=== PATIENT | male | born 1960 | race Caucasian/White ===

== ENCOUNTER 2022-03-15 11:37 | Emergency (ER) | payer MEDICAID, SELFPAY ==
[2022-03-15 11:46] VITALS: BP 156/84; PULSE 97; RESP 18; TEMP 36.2; O2SAT 96; BMI 38.0
--- NOTE | 2022-03-15 11:57 | CRLHL7_ITS ---
For Patients: As a result of the Century Cures Act, medical imaging exams and procedure reports are released immediately into your electronic medical record. You may view this report before your referring provider. If you have questions, please contact your health care provider. CLINICAL HISTORY: Swollen red pain TECHNIQUE: A compression venous ultrasound exam was performed of the right lower extremity using curtis-scale imaging, color Doppler and spectral Doppler analysis. FINDINGS: Sonographic imaging of the right lower extremity demonstrates normal compressibility and color Doppler venous blood flow within the common femoral vein, deep femoral vein, and the proximal greater saphenous vein. Within the thigh, the femoral vein is patent and compressible. At a lower level, the popliteal and posterior tibial veins also show normal compressibility and color Doppler venous blood flow. Limited imaging of the contralateral groin demonstrates a normal spectral waveform and color Doppler venous blood flow within the left common femoral vein. Partial compressibility a superficial vein in the right medial calf. IMPRESSION: No evidence of deep vein thrombosis within the right lower extremity. Thrombus in the right medial calf superficial vein. Dictated by Candi Mcleod MD @ 03/15/2022 1:57:43 PM (Electronically Signed)
--- NOTE | 2022-03-15 11:58 | ED.GENADULT ---
HPI - General Adult General Chief complaint: Extremity Pain/Injury, Lower Stated complaint: Rt leg sore and swollen Time Seen by Provider: 03/15/22 11:54 Source: patient Mode of arrival: ambulatory Limitations: no limitations History of Present Illness HPI narrative: 61-year-old male coming in today complaining of right-sided calf pain. States that the pain started yesterday. Patient denies any shortness of breath, cough, dizziness or lightheadedness. No recent illness. States that he was on an airplane from [place] exactly 2 weeks ago. He denies any recent surgeries. He is not a smoker any has no history of blood clots. Today patient is concerned about a blood clot. Related Data Home Medications Medication Instructions Recorded Confirmed verapamil 180 mg tablet,extended 180 mg PO DAILY 10/03/21 03/14/22 release naproxen 500 mg tablet 500 mg PO QDAY 11/27/21 03/14/22 Previous Rx's Medication Instructions Recorded losartan 100 1 tab PO QDAY Hypertension #90 tabs 12/04/21 mg-hydrochlorothiazide 12.5 mg tablet lorazepam 1 mg tablet 1 mg PO BID PRN anxiety #60 tabs 03/05/22 tramadol 50 mg tablet 50 mg PO Q8H PRN pain #90 tabs 03/05/22 Allergies Allergy/AdvReac Type Severity Reaction Status Date / Time penicillin V Allergy Unknown Verified 03/14/22 09:17 ropinirole AdvReac Intermediate Hot flash, Verified 03/14/22 09:17 dry heaves Review of Systems Status of ROS: Reports: 10 or more systems reviewed and unremarkable except as noted in History and below PFSH PFSH Medical History Anxiety Bilateral hip pain Bilateral knee pain Burn of lower extremity Bursitis History of cluster headache Pain Surgical History History of excision of dermoid cyst (1975) History of skin graft (1964) Family History Father Colon cancer, Onset Age: 57 Lung cancer Social History Narrative: 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 Alert and oriented. Answers questions appropriately. Mood and affect are appropriate. Thoughts are goal oriented and rational. No tangential or magical thinking noted. Patient speaks in full sentences without needing to catch their breath. HEENT: Normocephalic atraumatic. Pupils are equally round reactive to light. Extraocular muscles are intact. Conjunctivae are moist without any icterus noted. Cardiovascular: Regular rate and rhythm. Lungs: Clear to auscultation bilaterally. Extremities: Right lower extremity shows trace to 1+ pitting edema. Patient has skin grafting scars on the posterior calf and thigh from when he was an . He has a small area of the mid medial calf that is more tender than the rest of the calf with some mild erythema present. Negative Homans. Const: Vital Signs, click to edit/add: Vital Signs - 24 hr 03/15/22 11:46 03/15/22 13:48 Temperature 97.2 F L Pulse Rate [Right Pulse Oximeter] 97 71 Respiratory Rate 18 16 Blood Pressure [Ri ght Upper Arm] 156/84 H 145/85 H Pulse Oximetry 96 95 Oxygen Delivery Me thod Room Air Room Air Course Course Hospital Course: Given the patient's recent flight and somewhat dispersed discomfort of the calf area we did go ahead and proceed with a extremity ultrasound. This showed a superficial thrombus, no DVT. Vital Signs Vital signs: Initial Vital Signs Temperature 97.2 F L 03/15/22 11:46 Temperature Source Temporal Artery Scan 03/15/22 11:46 Pulse Rate 97 03/15/22 11:46 Respiratory Rate 18 03/15/22 11:46 Blood Pressure 156/84 H 03/15/22 11:46 Blood Pressure Mean 108 03/15/22 11:46 Blood Pressure Position Sitting 03/15/22 11:46 Pulse Oximetry 96 03/15/22 11:46 Oxygen Delivery Method 03/15/22 11:46 Vital Signs Temperature 97.2 F L 03/15/22 11:46 Pulse Rate 97 03/15/22 11:46 Respiratory Rate 18 03/15/22 11:46 Blood Pressure 156/84 H 03/15/22 11:46 Pulse Oximetry 96 03/15/22 11:46 Oxygen Delivery Method 03/15/22 11:46 Temperature 97.2 F L 03/15/22 11:46 Pulse Rate 71 03/15/22 13:48 Respiratory Rate 16 03/15/22 13:48 Blood Pressure 145/85 H 03/15/22 13:48 Pulse Oximetry 95 03/15/22 13:48 Oxygen Delivery Method 03/15/22 13:48 Medical Decision Making MDM Narrative Medical decision making narrative: 61 year-old male with a superficial lower leg thrombus. Patient is on daily Naprosyn will continue to do that. We discussed warm compresses, compression stockings and physical activity. Patient had no other questions Imaging Data Venous US: Attestation: I have reviewed the pertinent imaging results. Radiologist's impression: TECHNIQUE: A compression venous ultrasound exam was performed of the right lower extremity using curtis-scale imaging, color Doppler and spectral Doppler analysis. FINDINGS: Sonographic imaging of the right lower extremity demonstrates normal compressibility and color Doppler venous blood flow within the common femoral vein, deep femoral vein, and the proximal greater saphenous vein. Within the thigh, the femoral vein is patent and compressible. At a lower level, the popliteal and posterior tibial veins also show normal compressibility and color Doppler venous blood flow. Limited imaging of the contralateral groin demonstrates a normal spectral waveform and color Doppler venous blood flow within the left common femoral vein. Partial compressibility a superficial vein in the right medial calf. IMPRESSION: No evidence of deep vein thrombosis within the right lower extremity. Thrombus in the right medial calf superficial vein. Discharge Plan Discharge Clinical Impression: Acute superficial venous thrombosis of right lower extremity Patient Disposition: Home, Self-Care Condition: Stable Additional Instructions: Continue your regular Naprosyn. Use warm compress to the leg several times per day, do not apply heat directly to skin. Recommend compression stockings when on airplanes. Make sure to increase physical activity as we discussed. Prescriptions: No Action verapamil 180 mg tablet extended release 180 mg PO DAILY naproxen 500 mg tablet 500 mg PO QDAY losartan-hydrochlorothiazide 100-12.5 mg tablet 1 tab PO QDAY Qty: 90 3RF tramadol 50 mg tablet 50 mg PO Q8H PRN (Reason: pain) Qty: 90 2RF lorazepam 1 mg tablet 1 mg PO BID PRN (Reason: anxiety) Qty: 60 0RF Follow Up/Referrals: Spencer Caotes MD [Primary Care Provider] - Stand Alone Forms: [facility] Info Instructions
[2022-03-15 13:48] VITALS: BP 145/85; PULSE 71; RESP 16; O2SAT 95
--- OUTSIDE RECORDS SUMMARY | 2022-03-19 14:37 | XMS_ITS ---
:1960 Author Organization [facility] Care a t [facility] Address [address] [place] [id number]- Encounter 09/01/21 - 09/01/[address] [facility] at [facility] [address] [place] [id number]- [facility] Encounter Diagnosis Elevated blood pressure reading (Discharge Diagnosis) - 09/01/21 COVID (Discharge Diagnosis) - 09/01/21 Attending Physician: JANIE Curry Jessica Admitting Physician: JANIE Curry Jessica Referring Physician: SELF-REFERRED, Problem List Condition Effective Dates Status Health Status Informant Obesity(Confirmed) Active Allergies, Adverse Reactions, Alerts Substance Reaction Severity Status penicillin Active Medications LORazepam 0 Refill(s), Rx or Hx Med Start Date: 09/01/21 Status: Orderedlosartan PO, Daily, 0 Refill(s), Rx or Hx Med Start Date: 09/01/21 Status: Orderedmolnupiravir 200 mg oral capsule 800 mg = 4 cap, Take with or without food for 5 days, PO, q12h, # 40 cap, 0 Refill(s), Indication: COVID-19, Pharmacy: [facility]/pharmacy #[id number], Rx or Hx Med, 175, 09/01/21 18:41:00 EDT, cm, Height/Length Dosing, 111, 09/01/21 18:41:00 EDT, kg, Weight Dosing Start Date: 09/03/21 Stop Date: 09/08/21 Status: Orderednaproxen PO, 0 Refill(s), Rx or Hx Med Start Date: 09/01/21 Status: OrderedtraMADol PO, Daily, 0 Refill(s), Rx or Hx Med Start Date: 09/01/21 Status: Orderedverapamil 0 Refill(s), Rx or Hx Med Start Date: 09/01/21 Status: Ordered Results Laboratory List Name Date Bill For AMB POC COVID Antigen Testing 92500 09/01/21 Most recent to oldest [Reference Range]: 1 POC COVID-19 Positive Comment_BD Normal Range = Negati ve. Positive results do not rule out bacterial infection or co-infection with other viruses. (09/01/21 6:45 PM) POC Rapid COVID-19 BD Veritor Antigen Positive (09/01/21 6:45 PM) Social History Social History Type Response Sex Male Vital Signs Most recent to oldest [Reference Range]: 1 2 Temperature Oral [36-37.8 DegC] 37.2 DegC (09/01/21 6:24 PM) Peripheral Pulse Rate [60-100 bpm] 94 bpm (09/01/21 6:24 PM) Respiratory Rate [12-20 BR/min] 17 BR/min (09/01/21 6:24 PM) Blood Pressure [90-140/60-90 mmHg] 179/79 mmHg 184/8 1 mmHg *HI* *HI* (09/01/21 6:53 PM) (09/01/21 6:24 PM) BP Obtained ? Yes PC Adult Intake (09/01/21 6:24 PM) Height/Length Dosing [129-213 cm] 175 cm (09/01/21 6:24 PM) Body Mass Index Dosing 36.24 kg/m2 (09/01/21 6:24 PM) Weight Dosing 111 kg (09/01/21 6:24 PM) Hospital Discharge Instructions Patient Djeyrcwiv05/05/2022 12:26:27Molnupitavir Fact Sheet_July 2021 Fact Sheet for Patients And Caregivers Emergency Use Authorization (EUA) Of LAGEVRIO??? (molnupiravir) capsules For Coronavirus Disease 2019 (COVID-19) What is the most important information I should know about LAGEVRIO? LAGEVRIO may cause serious sideeffects, including: ??? LAGEVRIO may cause harm to your unborn baby. It is not known if LAGEVRIO will harm your baby if you take LAGEVRIO during . o LAGEVRIO is not recommended for use in . o LAGEVRIO has not been studied in . LAGEVRIO was studied in animals only. When LAGEVRIO was given to animals, LAGEVRIO caused harm to their unborn babies. o You and your healthcare provider may decide that you should take LAGEVRIO during if there are no other COVID-19 treatment options approved or authorized by the FDA that are accessible or clinically appropriate for you. o If you and your healthcare provider decide that you should take LAGEVRIO during , you andyour healthcare provider should discuss the known and potential benefits and the potential risks of taking LAGEVRIO during . For individuals who are able to become : ??? You should use a reliable method of control (contraception) consistently and correctly during treatment with LAGEVRIO and for 4 days after the last dose of LAGEVRIO. Talk to your healthcare provider about reliable control methods. ??? Before starting treatment with LAGEVRIO your healthcare provider may do a test to see if you are before starting treatment with LAGEVRIO. ??? Tell your healthcare provider right away if you become or think you may be during treatment with LAGEVRIO. Surveillance Program: ??? There is a surveillance program for individuals who take LAGEVRIO during . The purpose of this program is to collect information about the health of you and your baby. Talk to your healthcare provider about how to take part in this program. ??? If you take LAGEVRIO during and you agree to participate in the surveillanceprogram and allow your healthcare provider to share your information with [employer], then your healthcare provider will report your use of LAGEVRIO during to [employer]. by calling or pregnancyreporting.[employer]. For individuals who are sexually active with partners who are able to become : ??? It is not known if LAGEVRIO can affect sperm. While the risk is regarded as low, animal studies to fully assess the potential for LAGEVRIO to affect the babies of males treated with LAGEVRIO have not been completed. A reliable method of control (contraception) should be used consistently andcorrectly during treatment with LAGEVRIO and for at least 3 months after the last dose. The risk to sperm beyond 3 months is not known. Studies to understand the risk to sperm beyond 3 months are ongoing. Talk to your healthcare provider about reliable control methods. Talk to your healthcare provider if you have questions or concerns about how LAGEVRIO may affect sperm. You are being given this fact sheet because your healthcare provider believes it is necessary to provide you with LAGEVRIO for the treatment of adults with fvcm-pm-cpwlzmde coronavirus disease 2019 (COVID-19) with positive results of direct SARS-CoV-2 viral testing, and who are at high risk for progression to severe COVID-19 including hospitalization or , and for whom other COVID-19 treatment options approved or authorized by the FDA are not accessible or clinically appropriate. The [place]. Food and Drug Administration (FDA) has issued an Emergency Use Authorization (EUA) to make LAGEVRIO available during the COVID-19 pandemic (for more details about an EUA please see ???What is an Emergency Use Authorization??? at the end of this document). LAGEVRIO is not an FDA-approved medicine in the [place]. Read this Fact Sheet for information about LAGEVRIO. Talk to your healthcare provider about your options if you have any questions. It is your choice to take LAGEVRIO. What is COVID-19? COVID-19 is caused by a virus called a coronavirus. You can get COVID-19 through close contact with another person who has the virus. COVID-19 illnesses have ranged from very kfmf-zi-mbaqtg, including illness resulting in . Whileinformation so far suggests that most COVID-19 illness is mild, serious illness can happen and may cause some of your other medical conditions to become worse. Older people and people of all ages with severe, long lasting (chronic) medical conditions like heart disease, lung disease and diabetes, for example seem to be at higher risk of being hospitalized for COVID-19. What is LAGEVRIO? LAGEVRIO is an investigational medicine used to treat slmo-pv-neiphkaa COVID-19 in adults: ??? with positive results of direct SARS-CoV-2 viral testing, and ??? who are at high risk for progression to severe COVID-19 including hospitalization or , and for whom other COVID-19 treatment options approved or authorized by the FDA are not accessible or clinically appropriate. The FDA has authorized the emergency use of LAGEVRIO for the treatment of mild-to- moderate COVID-19in adults under an EUA. For more information on EUA, see the ???What is an Emergency Use Authorization (EUA)??? section at the end of this Fact Sheet. LAGEVRIO is not authorized: ??? for use in people less than 18 years of age. ??? for prevention of COVID-19. ??? for people needing hospitalization for COVID-19. ??? for use for longer than 5 consecutive days. What should I tell my healthcare provider before I take LAGEVRIO? Tell your healthcare provider if you: ??? Have any allergies ??? Are or plan to breastfeed ??? Have any serious illnesses ??? Are taking any medicines (prescription, pqcg-chx-tlldoxe, vitamins, or herbal products). How do I take LAGEVRIO? Take LAGEVRIO exactly as your healthcare provider tells you to take it. ??? Take 4 capsules of LAGEVRIO every 12 hours (for example, at 8 am and at 8 pm) ??? Take LAGEVRIO for 5 days. It is important that you complete the full 5 days of treatment with LAGEVRIO. Do not stop taking LAGEVRIO before you complete the full 5 days of treatment, even if you feel better. ??? Take LAGEVRIO with or without food. ??? You should stay in isolation for as long as your healthcare provider tells you to. Talk to your healthcare provider if you are not sure about how to properly isolate while you have COVID-19. ??? Swallow LAGEVRIO capsules whole. Do not open, break, or crush the capsules. If you cannot swallow capsules whole, tell your healthcare provider. ??? What to do if you miss a dose: o If it has been less than 10 hours since the missed dose, take it as soon as you remember o If it has been more than 10 hours since the missed dose, skip the missed dose and take your dose at the next scheduled time. ??? Do not double the dose of LAGEVRIO to make up for a missed dose. What are the important possible side effects of LAGEVRIO? See, ???What is the most important information I should know about LAGEVRIO? Allergic Reactions. Allergic reactions can happen in people taking LAGEVRIO, even after only 1 dose. Stop taking LAGEVRIO and call your healthcare provider right away if you get any of the following symptoms of an allergic reaction: o hives o rapid heartbeat o trouble swallowing or breathing o swelling of the mouth, lips, or face o throat tightness o hoarseness o skin rash The most common side effects of LAGEVRIO are: ??? diarrhea ??? nausea ??? dizziness These are not all the possible side effects of LAGEVRIO. Not many people have taken LAGEVRIO. Serious and unexpected side effects may happen. This medicine is still being studied, so it is possible that all of the risks are not known at this time. What other treatment choices are there? Veklury (remdesivir) is FDA-approved as an intravenous (IV) infusion for the treatment of mild- to-moderate COVID-19 in certain adults and children. Talk with your doctor to see if Veklury is appropriate for you. Like LAGEVRIO, FDA may also allow for the emergency use of other medicines to treat people with COVID-19. Go to https://www.fda.gov/saxxmsmnr-ivxgvlaewoal-ece-response/mcm-legal- vqnqimuipu-jsx-dyqjpt-framework/ojsbmkxok-reb-mwbtrlayjxprr for more information. It is your choice to be treated or not to be treated with LAGEVRIO. Should you decide not to take it, it will not change your standard medical care. What if I am ? is not recommended during treatment with LAGEVRIO and for 4 days after the last dose of LAGEVRIO. If you are or plan to breastfeed, talk to your healthcare provider about your options and specific situation before taking LAGEVRIO. How do I report side effects with LAGEVRIO? Contact your healthcare provider if you have any side effects that bother you or do not go away. Report side effects to FDA MedWatch at www.fda.gov/medwatch or call 2-216-OMC-2387 (1- 136.125.4596). How should I store LAGEVRIO? Store LAGEVRIO capsules at room temperature between 68??F to 77??F (20??C to 25??C). ??? Keep LAGEVRIO and all medicines out of the reach of children and pets. How can I learn more about COVID-19? Ask your healthcare provider. ??? Visit www.cdc.gov/COVID19 ??? Contact your local or state public health department. ? ? Call [employer] at (toll free in the [place] ??? Visit www.NetIQ What Is an Emergency Use Authorization (EUA)? The [place] FDA has made LAGEVRIO available under an emergency access mechanism called an Emergency Use Authorization (EUA) The EUA is supported by a [employer] of Health and Human Service ([facility]) declaration that circumstances exist to justify emergency use of drugs and biological products during the COVID-19 pandemic. LAGEVRIO for the treatment of qjbb-ry-admbrnta COVID-19 in adults with positive results of direct SARS-CoV-2 viral testing, who are at high risk for progression to severe COVID-19, including hospitalization or , and for whom alternative COVID-19 treatment options approved or authorized by FDA arenot accessible or clinically appropriate, has not undergone the same type of review as an FDA-approved product. In issuing an EUA under the COVID-19 public health emergency, the FDA has determined, among other things, that based on the total amount of scientific evidence available including data from adequate and well- controlled clinical trials, if available, it is reasonable to believe that the product may be effective for diagnosing, treating, or preventing COVID-19, or a serious or life-threatening disease or condition caused by COVID-19; that the known and potential benefits of the product, when used to diagnose, treat, or prevent such disease or condition, outweigh the known and potential risks of such product; and that there are no adequate, approved, and available alternatives. All of these criteria must be met to allow for the product to be used in the treatment of patients during the COVID-19 pandemic. The EUA for LAGEVRIO is in effect for the duration of the COVID-19 declaration justifying emergency use of LAGEVRIO, unless terminated or revoked (after which LAGEVRIO may no longer be used under the EUA). M[employer]ika. for: [employer] [address] For patent information: www.Evo[employer]/research/patent Copyright ?? 2020-XX [employer] [place], [place], [place] and its affiliates. All rights reserved. [id number] Revised: July 2021 09/01/2021 19:20:[id number] COVID-19, also known as coronavirus disease or novel coronavirus, is caused by a type of virus that causes respiratory illness. This may lead to inflammation and the buildup of mucus and fluids in the airway of the lungs (pneumonia). There are many different coronaviruses. Most of these viruses only affect animals, but sometimes these viruses can change and infect people. What are the causes? This illness is caused by a virus. You may catch the virus by: ??? Breathing in droplets from an infected person's cough or sneeze. ??? Touching something, like a table or a doorknob, that was exposed to the virus (contaminated) andthen touching your mouth, nose, or eyes. ??? Being around animals that carry the virus, or eating uncooked or undercooked meat or animal products that contain the virus. What increases the risk? You are more likely to develop this condition if you: ??? Live in or travel to an area with a COVID-19 outbreak. ??? Come in contact with a sick person who recently traveled to an area with a COVID-19 outbreak. ??? Provide care for or live with a person who is infected with COVID-19. What are the signs or symptoms? COVID-19 causes respiratory illness that can lead to pneumonia. Symptoms of pneumonia may include: ??? A fever. ??? A cough. ??? Difficulty breathing. How is this diagnosed? This condition may be diagnosed based on: ??? Your signs and symptoms, especially if: ??? You live in an area with a COVID-19 outbreak. ??? You recently traveled to or from an area where the virus is common. ??? You provide care for or live with a person who was diagnosed with COVID-19. ??? A physical exam. ??? Lab tests, which may include: ??? A nasal swab to take a sample of fluid from your nose. ??? A throat swab to take a sample of fluid from your throat. ??? A sample of mucus from your lungs (sputum). ??? Blood tests. How is this treated? There is no medicine to treat COVID-19. Your health care provider will talk with you about ways to treat your symptoms. This may include rest, fluids, and guiy-cgc-pdmgnzi medicines. Follow these instructions at home: Lifestyle ??? Use a cool-mist humidifier to add moisture to the air. This can help you breathe more easily. ??? Do not use any products that contain nicotine or tobacco, such as cigarettes, e-cigarettes, and chewing tobacco. If you need help quitting, ask your health care provider. ??? Rest at home as told by your health care provider. ??? Return to your normal activities as told by your health care provider. Ask your health care provider what activities are safe for you. General instructions ??? Take xyow-ecs-ecxeufn and prescription medicines only as told by your health care provider. ??? Drink enough fluid to keep your urine pale yellow. ??? Keep all follow-up visits as told by your health care provider. This is important. How is this prevented? To protect yourself: ??? Do not travel to areas where COVID-19 is a risk. The areas where COVID-19 is reported change often. To identify high-risk areas, check the CDC travel website: wwwnc.cdc.gov/travel/notices ??? If you live in, or must travel to, an area where COVID-19 is a risk, take precautions to avoid infection. ??? Stay away from people who are sick. ??? Stay away from places where there are animals that may carry the virus. This includes places where animals and animal products are sold. Note that both living and animals can carry the virus. ??? Wash your hands often with soap and water. If soap and water are not available, use an alcohol-based hand technical illustrations map inker. ??? Avoid touching your mouth, face, eyes, or nose. To protect others: If you have symptoms, take steps to prevent the virus from spreading to others. ??? If you think you have a COVID-19 infection, contact your health care provider right away. Tell your health care team that you think you may have a COVID-19 infection. ??? Stay home. Leave your house only to seek medical care. ??? Do not travel while you are sick. ??? Wash your hands often with soap and water. If soap and water are not available, use alcohol-based hand technical illustrations map inker. ??? Stay away from other members of your household. If possible, stay in your own room, separate from others. Use a different bathroom. ??? Make sure that all people in your household wash their hands well and often. ??? Cough or sneeze into a tissue or your sleeve or elbow. Do not cough or sneeze into your hand or into the air. ??? Wear a face mask. Where to find more information ??? Centers for Disease Control and Prevention: www.cdc.gov/coronavirus/2019-ncov/index.html ??? World Health Organization: www.who.int/health-topics/coronavirus Contact a health care provider if: ??? You have traveled to an area where COVID-19 is a risk and you have symptoms of the infection. ??? You have contact with someone who has traveled to an area where COVID-19 is a risk and you have symptoms of the infection. Get help right away if: ??? You have trouble breathing. ??? You have chest pain. Summary ??? COVID-19 is caused by a type of virus that causes respiratory illness. This may lead to inflammation and the buildup of mucus and fluids in the airway of the lungs (pneumonia). ??? You are more likely to develop this condition if you live in or travel to an area with a COVID-19 outbreak. ??? There is no medicine to treat COVID-19. Your health care provider will talk with you about ways to treat your symptoms. ??? Take steps to protect yourself and others from infection. Wash your hands often. Stay away from other people who are sick and wear a mask if you are sick. This information is not intended to replace advice given to you by your health care provider. Make sure you discuss any questions you have with your health care provider. Document Released: 03/24/2019 Document Revised: 06/14/2019 Document Reviewed: 03/24/2019 [employer] Patient Education ?? 2020 [employer] 09/01/2021 19:19:32FAQs for COVID-19 Treatments Frequently Asked Questions (FAQs) for COVID-19 Treatments Updated August 07, 2021 Q: What are oral antivirals and how do they work? A: Oral antivirals are medicines taken by mouth that help the body fight off viruses that cause disease. If you are at risk for serious COVID-19 and you have tested positive for COVID-19 within the past 5 days, you may be eligible for the prescription oral antiviral pills. Two treatments are available: ??Paxlovid???([employer]) and??Molnupiravir??([employer]). You may qualify for one of these COVID-19 treatments depending on your age, health history, current medications and how long you have had symptoms. Oral antiviral treatments help your body fight COVID-19 by stopping the SARS-CoV-2 virus (the virus that causes COVID-19) from multiplying in your body, lowering the amount of the virus within your body, or helping your immune system. By getting treatment, you could have less serious symptoms and may lower the chances of your illness getting worse and needing care in the hospital. Q: How to I qualify for Paxlovid or Molnupiravir? A: You may be eligible for oral antiviral treatment if you: ??? Have tested positive for COVID-19 ??? Are at high risk of getting more serious symptoms ??? Are not in the hospital but have mild to moderate symptoms for 5 days or less ??? To be eligible for Molnupiravir, you must be at least 18 years of age. To be eligible for Paxlovid, you must be at least 12 years of age and weigh at least 88 pounds. Q: What if I take other medications or have underlying health conditions, such as kidney or liver problems? A: Before taking any medication, you should discuss your health history with your healthcare professional. This includes telling them about any health conditions you may already have and prescribed medications, inyx-udt-nuczurd medications, vitamins, and supplements you are taking. People with any kidney or liver problems should talk to their healthcare professional about their condition before taking an oral antiviral medication. Your healthcare professional can decide if an oral antiviral treatment is right for you and if your dose is appropriate. Some treatments may not be recommended for people with certain conditions or may require adjustments to doses of medications you are currently taking Q: What if I am , planning to become , my partner is planning to become or are ? A: You should inform your healthcare professional if you are , could become , or arebreastfeeding before taking an oral antiviral. Even men, with partners that are trying to conceive, need to notify your healthcare provider if considering an antiviral medication. Your healthcare professional can decide if an oral antiviral treatment is an option for you. Oral antivirals could affect your control and you may be advised to use other additional birthcontrol methods. control considerations are important for both men and women. Ask your healthcare professional for more information about control before taking oral antivirals. Q: How do I take the oral antivirals and what are the side effects? A: Getting oral antiviral treatment for COVID-19 means that you will be taking pills. You should take the oral antiviral treatment as directed by your healthcare professional. Do not skip doses or takeextra doses if you miss a dose. You should take all of the treatment as directed until you have completed them or until your healthcare professional tells you to stop. Oral antivirals may be taken withor without food and it is recommended that the pills are swallowed whole, without breaking or crushing them. Some of the common side effects include, change in taste, upset stomach or diarrhea. Q: What if I have risk factors for severe COVID 19 but do not qualify for an oral antiviral treatment? Is there another option? A: If your healthcare professional decides that you do not qualify for an oral antiviral treatment, you could be eligible for the intravenous monoclonal antibody treatment. This medication boosts immunity by giving the body antibodies to protect itself. This treatment is in very limited supply. The med ication when available will be given at specific hospital-based locations and only for patients not eligible for the oral treatments. Eligible patients must be 12 years of age or older, have mild to moderative symptoms and be at high risk for progression of COVID-19 disease. Patients given this medication must be monitored for 1 hour following the treatment before being discharged home. Q: Is one of the treatment options better than another? A: The research is changing rapidly. Based on the current studies available on these medications, the availability of the medications and in consultation with our infectious disease specialists: ??? Paxlovid has been shown to prevent hospitalization and in 89% of unvaccinated patients when compared to placebo (no treatment) based on the EPIC- HR trial ??? Molnupirivir has been shown to prevent hospitalization in 30% of unvaccinated patients when compared to placebo (no treatment) based on the MOVE- OUT trial ??? Monoclonal antibody infusion is shown to prevent hospitalization in 34% of unvaccinated patientswhen compared to placebo (no treatment) based on the BLAZE 4 Trial Q: What if I complete the medication and then my symptoms return? A: Between 2 and 8 days after initial recovery, some patients may have COVID-19 symptoms (COVID Rebound) or a new positive viral test after having tested negative. This can be part of the natural history of the virus. Limited information currently available from case reports suggests that persons treated with Paxlovid who experience COVID-19 rebound have had mild illness; there are no reports of severe disease. There is currently no evidence that additional treatment is needed with Paxlovid or othertherapies in cases where COVID-19 rebound is suspected. Q: How do I know when to stop isolating from my family, friends, and co-workers? A: The CDC has a link on their website to advise you on how long to isolate and provide additional guidance: https://www.cdc.gov/coronavirus/2019-ncov/your-health/quarantine-isolation.html
== END 2022-03-15 14:36 | disposition home or self-care (01) ==
PROVIDERS: Emergency Provider Family Medicine; PCP Internal Medicine
DX: I82.811 Embolism and thrombosis of superficial veins of right lower extremity (principal)
CPT/HCPCS: 93971; 99284; 99285

== ENCOUNTER 2022-03-26 14:55 | Observation (INO) | payer MEDICAID, SELFPAY ==
[2022-03-26] VITALS (17 sets, daily range): BP systolic 161–193; BP diastolic 89–111; PULSE 62–83; RESP 16–18; TEMP 36.3–36.4; O2SAT 91–98; BMI 33.2; BMI 37.3
--- NOTE | 2022-03-26 15:17 | CRLHL7_ITS ---
For Patients: As a result of the Century Cures Act, medical imaging exams and procedure reports are released immediately into your electronic medical record. You may view this report before your referring provider. If you have questions, please contact your health care provider. INDICATION: Shortness of breath. TECHNIQUE: CT chest PE was acquired with 95 cc Omnipaque 350 IV contrast. COMPARISON: None. FINDINGS: Heart and vasculature: Contrast opacification of the pulmonary arterial tree is adequate. Acute pulmonary embolism in the distal right main pulmonary artery extending into the right upper/middle/lower segmental/subsegmental pulmonary arteries. Additional acute pulmonary embolism in the left lower lobe segmental/subsegmental pulmonary arteries. Heart size is normal. Mild flattening of the intraventricular septum which could suggest early right heart strain. Thoracic aorta and pulmonary artery are normal in caliber. Coronary artery calcifications. Lungs and pleura: No suspicious nodules or infiltrates. No pleural effusions, pleural thickening, or pneumothorax. Lymph nodes/mediastinum: No mediastinal, hilar, or axillary adenopathy. Chest wall: No masses. Upper abdomen: No acute or significant findings. Bones: Unremarkable for age. IMPRESSION: Acute pulmonary embolism in the distal right main pulmonary artery extending into the right upper/middle/lower segmental/subsegmental pulmonary arteries, as well as additional acute pulmonary embolism in the left lower lobe segmental/subsegmental pulmonary arteries. Mild flattening of the intraventricular septum which could suggest early right heart strain. Case discussed with Dr. Millan are at 5:38 p.m. on 03/26/2022. Please note that all CT scans at this facility use dose modulation, iterative reconstruction, and/or weight-based dosing when appropriate to reduce radiation dose to as low as reasonably achievable. Dictated by David Pham MD @ 03/26/2022 7:32:32 PM (Electronically Signed)
--- NOTE | 2022-03-26 15:19 | ED.GENADULT ---
HPI - General Adult General Time Seen by Provider: 15:19 <David Gonzalez MD - Last Filed: 03/27/22 10:39> Date Seen: 03/26/22 <David Gonzalez MD - Last Filed: 03/27/22 10:39> Chief complaint: Shortness of Breath/Dyspnea <David Gonzalez MD - Last Filed: 03/27/22 10:39> Stated complaint: Blood clot <David Gonzalez MD - Last Filed: 03/27/22 10:39> Time Seen by Provider: 03/26/22 15:14 <David Gonzalez MD - Last Filed: 03/27/22 10:39> Source: patient <David Gonzalez MD - Last Filed: 03/27/22 10:39> Mode of arrival: ambulatory <David Gonzalez MD - Last Filed: 03/27/22 10:39> Limitations: no limitations <David Gonzalez MD - Last Filed: 03/27/22 10:39> History of Present Illness HPI narrative: Francis is a 61 year old male with past medical history includes 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 Since Thursday he has had increasing worsened this exertionally short of breath, patient denies any orthopnea, he has not had any cough, chest pain or fevers, no history of any PEs or DVTs in the past, no history of any CAD. The pain in his right lower calf has improved, swelling is still present. No other concerns at this time. <David Gonzalez MD - Last Filed: 03/27/22 10:39> Related Data Home medications: Home Medications Medication Instructions Recorded Confirmed verapamil 180 mg tablet,extended 180 mg PO DAILY 10/03/21 03/27/22 release naproxen 500 mg tablet 500 mg PO BIDWM 11/27/21 03/27/22 aspirin 325 mg tablet,delayed 325 mg PO DAILY 03/27/22 03/27/22 release (Aspir-Leticia) losartan 100 1 tab PO DAILY Hypertension 03/27/22 03/27/22 mg-hydrochlorothiazide 12.5 mg tablet tramadol 50 mg tablet 25 mg PO Q8H PRN pain 03/27/22 03/27/22 Previous Rx's Medication Instructions Recorded lorazepam 1 mg tablet 1 mg PO BID PRN anxiety #60 tabs 03/05/22 <David Gonzalez MD - Last Filed: 03/27/22 10:39> Allergies/adverse reactions: Allergies Allergy/AdvReac Type Severity Reaction Status Date / Time penicillin V Allergy Unknown Verified 03/26/22 15:02 ropinirole AdvReac Intermediate Hot flash, Verified 03/26/22 15:02 dry heaves <David Gonzalez MD - Last Filed: 03/27/22 10:39> Review of Systems Status of ROS: Reports: 10 or more systems reviewed and unremarkable except as noted in History and below <David Gonzalez MD - Last Filed: 03/27/22 10:39> [facility] Medical History: Medical History Anxiety Bilateral hip pain Bilateral knee pain Burn of lower extremity Bursitis History of cluster headache Pain <David Gonzalez MD - Last Filed: 03/27/22 10:39> Surgical History: Surgical History History of excision of dermoid cyst (1975) History of skin graft (1964) <David Gonzalez MD - Last Filed: 03/27/22 10:39> Family History: Family History Father Colon cancer, Onset Age: 57 Lung cancer <David Gonzalez MD - Last Filed: 03/27/22 10:39> Social History: Social History Narrative: 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 Neck: No JVD, supple Lungs: Clear to auscultation bilaterally Heart Normal sinus rhythm S1-S2 Abdomen: non tender to palpation. Muscle skeletal: Right lower extremity medial aspect chronic scar, minimal tenderness to palpation, no palpable cord, chronic erythema CMS intact. <David Gonzalez MD - Last Filed: 03/27/22 10:39> Const: Vital Signs, click to edit/add: Vital Signs - 24 hr 03/26/22 15:02 03/26/22 15:43 03/26/22 17:30 Temperature 97.4 F L Pulse Rate Pulse Rate [Pulse Oximeter] 82 62 Respiratory Rate 18 16 Blood Pressure Blood Pressure [Ri ght Upper Arm] 193/111 H 161/91 H Pulse Oximetry 93 93 96 Oxygen Delivery Me thod Room Air Room Air 03/26/22 18:00 03/26/22 18:30 03/26/22 20:15 Temperature Pulse Rate Pulse Rate [Pulse Oximeter] 66 64 83 Respiratory Rate 16 16 16 Blood Pressure Blood Pressure [Ri ght Upper Arm] 171/95 H 166/92 H Pulse Oximetry 96 95 94 Oxygen Delivery Me thod Room Air 03/26/22 21:10 03/26/22 21:24 03/26/22 21:30 Temperature Pulse Rate 81 80 Pulse Rate [Pulse Oximeter] 77 Respiratory Rate 16 Blood Pressure Blood Pressure [Ri ght Upper Arm] 173/96 H Pulse Oximetry 94 94 91 Oxygen Delivery Me thod Room Air 03/26/22 21:32 03/26/22 21:45 03/26/22 22:00 Temperature Pulse Rate 77 71 79 Pulse Rate [Pulse Oximeter] Respiratory Rate Blood Pressure 173/97 H Blood Pressure [Ri ght Upper Arm] Pulse Oximetry 92 97 95 Oxygen Delivery Me thod Room Air 03/26/22 22:02 Temperature Pulse Rate 82 Pulse Rate [Pulse Oximeter] Respiratory Rate Blood Pressure 167/96 H Blood Pressure [Ri ght Upper Arm] Pulse Oximetry 98 Oxygen Delivery Me thod <David Gonzalez MD - Last Filed: 03/27/22 10:39> Vital Signs, click to edit/add: Vital Signs - 24 hr 03/26/22 15:02 03/26/22 15:43 03/26/22 17:30 Temperature 97.4 F L Pulse Rate Pulse Rate [Pulse Oximeter] 82 62 Respiratory Rate 18 16 Blood Pressure Blood Pressure [Ri ght Upper Arm] 193/111 H 161/91 H Pulse Oximetry 93 93 96 Oxygen Delivery Me thod Room Air Room Air 03/26/22 18:00 03/26/22 18:30 03/26/22 20:15 Temperature Pulse Rate Pulse Rate [Pulse Oximeter] 66 64 83 Respiratory Rate 16 16 16 Blood Pressure Blood Pressure [Ri ght Upper Arm] 171/95 H 166/92 H Pulse Oximetry 96 95 94 Oxygen Delivery Me thod Room Air 03/26/22 21:10 03/26/22 21:24 03/26/22 21:30 Temperature Pulse Rate 81 80 Pulse Rate [Pulse Oximeter] 77 Respiratory Rate 16 Blood Pressure Blood Pressure [Ri ght Upper Arm] 173/96 H Pulse Oximetry 94 94 91 Oxygen Delivery Me thod Room Air 03/26/22 21:32 03/26/22 21:45 03/26/22 22:00 Temperature Pulse Rate 77 71 79 Pulse Rate [Pulse Oximeter] Respiratory Rate Blood Pressure 173/97 H Blood Pressure [Ri ght Upper Arm] Pulse Oximetry 92 97 95 Oxygen Delivery Me thod Room Air 03/26/22 22:02 Temperature Pulse Rate 82 Pulse Rate [Pulse Oximeter] Respiratory Rate Blood Pressure 167/96 H Blood Pressure [Ri ght Upper Arm] Pulse Oximetry 98 Oxygen Delivery Me thod <Edin Mayo MD - Last Filed: 03/26/22 22:18> Course Course Hospital Course: 3:15 PM: AIDET performed. Less likely pulmonary embolism, will still obtain D-dimer, troponin, EKG, CBC, BMP and NT proBNP, CT chest angiogram PE study, vitals are stable. <David Gonzalez MD - Last Filed: 03/27/22 10:39> Reevaluation(s) Reevaluation #1: Differential diagnosis for shortness of breath include pulmonary embolism, pneumonia, bronchitis, viral etiology, heart failure, CAD/OR, pneumothorax as well as all etiologies. Patient was updated on his EKG results, no acute changes compared to previous, D-dimer was elevated at 2.4, troponin negative, labs are otherwise normal. <David Gonzalez MD - Last Filed: 03/27/22 10:39> Time: 20:16 <David Gonzalez MD - Last Filed: 03/27/22 10:39> Reevaluation #2: CT chest angiogram PE study did show bilateral PEs, worrisome for some early right heart strain. Will plan to call [facility] speak with long wall mining machine tender regarding management. Spoke with Dr. Restrepo long wall mining machine tender. not candidate for thombolytics at this time. Recommended admission for transthoracic echocardiogram, to start patient on heparin over the next 24 hours then transition to oral anticoagulation. Vitals have been stable. <David Gonzalez MD - Last Filed: 03/27/22 10:39> Time: 20:22 <David Gonzalez MD - Last Filed: 03/27/22 10:39> Reevaluation #3: Spoke with Dr. Huang, she accepts care of the patient to a [facility] surgery bed. Patient to be started on heparin, patient was in agreement this plan. <David Gonzalez MD - Last Filed: 03/27/22 10:39> Time: 20:57 <David Gonzalez MD - Last Filed: 03/27/22 10:39> Additional Reevaluation(s): 22:00 patient was signed over to me by pending admission to medical-surgical, with the diagnosis pulmonary emboli, he has a hemodynamically stable, not requiring oxygen at the present time. He has been given heparin by <Edin Mayo MD - Last Filed: 03/26/22 22:18> Vital Signs Vital signs: Initial Vital Signs Temperature 97.4 F L 03/26/22 15:02 Temperature Source Temporal Artery Scan 03/26/22 15:02 Pulse Rate 82 03/26/22 15:02 Respiratory Rate 18 03/26/22 15:02 Blood Pressure 193/111 H 03/26/22 15:02 Blood Pressure Mean 138 03/26/22 15:02 Pulse Oximetry 93 03/26/22 15:02 Oxygen Delivery Method 03/26/22 15:02 Vital Signs Temperature 97.4 F L 03/26/22 15:02 Pulse Rate 82 03/26/22 15:02 Respiratory Rate 18 03/26/22 15:02 Blood Pressure 193/111 H 03/26/22 15:02 Pulse Oximetry 93 03/26/22 15:02 Oxygen Delivery Method 03/26/22 15:02 Temperature 97.8 F 03/27/22 07:00 Pulse Rate 79 03/27/22 07:50 Respiratory Rate 20 03/27/22 07:00 Blood Pressure 156/95 H 03/27/22 07:00 Pulse Oximetry 93 03/27/22 08:00 Oxygen Delivery Method 03/27/22 07:00 <David Gonzalez MD - Last Filed: 03/27/22 10:39> Initial Vital Signs Temperature 97.4 F L 03/26/22 15:02 Temperature Source Temporal Artery Scan 03/26/22 15:02 Pulse Rate 82 03/26/22 15:02 Respiratory Rate 18 03/26/22 15:02 Blood Pressure 193/111 H 03/26/22 15:02 Blood Pressure Mean 138 03/26/22 15:02 Pulse Oximetry 93 03/26/22 15:02 Oxygen Delivery Method 03/26/22 15:02 Vital Signs Temperature 97.4 F L 03/26/22 15:02 Pulse Rate 82 03/26/22 15:02 Respiratory Rate 18 03/26/22 15:02 Blood Pressure 193/111 H 03/26/22 15:02 Pulse Oximetry 93 03/26/22 15:02 Oxygen Delivery Method 03/26/22 15:02 Temperature 97.8 F 03/27/22 07:00 Pulse Rate 79 03/27/22 07:50 Respiratory Rate 20 03/27/22 07:00 Blood Pressure 156/95 H 03/27/22 07:00 Pulse Oximetry 93 03/27/22 08:00 Oxygen Delivery Method 03/27/22 07:00 <Edin Mayo MD - Last Filed: 03/26/22 22:18> Medical Decision Making MDM Narrative Medical decision making narrative: During the evaluation of this patient I considered multiple differential diagnosis is. The life-threatening differential diagnosis include coronary disease/OR, pulmonary embolism, pneumothorax, pneumonia, and aortic dissection. Other differential diagnosis included but were not limited to pericarditis, myocarditis, chest wall pain, GERD, esophageal rupture, rib fracture contusion, pleurisy, as well as other etiologies. <Edin Myao MD - Last Filed: 03/26/22 22:18> Medical Records Medical records reviewed: Yes I reviewed the patient's medical records <Edin Mayo MD - Last Filed: 03/26/22 22:18> Lab Data Lab results reviewed: Yes I reviewed the patient's lab results <Edin Mayo MD - Last Filed: 03/26/22 22:18> Labs: Lab Results 03/26/22 03/26/22 03/26/22 Range/Units 15:20 15:26 15:26 WBC (4.50-11.00) K/uL RBC (4.30-5.90) m/uL Hgb (13.5-17.5) gm/dL Hct (37.0-53.0) % MCV (80-100) fL MCH (26-34) pg MCHC (32-36) gm/dL RDW Coeff of Reza (11.5-15.5) % Plt Count (140-440) K/uL Neut % (Auto) (42.0-72.0) % Lymph % (Auto) (20-44) % [place] % (Auto) (0.0-11.0) % Eos % (Auto) (0.0-7.0) % Baso % (Auto) (0.0-3.0) % Neut # (Auto) (1.7-7.0) K/uL Lymph # (Auto) (0.90-2.90) K/uL [place] # (Auto) (0.00-0.90) K/UL Eos # (Auto) (0.00-0.50) K/uL Baso # (Auto) (0.00-0.30) K/uL INR (0.91-1.10) APTT (23-33) Seconds D-Dimer Quant (PE/DVT) (0.00-0.50) ug/ml Sodium 141 (135-149) mmol/L Potassium 4.3 (3.6-5.1) mmol/L Chloride 108 (96-114) mmol/L Carbon Dioxide 27 (20-32) mmol/L BUN 18 (7-30) mg/dL Creatinine 1.2 (0.5-1.5) mg/dL Estimated Creat Clear 65.46 Estimated GFR 69 ml/min Glucose 105 (60-115) mg/dL Lactate (0.5-1.9) mmol/L Calcium 9.5 (8.4-10.6) mg/dL NT-Pro-B Natriuret Pep 159 Cancelled pg/mL SARS-CoV-2 (PCR) (Negative) Influenza Type A (PCR) (Negative) Influenza Type B (PCR) (Negative) POC Troponin I 0.01 (0.01-0.04) ng/ml 03/26/22 03/26/22 03/26/22 Range/Units 15:26 15:26 20:44 WBC 7.98 (4.50-11.00) K/uL RBC 5.44 (4.30-5.90) m/uL Hgb 16.0 (13.5-17.5) gm/dL Hct 47.3 (37.0-53.0) % MCV 87 (80-100) fL MCH 29 (26-34) pg MCHC 34 (32-36) gm/dL RDW Coeff of Reza 12.1 (11.5-15.5) % Plt Count 238 (140-440) K/uL Neut % (Auto) 46.2 (42.0-72.0) % Lymph % (Auto) 42.2 (20-44) % [place] % (Auto) 8.6 (0.0-11.0) % Eos % (Auto) 2.3 (0.0-7.0) % Baso % (Auto) 0.4 (0.0-3.0) % Neut # (Auto) 3.69 (1.7-7.0) K/uL Lymph # (Auto) 3.37 H (0.90-2.90) K/uL [place] # (Auto) 0.70 (0.00-0.90) K/UL Eos # (Auto) 0.18 (0.00-0.50) K/uL Baso # (Auto) 0.03 (0.00-0.30) K/uL INR 0.96 (0.91-1.10) APTT 29 (23-33) Seconds D-Dimer Quant (PE/DVT) 2.40 H (0.00-0.50) ug/ml Sodium (135-149) mmol/L Potassium (3.6-5.1) mmol/L Chloride (96-114) mmol/L Carbon Dioxide (20-32) mmol/L BUN (7-30) mg/dL Creatinine (0.5-1.5) mg/dL Estimated Creat Clear Estimated GFR ml/min Glucose (60-115) mg/dL Lactate 1.0 (0.5-1.9) mmol/L Calcium (8.4-10.6) mg/dL NT-Pro-B Natriuret Pep pg/mL SARS-CoV-2 (PCR) (Negative) Influenza Type A (PCR) (Negative) Influenza Type B (PCR) (Negative) POC Troponin I (0.01-0.04) ng/ml 03/26/22 Range/Units 21:15 WBC (4.50-11.00) K/uL RBC (4.30-5.90) m/uL Hgb (13.5-17.5) gm/dL Hct (37.0-53.0) % MCV (80-100) fL MCH (26-34) pg MCHC (32-36) gm/dL RDW Coeff of Reza (11.5-15.5) % Plt Count (140-440) K/uL Neut % (Auto) (42.0-72.0) % Lymph % (Auto) (20-44) % [place] % (Auto) (0.0-11.0) % Eos % (Auto) (0.0-7.0) % Baso % (Auto) (0.0-3.0) % Neut # (Auto) (1.7-7.0) K/uL Lymph # (Auto) (0.90-2.90) K/uL [place] # (Auto) (0.00-0.90) K/UL Eos # (Auto) (0.00-0.50) K/uL Baso # (Auto) (0.00-0.30) K/uL INR (0.91-1.10) APTT (23-33) Seconds D-Dimer Quant (PE/DVT) (0.00-0.50) ug/ml Sodium (135-149) mmol/L Potassium (3.6-5.1) mmol/L Chloride (96-114) mmol/L Carbon Dioxide (20-32) mmol/L BUN (7-30) mg/dL Creatinine (0.5-1.5) mg/dL Estimated Creat Clear Estimated GFR ml/min Glucose (60-115) mg/dL Lactate (0.5-1.9) mmol/L Calcium (8.4-10.6) mg/dL NT-Pro-B Natriuret Pep pg/mL SARS-CoV-2 (PCR) Negative SARS-CoV-2 (Negative) Influenza Type A (PCR) Negative PCR FLU A (Negative) Influenza Type B (PCR) Negative PCR FLU B (Negative) POC Troponin I (0.01-0.04) ng/ml <David Gonzalez MD - Last Filed: 03/27/22 10:39> Lab Results 03/26/22 03/26/22 03/26/22 Range/Units 15:20 15:26 15:26 WBC (4.50-11.00) K/uL RBC (4.30-5.90) m/uL Hgb (13.5-17.5) gm/dL Hct (37.0-53.0) % MCV (80-100) fL MCH (26-34) pg MCHC (32-36) gm/dL RDW Coeff of Reza (11.5-15.5) % Plt Count (140-440) K/uL Neut % (Auto) (42.0-72.0) % Lymph % (Auto) (20-44) % [place] % (Auto) (0.0-11.0) % Eos % (Auto) (0.0-7.0) % Baso % (Auto) (0.0-3.0) % Neut # (Auto) (1.7-7.0) K/uL Lymph # (Auto) (0.90-2.90) K/uL [place] # (Auto) (0.00-0.90) K/UL Eos # (Auto) (0.00-0.50) K/uL Baso # (Auto) (0.00-0.30) K/uL INR (0.91-1.10) APTT (23-33) Seconds D-Dimer Quant (PE/DVT) (0.00-0.50) ug/ml Sodium 141 (135-149) mmol/L Potassium 4.3 (3.6-5.1) mmol/L Chloride 108 (96-114) mmol/L Carbon Dioxide 27 (20-32) mmol/L BUN 18 (7-30) mg/dL Creatinine 1.2 (0.5-1.5) mg/dL Estimated Creat Clear 65.46 Estimated GFR 69 ml/min Glucose 105 (60-115) mg/dL Lactate (0.5-1.9) mmol/L Calcium 9.5 (8.4-10.6) mg/dL NT-Pro-B Natriuret Pep 159 Cancelled pg/mL SARS-CoV-2 (PCR) (Negative) Influenza Type A (PCR) (Negative) Influenza Type B (PCR) (Negative) POC Troponin I 0.01 (0.01-0.04) ng/ml 03/26/22 03/26/22 03/26/22 Range/Units 15:26 15:26 20:44 WBC 7.98 (4.50-11.00) K/uL RBC 5.44 (4.30-5.90) m/uL Hgb 16.0 (13.5-17.5) gm/dL Hct 47.3 (37.0-53.0) % MCV 87 (80-100) fL MCH 29 (26-34) pg MCHC 34 (32-36) gm/dL RDW Coeff of Reza 12.1 (11.5-15.5) % Plt Count 238 (140-440) K/uL Neut % (Auto) 46.2 (42.0-72.0) % Lymph % (Auto) 42.2 (20-44) % [place] % (Auto) 8.6 (0.0-11.0) % Eos % (Auto) 2.3 (0.0-7.0) % Baso % (Auto) 0.4 (0.0-3.0) % Neut # (Auto) 3.69 (1.7-7.0) K/uL Lymph # (Auto) 3.37 H (0.90-2.90) K/uL [place] # (Auto) 0.70 (0.00-0.90) K/UL Eos # (Auto) 0.18 (0.00-0.50) K/uL Baso # (Auto) 0.03 (0.00-0.30) K/uL INR 0.96 (0.91-1.10) APTT 29 (23-33) Seconds D-Dimer Quant (PE/DVT) 2.40 H (0.00-0.50) ug/ml Sodium (135-149) mmol/L Potassium (3.6-5.1) mmol/L Chloride (96-114) mmol/L Carbon Dioxide (20-32) mmol/L BUN (7-30) mg/dL Creatinine (0.5-1.5) mg/dL Estimated Creat Clear Estimated GFR ml/min Glucose (60-115) mg/dL Lactate 1.0 (0.5-1.9) mmol/L Calcium (8.4-10.6) mg/dL NT-Pro-B Natriuret Pep pg/mL SARS-CoV-2 (PCR) (Negative) Influenza Type A (PCR) (Negative) Influenza Type B (PCR) (Negative) POC Troponin I (0.01-0.04) ng/ml 03/26/22 Range/Units 21:15 WBC (4.50-11.00) K/uL RBC (4.30-5.90) m/uL Hgb (13.5-17.5) gm/dL Hct (37.0-53.0) % MCV (80-100) fL MCH (26-34) pg MCHC (32-36) gm/dL RDW Coeff of Reza (11.5-15.5) % Plt Count (140-440) K/uL Neut % (Auto) (42.0-72.0) % Lymph % (Auto) (20-44) % [place] % (Auto) (0.0-11.0) % Eos % (Auto) (0.0-7.0) % Baso % (Auto) (0.0-3.0) % Neut # (Auto) (1.7-7.0) K/uL Lymph # (Auto) (0.90-2.90) K/uL [place] # (Auto) (0.00-0.90) K/UL Eos # (Auto) (0.00-0.50) K/uL Baso # (Auto) (0.00-0.30) K/uL INR (0.91-1.10) APTT (23-33) Seconds D-Dimer Quant (PE/DVT) (0.00-0.50) ug/ml Sodium (135-149) mmol/L Potassium (3.6-5.1) mmol/L Chloride (96-114) mmol/L Carbon Dioxide (20-32) mmol/L BUN (7-30) mg/dL Creatinine (0.5-1.5) mg/dL Estimated Creat Clear Estimated GFR ml/min Glucose (60-115) mg/dL Lactate (0.5-1.9) mmol/L Calcium (8.4-10.6) mg/dL NT-Pro-B Natriuret Pep pg/mL SARS-CoV-2 (PCR) Negative SARS-CoV-2 (Negative) Influenza Type A (PCR) Negative PCR FLU A (Negative) Influenza Type B (PCR) Negative PCR FLU B (Negative) POC Troponin I (0.01-0.04) ng/ml <Edin Mayo MD - Last Filed: 03/26/22 22:18> Discharge Plan Discharge Clinical Impression: Bilateral pulmonary embolism <David Gonzalez MD - Last Filed: 03/27/22 10:39> Patient Disposition: Admitted As Inpatient <David Gonzalez MD - Last Filed: 03/27/22 10:39>
[2022-03-26 15:46] LABS: Troponin, Point-of-Care* 0.01 ng/ml (0.01-0.04)
[2022-03-26 15:52] LABS: Chloride* 108 mmol/L (96-114); Sodium* 141 mmol/L (135-149)
[2022-03-26 15:53] LABS: Potassium* 4.3 mmol/L (3.6-5.1)
[2022-03-26 15:55] LABS: Creatinine* 1.2 mg/dL (0.5-1.5); Est. Creatinine Clearance* 65.46; Estimated Glomerular Filt Rate 69 ml/min
[2022-03-26 15:56] LABS: Blood Urea Nitrogen* 18 mg/dL (7-30); Calcium* 9.5 mg/dL (8.4-10.6); Carbon Dioxide* 27 mmol/L (20-32); Glucose* 105 mg/dL (60-115)
[2022-03-26 16:05] LABS: NT Pro B Type NatriureticPept* 159 pg/mL
[2022-03-26 17:39] LABS: Basophils Absolute Auto 0.03 K/uL (0.00-0.30); Basophils Percent Auto 0.4 % (0.0-3.0); Eosinophils Absolute Auto 0.18 K/uL (0.00-0.50); Eosinophils Percent Auto 2.3 % (0.0-7.0); Hematocrit 47.3 % (37.0-53.0); Immature Granulocytes Abs Auto 0.02 K/uL (0.00-0.30); Immature Granulocytes Pct Auto 0.3 %; Lymphocytes Absolute Auto 3.37 K/uL (0.90-2.90); Lymphocytes Percent Auto 42.2 % (20-44); Mean Corpuscular HGB Conc 34 gm/dL (32-36); Mean Corpuscular Hemoglobin 29 pg (26-34); Mean Corpuscular Volume 87 fL (80-100); Monocytes Percent Auto 8.6 % (0.0-11.0); Neutrophils Absolute Auto 3.69 K/uL (1.7-7.0); Neutrophils Percent Auto 46.2 % (42.0-72.0); Platelet Count* 238 K/uL (140-440); RDW Coefficient of Variation % 12.1 % (11.5-15.5); Red Blood Count 5.44 m/uL (4.30-5.90); Slide Review Reflex No; White Blood Count* 7.98 K/uL (4.50-11.00)
[2022-03-26] MEDS: HEPARIN 5,000 UNIT/0.5 ML INJ 8200 UNIT IVP (20:48)
[2022-03-26] MEDS: HEPARIN 25,000 UNIT/500 ML BAG 30 UNIT IV (20:49)
[2022-03-26 20:52] LABS: INR 0.96 (0.91-1.10); Prothrombin Time 13.4 Seconds
[2022-03-26 20:53] LABS: Partial Thromboplastin Time* 29 Seconds (23-33)
[2022-03-26 21:56] LABS: PCR FLU A Negative PCR FLU A (Negative); PCR FLU B Negative PCR FLU B (Negative)
--- NOTE | 2022-03-26 22:13 | ED.NURSE ---
Report to NIKKO Johnson on Med Surg. Patient will be going to room 258 once COVID results back.
[2022-03-26 22:20] LABS: SARS PCR* Negative SARS-CoV-2 (Negative)
[2022-03-27] VITALS (10 sets, daily range): BP systolic 151–177; BP diastolic 85–100; PULSE 67–97; RESP 18–20; TEMP 36.3–37; O2SAT 93–96
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
[2022-03-27 03:05] LABS: INR 1.03 (0.91-1.10); Prothrombin Time 14.2 Seconds
[2022-03-27 03:22] LABS: Partial Thromboplastin Time* 92 Seconds (23-33)
--- NOTE | 2022-03-27 06:05 | PC.NURSE ---
Admission note: Pt arrived at the unit at 2240 accompanied by his partner. A/O, and ambulate with A1 on arrival. Denied any pain. No Sob Noted. Bp has been high tonight but other v/s stable. Heparin drip running per protocol. CPAP set up for night r/t sleep apnea according to pt. Doing very well this morning.
[2022-03-27] MEDS: hydroCHLOROthiazide 12.5 MG CAPSULE PO (10:28)
[2022-03-27] MEDS: LOSARTAN POTASSIUM 50 MG TABLET 100 MG PO (10:28)
[2022-03-27 11:14] LABS: Partial Thromboplastin Time* 67 Seconds (23-33)
--- NOTE | 2022-03-27 14:04 | PC.NURSE ---
Pt continues on heparin gtt at 1300 units per hour (26ml each with 50units/ml). PTT at 1030 am 67, range 55-80 indicates no change in heparin infusion rate. Reviewed protocol with Anisa Borrego RN. Next PTT scheduled for 1630 pm. Pt denies dyspnea or chest discomfort. UAL in room. Continue Heparin gtt until bag is empty or STOP gtt at 9pm per Dr. Chin. START PO eloquis at 9pm. Dr. Chin asked primary RN to cancel PTT scheduled for 1630. Lab notified. Pt's sig other Terry brought in his Verapamil 180 mg ER, labeled by [facility] and placed in pt's warp drawer med room. Added med to pt's belonging list for planned discharge. Awaiting echocardiogram at bedside this afternoon. Report will be given to oncoming shift RN per protocol.
--- NOTE | 2022-03-27 14:18 | PC.NURSE ---
Addendum: Tele indicates NSR.
[2022-03-27] MEDS: APIXABAN 5 MG TABLET 10 MG PO ×2 (15:21→23:59)
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
--- NOTE | 2022-03-27 18:12 | PC.NURSE ---
Shift note: Pt s doing well, had a bath today. Telemetry reading as NSR, systolic BP is around 150. Tolerating regular diet very well. Denied pain, SOB and N/V.
[2022-03-27] MEDS: SODIUM CHLORIDE 0.9 % (FLUSH) 10 ML SYRINGE 5 ML IVF (21:00)
[2022-03-28 03:00] VITALS: BP 166/94; PULSE 77; RESP 18; TEMP 36.6; O2SAT 96
[2022-03-28 04:21] VITALS: BP 137/84; PULSE 72; RESP 16; TEMP 36.4; O2SAT 95
[2022-03-28 07:02] LABS: Hematocrit 48.3 % (37.0-53.0); Hemoglobin* 16.1 gm/dL (13.5-17.5); Mean Corpuscular HGB Conc 33 gm/dL (32-36); Mean Corpuscular Hemoglobin 29 pg (26-34); Mean Corpuscular Volume 88 fL (80-100); Platelet Count* 239 K/uL (140-440); White Blood Count* 10.82 K/uL (4.50-11.00)
[2022-03-28 07:12] LABS: Slide Review Reflex No
[2022-03-28 07:19] VITALS: PULSE 62
--- NOTE | 2022-03-28 07:45 | PC.NURSE ---
Patient is alert and oriented x 3, able to make needs known to staff. Pt denies pain on assessment, VSS on RA. Independent with transfers, continent of bowel and bladder. Pt appears stable, call light with in reach.
[2022-03-28 08:34] VITALS: BP 142/81; PULSE 73; RESP 16; TEMP 36.4; O2SAT 96
[2022-03-28] MEDS: hydroCHLOROthiazide 12.5 MG CAPSULE PO (08:48)
[2022-03-28] MEDS: APIXABAN 5 MG TABLET 10 MG PO (08:48)
[2022-03-28] MEDS: LOSARTAN POTASSIUM 50 MG TABLET 100 MG PO (08:48)
[2022-03-28] MEDS: SODIUM CHLORIDE 0.9 % (FLUSH) 10 ML SYRINGE 5 ML IVF (08:51)
[2022-03-28 11:15] VITALS: BP 167/96; PULSE 62; RESP 16; TEMP 36.4
[2022-03-28 12:16] VITALS: BP 167/96; PULSE 62; RESP 16; TEMP 36.4
--- NOTE | 2022-03-28 12:17 | PC.NURSE ---
Discharge: Patient pleasant and cooperative. Independent, tolerating regular diet well, denies pain or SOB. Tele shows NSR. IV removed with catheter intact. Vitals stable and WNL. Discharge instructions, follow up and medication orders reviewed, questions answered as needed. Patient ambulated out to own car @ 1206, discharged to home.
--- NOTE | 2022-03-28 17:13 | PM.DS1 ---
DS: Providers Provider Date Seen: 03/28/22 Date of admission: 03/26/22 22:31 Primary care physician: Spencer Coates MD Admitting Clinician: Bouchra Huang MD Attending Physician on discharge: Bouchra Huang MD Date of Discharge: 03/28/22 DS: Diagnosis Discharge Diagnosis (1) Bilateral pulmonary embolism: Status: Acute Problem details: Initiated on heparin then switched to apixaban. Tolerating this well. Having dyspnea with exertion but comfortable at rest. Not requiring oxygen. No hypotension. Tentatively I consider this to be an unprovoked pulmonary embolism and would recommend long-term therapy. This can be reviewed as an outpatient. (2) Central sleep apnea: Status: Acute Problem details: On CPAP (3) Acute superficial venous thrombosis of right lower extremity: Status: Acute (4) Bilateral knee pain: Status: Acute Problem details: Avoid NSAIDs while taking apixaban (5) Pulmonary hypertension: Status: Acute Problem details: Preliminary echo suggests severe pulmonary hypertension likely due to thromboembolic disease. Consider outpatient follow-up DS: Summary Hospital Course Hospital Course: Patient admitted to the hospital with recent history of superficial vein thrombosis in his leg with ultrasound showing no DVT about 1 week ago followed by the development of acute dyspnea in the couple days prior to admission. He was found in the emergency department to have bilateral pulmonary emboli. Suggestion of heart strain on the CT scan. Echocardiogram was obtained and showed pulmonary hypertension on preliminary report. Fortunately patient was relatively asymptomatic during his hospital stay. He never required oxygen. He mostly had hypertension during his hospital stay and is normal blood pressure medicines were resumed.. Status at Discharge Cognitive/behavioral status at discharge: At baseline Functional status at discharge: independent ambulation Overall status at discharge: patient is progressing back to baseline Time Spent with Patient Time attestation: Total time spent providing and/or coordinating discharge services: Time spent: Greater than 30 minutes Exam Narrative: Exam Narrative: He is alert and appears in no distress. Breathing is unlabored. Vitals are normal on room air. Const: Vital Signs, click to edit/add: Vital Signs - 24 hr 03/27/22 19:00 03/27/22 23:00 03/27/22 23:00 Temperature 98.6 F 97.9 F Pulse Rate Pulse Rate [Right Pulse Oximeter] 87 87 77 Respiratory Rate 18 18 18 Blood Pressure Blood Pressure [Ri ght Arm] 151/86 H 166/94 H Pulse Oximetry 94 96 Oxygen Delivery Me thod Room Air Room Air 03/28/22 03:00 03/28/22 04:21 03/28/22 07:19 Temperature 97.9 F 97.5 F L Pulse Rate 62 Pulse Rate [Right Pulse Oximeter] 77 72 Respiratory Rate 18 16 Blood Pressure Blood Pressure [Ri ght Arm] 166/94 H 137/84 Pulse Oximetry 96 95 Oxygen Delivery Me thod Room Air Room Air 03/28/22 08:34 03/28/22 08:34 03/28/22 11:15 Temperature 97.5 F L 97.5 F L Pulse Rate 62 Pulse Rate [Right Pulse Oximeter] 73 Respiratory Rate 16 16 Blood Pressure 167/96 H Blood Pressure [Ri ght Arm] 142/81 H Pulse Oximetry 96 96 Oxygen Delivery Me thod Room Air 03/28/22 12:16 Temperature 97.5 F L Pulse Rate 62 Pulse Rate [Right Pulse Oximeter] Respiratory Rate 16 Blood Pressure 167/96 H Blood Pressure [Ri ght Arm] Pulse Oximetry Oxygen Delivery Me thod Documenting provider has reviewed patient's vital signs: yes DS: Data Data Completed and Pending Labs on day of discharge: Labs from last 24 hours 03/28/22 05:58 WBC 10.82 RBC 5.50 Hgb 16.1 Hct 48.3 MCV 88 MCH 29 MCHC 33 Plt Count 239 Discharge Plan Discharge Disposition: Home, Self-Care Date of Admission: 03/26/22 22:31 Attending Provider on Discharge: Vin Chin Primary Care Provider: Spencer Coates Condition: Improved Anticipated Discharge Date/Time: 03/28/22 10:34 Discharge Medications: New apixaban 5 mg (74 tabs) tablets,dose pack See Rx Instructions .ROUTE .COMPLEX Qty: 74 0RF Rx Instructions: orally per package directions Continued verapamil 180 mg tablet extended release 180 mg PO DAILY tramadol 50 mg tablet 25 mg PO Q8H PRN (Reason: pain) losartan-hydrochlorothiazide 100-12.5 mg tablet 1 tab PO DAILY lorazepam 1 mg tablet 1 mg PO BID PRN (Reason: anxiety) Qty: 60 0RF Discontinued naproxen 500 mg tablet 500 mg PO BIDWM aspirin [Aspir-Leticia] 325 mg tablet,delayed release (DR/EC) 325 mg PO DAILY Discharge Orders: Discharge Order (Routine); Ordered 03/28/22 Ordered By: Vin Chin Patient Education: Apixaban (By mouth), Pulmonary Embolism (DC) Additional Instructions: Avoid aspirin an NSAIDs, nonsteroidal anti-inflammatory drugs such as naproxen, as they increase the risk of bleeding while taking apixaban Activity Level: Activity as Tolerated Discharge Diet: Regular Follow Up Appointments: Spencer Coates MD [Primary Care Provider] - 05/06/22 9:15 am (At the [facility]& location Call if you have any questions) Forms: [employer] Info Instructions
== END 2022-03-28 12:06 | disposition home or self-care (01) ==
LOC: ED 22:15 → MEDSURG 22:33
PROVIDERS: Hospitalist; Student in an Organized Health Care Education/Training Program; Admitting Provider Family Medicine; Emergency Provider Family Medicine; PCP Internal Medicine; Visit Provider Family Medicine
DX: I26.99 Other pulmonary embolism without acute cor pulmonale (principal); I27.20 Pulmonary hypertension, unspecified; I82.811 Embolism and thrombosis of superficial veins of right lower extremity; G47.31 Primary central sleep apnea; M25.561 Pain in right knee; M25.562 Pain in left knee; I10 Essential (primary) hypertension; Z86.718 Personal history of other venous thrombosis and embolism; Z98.890 Other specified postprocedural states; Z87.898 Personal history of other specified conditions; R06.00 Dyspnea, unspecified; Z99.89 Dependence on other enabling machines and devices
CPT/HCPCS: 36415; 71260; 80048; 83605; 83880; 84484; 85025; 85027; 85379; 85610; 85730; 87631; 93005; 93306; 94761; 96365; 96366; 96375; 99285; G0378; A9270; J1644; Q9967

== ENCOUNTER 2022-04-02 10:03 | Outpatient (CLI) | payer MEDICAID, SELFPAY ==
--- NOTE | 2022-04-02 10:30 | CRLHL7_ITS ---
For Patients: As a result of the Century Cures Act, medical imaging exams and procedure reports are released immediately into your electronic medical record. You may view this report before your referring provider. If you have questions, please contact your health care provider. INDICATION: +PE, 03/26/22. +for right medial calf superficial thrombophlebitis COMPARISON: 03/15/2022 TECHNIQUE: A compression venous ultrasound exam was performed of both lower extremities using curtis scale imaging, color Doppler and spectral Doppler analysis. FINDINGS: Noncompressible hypoechoic clot is present within the distal right posterior tibial vein. No other DVT bilaterally. Extensive superficial clot within the right calf extending from the proximal calf to the dorsal aspect of the foot. No superficial thrombus left leg. IMPRESSION: Focal DVT distal right posterior tibial vein. Long segment superficial thrombus right calf. No deep venous or superficial clot left leg. Dictated by Kwan Fox MD @ 04/02/2022 11:48:19 AM (Electronically Signed)
== END 2022-04-02 10:04 | disposition home or self-care (01) ==
LOC: US 10:04
PROVIDERS: PCP Internal Medicine; Visit Provider Internal Medicine
DX: I27.20 Pulmonary hypertension, unspecified (principal); I82.4Z1 Acute embolism and thrombosis of unspecified deep veins of right distal lower extremity; I82.461 Acute embolism and thrombosis of right calf muscular vein
CPT/HCPCS: 93970

== ENCOUNTER 2022-04-16 10:45 | Outpatient (CLI) | payer MEDICAID, SELFPAY ==
[2022-04-18 22:56] LABS: Protein C Functional 172 % (83-168); Protein S Functional 127 % (66-143)
[2022-04-21 22:41] LABS: FACV Specimen Whole Blood; Factor V Leiden (F5) Mutation Negative
== END 2022-04-16 10:46 | disposition home or self-care (01) ==
PROVIDERS: PCP Internal Medicine; Visit Provider Internal Medicine
DX: I26.99 Other pulmonary embolism without acute cor pulmonale (principal)
CPT/HCPCS: 81241; 85303; 85306

== ENCOUNTER 2022-12-17 10:05 | Outpatient (CLI) | payer MEDICAID, SELFPAY ==
--- OUTSIDE RECORDS SUMMARY | 2022-12-18 09:39 | XMS_ITS | Continuity of Care Document ---
Author Name Unknown Organization [facility] Address [address] [place] [address] Phone Care Team Providers Care Senior Android Software Engineer Name Role Phone Jason Hutchinson Unavailable Unavailable Allergies, Adverse Reactions, Alerts Substance Reaction Status Criticality PENICILLIN Active No Information Medications Medication Instructions Dosage Effective Dates (start - stop) Status Comments VERAPAMIL ER PM (unknown strength) Not Available - Active LISINOPRIL (unknown strength) Not Available - Active SERTRALINE HCL (unknown strength) Not Available - Active NAPROXEN (unknown strength) Not Available - Active CYCLOBENZAPRINE HCL (unknown strength) Not Available - Active HYDROCODONE -ACETAMINOPHEN (unknown strength) Not Available - Active Procedures Procedure Date Office/Outpatient Visit,[facility] 2016 Advance Directives Directive Yes / No Effective Date File Name No Information Encounters Encounter Description Practice Location Reason(s) For Visit Diagnoses Date Provider Providers Copied on Encounter Office/Outpat ient Visit,New, [facility], [address], [place], [place], [id number], [place] tel:[phone] [facility] Other [facility]ondylosis , lumbar region Seferino Gomez. [facility], [address], [place], [place], [id number], [place]. tel:[phone] Referring Provider: Spencer Coates [facility] [address] [place], [address]. tel:[phone] Family History Family Member Type Diagnosis Age At Onset No Information Payers Payer name Insurance type Covered green party ID Authoriza tion(s) No Information Social History Type Description Quantity Date Captured Comments Alcohol Use Details Unknown Caffeine Use Details Unknown Tobacco Use Status Occasional cigarette smoker Smoking Status Former smoker Smoking Tobacco Use Details Cigarette: No Details Available Cigarette: No Details Available Sex Male Vital Signs Date / Time: Height Weight BMI Pulse Rate Blood Pressure Temperature Respiratory Rate Body Surface Area Head Circumference Head Circ. Percentile Wt./Ruddy. Percentile BMI percentile Pulse Ox Inhaled Ox 12:34 PM 69.00 in 117.934 kg (260.00 lbs) 38.3 9 kg/m eter (2) 82 /min 137/74 mm[Hg] Chief Complaint And Reason For Visit No Information Reason For Referral Reason For Referral No Information History Of Present Illness Encounter Date Complaint History Of Prese nt Illness No Information Functional Status Date Functional Assessmen t No Information Instructions Date Instruction Additional Infor mation No Information Assessments Type Assessment Date assessment Other spondylosis, lumbar region Patient Care Teams Name Effective Dates (start - stop) Status Members No Information
== END 2022-12-17 10:06 | disposition home or self-care (01) ==
LOC: NFLDREF 12-18 09:37
PROVIDERS: PCP Internal Medicine; Referring Provider Internal Medicine; Visit Provider Internal Medicine
DX: I27.20 Pulmonary hypertension, unspecified (principal); I10 Essential (primary) hypertension; I26.99 Other pulmonary embolism without acute cor pulmonale; K21.9 Gastro-esophageal reflux disease without esophagitis; Z12.5 Encounter for screening for malignant neoplasm of prostate
CPT/HCPCS: 80053; 80061; 84153

== ENCOUNTER 2023-02-11 12:46 | Outpatient (CLI) | payer MEDICAID, SELFPAY ==
--- OUTSIDE RECORDS SUMMARY | 2023-02-11 12:48 | XMS_ITS | Continuity of Care Document ---
Author Name Unknown Organization [facility] Address [address] [place] [address] Phone Care Team Providers Care Assembler Camper Name Role Phone Jason Hutchinson Unavailable Unavailable [...] - Active Procedures Procedure Date Office/Outpatient Visit,[facility], [facility] 2016 Advance Directives Directive Yes / No Effective Date File Name No Information Encounters Encounter Description Practice Location Reason(s) For Visit Diagnoses Date Provider Providers Copied on Encounter Office/Outpat ient Visit,New, [facility], [address], [place], [place], [id number], [place] tel:[phone] [facility] Other spondylosis , lumbar region Sefernio Gomez. [facility], [address], [place], [place], [id number], [place]. tel:[phone] Referring Provider: Spencer Coates [facility] [address] [place], [address]. tel:[phone] Family History Family Member Type Diagnosis Age At Onset No Information Payers Payer name Insurance type Covered alliance party ID Authoriza tion(s) No Information Social [...]
--- NOTE | 2023-02-11 13:00 | CRLHL7_ITS ---
For Patients: As a result of the Century Cures Act, medical imaging exams and procedure reports are released immediately into your electronic medical record. You may view this report before your referring provider. If you have questions, please contact your health care provider. INDICATION: Pain in leg, unspecified COMPARISON: 04/02/2022 TECHNIQUE: A compression venous ultrasound exam was performed of both lower extremities using curtis scale imaging, color Doppler and spectral Doppler analysis. FINDINGS: Hypoechoic noncompressible clot is present within the distal right greater saphenous vein in the distal calf. This has improved since the prior examination. Hypoechoic incompletely compressible nonocclusive clot within the left popliteal vein, new from the prior study. The common femoral and superficial veins are normally patent and compressible bilaterally with normal Doppler flow. Normal right popliteal vein. Posterior tibial veins are patent bilaterally. IMPRESSION: Improved appearance of the superficial clot within the right calf GSV. Interval development of nonocclusive DVT within the left popliteal vein. Prelim provided to the ordering provider immediately following the examination. The power generation equipment repairer radiologist attempted to call the ordering provider without success. Dictated by Kwan Fox MD @ 02/12/2023 9:19:17 AM (Electronically Signed)
== END 2023-02-11 12:47 | disposition home or self-care (01) ==
LOC: US 12:46
PROVIDERS: PCP Internal Medicine; Visit Provider Internal Medicine
DX: M79.606 Pain in leg, unspecified (principal); I82.4Z2 Acute embolism and thrombosis of unspecified deep veins of left distal lower extremity; I82.461 Acute embolism and thrombosis of right calf muscular vein
CPT/HCPCS: 93970

== ENCOUNTER 2023-03-25 09:08 | Outpatient (REF) | payer MEDICAID, SELFPAY ==
--- OUTSIDE RECORDS SUMMARY | 2023-03-25 09:32 | XMS_ITS | Encounter Summary ---
Author Name Unknown Organization [facility] Address [address] [place] [id number] Care Team Providers Care Improvement Advisor Name Role Phone Unavailable Primary Care Provider Unavailabl e Encounter Details Date Type Department Care Team (Latest Contact Info) Description 03/23/2023 7:12 AM ACOUSTICAL LOGGING ENGINEER - 03/23/2023 11:59 PM [facility] Hospital Encounter Department of Laboratory Medicine and Pathology, [facility], in [place], [place] [address] [place] [address] Renate Luo M.D. [address] [place] [address] Other Specified Disorders Of Adrenal Gland (HCC) Discharge Disposition: Home or Self Care Social History Tobacco Use Types Packs/Day Years Used Date Smoking Tobacco: Former Cigarettes 2 16 1 - 11/12/1996 Smokeless Tobacco: Never Alcohol Use Standard Drinks/Week Comments Never 0 (1 standard drink = 0.6 oz pur e alcohol) [facility] Utilities Answer Date Recorded In the past 12 months has [employer], gas, oil, or water [employer] threatened to shut off services in your home? No 03/02/2023 Exercise Vital Sign Answer Date Recorde d On average, how many days pe r week do you engage in moderate to strenuous exercise (like a brisk walk)? 1 day 03/02/2023 On average, how many minutes do you engage in exercise at this level? 30 min 03/02/2023 Hunger Vital Sign Answer Date Recorded Within the past 12 months, y ou worried that your food would run out before you got the money to buy more. Never true 03/02/19 24 Within the past 12 months, t he food you bought just didn't last and you didn't have money to get more. Never true 03/02/2023 PRAPARE - Transportation Answer Date Re corded In the past 12 months, has l ack of transportation kept you from medical appointments or from getting medications? No 03/2023 In the past 12 months, has l ack of transportation kept you from meetings, work, or from getting things needed for daily living? No 03/02/2023 Nutrition Answer Date Recorded Nutrition: EVOO Fat Source Unknown 03/02 On average, how many serving s of fruits and vegetables do you eat per day (serving size is equal to 1 cup or approximately the size of a tennis ball)? 0-2 03/02/2023 Dental Answer Date Recorded Dental: Regular Dentist Yes 03/02/19 Employment Answer Date Recorded Employment status Unemployed/not in e paid workforce but seeking employment 03/02/2023 Housing Stability Answer Date Recorded What is your living situation today? I have a [facility] place to live 03/02/2023 Sex and Gender Information Value Date Recorded Sex Assigned at Male 03/02/2023 10:00 AM ACOUSTICAL LOGGING ENGINEER Gender Identity Male 03/02/2023 10:00 AM ACOUSTICAL LOGGING ENGINEER Sexual Orientation Lesbian or Boo 03/02/2023 10 :00 AM ACOUSTICAL LOGGING ENGINEER documented as of this encounter Medications at Time of Discharge Medication Sig Dispensed Refills Start Date End Date enoxaparin (LOVENOX) 120 mg/0.8 mL injection Inject 0.73 mL (110 mg total) under the skin 2 (two) times a day. 48 mL 0 03/11/2023 04/10/2023 LORazepam (ATIVAN) 1 mg tablet Take 1 mg by mouth 2 (two) times a day as needed. for anxiety 0 losartan-hydroCHLOROthia zide (HYZAAR) 100-12.5 mg per tablet Take 1 tablet by mouth daily. 0 traMADoL (ULTRAM) 50 mg tablet Take 50 mg by mouth every 8 (eight) hours as needed for pain. 0 verapamiL (CALAN-SR) 180 mg ER tablet Take 180 mg by mouth daily. 0 documented as of this encounter Plan of Treatment Upcoming Encounters Date Type Department Care Team (Late st Contact Info) Description 06/12/2023 12:30 PM CDT Appointment Department of Laboratory Medicine and Pathology, [facility], in [place], [place] [address] [place] [address] Diana Ramírez D.O. [address] [place] [address] 06/12/2023 2:00 PM CDT Office Visit Department of Vascular Medicine in [place], [place] [address] [place] [address] Diana Ramírez D.O. [address] [place] [address] Scheduled Orders Name Type Priority Associated Diagnoses Orde r Schedule Cortisol, Saliva Lab Routine Other Specified Disorders Of Adrenal Gland (HCC) Once for 1 Occurrences starting 03/23/2023 until 03/23/2023 Cortisol, Saliva Lab Routine Other Specified Disorders Of Adrenal Gland (HCC) Once for 1 Occurrences starting 03/23/2023 until 03/23/2023 Creatinine, 24 hour, Urine Lab Routine Other Specified Disorders Of Adrenal Gland (HCC) Once for 1 Occurrences starting 03/23/2023 until 03/23/2023 Cortisol, Free, 24 hour, Urine Lab Routine Other Specified Disorders Of Adrenal Gland (HCC) Once for 1 Occurrences starting 03/23/2023 until 03/23/2023 documented as of this encounter Visit Diagnoses Diagnosis Other Specified Disorders Of Adrenal Gland (HCC) documented in this encounter
--- OUTSIDE RECORDS SUMMARY | 2023-03-25 09:32 | XMS_ITS | Clinical Summary ---
Author Name Unknown Organization [facility] Address [address] [place] [address] Care Team Providers Care Escrow Officer Name Role Phone Unavailable Primary Care Provider Unavailabl e Source Comments Patient records contain information from all sites at [facility]. For routine questions regarding patient records, call [phone] during business hours, M-F 8:00 AM - 5:00 PM Central Time. Record requests for emergency care only can be directed to [phone] at any time.[facility] Allergies Active Allergy Reactions Criticality Noted Date Comments Penicillin Other (see comments) 03/11/2023 Reaction happened as child Ropinirole GI intolerance High 02/09/2023 Medications Medication Sig Dispensed Refills Start Date End Date Status enoxaparin (LOVENOX) 120 mg/0.8 mL injection Inject 0.73 mL (110 mg total) under the skin 2 (two) times a day. 48 mL 0 03/11/2023 04/10/2023 Active losartan-hydroCHLO ROthiazide (HYZAAR) 100-12.5 mg per tablet Take 1 tablet by mouth daily. 0 Active traMADoL (ULTRAM) 50 mg tablet Take 50 mg by mouth every 8 (eight) hours as needed for pain. 0 Active verapamiL (CALAN-SR) 180 mg ER tablet Take 180 mg by mouth daily. 0 Active LORazepam (ATIVAN) 1 mg tablet Take 1 mg by mouth 2 (two) times a day as needed. for anxiety 0 Active enoxaparin (LOVENOX) 100 mg/mL injection Inject 1.1 mL (110 mg total) under the skin 2 (two) times a day. 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 Other Specified Disorders Of Adrenal Gland (HCC) Discharge Disposition: Home or Self Care 03/20/2023 1:30 PM COMMERCIAL SEWING INSTRUCTOR Comprehensive Visit Division of Endocrinology in [address] [phone] Renate Luo M.D. Hyperglycemia (Primary Dx); Other Specified Disorders Of Adrenal Gland (HCC); Intolerance Heat Initial 03/17/2023 4:00 PM COMMERCIAL SEWING INSTRUCTOR Telemedicine Department of Vascular Medicine in [place], [place] [address] [place] [phone] Diana Ramírez D.O. Acute Embolism And Thrombosis Of Unspecified Deep Veins Of Lower Extremity Bilateral (HCC) (Primary Dx); Other Specified Disorders Of Adrenal Gland (HCC); Dilated Common Bile Duct 03/11/2023 2:52 PM COMMERCIAL SEWING INSTRUCTOR - 03/11/2023 11:59 PM COMMERCIAL SEWING INSTRUCTOR Hospital Encounter Department of Radiology, [place], [place] [address] [place] [address] Diana Ramírez D.O. Acute Embolism And Thrombosis Of Unspecified Deep Veins Of Lower Extremity Bilateral (HCC) Discharge Disposition: Home or Self Care 03/09/2023 1:04 PM COMMERCIAL SEWING INSTRUCTOR - 03/09/2023 11:59 PM COMMERCIAL SEWING INSTRUCTOR Hospital Encounter Department of Radiology, [facility] in [place], [place] [address] [place] [phone] Diana Ramírez D.O. Acute Embolism And Thrombosis Of Unspecified Deep Veins Of Lower Extremity Bilateral (HCC) Discharge Disposition: Home or Self Care 03/09/2023 10:30 AM COMMERCIAL SEWING INSTRUCTOR - 03/09/2023 1:03 PM COMMERCIAL SEWING INSTRUCTOR Hospital Encounter Department of Laboratory Medicine and Pathology, [facility] in [place], [place] [address] [place] [phone] Diana Ramírez D.O. Acute Embolism And Thrombosis Of Unspecified Deep Veins Of Lower Extremity Bilateral (HCC) Discharge Disposition: Home or Self Care 03/09/2023 9:00 AM COMMERCIAL SEWING INSTRUCTOR Comprehensive Visit Department of Vascular Medicine in [address] [phone] Diana Ramírez D.O. Acute Embolism And Thrombosis Of Unspecified Deep Veins Of Lower Extremity Bilateral (HCC) (Primary Dx) 02/25/2023 Clinical Communication Department of Vascular Medicine in [address] [phone] Diana Ramírez D.O. Triage (comments) 02/25/2023 Orders Only Department of Vascular Medicine in [address] [phone] Anel Arreguin P.A.-C. 02/13/2023 1:25 PM COMMERCIAL SEWING INSTRUCTOR Ancillary Procedure Department of Radiology in [address] [phone] Shirlene Restrepo APRN, C.N.P., D.N.P. Personal History Of Other Venous Thrombosis And Embolism 02/13/2023 1:20 PM COMMERCIAL SEWING INSTRUCTOR Ancillary Procedure Department of Radiology in [address] [phone] Shirlene Restrepo APRN, C.N.P., D.N.P. Personal History Of Other Venous Thrombosis And Embolism 02/13/2023 Orders Only Department of Vascular Medicine in [address] [phone] Shirlene Restrepo, WILLIS, C.N.P., D.N.P. Personal History Of Other Venous Thrombosis And Embolism (Primary Dx) 02/12/2023 [facility] [address] [place] [address] Spencer Coates M.D. Acute Embolism And Thrombosis Of Unspecified Deep Veins Of Lower Extremity Bilateral (HCC) (Primary Dx) from Last 3 Months Family History Medical History Relation Name Comments Colon cancer Father Francis Restrepo Sr Part of Col on removed Lung cancer Father Francis Restrepo Sr Coronary artery disease Mother Desiree Restrepo COPD Relation Name Status Comments Father Francis Restrepo Sr Mother Desiree Restrepo Social History Tobacco Use Types Packs/Day Years Used Date Smoking Tobacco: Former Cigarettes 2 16 1 - 11/12/1996 Smokeless Tobacco: Never Tobacco Cessation:Counseling Given: Not Answered Alcohol Use Standard Drinks/Week Comments Never 0 (1 standard drink = 0.6 oz pur e alcohol) [facility] Utilities Answer Date Recorded In the past [address] [employer], gas, oil, or water [employer] threatened to shut off services in your [...] Date Recorded Dental: Regular Dentist Yes 03/02/19 24 Employment Answer Date Recorded Employment status Unemployed/not in [employer] paid workforce but seeking employment 03/02/2023 Housing Stability Answer Date Recorded What is your living situation today? I have a [facility] place to live 03/02/2023 Sex and Gender Information Value Date Recorded Sex Assigned at Male 03/02/2023 10:00 AM COMMERCIAL SEWING INSTRUCTOR Gender Identity Male 03/02/2023 10:00 AM COMMERCIAL SEWING INSTRUCTOR Sexual Orientation Lesbian or Boo 03/02/2023 10 :00 AM COMMERCIAL SEWING INSTRUCTOR Last Filed Vital Signs Vital Sign Reading Time Taken Comments Blood Pressure 136/84 03/09/2023 8:52 AM COMMERCIAL SEWING INSTRUCTOR Pulse 91 03/09/2023 8:52 AM COMMERCIAL SEWING INSTRUCTOR Temperature - - Respiratory Rate - - Oxygen Saturation - - Inhaled Oxygen Concentration - - Weight 110 kg (243 lb 9.7 oz) 03/09/2023 8:50 AM COMMERCIAL SEWING INSTRUCTOR Height 174.4 cm (5' 8.66) 03/09/2023 8:50 AM CS T Body Mass Index 36.33 03/09/2023 8:50 AM COMMERCIAL SEWING INSTRUCTOR Plan of Treatment Upcoming Encounters Date Type Department Care Team (Late st Contact Info) Description 06/12/2023 12:30 PM CDT Appointment Department of Laboratory Medicine and Pathology, [facility] in [place], [place] [address] [place] [address] Diana Ramírez D.OElke [address] [place] [address] 06/12/2023 2:00 PM CDT Office Visit Department of Vascular Medicine in [place], [place] [address] [place] [address] Diana Ramírez D.O. [address] [place] [address] Health Maintenance Due Date Last Done Comments CT Colonography 1961 Cologuard 1961 Colonoscopy 1961 Colorectal Cancer Surveillance 1961 Hepatitis C Screening 1961 Lipid (Cholesterol) Screening 1961 Hepatitis A Vaccines (2 of 3 - Hep A risk 3-dose series) 01/13/2002 12/16/2001, 12/16/2001, 12/16/2001, Additional history exists Zoster Vaccines (2 of 2) 02/11/2023 12/17/2022 Depression Screening (Annual PHQ-2) 03/02/2023 Creatinine Level (Kidney Function Test) 03/09/2024 03/09/2023 Fasting Glucose for Diabetes Screening 03/09/2024 03/09/2023 Office Visit for Blood Pressure Check / Re-check 03/09/2024 03/09/2023 Potassium Level 03/09/2024 03/09/2023 Sodium Level 03/09/2024 03/09/2023 DTaP,Tdap,and Td Vaccines (3 - Td or Tdap) 07/02/2031 07/01/2021, 03/04/2011, 07/10/2006, Additional history exists Hepatitis B Vaccines Completed 12/16/2001, 12/16/2001, 12/16/2001, Additional history exists COVID-19 Vaccine Completed 12/05/2022, 07/2021, 07/23/2021, Additional history exists Influenza Vaccine Completed 12/05/2022, , 01/23/2021, Additional history exists Pneumococcal vaccine (0-64 years) Aged Out No longer eligible based on patient's age to complete this topic Procedures Procedure Name Priority Date/Time Associated Diagnosis Comments CT ABDOMEN PELVIS VENOGRAM WITH IV CONTRAST RAD - Routine (most inpatients and all outpatients) 03/11/2023 4:22 PM COMMERCIAL SEWING INSTRUCTOR Acute Embolism And Thrombosis Of Unspecified Deep Veins Of Lower Extremity Bilateral (HCC) US LOWER EXTREMITY VEINS BILATERAL RAD - Routine (most inpatients and all outpatients) 03/09/2023 2:41 PM COMMERCIAL SEWING INSTRUCTOR Acute Embolism And Thrombosis Of Unspecified Deep Veins Of Lower Extremity Bilateral (HCC) HEPARIN LEVEL ANTI-XA ASSAY, P Routine 03/09/2023 10:59 AM COMMERCIAL SEWING INSTRUCTOR Acute Embolism And Thrombosis Of Unspecified Deep Veins Of Lower Extremity Bilateral (HCC) ACTIVATED PARTIAL THROMBOPLASTIN TIME (APTT), P Routine 03/09/2023 10:59 AM COMMERCIAL SEWING INSTRUCTOR Acute Embolism And Thrombosis Of Unspecified Deep Veins Of Lower Extremity Bilateral (HCC) PROTHROMBIN TIME (PT), P Routine 03/09/2023 10:59 AM COMMERCIAL SEWING INSTRUCTOR Acute Embolism And Thrombosis Of Unspecified Deep Veins Of Lower Extremity Bilateral (HCC) CBC WITH DIFFERENTIAL, B Routine 03/09/2023 10:59 AM COMMERCIAL SEWING INSTRUCTOR Acute Embolism And Thrombosis Of Unspecified Deep Veins Of Lower Extremity Bilateral (HCC) BETA-2 GLYCOPROTEIN 1 ABS, IGG AND IGM, S Routine 03/09/2023 10:59 AM COMMERCIAL SEWING INSTRUCTOR Acute Embolism And Thrombosis Of Unspecified Deep Veins Of Lower Extremity Bilateral (HCC) PHOSPHOLIPID (CARDIOLIPIN) ABS, IGG AND IGM, S Routine 03/09/2023 10:59 AM COMMERCIAL SEWING INSTRUCTOR Acute Embolism And Thrombosis Of Unspecified Deep Veins Of Lower Extremity Bilateral (HCC) PS/PT AB, IGG/IGM, S Routine 03/09/2023 10:59 AM COMMERCIAL SEWING INSTRUCTOR Acute Embolism And Thrombosis Of Unspecified Deep Veins Of Lower Extremity Bilateral (HCC) LUPUS ANTICOAGULANT PROFILE Routine 03/09/2023 10:59 AM COMMERCIAL SEWING INSTRUCTOR Acute Embolism And Thrombosis Of Unspecified Deep Veins Of Lower Extremity Bilateral (HCC) ANTITHROMBIN AG, P Routine 03/09/2023 10:59 AM COMMERCIAL SEWING INSTRUCTOR Acute Embolism And Thrombosis Of Unspecified Deep Veins Of Lower Extremity Bilateral (HCC) ANTITHROMBIN ACTIVITY, P Routine 03/09/2023 10:59 AM COMMERCIAL SEWING INSTRUCTOR Acute Embolism And Thrombosis Of Unspecified Deep Veins Of Lower Extremity Bilateral (HCC) PROTHROMBIN [id number] MUTATION, B Routine 03/09/2023 10:59 AM COMMERCIAL SEWING INSTRUCTOR Acute Embolism And Thrombosis Of Unspecified Deep Veins Of Lower Extremity Bilateral (HCC) COMPREHENSIVE METABOLIC PANEL, S/P Routine 03/09/2023 10:59 AM COMMERCIAL SEWING INSTRUCTOR Acute Embolism And Thrombosis Of Unspecified Deep Veins Of Lower Extremity Bilateral (HCC) INTERPRETATION OF OUTSIDE US VASCULAR RAD - Routine (most inpatients and all outpatients) 02/13/2023 1:29 PM COMMERCIAL SEWING INSTRUCTOR Personal History Of Other Venous Thrombosis And Embolism OUTSIDE US Routine 02/11/2023 1:00 PM COMMERCIAL SEWING INSTRUCTOR from Last 3 Months Results * CT Abdomen Pelvis Venogram with IV Contrast (03/11/2023 4:22 PM COMMERCIAL SEWING INSTRUCTOR) Anatomical Region Laterality Modality Abdomen, Pelvis, Cardiovascu lar RST LOS, Abdominal ARZ LOS, Vascular Interventional FLA LOS, Procedural, Vascular Interventional NWWI LOS N/A Computed Tomography, Computed Tomography 03/11/2023 4:14 PM COMMERCIAL SEWING INSTRUCTOR Impressions 03/11/2023 5:18 PM COMMERCIAL SEWING INSTRUCTOR Patent venous vasculature in the abdomen/pelvis. Narrative 03/11/2023 5:18 PM COMMERCIAL SEWING INSTRUCTOR EXAM: ??CT ABDOMEN PELVIS VENOGRAM WITH IV CONTRAST COMPARISON: ??Ultrasound lower extremity March 09, 2023 FINDINGS: VASCULAR FINDINGS: The superior vena cava, inferior vena cava and bilateral common and external iliac veins are patent with conventional anatomy. The included portions of the femoral veins are patent. The hepatic veins are patent. Portal vein, splenic vein, and superior mesenteric vein are patent. Normal diameter aorta with moderate atherosclerotic plaque. The major aortic branches are opacified with contrast with multifocal calcified plaque, however this study was not optimized for evaluation of arterial stenosis. Mild to moderate atherosclerosis of the iliac arteries. Suspected stenosis at the origin of the internal iliac arteries, incompletely evaluated on this 6. Patent external and internal iliac arteries as well as included femoral artery. Included portion of the chest shows coronary artery calcifications and mild atherosclerotic plaque in the descending thoracic aorta. ADDITIONAL FINDINGS: Normal liver. Gallstones. Mildly dilated common bile duct measuring 8 mm. No intrahepatic biliary dilatation. Normal spleen. Marked thickening of the adrenal glands. Normal pancreas. Tiny renal lesions, likely cysts. Symmetric enhancement of the kidneys. No hydronephrosis. No bowel dilatation. Normal appendix. Enlarged prostate gland. Degenerative hypertrophic changes in the spine. Procedure Note Alvina Rendon M.D. - 03/11/2023 EXAM: CT ABDOMEN PELVIS VENOGRAM WITH IV CONTRAST COMPARISON: Ultrasound lower extremity March 09, 2023 FINDINGS: VASCULAR FINDINGS: The superior vena cava, inferior vena cava and bilateral common andexternal iliac veins are patent with conventional anatomy. The included portions of the femoral veins are patent. The hepatic veinsare patent. Portal vein, splenic vein, and superior mesenteric vein are patent. Normal diameter aorta with moderate atherosclerotic plaque. The major aortic branches are opacified with contrast with multifocalcalcified plaque, however this study was not optimized for evaluation ofarterial stenosis. Mild to moderate atherosclerosis of the iliac arteries. Suspected stenosisat the origin of the internal iliac arteries, incompletely evaluated onthis 6. Patent external and internal iliac arteries as well as includedfemoral artery. Included portion of the chest shows coronary artery calcifications andmild atherosclerotic plaque in the descending thoracic aorta. ADDITIONAL FINDINGS: Normal liver. Gallstones. Mildly dilated common bile duct measuring 8 mm.No intrahepatic biliary dilatation. Normal spleen. Marked thickening ofthe adrenal glands. Normal pancreas. Tiny renal lesions, likely cysts.Symmetric enhancement of the kidneys. No hydronephrosis. No bowel dilatation. Normal appendix. Enlargedprostate gland. Degenerative hypertrophic changes in the spine. IMPRESSION: Patent venous vasculature in the abdomen/pelvis. Diana Ramírez D.O. IMJoby CT PROCEDURES * US Lower Extremity Veins Bilateral (03/09/2023 2:41 PM COMMERCIAL SEWING INSTRUCTOR) Anatomical Region Laterality Modality Lower Extremity, Ultrasound RST LOS, Ultrasound ARZ LOS, Ultrasound FLA LOS Bilateral Ultrasound Impressions 03/09/2023 3:22 PM COMMERCIAL SEWING INSTRUCTOR Negative for acute DVT. Subacute SVT in the right GSV in the calf. Narrative 03/09/2023 3:22 PM COMMERCIAL SEWING INSTRUCTOR EXAM: US LOWER EXTREMITY VEINS BILATERAL Exam performed with color and spectral Doppler analysis. COMPARISON: 02/11/23 outside US FINDINGS: RIGHT: Common Femoral Vein: Negative. Profunda Femoral Vein: Negative. Femoral Vein: Negative. Popliteal Vein: Negative. Gastrocnemius Veins: Negative where seen. Soleal Veins: Negative where seen. Posterior Tibial Veins: Negative where seen. Peroneal Veins: Negative where seen. Great Saphenous Vein: Subacute SVT in the calf. Small Saphenous Vein: Not Evaluated. Popliteal Fossa: Negative. Other: n/a LEFT: Common Femoral Vein: Negative. Profunda Femoral Vein: Negative. Femoral Vein: Negative. Popliteal Vein: Negative. Gastrocnemius Veins: Negative where seen. Soleal Veins: Negative where seen. Posterior Tibial Veins: Negative where seen. Peroneal Veins: Negative where seen. Great Saphenous Vein: Negative where seen. Small Saphenous Vein: Not Evaluated. Popliteal Fossa: Negative. Other: n/a Information on venous thrombosis and management can be found on the [employer] site. Link [email or web address] Procedure Note Slime Anderson M.D. - 03/09/2023 EXAM: US LOWER EXTREMITY VEINS BILATERAL Exam performed with color and spectral Doppler analysis. COMPARISON: 02/11/23 outside US FINDINGS: RIGHT: Common Femoral Vein: Negative. Profunda Femoral Vein: Negative. Femoral Vein: Negative. Popliteal Vein: Negative. Gastrocnemius Veins: Negative where seen. Soleal Veins: Negative where seen. Posterior Tibial Veins: Negative where seen. Peroneal Veins: Negative where seen. Great Saphenous Vein: Subacute SVT in the calf. Small Saphenous Vein: Not Evaluated. Popliteal Fossa: Negative. Other: n/a LEFT: Common Femoral Vein: Negative. Profunda Femoral Vein: Negative. Femoral Vein: Negative. Popliteal Vein: Negative. Gastrocnemius Veins: Negative where seen. Soleal Veins: Negative where seen. Posterior Tibial Veins: Negative where seen. Peroneal Veins: Negative where seen. Great Saphenous Vein: Negative where seen. Small Saphenous Vein: Not Evaluated. Popliteal Fossa: Negative. Other: n/a Information on venous thrombosis and management can be found on the[employer] site. [email or web address] IMPRESSION: Negative for acute DVT. Subacute SVT in the right GSV in the calf. Diana Ramírez D.O. IMG US PROCEDURES * Phosphatidylserine/Prothrombin Antibody, IgG and IgM (03/09/2023 10:59 AM COMMERCIAL SEWING INSTRUCTOR) PS/PT Ab, IgG, S <9.4 <=30.0 (Negative ) U 03/11/2023 8:14 PM COMMERCIAL SEWING INSTRUCTOR SDS Comment: ----ADDITIONAL INFORMATION---- This test has been modified from the textile engraver's instructions. Its performance characteristics were determined by [facility] in a manner consistent with CLIA requirements. This test has not been cleared or approved by the U.S. Food and Drug Administration. PS/PT Ab, IgM, S 13.7 <=30.0 (Negative ) U 03/11/2023 8:14 PM COMMERCIAL SEWING INSTRUCTOR SDS Comment: ----ADDITIONAL INFORMATION---- This test has been modified from the textile engraver's instructions. Its performance characteristics were determined by [facility] in a manner consistent with CLIA requirements. This test has not been cleared or approved by the U.S. Food and Drug Administration. Blood (Blood, Venous) 03/09/2023 10:59 AM COMMERCIAL SEWING INSTRUCTOR 03/09/2023 4:33 PM COMMERCIAL SEWING INSTRUCTOR Diana Ramírez D.O. LAB BLOOD ADD-ON [facility] [address] [place] [address] [facility] [address] [place] [address] * Beta-2 Glycoprotein 1 Antibodies, IgG and IgM (03/09/2023 10:59 AM COMMERCIAL SEWING INSTRUCTOR) Beta 2 GP1 Ab IgG, S <9.4 <15.0 (Negative) SGU 03/10/2023 8:15 PM COMMERCIAL SEWING INSTRUCTOR SDSC Beta 2 GP1 Ab IgM, S <9.4 <15.0 (Negative) U 03/10/2023 8:45 PM COMMERCIAL SEWING INSTRUCTOR SDS Blood (Blood, Venous) 03/09/2023 10:59 AM COMMERCIAL SEWING INSTRUCTOR 03/09/2023 3:50 PM COMMERCIAL SEWING INSTRUCTOR Diana Ramírez D.O. LAB BLOOD ADD-ON [facility] [address] [place] [address] [facility] [address] 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 The Prothrombin (F2 c.*97G>A) variant is a mild risk factor for venous thromboembolism (VTE). This individual may have other genetic and environmental risk factors for VTE. If indicated, consider genetic consultation and counseling for this individual and potentially affected family members regarding laboratory testing. 03/11/2023 7:55 AM COMMERCIAL SEWING INSTRUCTOR DTL Comment: ----ADDITIONAL INFORMATION---- This test uses TaqMan Genotyping chemistry to amplify and detect specific single nucleotide polymorphisms in purified genomic DNA. DISCLAIMER Patients receiving allogenic stem cell transplants prior to having blood drawn for DNA based testing may have false normal or abnormal results depending on the genotype of the stem cell donor. This test was developed and its performance characteristics determined by [facility] in a manner consistent with CLIA requirements. This test has not been cleared or approved by the U.S. Food and Drug Administration. Blood (Blood, Venous) 03/09/2023 10:59 AM COMMERCIAL SEWING INSTRUCTOR 03/09/2023 11:45 AM COMMERCIAL SEWING INSTRUCTOR Diana Ramírez D.O. LAB GENETIC TESTI NG [facility] [address] [place] [address], [place] DTL [address] [place] [address] * Antithrombin Antigen (03/09/2023 10:59 AM COMMERCIAL SEWING INSTRUCTOR) [facility] Antithrombin Antigen, P 90 80 - 120 % 03/09/2023 12:39 PM COMMERCIAL SEWING INSTRUCTOR DTL Comment: ----ADDITIONAL INFORMATION---- This test has been modified from the textile engraver's instructions. Its performance characteristics were determined by [facility] in a manner consistent with CLIA requirements. This test has not been cleared or approved by the U.S. Food and Drug Administration. Blood (Blood, Venous) 03/09/2023 10:59 AM COMMERCIAL SEWING INSTRUCTOR 03/09/2023 11:37 AM COMMERCIAL SEWING INSTRUCTOR Diana Ramírez D.O. LAB BLOOD ADD-ON [facility] [address] [place] [address], [facility] [address] [place] [address] * Lupus Anticoag Prof (03/09/2023 10:59 AM COMMERCIAL SEWING INSTRUCTOR) [facility] Lupus Anticoagulant Tech Interp SEE COMMENT 03/09/2023 1:41 PM COMMERCIAL SEWING INSTRUCTOR DTL Comment: No evidence of a lupus anticoagulant based on results of Prothrombin Time (PT), Activated Partial Thromboplastin Time (APTT), and Dilute Russells Viper Venom Time (DRVVT). NOTE: A shortened DRVVT screen ratio (<0.8) suggests the possible presence of residual ??platelets (>10,000 per microliter) in this plasma specimen. ?? NOTE: Residual platelets in frozen-thawed plasma can decrease sensitivity of lupus anticoagulant testing and may result in false-negative or indeterminate test results. Resubmission of a fresh specimen with careful attention to specimen collection and processing is recommended. Repeat centrifugation is recommended to deplete platelets prior to prompt freezing of plasma aliquots at or below -40 C. Interpretation not reviewed by physician. Prothrombin Time (PT), P 12.1 9.4 - 12.5 sec 03/09/2023 1:41 PM COMMERCIAL SEWING INSTRUCTOR DTL INR 1.1 0.9 - 1.1 03/09/2023 1:41 PM COMMERCIAL SEWING INSTRUCTOR DTL Comment: ----ADDITIONAL INFORMATION---- Standard intensity warfarin therapeutic range: 2.0 to 3.0 High intensity warfarin therapeutic range: 2.5 to 3.5 Activated Partial Thrombopl Time, P 32 25 - 37 sec 03/09/2023 1:41 PM COMMERCIAL SEWING INSTRUCTOR DT DRVVT Screen Ratio 1.19 <1.20 ratio 03/09/2023 1:41 PM COMMERCIAL SEWING INSTRUCTOR DT Blood (Blood, Venous) 03/09/2023 10:59 AM COMMERCIAL SEWING INSTRUCTOR 03/09/2023 11:37 AM COMMERCIAL SEWING INSTRUCTOR Narrative [facility] - 03/09/2023 1:41 PM COMMERCIAL SEWING INSTRUCTOR Specimen Information: Specimen ID: [id number] Specimen Type: Blood Specimen Collection Start Date: 03/09/2023 10:59 AM Specimen Received Date: 03/09/2023 11:37 AM Specimen ID: [id number] Specimen Type: Blood Specimen Collection Start Date: 03/09/2023 10:59 AM Specimen Received Date: 03/09/2023 11:37 AM Specimen ID: [id number] Specimen Type: Blood Specimen Collection Start Date: 03/09/2023 10:59 AM Specimen Received Date: 03/09/2023 11:37 AM Specimen ID: [id number] Specimen Type: Blood Specimen Collection Start Date: 03/09/2023 10:59 AM Specimen Received Date: 03/09/2023 11:37 AM Diana Ramírez D.O. LAB BLOOD NON ADD -ON [facility] [address] [place] [address], [facility] [address] [place] [address] * Phospholipid (Cardiolipin) Antibodies, IgG and IgM (03/09/2023 10:59 AM COMMERCIAL SEWING INSTRUCTOR) Phospholipid Ab IgM, S 9.9 <15.0 (Negative) MPL 03/10/2023 6:20 PM COMMERCIAL SEWING INSTRUCTOR SDSC Phospholipid Ab IgG, S <9.4 <15.0 (Negative) GPL 03/10/2023 6:06 PM COMMERCIAL SEWING INSTRUCTOR [facility] Blood (Blood, Venous) 03/09/2023 10:59 AM COMMERCIAL SEWING INSTRUCTOR 03/09/2023 3:50 PM COMMERCIAL SEWING INSTRUCTOR Diana Ramírez D.O. LAB BLOOD ADD-ON [facility] [address] [place] [address] [facility] [address] [place] [address] * APTT (Activated Partial Thromboplastin Time) (03/09/2023 10:59 AM COMMERCIAL SEWING INSTRUCTOR) Activated Partial Thrombopl Time, P 33 25 - 37 sec 03/09/2023 12:12 PM COMMERCIAL SEWING INSTRUCTOR DTL Blood (Blood, Venous) 03/09/2023 10:59 AM COMMERCIAL SEWING INSTRUCTOR 03/09/2023 11:28 AM COMMERCIAL SEWING INSTRUCTOR Diana Ramírez D.O. LAB BLOOD ADD-ON Performing Organization Address [facility] Co de Phone Number [facility] [address] [facility] [address] [place] [address] * Prothrombin Time (PT) (03/09/2023 10:59 AM COMMERCIAL SEWING INSTRUCTOR) Prothrombin Time, P 11.9 9.4 - 12.5 sec 03/09/2023 12:12 PM COMMERCIAL SEWING INSTRUCTOR DTL INR 1.1 0.9 - 1.1 03/09/2023 12:12 PM COMMERCIAL SEWING INSTRUCTOR DTL Comment: ----ADDITIONAL INFORMATION---- Standard intensity warfarin therapeutic range: 2.0 to 3.0 ?? High intensity warfarin therapeutic range: 2.5 to 3.5 Blood (Blood, Venous) 03/09/2023 10:59 AM COMMERCIAL SEWING INSTRUCTOR 03/09/2023 11:28 AM COMMERCIAL SEWING INSTRUCTOR Diana Ramírez D.O. LAB BLOOD ADD-ON Performing Organization Address City/[facility]/ZIP Co de Phone Number [facility] [address] DTL [facility] [address] * Heparin Anti-Xa Assay (03/09/2023 10:59 AM COMMERCIAL SEWING INSTRUCTOR) Heparin Anti-Xa, P 0.39 IU/mL 2023 12:12 PM COMMERCIAL SEWING INSTRUCTOR DTL Comment: UFH therapeutic range: ?? 0.30-0.70 IU/mL LMWH therapeutic range: 0.50-1.00 IU/mL 0.50-1.00 IU/mL for twice daily dosing ?? 1.00-2.00 IU/mL for once daily dosing (sample obtained 4-6 hours following subcutaneous injection) LMWH prophylactic range:0.10-0.30 IU/mL ----ADDITIONAL INFORMATION---- Heparin Anti-Xa is used to measure heparin concentrations in patients receiving low molecular weight heparin (LMWH) or unfractionated heparin (UFH). Blood (Blood, Venous) 03/09/2023 10:59 AM COMMERCIAL SEWING INSTRUCTOR 03/09/2023 11:28 AM COMMERCIAL SEWING INSTRUCTOR Diana Ramírez D.O. LAB BLOOD NON ADD -ON [facility] - [address] [address], [facility] [address] [address] * Antithrombin Activity (03/09/2023 10:59 AM COMMERCIAL SEWING INSTRUCTOR) Antithrombin Activity, P 86 80 - 130 % 03/09/2023 12:36 PM COMMERCIAL SEWING INSTRUCTOR DTL Comment: Direct factor Xa inhibitor therapy (rivaroxaban (Xarelto), apixaban (Eliquis), edoxaban (Savaysa)) may interfere with the functional Xa based AT assay and cause an overestimation of AT activity thus potentially masking diagnosis of AT deficiency. ??Suggest clinical correlation and consider repeat AT testing remote from direct factor Xa inhibitor therapy, if clinically indicated. ----ADDITIONAL INFORMATION---- This test has been modified from the textile engraver's instructions. Its performance characteristics were determined by [facility] in a manner consistent with CLIA requirements. This test has not been cleared or approved by the U.S. Food and Drug Administration. Blood (Blood, Venous) 03/09/2023 10:59 AM COMMERCIAL SEWING INSTRUCTOR 03/09/2023 11:37 AM COMMERCIAL SEWING INSTRUCTOR Diana Ramírez D.O. LAB BLOOD ADD-ON [facility] [address] [place] [address], [facility] DTL [facility] [address] [place] [address] * (ABNORMAL) CBC with Differential, Blood (03/09/2023 10:59 AM COMMERCIAL SEWING INSTRUCTOR) Hemoglobin 16.0 13.2 - 16.6 g/dL 03/09/2023 11:42 AM COMMERCIAL SEWING INSTRUCTOR DTL Hematocrit 47.4 38.3 - 48.6 % 03/09/2023 11:42 AM COMMERCIAL SEWING INSTRUCTOR DTL Erythrocytes 5.33 4.35 - 5.65 x10(12)/L 03/09/2023 11:42 AM COMMERCIAL SEWING INSTRUCTOR DTL MCV 88.9 78.2 - 97.9 fL 03/09/2023 11:42 AM COMMERCIAL SEWING INSTRUCTOR DTL RBC Distrib Width 12.6 11.8 - 14.5 % 03/09/2023 11:42 AM COMMERCIAL SEWING INSTRUCTOR DTL Platelet Count 302 135 - 317 x10(9)/L 03/09/2023 11:42 AM COMMERCIAL SEWING INSTRUCTOR DTL Leukocytes 8.5 3.4 - 9.6 x10(9)/L 03/09/2023 11:42 AM COMMERCIAL SEWING INSTRUCTOR DTL Neutrophils 3.99 1.56 - 6.45 x10(9)/L 03/09/2023 11:42 AM COMMERCIAL SEWING INSTRUCTOR DHPM Lymphocytes 3.64(H) 0.95 - 3.07 x10(9)/L 03/09/2023 11:42 AM COMMERCIAL SEWING INSTRUCTOR DTL Monocytes 0.75 0.26 - 0.81 x10(9)/L 03/09/2023 11:42 AM COMMERCIAL SEWING INSTRUCTOR DTL Eosinophils 0.06 0.03 - 0.48 x10(9)/L 03/09/2023 11:42 AM COMMERCIAL SEWING INSTRUCTOR DTL Basophils <0.03 0.01 - 0.08 x10(9)/L 03/09/2023 11:42 AM COMMERCIAL SEWING INSTRUCTOR DTL Blood (Blood, Venous) 03/09/2023 10:59 AM COMMERCIAL SEWING INSTRUCTOR 03/09/2023 11:28 AM COMMERCIAL SEWING INSTRUCTOR Diana Ramírez D.O. LAB BLOOD ADD-ON [facility] [address] [place] [address], [facility] DTL [facility] [address] [place] [address] [facility] [address] [place] [address] * (ABNORMAL) Comprehensive Metabolic Panel (03/09/2023 10:59 AM COMMERCIAL SEWING INSTRUCTOR) Potassium, S 4.6 3.6 - 5.2 mmol/L 03/09/2023 12:22 PM COMMERCIAL SEWING INSTRUCTOR DTL Sodium, S 142 135 - 145 mmol/L 03/09/2023 12:22 PM COMMERCIAL SEWING INSTRUCTOR DTL Chloride, S 101 98 - 107 mmol/L 03/09/2023 12:22 PM COMMERCIAL SEWING INSTRUCTOR DTL Bicarbonate, S 29 22 - 29 mmol/L 03/09/2023 12:22 PM COMMERCIAL SEWING INSTRUCTOR DTL Anion Gap 12 7 - 15 03/09/2023 12:22 PM COMMERCIAL SEWING INSTRUCTOR DTL BUN (Blood Urea Nitrogen), S 19 8 - 24 mg/dL 03/09/2023 12:22 PM COMMERCIAL SEWING INSTRUCTOR DTL Creatinine 1.21 0.74 - 1.35 mg/dL 03/09/2023 12:22 PM COMMERCIAL SEWING INSTRUCTOR DTL Estimated GFR (eGFR) 68 >=60 mL/min/BS A 03/09/2023 12:22 PM COMMERCIAL SEWING INSTRUCTOR DTL Comment: Estimated GFR calculated using the 2020 CKD_EPI creatinine equation. Calcium, Total, S 9.5 8.8 - 10.2 mg/dL 03/09/2023 12:22 PM COMMERCIAL SEWING INSTRUCTOR DTL Glucose, S 156(H) 70 - 140 mg/dL 03/09/2023 12:22 PM COMMERCIAL SEWING INSTRUCTOR DTL Protein, Total, S 6.9 6.3 - 7.9 g/dL 03/09/2023 12:22 PM COMMERCIAL SEWING INSTRUCTOR DTL Albumin, S 4.5 3.5 - 5.0 g/dL 03/09/2023 12:22 PM COMMERCIAL SEWING INSTRUCTOR DTL Aspartate Aminotransferase (AST), S 24 8 - 48 U/L 03/09/2023 12:22 PM COMMERCIAL SEWING INSTRUCTOR DTL Alkaline Phosphatase, S 40 40 - 129 U/L 03/09/2023 12:22 PM COMMERCIAL SEWING INSTRUCTOR DTL Alanine Aminotransferase (ALT), S 42 7 - 55 U/L 03/09/2023 12:22 PM COMMERCIAL SEWING INSTRUCTOR DTL Bilirubin, Total, S 0.3 0.0 - 1.2 mg/dL 03/09/2023 12:22 PM COMMERCIAL SEWING INSTRUCTOR DTL Blood (Blood, Venous) 03/09/2023 10:59 AM COMMERCIAL SEWING INSTRUCTOR 03/09/2023 11:41 AM COMMERCIAL SEWING INSTRUCTOR Diana Ramírez D.O. LAB BLOOD ADD-ON [facility] [address] [place] [address], [place] [facility] [address] [place] [address] * Interpretation of Outside US Vascular (02/13/2023 1:29 PM COMMERCIAL SEWING INSTRUCTOR) Anatomical Region Laterality Modality Ultrasound RST LOS, Ultrasou nd ARZ LOS, Ultrasound FLA LOS, Procedural, Other, Vascular N/A Ultrasound 02/13/2023 1:31 PM COMMERCIAL SEWING INSTRUCTOR Impressions 02/13/2023 2:06 PM COMMERCIAL SEWING INSTRUCTOR 1. Positive for interval development of acute/subacute-appearing DVT in the left popliteal vein. 2. 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 Narrative 02/13/2023 2:06 PM COMMERCIAL SEWING INSTRUCTOR EXAM: ??INTERPRETATION OF OUTSIDE US VASCULAR with spectral, Doppler, and compression imaging. COMPARISON: ??Outside ultrasound 04/02/2022. FINDINGS: ?? Right: The common femoral, upper deep femoral, femoral, popliteal, posterior tibial, and peroneal veins are patent with no thrombus. Nonocclusive subacute/chronic-appearing thrombus in the great saphenous vein in the distal calf, which appears slightly improved. Remainder of the great saphenous vein is patent with no thrombus. Left: Interval development of acute/subacute-appearing nonocclusive thrombus in the popliteal vein. The common femoral, upper deep femoral, femoral, posterior tibial, and peroneal veins are patent with no thrombus. The great saphenous vein is patent with no thrombus. Procedure Note Skip Elena M.D. - 02/13/2023 EXAM: INTERPRETATION OF OUTSIDE US VASCULAR with spectral, Doppler, andcompression imaging. COMPARISON: Outside ultrasound 04/02/2022. FINDINGS: Right: The common femoral, upper deep femoral, femoral, popliteal,posterior tibial, and peroneal veins are patent with no thrombus.Nonocclusive subacute/chronic-appearing thrombus in the great saphenousvein in the distal calf, which appears slightly improved. Remainder of the great saphenous vein is patent with nothrombus. Left: Interval development of acute/subacute-appearing nonocclusivethrombus in the popliteal vein. The common femoral, upper deep femoral,femoral, posterior tibial, and peroneal veins are patent with no thrombus.The great saphenous vein is patent with no thrombus. IMPRESSION: 1. Positive for interval development of acute/subacute-appearing DVT inthe left popliteal vein. 2. Positive for subacute/chronic-appearing SVT in the distal right greatsaphenous vein, which has improved slightly since the prior exam. Shirlene Restrepo APRN, C.N.P., D.N.P. IMG US PROCEDURES * US venous LE BI-Outside US (02/11/2023 1:00 PM COMMERCIAL SEWING INSTRUCTOR) Narrative [facility] - 02/12/2023 10:21 AM COMMERCIAL SEWING INSTRUCTOR This order has been created and auto-finalized to support the import of outside images. If available, original interpretation can be found on the Media Tab in Chart Review, in Document Viewer, or as an image in QREADS. If a re-interpretation or overread is required please follow defined workflow. ?? Provider Not In System IMG US PROCEDURES [facility] NA from Last 3 Months
--- OUTSIDE RECORDS SUMMARY | 2023-03-25 09:32 | XMS_ITS ---
Author Name Unknown Organization [facility] Address [address] [place] [address] Care Team Providers Care Gardener Florist Name Role Phone Unavailable Unavailable Unavailable Surgery Details Not on file Complications Check Surgery Details section. Procedure Estimated Blood Loss Check Surgery Details section. Procedure Findings Check Surgery Details section. Procedure Specimens Taken Check Surgery Details section.
--- OUTSIDE RECORDS SUMMARY | 2023-03-25 09:32 | XMS_ITS | Referral Summary ---
Author Name Unknown Organization [facility] Address [address] [place] [address] Care Team Providers Care Market Intelligence Consultant Name Role Phone Unavailable Primary Care Provider Unavailabl e Source Comments Patient records contain information from all sites at [facility]. For routine questions regarding patient records, call [phone] during business hours, M-F 8:00 AM - 5:00 PM Central Time. Record requests for emergency care only can be directed to [phone] at any time.[facility] Encounters Date Type Department Care Team Description 03/23/2023 7:12 AM ENGINE TEST CELL TECHNICIAN - 03/23/2023 11:59 PM ENGINE TEST CELL TECHNICIAN Hospital Encounter Department of Laboratory Medicine and Pathology, [facility], in [place], [place] [address] [place] [phone] Renate Luo M.D. Other Specified Disorders Of Adrenal Gland (HCC) Discharge Disposition: Home or Self Care 03/20/2023 1:30 PM ENGINE TEST CELL TECHNICIAN Comprehensive Visit Division of Endocrinology in [place], [place] [address] [place] [phone] Renate Luo M.D. Hyperglycemia (Primary Dx); Other Specified Disorders Of Adrenal Gland (HCC); Intolerance Heat Initial 03/17/2023 4:00 PM ENGINE TEST CELL TECHNICIAN Telemedicine Department of Vascular Medicine in [place], [place] [address] [place] [phone] Diana Ramírez D.O. Acute Embolism And Thrombosis Of Unspecified Deep Veins Of Lower Extremity Bilateral (HCC) (Primary Dx); Other Specified Disorders Of Adrenal Gland (HCC); Dilated Common Bile Duct 03/11/2023 2:52 PM ENGINE TEST CELL TECHNICIAN - 03/11/2023 11:59 PM ENGINE TEST CELL TECHNICIAN Hospital Encounter Department of Radiology, [facility] in [place], [place] [address] [place] [address] Diana Ramírez D.O. Acute Embolism And Thrombosis Of Unspecified Deep Veins Of Lower Extremity Bilateral (HCC) Discharge Disposition: Home or Self Care 03/09/2023 1:04 PM ENGINE TEST CELL TECHNICIAN - 03/09/2023 11:59 PM ENGINE TEST CELL TECHNICIAN Hospital Encounter Department of Radiology, [facility] in [place], [place] [address] [place] [address] Diana Ramírez D.O. Acute Embolism And Thrombosis Of Unspecified Deep Veins Of Lower Extremity Bilateral (HCC) Discharge Disposition: Home or Self Care 03/09/2023 10:30 AM ENGINE TEST CELL TECHNICIAN - 03/09/2023 1:03 PM ENGINE TEST CELL TECHNICIAN Hospital Encounter Department of Laboratory Medicine and Pathology, [facility] in [place], [place] [address] [place] [phone] Diana Ramírez D.O. Acute Embolism And Thrombosis Of Unspecified Deep Veins Of Lower Extremity Bilateral (HCC) Discharge Disposition: Home or Self Care 03/09/2023 9:00 AM ENGINE TEST CELL TECHNICIAN Comprehensive Visit Department of Vascular Medicine in [address] [phone] Diana Ramírez D.O. Acute Embolism And Thrombosis Of Unspecified Deep Veins Of Lower Extremity Bilateral (HCC) (Primary Dx) 02/25/2023 Clinical Communication Department of Vascular Medicine in [address] [phone] Diana Ramírez D.O. Triage (comments) 02/25/2023 Orders Only Department of Vascular Medicine in [address] [phone] Anel Arreguin P.A.-C. 02/13/2023 1:25 PM ENGINE TEST CELL TECHNICIAN Ancillary Procedure Department of Radiology in [place], [place] [address] [place] [phone] Shirlene Restrepo, CONTROL OFFICER MANAGER, C.N.P., D.N.P. Personal History Of Other Venous Thrombosis And Embolism 02/13/2023 1:20 PM ENGINE TEST CELL TECHNICIAN Ancillary Procedure Department of Radiology in [place], [place] [address] [place] [address] Shirlene Restrepo APRN, C.N.P., D.N.P. Personal History Of Other Venous Thrombosis And Embolism 02/13/2023 Orders Only Department of Vascular Medicine in [place], [place] [address] [place] [address] Shirlene Restrepo APRN, C.N.P., D.N.P. Personal History Of Other Venous Thrombosis And Embolism (Primary Dx) 02/12/2023 Community Orders [facility] [address] [place] [address] Spencer Coates M.D. Acute Embolism And Thrombosis Of Unspecified Deep Veins Of Lower Extremity Bilateral (HCC) (Primary Dx) from Last 3 Months Allergies Active Allergy Reactions Criticality Noted Date [...] Colonoscopy 01/2012 polyp repeat in 5 years Social History Tobacco Use Types Packs/Day Years Used Date Smoking Tobacco: Former Cigarettes 2 16 1 - 11/12/1996 Smokeless Tobacco: Never Tobacco Cessation:Counseling Given: Not Answered Alcohol Use Standard Drinks/Week Comments Never 0 (1 standard drink = 0.6 oz pur e alcohol) [facility] [employer] Answer Date Recorded In the past 12 months has e [employer], gas, oil, or water [employer] threatened to shut off services in your [...] your living situation today? I have a elaina place to live 03/02/2023 Sex and Gender Information Value Date Recorded Sex Assigned at Male 03/02/2023 10:00 AM ENGINE TEST CELL TECHNICIAN Gender Identity Male 03/02/2023 10:00 AM ENGINE TEST CELL TECHNICIAN Sexual Orientation Lesbian or Boo 03/02/2023 10 :00 AM ENGINE TEST CELL TECHNICIAN Last Filed Vital Signs Vital Sign Reading Time Taken Comments Blood Pressure 136/84 03/09/2023 8:52 AM ENGINE TEST CELL TECHNICIAN Pulse 91 03/09/2023 8:52 AM ENGINE TEST CELL TECHNICIAN Temperature - - Respiratory Rate - - Oxygen Saturation - - Inhaled Oxygen Concentration - - Weight 110 kg (243 lb 9.7 oz) 03/09/2023 8:50 AM ENGINE TEST CELL TECHNICIAN Height 174.4 cm (5' 8.66) 03/09/2023 8:50 AM CS T Body Mass Index 36.33 03/09/2023 8:50 AM ENGINE TEST CELL TECHNICIAN Plan of Treatment Upcoming Encounters Date Type Department Care Team (Late st Contact Info) Description 06/12/2023 12:30 PM CDT Appointment Department of Laboratory Medicine and Pathology, [facility] in [place], [place] [address] [place] [phone] Diana Ramírez D.OElke [address] [place] [phone] 06/12/2023 2:00 PM CDT Office Visit Department of Vascular Medicine in [place], [place] [address] [place] [address] Diana Ramírez D.OElke [address] [place] [phone] Procedures Procedure Name Priority Date/Time Associated Diagnosis Comments CT ABDOMEN PELVIS VENOGRAM WITH IV CONTRAST RAD - Routine (most inpatients and all outpatients) 03/11/2023 4:22 PM ENGINE TEST CELL TECHNICIAN Acute Embolism And Thrombosis Of Unspecified Deep Veins Of Lower Extremity Bilateral (HCC) US LOWER EXTREMITY VEINS BILATERAL RAD - Routine (most inpatients and all outpatients) 03/09/2023 2:41 PM ENGINE TEST CELL TECHNICIAN Acute Embolism And Thrombosis Of Unspecified Deep Veins Of Lower Extremity Bilateral (HCC) HEPARIN LEVEL ANTI-XA ASSAY, P Routine 03/09/2023 10:59 AM ENGINE TEST CELL TECHNICIAN Acute Embolism And Thrombosis Of Unspecified Deep Veins Of Lower Extremity Bilateral (HCC) ACTIVATED PARTIAL THROMBOPLASTIN TIME (APTT), P Routine 03/09/2023 10:59 AM ENGINE TEST CELL TECHNICIAN Acute Embolism And Thrombosis Of Unspecified Deep Veins Of Lower Extremity Bilateral (HCC) PROTHROMBIN TIME (PT), P Routine 03/09/2023 10:59 AM ENGINE TEST CELL TECHNICIAN Acute Embolism And Thrombosis Of Unspecified Deep Veins Of Lower Extremity Bilateral (HCC) CBC WITH DIFFERENTIAL, B Routine 03/09/2023 10:59 AM ENGINE TEST CELL TECHNICIAN Acute Embolism And Thrombosis Of Unspecified Deep Veins Of Lower Extremity Bilateral (HCC) BETA-2 GLYCOPROTEIN 1 ABS, IGG AND IGM, S Routine 03/09/2023 10:59 AM ENGINE TEST CELL TECHNICIAN Acute Embolism And Thrombosis Of Unspecified Deep Veins Of Lower Extremity Bilateral (HCC) PHOSPHOLIPID (CARDIOLIPIN) ABS, IGG AND IGM, S Routine 03/09/2023 10:59 AM ENGINE TEST CELL TECHNICIAN Acute Embolism And Thrombosis Of Unspecified Deep Veins Of Lower Extremity Bilateral (HCC) PS/PT AB, IGG/IGM, S Routine 03/09/2023 10:59 AM ENGINE TEST CELL TECHNICIAN Acute Embolism And Thrombosis Of Unspecified Deep Veins Of Lower Extremity Bilateral (HCC) LUPUS ANTICOAGULANT PROFILE Routine 03/09/2023 10:59 AM ENGINE TEST CELL TECHNICIAN Acute Embolism And Thrombosis Of Unspecified Deep Veins Of Lower Extremity Bilateral (HCC) ANTITHROMBIN AG, P Routine 03/09/2023 10:59 AM ENGINE TEST CELL TECHNICIAN Acute Embolism And Thrombosis Of Unspecified Deep Veins Of Lower Extremity Bilateral (HCC) ANTITHROMBIN ACTIVITY, P Routine 03/09/2023 10:59 AM ENGINE TEST CELL TECHNICIAN Acute Embolism And Thrombosis Of Unspecified Deep Veins Of Lower Extremity Bilateral (HCC) PROTHROMBIN [id number] MUTATION, B Routine 03/09/2023 10:59 AM ENGINE TEST CELL TECHNICIAN Acute Embolism And Thrombosis Of Unspecified Deep Veins Of Lower Extremity Bilateral (HCC) COMPREHENSIVE METABOLIC PANEL, S/P Routine 03/09/2023 10:59 AM ENGINE TEST CELL TECHNICIAN Acute Embolism And Thrombosis Of Unspecified Deep Veins Of Lower Extremity Bilateral (HCC) INTERPRETATION OF OUTSIDE US VASCULAR RAD - Routine (most inpatients and all outpatients) 02/13/2023 1:29 PM ENGINE TEST CELL TECHNICIAN Personal History Of Other Venous Thrombosis And Embolism OUTSIDE US Routine 02/11/2023 1:00 PM ENGINE TEST CELL TECHNICIAN from Last 3 Months Results * CT Abdomen Pelvis Venogram with IV Contrast (03/11/2023 4:22 PM ENGINE TEST CELL TECHNICIAN) Anatomical Region Laterality Modality Abdomen, Pelvis, Cardiovascu lar RST LOS, Abdominal ARZ LOS, Vascular Interventional FLA LOS, Procedural, Vascular Interventional NWWI LOS N/A Computed Tomography, Computed Tomography 03/11/2023 4:14 PM ENGINE TEST CELL TECHNICIAN Impressions 03/11/2023 5:18 PM ENGINE TEST CELL TECHNICIAN Patent venous vasculature in the abdomen/pelvis. Narrative 03/11/2023 5:18 PM ENGINE TEST CELL TECHNICIAN EXAM: ??CT ABDOMEN PELVIS VENOGRAM WITH IV [...] Patent venous vasculature in the abdomen/pelvis. Diana BRO CT PROCEDURES * US Lower Extremity Veins Bilateral (03/09/2023 2:41 PM ENGINE TEST CELL TECHNICIAN) Anatomical Region Laterality Modality Lower Extremity, Ultrasound RST LOS, Ultrasound ARZ LOS, Ultrasound FLA LOS Bilateral Ultrasound Impressions 03/09/2023 3:22 PM ENGINE TEST CELL TECHNICIAN Negative for acute DVT. Subacute SVT in the right GSV in the calf. Narrative 03/09/2023 3:22 PM ENGINE TEST CELL TECHNICIAN EXAM: US LOWER EXTREMITY VEINS BILATERAL Exam [...] and management can be found on the [employer] site. Link [email or web address] Procedure Note Slime Anderson M.D. - 03/09/2023 [...] thrombosis and management can be found on theAskIntri-Plex TechnologiesExpert site. [email or web address] IMPRESSION: Negative for acute DVT. Subacute SVT in the right GSV in the calf. Diana Ramírez D.O. IMG US PROCEDURES * Phosphatidylserine/Prothrombin Antibody, IgG and IgM (03/09/2023 10:59 AM ENGINE TEST CELL TECHNICIAN) PS/PT Ab, IgG, S <9.4 <=30.0 (Negative ) U 03/11/2023 8:14 PM ENGINE TEST CELL TECHNICIAN [facility] Comment: ----ADDITIONAL INFORMATION---- This test has been modified from the transportation museum helper's instructions. Its performance characteristics were determined by [facility] in a manner consistent with CLIA requirements. This test has not been cleared or approved by the U.S. Food and Drug Administration. PS/PT Ab, IgM, S 13.7 <=30.0 (Negative ) U 03/11/2023 8:14 PM ENGINE TEST CELL TECHNICIAN [facility] Comment: ----ADDITIONAL INFORMATION---- This test has been modified from the transportation museum helper's instructions. Its performance characteristics were determined by [facility] in a manner consistent with CLIA requirements. This test has not been cleared or approved by the U.S. Food and Drug Administration. Blood (Blood, Venous) 03/09/2023 10:59 AM ENGINE TEST CELL TECHNICIAN 03/09/2023 4:33 PM ENGINE TEST CELL TECHNICIAN Diana Ramírez D.O. LAB BLOOD ADD-ON [facility] [address] [place] [address] [facility] [address] [place] [address] * Beta-2 Glycoprotein 1 Antibodies, IgG and IgM (03/09/2023 10:59 AM ENGINE TEST CELL TECHNICIAN) Beta 2 GP1 Ab IgG, S <9.4 <15.0 (Negative) SGU 03/10/2023 8:15 PM ENGINE TEST CELL TECHNICIAN SDSC Beta 2 GP1 Ab IgM, S <9.4 <15.0 (Negative) SMU 03/10/2023 8:45 PM ENGINE TEST CELL TECHNICIAN [facility] Blood (Blood, Venous) 03/09/2023 10:59 AM ENGINE TEST CELL TECHNICIAN 03/09/2023 3:50 PM ENGINE TEST CELL TECHNICIAN Diana Ramírez D.O. LAB BLOOD ADD-ON [facility] [address] [place] [address] [facility] [address] 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 The Prothrombin (F2 c.*97G>A) variant is a mild risk factor for venous thromboembolism (VTE). This individual may have other genetic and environmental risk factors for VTE. If indicated, consider genetic consultation and counseling for this individual and potentially affected family members regarding laboratory testing. 03/11/2023 7:55 AM ENGINE TEST CELL TECHNICIAN DTL Comment: ----ADDITIONAL INFORMATION---- This test uses [...] developed and its performance characteristics determined by [facility] in a manner consistent with CLIA requirements. This test has not been cleared or approved by the U.S. Food and Drug Administration. Blood (Blood, Venous) 03/09/2023 10:59 AM ENGINE TEST CELL TECHNICIAN 03/09/2023 11:45 AM ENGINE TEST CELL TECHNICIAN Diana Ramírez D.O. LAB GENETIC TESTI NG Performing Organization Address City/[facility]/ZIP Co de Phone Number [facility] [address] [place] [address], [facility] 200 [facility] [address] [place] [address] * Antithrombin Antigen (03/09/2023 10:59 AM ENGINE TEST CELL TECHNICIAN) [facility] Antithrombin Antigen, P 90 80 - 120 % 03/09/2023 12:39 PM ENGINE TEST CELL TECHNICIAN DTL Comment: ----ADDITIONAL INFORMATION---- This test has been modified from the transportation museum helper's instructions. Its performance characteristics were determined by [facility] in a manner consistent with CLIA requirements. This test has not been cleared or approved by the U.S. Food and Drug Administration. Blood (Blood, Venous) 03/09/2023 10:59 AM ENGINE TEST CELL TECHNICIAN 03/09/2023 11:37 AM ENGINE TEST CELL TECHNICIAN Diana Ramírez D.O. LAB BLOOD ADD-ON Performing Organization Address City/[facility] Co de Phone Number [facility] [address] [place] [address], [facility] [address] [place] [address] * Lupus Anticoag Prof (03/09/2023 10:59 AM ENGINE TEST CELL TECHNICIAN) [facility] Lupus Anticoagulant Tech Interp SEE COMMENT 03/09/2023 1:41 PM ENGINE TEST CELL TECHNICIAN DTL Comment: No evidence of a lupus [...] 9.4 - 12.5 sec 03/09/2023 1:41 PM ENGINE TEST CELL TECHNICIAN DTL INR 1.1 0.9 - 1.1 03/09/2023 1:41 PM ENGINE TEST CELL TECHNICIAN DTL Comment: ----ADDITIONAL INFORMATION---- Standard intensity warfarin therapeutic range: 2.0 to 3.0 High intensity warfarin therapeutic range: 2.5 to 3.5 Activated Partial Thrombopl Time, P 32 25 - 37 sec 03/09/2023 1:41 PM ENGINE TEST CELL TECHNICIAN DTL DRVVT Screen Ratio 1.19 <1.20 ratio 03/09/2023 1:41 PM ENGINE TEST CELL TECHNICIAN DTL Blood (Blood, Venous) 03/09/2023 10:59 AM ENGINE TEST CELL TECHNICIAN 03/09/2023 11:37 AM ENGINE TEST CELL TECHNICIAN Narrative [facility] - 03/09/2023 1:41 PM ENGINE TEST CELL TECHNICIAN Specimen Information: Specimen ID: [id number] Specimen Type: Blood Specimen Collection Start Date: 03/09/2023 10:59 AM Specimen Received Date: 03/09/2023 11:37 AM Specimen ID: [id number] Specimen Type: Blood Specimen Collection Start Date: 03/09/2023 10:59 AM Specimen Received Date: 03/09/2023 11:37 AM Specimen ID: [id number] Specimen Type: Blood Specimen Collection Start Date: 03/09/2023 10:59 AM Specimen Received Date: 03/09/2023 11:37 AM Specimen ID: [id number] Specimen Type: Blood Specimen Collection Start Date: 03/09/2023 10:59 AM Specimen Received Date: 03/09/2023 11:37 AM Diana Ramírez D.O. LAB BLOOD NON ADD -ON [facility] [address] [place] [address], [facility] [address] [place] [address] * Phospholipid (Cardiolipin) Antibodies, IgG and IgM (03/09/2023 10:59 AM ENGINE TEST CELL TECHNICIAN) Phospholipid Ab IgM, S 9.9 <15.0 (Negative) MPL 03/10/2023 6:20 PM ENGINE TEST CELL TECHNICIAN SDSC Phospholipid Ab IgG, S <9.4 <15.0 (Negative) GPL 03/10/2023 6:06 PM ENGINE TEST CELL TECHNICIAN [facility] Blood (Blood, Venous) 03/09/2023 10:59 AM ENGINE TEST CELL TECHNICIAN 03/09/2023 3:50 PM ENGINE TEST CELL TECHNICIAN Diana Ramírez D.O. LAB BLOOD ADD-ON [facility] [address] [place] [address] [facility] [address] [place] [address] * APTT (Activated Partial Thromboplastin Time) (03/09/2023 10:59 AM ENGINE TEST CELL TECHNICIAN) Pathologist [facility] Activated Partial Thrombopl Time, P 33 25 - 37 sec 03/09/2023 12:12 PM ENGINE TEST CELL TECHNICIAN DT Blood (Blood, Venous) 03/09/2023 10:59 AM ENGINE TEST CELL TECHNICIAN 03/09/2023 11:28 AM ENGINE TEST CELL TECHNICIAN Diana Ramírez D.O. LAB BLOOD ADD-ON Performing Organization Address City/[facility] Co de Phone Number [facility] [address] [place] [address], [facility] [address] [place] [address] * Prothrombin Time (PT) (03/09/2023 10:59 AM ENGINE TEST CELL TECHNICIAN) Pathologist [facility] Prothrombin Time, P 11.9 9.4 - 12.5 sec 03/09/2023 12:12 PM ENGINE TEST CELL TECHNICIAN DTL INR 1.1 0.9 - 1.1 03/09/2023 12:12 PM ENGINE TEST CELL TECHNICIAN DTL Comment: ----ADDITIONAL INFORMATION---- Standard intensity warfarin therapeutic range: 2.0 to 3.0 ?? High intensity warfarin therapeutic range: 2.5 to 3.5 Blood (Blood, Venous) 03/09/2023 10:59 AM ENGINE TEST CELL TECHNICIAN 03/09/2023 11:28 AM ENGINE TEST CELL TECHNICIAN Diana Ramírez D.O. LAB BLOOD ADD-ON [facility] [address] [place], [place] [id number] [place] [address] 200 [place] [address] * Heparin Anti-Xa Assay (03/09/2023 10:59 AM ENGINE TEST CELL TECHNICIAN) Heparin Anti-Xa, P 0.39 IU/mL 2023 12:12 PM ENGINE TEST CELL TECHNICIAN DTL Comment: UFH therapeutic range: ?? 0.30-0.70 [...] (UFH). Blood (Blood, Venous) 03/09/2023 10:59 AM ENGINE TEST CELL TECHNICIAN 03/09/2023 11:28 AM ENGINE TEST CELL TECHNICIAN Diana Ramírez D.O. LAB BLOOD NON ADD -ON Performing Organization Address City/[facility]/ZIP Co de Phone Number [facility] [address] [place] [address], [facility] [address] [place] [address] * Antithrombin Activity (03/09/2023 10:59 AM ENGINE TEST CELL TECHNICIAN) Antithrombin Activity, P 86 80 - 130 % 03/09/2023 12:36 PM ENGINE TEST CELL TECHNICIAN DTL Comment: Direct factor Xa inhibitor therapy (rivaroxaban (Xarelto), apixaban (Eliquis), edoxaban (Savaysa)) may interfere with the functional Xa based AT assay and cause an overestimation of AT activity thus potentially masking diagnosis of AT deficiency. ??Suggest clinical correlation and consider repeat AT testing remote from direct factor Xa inhibitor therapy, if clinically indicated. ----ADDITIONAL INFORMATION---- This test has been modified from the transportation museum helper's instructions. Its performance characteristics were determined by [facility] in a manner consistent with CLIA requirements. This test has not been cleared or approved by the U.S. Food and Drug Administration. Blood (Blood, Venous) 03/09/2023 10:59 AM ENGINE TEST CELL TECHNICIAN 03/09/2023 11:37 AM ENGINE TEST CELL TECHNICIAN Diana Ramírez D.O. LAB BLOOD ADD-ON [facility] [address] [place] [address], [facility] [address] [place] [address] * (ABNORMAL) CBC with Differential, Blood (03/09/2023 10:59 AM ENGINE TEST CELL TECHNICIAN) Hemoglobin 16.0 13.2 - 16.6 g/dL 03/09/2023 11:42 AM ENGINE TEST CELL TECHNICIAN DTL Hematocrit 47.4 38.3 - 48.6 % 03/09/2023 11:42 AM ENGINE TEST CELL TECHNICIAN DTL Erythrocytes 5.33 4.35 - 5.65 x10(12)/L 03/09/2023 11:42 AM ENGINE TEST CELL TECHNICIAN DTL MCV 88.9 78.2 - 97.9 fL 03/09/2023 11:42 AM ENGINE TEST CELL TECHNICIAN DTL RBC Distrib Width 12.6 11.8 - 14.5 % 03/09/2023 11:42 AM ENGINE TEST CELL TECHNICIAN DTL Platelet Count 302 135 - 317 x10(9)/L 03/09/2023 11:42 AM ENGINE TEST CELL TECHNICIAN DTL Leukocytes 8.5 3.4 - 9.6 x10(9)/L 03/09/2023 11:42 AM ENGINE TEST CELL TECHNICIAN DTL Neutrophils 3.99 1.56 - 6.45 x10(9)/L 03/09/2023 11:42 AM ENGINE TEST CELL TECHNICIAN DHPM Lymphocytes 3.64(H) 0.95 - 3.07 x10(9)/L 03/09/2023 11:42 AM ENGINE TEST CELL TECHNICIAN DTL Monocytes 0.75 0.26 - 0.81 x10(9)/L 03/09/2023 11:42 AM ENGINE TEST CELL TECHNICIAN DTL Eosinophils 0.06 0.03 - 0.48 x10(9)/L 03/09/2023 11:42 AM ENGINE TEST CELL TECHNICIAN DTL Basophils <0.03 0.01 - 0.08 x10(9)/L 03/09/2023 11:42 AM ENGINE TEST CELL TECHNICIAN DTL Blood (Blood, Venous) 03/09/2023 10:59 AM ENGINE TEST CELL TECHNICIAN 03/09/2023 11:28 AM ENGINE TEST CELL TECHNICIAN Diana Ramírez D.O. LAB BLOOD ADD-ON [facility] [address] [place] [address], [facility] DTL [facility] [address] [place] [address] [facility] [address] [place] [address] * (ABNORMAL) Comprehensive Metabolic Panel (03/09/2023 10:59 AM ENGINE TEST CELL TECHNICIAN) [facility] Potassium, S 4.6 3.6 - 5.2 mmol/L 03/09/2023 12:22 PM ENGINE TEST CELL TECHNICIAN DTL Sodium, S 142 135 - 145 mmol/L 03/09/2023 12:22 PM ENGINE TEST CELL TECHNICIAN DTL Chloride, S 101 98 - 107 mmol/L 03/09/2023 12:22 PM ENGINE TEST CELL TECHNICIAN DTL Bicarbonate, S 29 22 - 29 mmol/L 03/09/2023 12:22 PM ENGINE TEST CELL TECHNICIAN DTL Anion Gap 12 7 - 15 03/09/2023 12:22 PM ENGINE TEST CELL TECHNICIAN DTL BUN (Blood Urea Nitrogen), S 19 8 - 24 mg/dL 03/09/2023 12:22 PM ENGINE TEST CELL TECHNICIAN DTL Creatinine 1.21 0.74 - 1.35 mg/dL 03/09/2023 12:22 PM ENGINE TEST CELL TECHNICIAN DTL Estimated GFR (eGFR) 68 >=60 mL/min/BS A 03/09/2023 12:22 PM ENGINE TEST CELL TECHNICIAN DTL Comment: Estimated GFR calculated using the 2020 CKD_EPI creatinine equation. Calcium, Total, S 9.5 8.8 - 10.2 mg/dL 03/09/2023 12:22 PM ENGINE TEST CELL TECHNICIAN DTL Glucose, S 156(H) 70 - 140 mg/dL 03/09/2023 12:22 PM ENGINE TEST CELL TECHNICIAN DTL Protein, Total, S 6.9 6.3 - 7.9 g/dL 03/09/2023 12:22 PM ENGINE TEST CELL TECHNICIAN DTL Albumin, S 4.5 3.5 - 5.0 g/dL 03/09/2023 12:22 PM ENGINE TEST CELL TECHNICIAN DTL Aspartate Aminotransferase (AST), S 24 8 - 48 U/L 03/09/2023 12:22 PM ENGINE TEST CELL TECHNICIAN DTL Alkaline Phosphatase, S 40 40 - 129 U/L 03/09/2023 12:22 PM ENGINE TEST CELL TECHNICIAN DTL Alanine Aminotransferase (ALT), S 42 7 - 55 U/L 03/09/2023 12:22 PM ENGINE TEST CELL TECHNICIAN DTL Bilirubin, Total, S 0.3 0.0 - 1.2 mg/dL 03/09/2023 12:22 PM ENGINE TEST CELL TECHNICIAN DTL Blood (Blood, Venous) 03/09/2023 10:59 AM ENGINE TEST CELL TECHNICIAN 03/09/2023 11:41 AM ENGINE TEST CELL TECHNICIAN Diana Ramírez D.O. [place] [address], [facility] [address] [place] [address] * Interpretation of Outside US Vascular (02/13/2023 1:29 PM ENGINE TEST CELL TECHNICIAN) Anatomical Region Laterality Modality Ultrasound RST LOS, Ultrasou nd ARZ LOS, Ultrasound FLA LOS, Procedural, Other, Vascular N/A Ultrasound 02/13/2023 1:31 PM ENGINE TEST CELL TECHNICIAN Impressions 02/13/2023 2:06 PM ENGINE TEST CELL TECHNICIAN 1. Positive for interval development of acute/subacute-appearing DVT in the left popliteal vein. 2. 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 Narrative 02/13/2023 2:06 PM ENGINE TEST CELL TECHNICIAN EXAM: ??INTERPRETATION OF OUTSIDE US VASCULAR with [...] slightly since the prior exam. Shirlene Restrepo APRN C.N.P., D.N.P. [facility] US PROCEDURES * US venous LE BI-Outside US (02/11/2023 1:00 PM ENGINE TEST CELL TECHNICIAN) Narrative IISC - 02/12/2023 10:21 AM ENGINE TEST CELL TECHNICIAN This order has been created and auto-finalized [...]
--- OUTSIDE RECORDS SUMMARY | 2023-03-25 09:33 | XMS_ITS | Encounter Summary ---
Author Name Unknown Organization [facility] Address [address] [place] [address] Care Team Providers Care Fiberglass Technician Name Role Phone Unavailable Primary Care Provider Unavailabl e Encounter Details Date Type Department Care Team (Latest Contact Info) Description 03/09/2023 10:30 AM GRID MAKER - 03/09/2023 1:03 PM [facility] Hospital Encounter Department of Laboratory Medicine and Pathology, [facility], in [place], [place] [address] [place] [address] Diana Ramírez D.O. [address] [place] [address] Acute Embolism And Thrombosis Of Unspecified Deep Veins Of Lower Extremity Bilateral (HCC) Discharge Disposition: Home or Self Care Social History Tobacco Use Types Packs/Day Years Used Date Smoking Tobacco: Former Cigarettes 2 16 1 - 11/12/1996 Smokeless Tobacco: Never Alcohol Use Standard Drinks/Week Comments Never 0 (1 standard drink = 0.6 oz pur e alcohol) [facility] Utilities Answer Date Recorded In the past 12 months has [employer], gas, oil, or water [employer] threatened to shut off services in your [...] your living situation today? I have a [facility] place to live 03/02/2023 Sex and Gender Information Value Date Recorded Sex Assigned at Male 03/02/2023 10:00 AM GRID MAKER Gender Identity Male 03/02/2023 10:00 AM GRID MAKER Sexual Orientation Lesbian or Boo 03/02/2023 10 :00 AM GRID MAKER documented as of this encounter Medications at Time of Discharge Medication Sig Dispensed Refills Start Date End Date enoxaparin (LOVENOX) 120 mg/0.8 mL injection Inject 0.73 mL (110 mg total) under the skin 2 (two) times a day. 48 mL 0 03/11/2023 04/10/2023 enoxaparin (LOVENOX) 100 mg/mL injection Inject 1.1 mL (110 mg total) under the skin 2 (two) times a day. 120 mL 0 03/09/2023 03/11/2023 documented as of this encounter Plan of Treatment Upcoming Encounters Date Type Department Care Team (Late st Contact Info) Description 06/12/2023 12:30 PM CDT Appointment Department of Laboratory Medicine and Pathology, [facility], in [place], [place] [address] [place] [address] Diana Ramírez D.O. [address] [place] [address] 06/12/2023 2:00 PM CDT Office Visit Department of Vascular Medicine in [place], [place] [address] [place] [address] Diana Ramírez D.O. [address] [place] [phone] documented as of this encounter Procedures Procedure Name Priority Date/Time Associated Diagnosis Comments PS/PT AB, IGG/IGM, S Routine 03/09/2023 10:59 AM GRID MAKER Acute Embolism And Thrombosis Of Unspecified Deep Veins Of Lower Extremity Bilateral (HCC) BETA-2 GLYCOPROTEIN 1 ABS, IGG AND IGM, S Routine 03/09/2023 10:59 AM GRID MAKER Acute Embolism And Thrombosis Of Unspecified Deep Veins Of Lower Extremity Bilateral (HCC) PROTHROMBIN [id number] MUTATION, B Routine 03/09/2023 10:59 AM GRID MAKER Acute Embolism And Thrombosis Of Unspecified Deep Veins Of Lower Extremity Bilateral (HCC) ANTITHROMBIN AG, P Routine 03/09/2023 10 :59 AM GRID MAKER Acute Embolism And Thrombosis Of Unspecified Deep Veins Of Lower Extremity Bilateral (HCC) LUPUS ANTICOAGULANT PROFILE Routine 03/09/2023 10:59 AM GRID MAKER Acute Embolism And Thrombosis Of Unspecified Deep Veins Of Lower Extremity Bilateral (HCC) PHOSPHOLIPID (CARDIOLIPIN) ABS, IGG AND IGM, S Routine 03/09/2023 10:59 AM GRID MAKER Acute Embolism And Thrombosis Of Unspecified Deep Veins Of Lower Extremity Bilateral (HCC) ACTIVATED PARTIAL THROMBOPLASTIN TIME (APTT), P Routine 03/09/2023 10:59 AM GRID MAKER Acute Embolism And Thrombosis Of Unspecified Deep Veins Of Lower Extremity Bilateral (HCC) PROTHROMBIN TIME (PT), P Routine 03/09/2023 10:59 AM GRID MAKER Acute Embolism And Thrombosis Of Unspecified Deep Veins Of Lower Extremity Bilateral (HCC) HEPARIN LEVEL ANTI-XA ASSAY, P Routine 03/09/2023 10:59 AM GRID MAKER Acute Embolism And Thrombosis Of Unspecified Deep Veins Of Lower Extremity Bilateral (HCC) ANTITHROMBIN ACTIVITY, P Routine 03/09/2023 10:59 AM GRID MAKER Acute Embolism And Thrombosis Of Unspecified Deep Veins Of Lower Extremity Bilateral (HCC) CBC WITH DIFFERENTIAL, B Routine 03/09/2023 10:59 AM GRID MAKER Acute Embolism And Thrombosis Of Unspecified Deep Veins Of Lower Extremity Bilateral (HCC) COMPREHENSIVE METABOLIC PANEL, S/P Routine 03/09/2023 10:59 AM GRID MAKER Acute Embolism And Thrombosis Of Unspecified Deep Veins Of Lower Extremity Bilateral (HCC) documented in this encounter Results * Heparin Anti-Xa Assay (03/09/2023 10:59 AM GRID MAKER) [facility] Heparin Anti-Xa, P 0.39 IU/mL 2023 12:12 PM GRID MAKER DTL Comment: UFH therapeutic range: ?? 0.30-0.70 [...] (UFH). Blood (Blood, Venous) 03/09/2023 10:59 AM GRID MAKER 03/09/2023 11:28 AM GRID MAKER Diana Ramírez D.O. LAB BLOOD NON ADD -ON [place] [address] [place], [place] [address] [address] [place] [address] * APTT (Activated Partial Thromboplastin Time) (03/09/2023 10:59 AM GRID MAKER) [facility] Activated Partial Thrombopl Time, P 33 25 - 37 sec 03/09/2023 12:12 PM GRID MAKER DTL Blood (Blood, Venous) 03/09/2023 10:59 AM GRID MAKER 03/09/2023 11:28 AM GRID MAKER Diana Ramírez D.O. LAB BLOOD ADD-ON Performing Organization Address City/[facility]/ZIP Co de Phone Number [facility] [address] [place], [place] [id number] [place] [address] [address] [place] [address] * Prothrombin Time (PT) (03/09/2023 10:59 AM GRID MAKER) [facility] Prothrombin Time, P 11.9 9.4 - 12.5 sec 03/09/2023 12:12 PM GRID MAKER DTL INR 1.1 0.9 - 1.1 03/09/2023 12:12 PM GRID MAKER DTL Comment: ----ADDITIONAL INFORMATION---- Standard intensity warfarin therapeutic range: 2.0 to 3.0 ?? High intensity warfarin therapeutic range: 2.5 to 3.5 Blood (Blood, Venous) 03/09/2023 10:59 AM GRID MAKER 03/09/2023 11:28 AM GRID MAKER Diana Ramírez D.O. LAB BLOOD ADD-ON [facility] [address] [place], [place] [phone] [place] [address] [address] [place] [address] * (ABNORMAL) CBC with Differential, Blood (03/09/2023 10:59 AM GRID MAKER) [facility] Hemoglobin 16.0 13.2 - 16.6 g/dL 03/09/2023 11:42 AM GRID MAKER DTL Hematocrit 47.4 38.3 - 48.6 % 03/09/2023 11:42 AM GRID MAKER DTL Erythrocytes 5.33 4.35 - 5.65 x10(12)/L 03/09/2023 11:42 AM GRID MAKER DTL MCV 88.9 78.2 - 97.9 fL 03/09/2023 11:42 AM GRID MAKER DTL RBC Distrib Width 12.6 11.8 - 14.5 % 03/09/2023 11:42 AM GRID MAKER DTL Platelet Count 302 135 - 317 x10(9)/L 03/09/2023 11:42 AM GRID MAKER DTL Leukocytes 8.5 3.4 - 9.6 x10(9)/L 03/09/2023 11:42 AM GRID MAKER DTL Neutrophils 3.99 1.56 - 6.45 x10(9)/L 03/09/2023 11:42 AM GRID MAKER PM Lymphocytes 3.64(H) 0.95 - 3.07 x10(9)/L 03/09/2023 11:42 AM GRID MAKER DTL Monocytes 0.75 0.26 - 0.81 x10(9)/L 03/09/2023 11:42 AM GRID MAKER DTL Eosinophils 0.06 0.03 - 0.48 x10(9)/L 03/09/2023 11:42 AM GRID MAKER DTL Basophils <0.03 0.01 - 0.08 x10(9)/L 03/09/2023 11:42 AM GRID MAKER DTL Blood (Blood, Venous) 03/09/2023 10:59 AM GRID MAKER 03/09/2023 11:28 AM GRID MAKER Diana Ramírez D.O. LAB BLOOD ADD-ON [facility] [address] [place] [address], [facility] DTL [facility] [address] [place] [address] [facility] [address] [place] [address] * Beta-2 Glycoprotein 1 Antibodies, IgG and IgM (03/09/2023 10:59 AM GRID MAKER) Beta 2 GP1 Ab IgG, S <9.4 <15.0 (Negative) SGU 03/10/2023 8:15 PM GRID MAKER SDS Beta 2 GP1 Ab IgM, S <9.4 <15.0 (Negative) SMU 03/10/2023 8:45 PM GRID MAKER [facility] Blood (Blood, Venous) 03/09/2023 10:59 AM GRID MAKER 03/09/2023 3:50 PM GRID MAKER Diana Ramírez D.O. LAB BLOOD ADD-ON Performing Organization Address [facility] Co de Phone Number [facility] [address] [place] [address] [facility] [address] [place] [address] * Phospholipid (Cardiolipin) Antibodies, IgG and IgM (03/09/2023 10:59 AM GRID MAKER) Phospholipid Ab IgM, S 9.9 <15.0 (Negative) MPL 03/10/2023 6:20 PM GRID MAKER [facility] Phospholipid Ab IgG, S <9.4 <15.0 (Negative) GPL 03/10/2023 6:06 PM GRID MAKER [facility] Blood (Blood, Venous) 03/09/2023 10:59 AM GRID MAKER 03/09/2023 3:50 PM GRID MAKER Diana Ramírez D.O. LAB BLOOD ADD-ON Performing Organization Address [facility] Co de Phone Number [facility] [address] [place] [address] [facility] [address] [place] [address] * Phosphatidylserine/Prothrombin Antibody, IgG and IgM (03/09/2023 10:59 AM GRID MAKER) PS/PT Ab, IgG, S <9.4 <=30.0 (Negative ) U 03/11/2023 8:14 PM GRID MAKER [facility] Comment: ----ADDITIONAL INFORMATION---- This test has been modified from the protection engineer's instructions. Its performance characteristics were determined by [facility] in a manner consistent with CLIA requirements. This test has not been cleared or approved by the U.S. Food and Drug Administration. PS/PT Ab, IgM, S 13.7 <=30.0 (Negative ) U 03/11/2023 8:14 PM GRID MAKER [facility] Comment: ----ADDITIONAL INFORMATION---- This test has been modified from the protection engineer's instructions. Its performance characteristics were determined by [facility] in a manner consistent with CLIA requirements. This test has not been cleared or approved by the U.S. Food and Drug Administration. Blood (Blood, Venous) 03/09/2023 10:59 AM GRID MAKER 03/09/2023 4:33 PM GRID MAKER Diana Ramírez D.O. LAB BLOOD ADD-ON [facility] [address] [place] [address] [facility] [address] [place] [address] * Lupus Anticoag Prof (03/09/2023 10:59 AM GRID MAKER) [facility] Lupus Anticoagulant Tech Interp SEE COMMENT 03/09/2023 1:41 PM GRID MAKER DTL Comment: No evidence of a lupus [...] 9.4 - 12.5 sec 03/09/2023 1:41 PM GRID MAKER DTL INR 1.1 0.9 - 1.1 03/09/2023 1:41 PM GRID MAKER DTL Comment: ----ADDITIONAL INFORMATION---- Standard intensity warfarin therapeutic range: 2.0 to 3.0 High intensity warfarin therapeutic range: 2.5 to 3.5 Activated Partial Thrombopl Time, P 32 25 - 37 sec 03/09/2023 1:41 PM GRID MAKER DTL DRVVT Screen Ratio 1.19 <1.20 ratio 03/09/2023 1:41 PM GRID MAKER DTL Blood (Blood, Venous) 03/09/2023 10:59 AM GRID MAKER 03/09/2023 11:37 AM GRID MAKER Narrative [facility] - 03/09/2023 1:41 PM GRID MAKER Specimen Information: Specimen ID: [id number] Specimen Type: Blood Specimen Collection Start Date: 03/09/2023 10:59 AM Specimen Received Date: 03/09/2023 11:37 AM Specimen ID: [id number] Specimen Type: Blood Specimen Collection Start Date: 03/09/2023 10:59 AM Specimen Received Date: 03/09/2023 11:37 AM Specimen ID: [id number] Specimen Type: Blood Specimen Collection Start Date: 03/09/2023 10:59 AM Specimen Received Date: 03/09/2023 11:37 AM Specimen ID: [id number] Specimen Type: Blood Specimen Collection Start Date: 03/09/2023 10:59 AM Specimen Received Date: 03/09/2023 11:37 AM Diana Ramírez D.O. LAB BLOOD NON ADD -ON [facility] [address] [place] [address], [facility] [address] [place] [address] * Antithrombin Antigen (03/09/2023 10:59 AM GRID MAKER) [facility] Antithrombin Antigen, P 90 80 - 120 % 03/09/2023 12:39 PM GRID MAKER DTL Comment: ----ADDITIONAL INFORMATION---- This test has been modified from the protection engineer's instructions. Its performance characteristics were determined by [facility] in a manner consistent with CLIA requirements. This test has not been cleared or approved by the U.S. Food and Drug Administration. Blood (Blood, Venous) 03/09/2023 10:59 AM GRID MAKER 03/09/2023 11:37 AM GRID MAKER Diana Ramírez D.O. LAB BLOOD ADD-ON [facility] [address] [place] [address], [place] [address] * Antithrombin Activity (03/09/2023 10:59 AM GRID MAKER) Antithrombin Activity, P 86 80 - 130 % 03/09/2023 12:36 PM GRID MAKER DTL Comment: Direct factor Xa inhibitor therapy (rivaroxaban (Xarelto), apixaban (Eliquis), edoxaban (Savaysa)) may interfere with the functional Xa based AT assay and cause an overestimation of AT activity thus potentially masking diagnosis of AT deficiency. ??Suggest clinical correlation and consider repeat AT testing remote from direct factor Xa inhibitor therapy, if clinically indicated. ----ADDITIONAL INFORMATION---- This test has been modified from the protection engineer's instructions. Its performance characteristics were determined by [facility] in a manner consistent with CLIA requirements. This test has not been cleared or approved by the U.S. Food and Drug Administration. Blood (Blood, Venous) 03/09/2023 10:59 AM GRID MAKER 03/09/2023 11:37 AM GRID MAKER Diana Ramírez D.O. 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 The Prothrombin (F2 c.*97G>A) variant is a mild risk factor for venous thromboembolism (VTE). This individual may have other genetic and environmental risk factors for VTE. If indicated, consider genetic consultation and counseling for this individual and potentially affected family members regarding laboratory testing. 03/11/2023 7:55 AM GRID MAKER DTL Comment: ----ADDITIONAL INFORMATION---- This test uses [...] developed and its performance characteristics determined by [facility] in a manner consistent with CLIA requirements. This test has not been cleared or approved by the U.S. Food and Drug Administration. Blood (Blood, Venous) 03/09/2023 10:59 AM GRID MAKER 03/09/2023 11:45 AM GRID MAKER Diana Ramírez D.O. LAB GENETIC TESTI [facility] [address] [place] [address], [facility] DTL [address] [facility] [address] [place] [address] * (ABNORMAL) Comprehensive Metabolic Panel (03/09/2023 10:59 AM GRID MAKER) Pathologist [facility] Potassium, S 4.6 3.6 - 5.2 mmol/L 03/09/2023 12:22 PM GRID MAKER DTL Sodium, S 142 135 - 145 mmol/L 03/09/2023 12:22 PM GRID MAKER DTL Chloride, S 101 98 - 107 mmol/L 03/09/2023 12:22 PM GRID MAKER DTL Bicarbonate, S 29 22 - 29 mmol/L 03/09/2023 12:22 PM GRID MAKER DTL Anion Gap 12 7 - 15 03/09/2023 12:22 PM GRID MAKER DTL BUN (Blood Urea Nitrogen), S 19 8 - 24 mg/dL 03/09/2023 12:22 PM GRID MAKER DTL Creatinine 1.21 0.74 - 1.35 mg/dL 03/09/2023 12:22 PM GRID MAKER DTL Estimated GFR (eGFR) 68 >=60 mL/min/BS A 03/09/2023 12:22 PM GRID MAKER DTL Comment: Estimated GFR calculated using the 2020 CKD_EPI creatinine equation. Calcium, Total, S 9.5 8.8 - 10.2 mg/dL 03/09/2023 12:22 PM GRID MAKER DTL Glucose, S 156(H) 70 - 140 mg/dL 03/09/2023 12:22 PM GRID MAKER DTL Protein, Total, S 6.9 6.3 - 7.9 g/dL 03/09/2023 12:22 PM GRID MAKER DTL Albumin, S 4.5 3.5 - 5.0 g/dL 03/09/2023 12:22 PM GRID MAKER DTL Aspartate Aminotransferase (AST), S 24 8 - 48 U/L 03/09/2023 12:22 PM GRID MAKER DTL Alkaline Phosphatase, S 40 40 - 129 U/L 03/09/2023 12:22 PM GRID MAKER DTL Alanine Aminotransferase (ALT), S 42 7 - 55 U/L 03/09/2023 12:22 PM GRID MAKER DTL Bilirubin, Total, S 0.3 0.0 - 1.2 mg/dL 03/09/2023 12:22 PM GRID MAKER DTL Blood (Blood, Venous) 03/09/2023 10:59 AM GRID MAKER 03/09/2023 11:41 AM GRID MAKER Diana Ramírez D.O. LAB BLOOD ADD-ON [facility] [address] [place] [address], [facility] DTL [facility] [address] [place] [address] documented in this encounter Visit Diagnoses Diagnosis Acute Embolism And Thrombosis Of Unspecified Deep Veins Of Lower Extremity Bilateral (HCC) documented in this encounter
--- OUTSIDE RECORDS SUMMARY | 2023-03-25 09:33 | XMS_ITS | Encounter Summary ---
Author Name Unknown Organization [facility] Address [address] [place] [address] Care Team Providers Care Animal Physiologist Name Role Phone Unavailable Primary Care Provider Unavailabl e Encounter Details Date Type Department Care Team (Late st Contact Info) Description 02/13/2023 Orders Only Department of Vascular Medicine in [place], [place] [address] [place] [phone] Shirlene Restrepo, SEALING AND CANCELING MACHINE OPERATOR, C.N.P., D.N.P. [address] [place] [phone] Personal History Of Other Venous Thrombosis And Embolism (Primary Dx) Social History Tobacco Use Types Packs/Day Years Used Date Smoking Tobacco: Unknown Nutrition Answer Date Recorded Nutrition: EVOO Fat Source Unknown 02/12 Nutrition: Servings of Fruits/Vegetables per Day Not on file 02/12/2023 Dental Answer Date Recorded Dental: Regular Dentist Unknown 02/13/20 Sex and Gender Information Value Date Recorded Sex Assigned at Male 03/02/2023 10:00 AM MACHINE STITCHER Gender Identity Male 03/02/2023 10:00 AM MACHINE STITCHER Sexual Orientation Lesbian or Boo 03/02/2023 10 :00 AM MACHINE STITCHER documented as of this encounter Plan of Treatment Upcoming Encounters Date Type Department Care Team (Late st Contact Info) Description 06/12/2023 12:30 PM CDT Appointment Department of Laboratory Medicine and Pathology, [facility] in [place], [place] [address] [place] [phone] Diana Ramírez D.O. [address] [place] [phone] 06/12/2023 2:00 PM CDT Office Visit Department of Vascular Medicine in [place], [place] [address] [place] [address] Diana Ramírez D.O. [address] [place] [address] documented as of this encounter Results * Interpretation of Outside US Vascular (02/13/2023 1:29 PM MACHINE STITCHER) Anatomical Region Laterality Modality Ultrasound RST LOS, Ultrasou nd ARZ LOS, Ultrasound FLA LOS, Procedural, Other, Vascular N/A Ultrasound 02/13/2023 1:31 PM MACHINE STITCHER Impressions 02/13/2023 2:06 PM MACHINE STITCHER 1. Positive for interval development of acute/subacute-appearing DVT in the left popliteal vein. 2. 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 Narrative 02/13/2023 2:06 PM MACHINE STITCHER EXAM: ??INTERPRETATION OF OUTSIDE US VASCULAR with [...] Restrepo APRN, C.N.P., D.N.P. IMG US PROCEDURES documented in this encounter Visit Diagnoses Diagnosis Personal History Of Other Venous Thrombosis And Embolism- Primary Personal History Of Other Venous Thrombosis And Embolism documented in this encounter
--- OUTSIDE RECORDS SUMMARY | 2023-03-25 09:33 | XMS_ITS | Encounter Summary ---
Author Name Unknown Organization [facility] Address [address] [place] [address] Care Team Providers Care Keeper Helper Name Role Phone Unavailable Primary Care Provider Unavailabl e Reason for Referral * Outpatient (Routine) - Authorized Specialty Diagnoses / Procedures Referred By Contac t Referred To Contact Vascular Medicine Diana Ramírez D.O. [address] [place] [address] [facility] Referral ID Status Reason Start Date Expiration Date V isits Requested Visits Authorized [id number] Authorized 03/17/2023 03/16/2026 1 1 IDE REPAIRER SPECIAL * Outpatient (Routine) - Closed Specialty Diagnoses / Procedures Referred By Contac t Referred To Contact Endocrinology Diagnoses Other Specified Disorders Of Adrenal Gland (HCC) Diana Ramírez D.O. [address] [place] [address] [facility] Referral ID Status Reason Start Date Expiration Date Visits Re quested Visits Authorized [id number] Closed 03/17/2023 03/16/2024 1 1 IDE REPAIRER SPECIAL Reason for Visit * Outpatient (Routine) - Closed Specialty Diagnoses / Procedures Referred By Contac t Referred To Contact Vascular Medicine Diana Ramírez D.O. [address] [place] [address] [facility] Referral ID Status Reason Start Date Expiration Date Visits Re quested Visits Authorized [id number] Closed 03/09/2023 03/08/2026 1 1 Encounter Details Date Type Department Care Team (Late st Contact Info) Description 03/17/2023 4:00 PM OUTSIDE REPAIRER SPECIAL Telemedicine Department of Vascular Medicine in [place], [place] [address] [place] [address] Diana Ramírez D.O. [address] [place] [address] Acute Embolism And Thrombosis Of Unspecified Deep Veins Of Lower Extremity Bilateral (HCC) (Primary Dx); Other Specified Disorders Of Adrenal Gland (HCC); Dilated Common Bile Duct Social History Tobacco Use Types Packs/Day Years Used Date Smoking Tobacco: Former Cigarettes 2 16 1 - 11/12/1996 Smokeless Tobacco: Never Alcohol Use Standard Drinks/Week Comments Never 0 (1 standard drink = 0.6 oz pur e alcohol) [facility] Utilities Answer Date Recorded In the past 12 months has [employer], gas, oil, or water [employer] threatened to shut off services in your [...] Answer Date Recorded Employment status Unemployed/not in th e paid workforce but seeking employment 03/02/2023 Housing Stability Answer Date Recorded What is your living situation today? I have a [facility] place to live 03/02/2023 Sex and Gender Information Value Date Recorded Sex Assigned at Male 03/02/2023 10:00 AM OUTSIDE REPAIRER SPECIAL Gender Identity Male 03/02/2023 10:00 AM OUTSIDE REPAIRER SPECIAL Sexual Orientation Lesbian or Boo 03/02/2023 10 :00 AM OUTSIDE REPAIRER SPECIAL documented as of this encounter Progress Notes * Diana Ramírez D.O. - 03/17/2023 4:00 PM CST VASCULAR MEDICINE PROGRESS NOTE SUBJECTIVE HISTORY OF PRESENT ILLNESS Mr. Restrepo is a 62 y.o. male who presents to Vascular Medicine today for follow up after concern for apixaban failure. In brief, I met Mr. Restrepo on 03/09/23 after an outside diagnosis of a left popliteal vein DVT despite anticoagulation with apixaban. He did have a prolonged flight (9-10 hours) during which time he was sedentary however, he believes he was mostly compliant with apixaban during this time frame. He thinks he may have missed 1-2 doses (maximum) on his initial flight to [place], however nearly 10 days later he developed symptoms after his return flight. Thrombophilia testing was completed which demonstrated heterozygosity for prothrombin gene mutation; evaluation including APS serologies was negative. Additionally, CT abdomen/pelvis was completed to evaluate for proximal obstruction given young age and recurrent thrombotic events. Venous system was patent; no evidence of May Thurner anatomy. Incidental findings included marked adrenal thickening, mildly dilated CBD, tiny renal lesions (likely cysts), and an enlarged prostate. Laboratory evaluation otherwise demonstrated a minimal elevation in lymphocytes; no other concerning abnormalities including renal and hepatic function; recent PSA 0.93. He was transitioned to enoxaparin once daily by an outside provider; we transitioned him to enoxaparin 1 mg/kg BID after our last visit. He has not experienced any bleeding events; reports minor bruising at injection sites but otherwise is well tolerated. No other new systemic symptoms. For complete history details, please see my initial documentation from 03/09/23. REVIEW OF SYSTEMS Pertinent items are noted in HPI; all other review of systems as below or negative. OBJECTIVE There were no vitals taken for this visit. PHYSICAL EXAM Physical examination is limited by nature of virtual consultation. GENERAL: Calm, cooperative, no acute distress HEAD AND NECK: No scleral icterus. LUNGS: No use of accessory muscles. No audible wheezing/ rales or rhonchi. NEURO: Moves all extremities spontaneously and purposefully. PSYCH:Appropriate mood, non-tangential in speech and thought process DIAGNOSTICS I have reviewed pertinent laboratory and imaging studies. Labs and images studies of note include: Complete Blood Count Lab Results Component Value Date WBC 8.5 03/09/2023 RBC 5.33 03/09/2023 HGB 16.0 03/09/2023 HCT 47.4 03/09/2023 MCV 88.9 03/09/2023 PLT 302 03/09/2023 Lab Results Component Value Date/Time NA 142 03/09/2023 10:59 AM CL 101 03/09/2023 10:59 AM BUN 19 03/09/2023 10:59 AM CREATININE 1.21 03/09/2023 10:59 AM CALCIUM 9.5 03/09/2023 10:59 AM ALKPHOS 40 03/09/2023 10:59 AM AST 24 03/09/2023 10:59 AM ALT 42 03/09/2023 10:59 AM BILITOT 0.3 03/09/2023 10:[address] Abdomen Pelvis Venogram with IV Contrast Result Date: 03/11/2023 FINDINGS: VASCULAR FINDINGS: The superior vena cava, [...] the internal iliac arteries, incompletely evaluated on this. Patent external and internal iliac arteries as [...] gland. Degenerative hypertrophic changes in the spine. US Lower Extremity Veins Bilateral Result Date: 03/09/2023 Negative for acute DVT. Subacute SVT in the right GSV in the calf. ASSESSMENT / PLAN Concern for apixaban failure, likely multifactorial Heterozygosity for prothrombin gene mutation Chronic right GSV thrombus Obstructive sleep apnea Obesity, BMI 36 Hypertension Mr. Restrepo is a pleasant 62 y.o. male with HTN, ARI, and obesity (BMI 36) who presents after an unprovoked RLE DVT/PE in March 2022 maintained on apixaban, now presenting for concern for apixaban failure (new popliteal vein thrombus despite apixaban use). We discussed that this was likely a multifactorial mechanism; he did miss 1-2 doses of apixaban approximately 10 days prior to onset of symptoms and took multiple 9-10 hour flights around this time (during which time he was sedentary). This is also in the background of obesity, ARI, and a prothrombin gene mutation. It appears on my review of US that the clot appeared small in size and was non-occlusive; however is certainly present. However, the question of next anticoagulation steps are not perfectly clear. We discussed that we could re-trial DOAC therapy, but that this would carry risk for recurrent failure. He does not have any prior history of bowel resection which would alter absorption; therefore Ican not say if a repeat trial of apixaban with perfect compliance would avoid a recurrent VTE eventor if transition to another DOAC (rivaroxaban or edoxaban) would not pose the same risks. The other alternative would be to transition to warfarin. We discussed that this is often the agentpatients are transitioned to long-term after concern for apixaban failure but does require intermittent monitoring, being connected in with his local coagulation clinic, and dietary compliance. He understands that the levels of warfarin can vary depending on many factors and that he would need to be educated about this process. He would like to pursue warfarin therapy to avoid future VTE events as he believes he was mostly compliant with DOAC therapy (at most 2 missed doses) which is unsettling. I think this is the safest and most reasonable thing to do currently without a clear trigger. We discussed that all patients with concern for DOAC failure should meet with their PCP to ensure they are up to date with age-appropriate cancer screening (updating PSA, colon cancer screening, etc). He does have some incidental findings on CT Venogram including prostate enlargement (recent PSA 0.93), mild CBD dilation, and tiny renal cysts. I assured him that these are likely not correlative tomalignancy but should be monitored. He does have marked bilateral adrenal thickening which is of unclear significance; he does report an episode of 'shakiness' and feeling like his 'blood sugar was very low' which has been new. I thinkit is reasonable to have our Endocrinology team weigh in on the adrenal abnormalities as this is outside my scope of knowledge. We greatly appreciate their input in evaluating him. RECOMMENDATIONS 1. Continue enoxaparin 1 mg/kg BID; he should continue on this until he can enroll in a local anticoagulation clinic with his PCP. His INR goal on warfarin should be 2.0-3.0 for VTE. 2. Follow up with his PCP for incidental findings of CBD dilation (normal ALP, added GGT for further evaluation), prostate enlargement, and renal cysts. 3. Endocrinology evaluation requested for marked thickening of bilateral adrenal glands; greatly appreciate their assistance. 4. Recommend repeat CBC in 1-2 weeks to ensure lymphocyte count has normalized; we discussed that this is unlikely to represent any pathologic process. It was a pleasure to speak with Mr. Restrepo; we will be happy to further assist with his anticoagulation in the future should additional questions arise. IDE REPAIRER SPECIAL documented in this encounter Plan of Treatment Upcoming Encounters Date Type Department Care Team (Late st Contact Info) Description 06/12/2023 12:30 PM CDT Appointment Department of Laboratory Medicine and Pathology, [facility], in [place], [place] [address] [place] [address] Diana Ramírez D.O. [address] [place] [address] 06/12/2023 2:00 PM CDT Office Visit Department of Vascular Medicine in [place], [place] [address] [place] [address] Diana Ramírez D.O. [address] [place] [address] Scheduled Orders Name Type Priority Associated Diagnoses Orde r Schedule Heparin-PF4 IgG Antibody (HIT) Lab Routine Acute Embolism And Thrombosis Of Unspecified Deep Veins Of Lower Extremity Bilateral (HCC) Dilated Common Bile Duct Expected: 03/17/2023 (Approximate), Expires: 03/17/2024 Monoclonal Gammopathy Diagnostic Lab Routine Acute Embolism And Thrombosis Of Unspecified Deep Veins Of Lower Extremity Bilateral (HCC) Dilated Common Bile Duct Expected: 03/17/2023 (Approximate), Expires: 03/17/2024 D-Dimer Lab Routine Acute Embolism And Thrombosis Of Unspecified Deep Veins Of Lower Extremity Bilateral (HCC) Dilated Common Bile Duct Expected: 03/17/2023 (Approximate), Expires: 03/17/2024 GGT (Gamma-Glutamyltransfera se) Lab Routine Acute Embolism And Thrombosis Of Unspecified Deep Veins Of Lower Extremity Bilateral (HCC) Dilated Common Bile Duct Expected: 03/17/2023 (Approximate), Expires: 06/15/2024 Scheduled Referrals Name Type Priority Associated Diagnoses Order Schedule Endocrinology - Pituitary / gonad / adrenal disorders consult (clinic) Outpatient Referral Routine Other Specified Disorders Of Adrenal Gland (HCC) Expected: 03/17/2023 (Approximate), Expires: 06/15/2024 Vascular Medicine office visit (clinic) Thrombophilia Outpatient Referral Routine Expected: 06/16/2023 (Approximate), Expires: 06/15/2024 documented as of this encounter Visit Diagnoses Diagnosis Acute Embolism And Thrombosis Of Unspecified Deep Veins Of Lower Extremity Bilateral (HCC)- Primary Other Specified Disorders Of Adrenal Gland (HCC) Dilated Common Bile Duct documented in this encounter
--- OUTSIDE RECORDS SUMMARY | 2023-03-25 09:33 | XMS_ITS | Encounter Summary ---
Author Name Unknown Organization [facility] Address [address] [place] [address] Care Team Providers Care Dry Cleaner Helper Name Role Phone Unavailable Primary Care Provider Unavailabl e Reason for Visit * Reason Onset Date Comments Triage 02/25/2023 comments Encounter Details Date Type Department Care Team (Latest Contact Info) Description 02/25/2023 Clinical Communication Department of Vascular Medicine in [place], [place] [address] [place] [address] Diana Ramírez D.O. [address] [place] [phone] Triage (comments) Social History Tobacco Use Types Packs/Day Years Used Date Smoking Tobacco: Unknown Nutrition Answer Date Recorded Nutrition: EVOO Fat Source Unknown 02/12 Nutrition: Servings of Fruits/Vegetables per Day Not on file 02/12/2023 Dental Answer Date Recorded Dental: Regular Dentist Unknown 02/13/20 Sex and Gender Information Value Date Recorded Sex Assigned at Male 03/02/2023 10:00 AM [employer] Gender Identity Male 03/02/2023 10:00 AM [employer] Sexual Orientation Lesbian or Boo 03/02/2023 10 :00 AM [employer] documented as of this encounter Plan of Treatment Upcoming Encounters Date Type Department Care Team (Late st Contact Info) Description 06/12/2023 12:30 PM CDT Appointment Department of Laboratory Medicine and Pathology, [facility] in [place], [place] [address] [place] [address] Diana Ramírez D.O. [address] [place] [phone] 06/12/2023 2:00 PM CDT Office Visit Department of Vascular Medicine in [place], [place] [address] [place] [address] Diana Ramírez D.O. [address] [place] [address] documented as of this encounter Visit Diagnoses Not on filedocumented in this encounter
--- OUTSIDE RECORDS SUMMARY | 2023-03-25 09:33 | XMS_ITS | Encounter Summary ---
Author Name Unknown Organization [facility] Address [address] [place] [address] Care Team Providers Care Customs Entry Writer Name Role Phone Unavailable Primary Care Provider Unavailabl e Encounter Details Date Type Department Care Team (Latest Contact Info) Description 02/13/2023 1:20 PM LEAD SPRINKLER Ancillary Procedure Department of Radiology in [place], [place] [address] [place] [phone] Shirlene Restrepo, HORSE BUYER, C.N.P., D.N.P. [address] [place] [phone] Personal History Of Other Venous Thrombosis And Embolism Social History Tobacco Use Types Packs/Day Years Used Date Smoking Tobacco: Unknown Nutrition Answer Date Recorded Nutrition: EVOO Fat Source Unknown 02/12 Nutrition: Servings of Fruits/Vegetables per Day Not on file 02/12/2023 Dental Answer Date Recorded Dental: Regular Dentist Unknown 02/13/20 Sex and Gender Information Value Date Recorded Sex Assigned at Male 03/02/2023 10:00 AM LEAD SPRINKLER Gender Identity Male 03/02/2023 10:00 AM LEAD SPRINKLER Sexual Orientation Lesbian or Boo 03/02/2023 10 :00 AM LEAD SPRINKLER documented as of this encounter Plan of Treatment Upcoming Encounters Date Type Department Care Team (Late st Contact Info) Description 06/12/2023 12:30 PM CDT Appointment Department of Laboratory Medicine and Pathology, [facility] in [place], [place] [address] [place] [phone] Diana Ramírez D.O. [address] [place] [phone] 06/12/2023 2:00 PM CDT Office Visit Department of Vascular Medicine in [place], [place] [address] [place] [address] Diana Ramírez D.O. [address] [place] [address] documented as of this encounter Procedures Procedure Name Priority Date/Time Associated Diagnosis Comments INTERPRETATION OF OUTSIDE US VASCULAR RAD - Routine (most inpatients and all outpatients) 02/13/2023 1:29 PM LEAD SPRINKLER Personal History Of Other Venous Thrombosis And Embolism documented in this encounter Results * Interpretation of Outside US Vascular (02/13/2023 1:29 PM LEAD SPRINKLER) Anatomical Region Laterality Modality Ultrasound RST LOS, Ultrasou nd ARZ LOS, Ultrasound FLA LOS, Procedural, Other, Vascular N/A Ultrasound 02/13/2023 1:31 PM LEAD SPRINKLER Impressions 02/13/2023 2:06 PM LEAD SPRINKLER 1. Positive for interval development of acute/subacute-appearing DVT in the left popliteal vein. 2. 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 Narrative 02/13/2023 2:06 PM LEAD SPRINKLER EXAM: ??INTERPRETATION OF OUTSIDE US VASCULAR with [...]
--- OUTSIDE RECORDS SUMMARY | 2023-03-25 09:33 | XMS_ITS | Encounter Summary ---
Author Name Unknown Organization [facility] Address [address] [place] [address] Care Team Providers Care Fish Filleter Name Role Phone Unavailable Primary Care Provider Unavailabl e Encounter Details Date Type Department Care Team (Latest Contact Info) Description 02/13/2023 1:25 PM CERTIFIED CONTROL SYSTEMS TECHNICIAN Ancillary Procedure Department of Radiology in [place], [place] [address] [place] [phone] Shirlene Restrepo, FURNACE INSTALLER, C.N.P., D.N.P. [address] [place] [phone] Personal History Of Other Venous Thrombosis And Embolism Social History Tobacco Use Types Packs/Day Years Used Date Smoking Tobacco: Unknown Nutrition Answer Date Recorded Nutrition: EVOO Fat Source Unknown 02/12 Nutrition: Servings of Fruits/Vegetables per Day Not on file 02/12/2023 Dental Answer Date Recorded Dental: Regular Dentist Unknown 02/13/20 Sex and Gender Information Value Date Recorded Sex Assigned at Male 03/02/2023 10:00 AM CERTIFIED CONTROL SYSTEMS TECHNICIAN Gender Identity Male 03/02/2023 10:00 AM CERTIFIED CONTROL SYSTEMS TECHNICIAN Sexual Orientation Lesbian or Boo 03/02/2023 10 :00 AM CERTIFIED CONTROL SYSTEMS TECHNICIAN documented as of this encounter Plan of Treatment Upcoming Encounters Date Type Department Care Team (Late st Contact Info) Description 06/12/2023 12:30 PM CDT Appointment Department of Laboratory Medicine and Pathology, [facility] in [place], [place] [address] [place] [phone] Diana Ramírez D.O. [address] [place] [phone] 06/12/2023 2:00 PM CDT Office Visit Department of Vascular Medicine in [place], [place] [address] [place] [address] Diana Ramírez D.O. [address] [place] [address] documented as of this encounter Visit Diagnoses Diagnosis Personal History Of Other Venous Thrombosis And Embolism documented in this encounter
--- OUTSIDE RECORDS SUMMARY | 2023-03-25 09:33 | XMS_ITS | Encounter Summary ---
Author Name Unknown Organization [facility] Address [address] [place] [address] Care Team Providers Care Plating Department Helper Name Role Phone Unavailable Primary Care Provider Unavailabl e Reason for Referral * Outpatient (Routine) - Authorized Specialty Diagnoses / Procedures Referred By Contac t Referred To Contact Endocrinology Diagnoses Other Specified Disorders Of Adrenal Gland (HCC) Renate Luo M.D. [address] [place] [address] [facility] Referral ID Status Reason Start Date Expiration Date V isits Requested Visits Authorized [id number] Authorized 03/20/2023 09/18/2024 1 1 TING COAL MINER * MRI/CAT/PET Scan (Routine) - Pending Review Specialty Diagnoses / Procedures Referred By Contac t Referred To Contact Radiology Diagnoses Other Specified Disorders Of Adrenal Gland (HCC) Procedures CT Abdomen without and with IV Contrast Renate Luo M.D. [address] [place] [address] [facility] Referral ID Status Reason Start Date Expiration Date V isits Requested Visits Authorized [id number] Pending Review 03/20/2023 03/19/2024 1 1 TING COAL MINER Reason for Visit * Outpatient (Routine) - Closed Specialty Diagnoses / Procedures Referred By Contac t Referred To Contact Endocrinology Diagnoses Other Specified Disorders Of Adrenal Gland (HCC) Diana Ramírez D.O. [address] [place] [address] [facility] Referral ID Status Reason Start Date Expiration Date Visits Re quested Visits Authorized [id number] Closed 03/17/2023 03/16/2024 1 1 Encounter Details Date Type Department Care Team (Latest Contact Info) Description 03/20/2023 1:30 PM BLASTING COAL MINER Comprehensive Visit Division of Endocrinology in [place], [place] [address] [place] [phone] Renate Luo M.D. [address] [place] [phone] Hyperglycemia (Primary Dx); Other Specified Disorders Of Adrenal Gland (HCC); Intolerance Heat Initial Social History Tobacco Use Types Packs/Day Years Used Date Smoking Tobacco: Former Cigarettes 2 16 1 - 11/12/1996 Smokeless Tobacco: Never Alcohol Use Standard Drinks/Week Comments Never 0 (1 standard drink = 0.6 oz pur e alcohol) [facility] Utilities Answer Date Recorded In the past 12 months has [employer], gas, oil, or water [employer] threatened to shut off services in your [...] your living situation today? I have a [facility] place to live 03/02/2023 Sex and Gender Information Value Date Recorded Sex Assigned at Male 03/02/2023 10:00 AM BLASTING COAL MINER Gender Identity Male 03/02/2023 10:00 AM BLASTING COAL MINER Sexual Orientation Lesbian or Boo 03/02/2023 10 :00 AM BLASTING COAL MINER documented as of this encounter Consult Notes * Renate Luo M.D. - 03/20/2023 1:30 PM CST SUBJECTIVE CHIEF COMPLAINT / REASON FOR VISIT Francis Restrepo is a 62 y.o. male who presents for evaluation of adrenal thickening he was referred by Diana Ramírez D.O.. 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 Ramírez. Last year he suffered a bilateral pulmonary embolism and was placed on anticoagulation therapy. 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 He is now currently on Lovenox and anticipates moving to Coumadin therapyfor long-term anticoagulation management. As part of his workup here, he had a CT of the abdomen pelvis that demonstrated mild adrenal thickening bilaterally, left more than right. In retrospect the left adrenal thickening was noted on his CT angiogram March of 2022 but perhaps quite mild and not necessarily commented upon. I have reviewed both of those images He has hypertension requiring 3 treatment agents (verapamil, losartan, hydrochlorothiazide). This is generally controlled. However, he runs in the 140/80 range most of the time. He also reports that his glucose was elevated recently after a high glucose load. This was a nonfasting glucose level and he does have some episodes where he feels his blood sugar may drop. He has no unusual headaches, palpitations, tachycardia, chest pains to suggest a pheochromocytoma. However, he does have some heat intolerance and hot flashes at times. He has perhaps had hypokalemia once or so but has never been on potassium replacement therapy. He denies any previous bruising prior to the use of anticoagulation. He denies muscle weakness but does have low stamina. He is on chronic BiPAP therapy. He reports stable weight. He is quite sedentary recently. The functional testing has not yet been done. The following portions of the patient's history were reviewed and updated as appropriate: allergies, current medications, family history, medical history, social history, surgical history, and problem list. REVIEW OF SYSTEMS Constitutional: - Negative for weight gain of more than 10 pounds and weight loss of more than 10 pounds. Skin: - History of hidradenitis suppurativa in youth, phan to his legs in childhood, and several lipomasresected Eyes: - Negative for visual problems. Respiratory: - Negative for shortness of breath. Cardiovascular: Positive for pain in the calf muscles when walking (With his recent DVT). - Negative for chest pain, pressure or tightness and rapid or fluttering heart beat. Gastrointestinal: Positive for constipation. Hematologic: Positive for bruises or bleeds easily (On anticoagulation). Musculoskeletal: Positive for back pain and muscle pain/stiffness. - DJD, DISH Neurological: - Negative for headaches. Psychiatric/Behavioral: - Negative for sleep disturbance (Requires anxiolytic medication to tolerate his BiPAP). OBJECTIVE PHYSICAL EXAM Wt Readings from Last 3 Encounters: 03/09/23 110 kg 10/05/15 116 kg 08/28/15 116 kg Temp Readings from Last 3 Encounters: No data found for Temp BP Readings from Last 3 Encounters: 03/09/23 136/84 08/28/15 (!) 162/83 Pulse Readings from Last 3 Encounters: 03/09/23 91 08/28/15 80 Constitutional General: not in acute distress. Appearance: Normal appearance. HENT Head: Normocephalic and atraumatic. Mouth/Throat: Mouth: Mucous membranes are moist. Pharynx: No oropharyngeal exudate or posterior oropharyngeal erythema. Eyes Extraocular Movements: Extraocular movements intact. No conjunctival injection. Neck Comments: Thyroid is low-lying, slightly enlarged but without palpable nodules Cardiovascular Rate and Rhythm: Normal rate and regular rhythm. Heart sounds: Normal heart sounds. No murmur heard. Pulmonary Effort: Pulmonary effort is normal. Breath sounds: Normal breath sounds. No wheezing or rales. Abdomen: Bowel sound present, soft, obese, nontender. No hyperpigmented striae Musculoskeletal General: No pitting edema Skin General: Skin is warm and dry. Neurological General: No focal deficit present. Mental Status: alert. Psychiatric Mood and Affect: Mood normal. Behavior: Behavior normal. Thought Content: Thought content normal. Judgment: Judgment normal. ASSESSMENT / PLAN #1 Other Specified Disorders Of Adrenal Gland (HCC) He is bilateral adrenal thickening. 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 We discussed the testing for this in the challenge in the diagnosis. We reviewed the bilateral adrenal thickening can result from a pituitary lesion --ACTH producing tumor and the treatment for that is different than the treatment of adrenal Isaiah's. Laboratory studies will be helpful in this regard. We reviewed the adrenal gland anatomy and physiology. We discussed function and dysfunction. We have discussed the diagnosis and management of adrenal tumors. Prevalence of adrenal abnormalities discovered on cross-sectional imaging is around 5-10%. Most of adrenal tumors are benign (92%), but 8% can be cancerous. Adrenal tumors can be non-functioning or secrete adrenal hormones in excess ( up to 50% of adrenal tumors). In any patient with adrenal mass, 2 questions need to be answered: 1) Is the adrenal mass malignantor benign? And 2) Is the adrenal mass hormonally active. As far as the first question, we rely on imaging characteristics, tumor growth, and in certain situations steroid profiling. In this case, imaging phenotype is challenging to assess given that this is thickening rather than true nodule presence. This indicates that follow-up is recommended in 6 months with adrenal protocolCT. Generally surgery is recommended for adrenal nodules greater than 4cm or if hyperfunctioning. As far as the second questions, we perform the following tests: 1)Tests for catecholamine excess (with either plasma metanephrines OR urinary catecholamines and metanephrines) - needed only if adrenal tumors are indeterminate or Hounsfield unit measurement is >10. 2) Tests for aldosterone excess (initial case detection tests with morning aldosterone and renin plasma activity measurement) - needed only if hypertension is present. 3) Tests for cortisol excess (with 1 mg dexamethasone suppression, and baseline ACTH and DHEAS) - needed in any asymptomatic or symptomatic patient. For now he will do early a.m. testing for ACTH, cortisol, DHEA sulfate, renin, aldosterone, plasma metanephrines. He is on lorazepam as well as tramadol which may falsely increase his normetanephrines. We discussed the potential need to discontinue this medications if the labs are abnormal on them.He is hopeful that this will not be necessary. He will also have a hemoglobin A1c drawn for his hyperglycemia recently. For the hot flashes he will have TSH, free T4 drawn. To be thorough we are going to do a 24 hour urine cortisol, 24 urine creatinine, 2 midnight salivary cortisols. Once we have completed these he will then have orders for a 1 mg dexamethasone suppression test. If all of this is normal, I will see him back with CT scanning in 6 months. However, if laboratory testing is abnormal, I will see him back sooner. He is very comfortable with this plan. I would like to thank the referring clinician for this consultation and for introducing me to this kind patient. TING COAL MINER documented in this encounter Miscellaneous Notes * Addendum Note - Cheyanne Dumas - 03/20/2023 1:30 PM CSTAddended by: CHEYANNE DUMAS on: 03/20/2023 02:34 PM Modules accepted: Orders TING COAL MINER documented in this encounter Plan of Treatment Upcoming Encounters Date Type Department Care Team (Late st Contact Info) Description 06/12/2023 12:30 PM CDT Appointment Department of Laboratory Medicine and Pathology, [facility] in [place], [place] [address] [place] [address] Diana Ramírez D.O. [address] [place] [address] 06/12/2023 2:00 PM CDT Office Visit Department of Vascular Medicine in [place], [place] [address] [place] [phone] Diana Ramírez D.O. [address] [place] [phone] Scheduled Orders Name Type Priority Associated Diagnoses Order Schedule Dehydroepiandrosterone Sulfate (DHEA-S) Lab Routine Other Specified Disorders Of Adrenal Gland (HCC) Expected: 03/23/2023 (Approximate), Expires: 03/20/2024 Metanephrines, Fractionated, Free Lab Routine Other Specified Disorders Of Adrenal Gland (HCC) Expected: 03/23/2023 (Approximate), Expires: 06/18/2024 Renin Activity Lab Routine Other Specified Disorders Of Adrenal Gland (HCC) Expected: 03/23/2023 (Approximate), Expires: 03/20/2024 Cortisol Lab Routine Other Specified Disorders Of Adrenal Gland (HCC) Expected: 03/23/2023 (Approximate), Expires: 03/20/2024 ACTH (Adrenocorticotropic Hormone) Lab Routine Other Specified Disorders Of Adrenal Gland (HCC) Expected: 03/23/2023 (Approximate), Expires: 03/20/2024 Aldosterone Lab Routine Other Specified Disorders Of Adrenal Gland (HCC) Expected: 03/23/2023 (Approximate), Expires: 06/18/2024 S-TSH (Thyroid-Stimulating Hormone - Sensitive) Lab Routine Intolerance Heat Initial Expected: 03/23/2023 (Approximate), Expires: 06/18/2024 T4 (Thyroxine), Free Lab Routine Intolerance Heat Initial Expected: 03/23/2023 (Approximate), Expires: 06/18/2024 Hemoglobin A1c Lab Routine Other Specified Disorders Of Adrenal Gland (HCC) Hyperglycemia Expected: 03/23/2023 (Approximate), Expires: 06/18/2024 Cortisol, Saliva Lab Routine Other Specified Disorders Of Adrenal Gland (HCC) Expected: 03/23/2023 (Approximate), Expires: 06/18/2024 Cortisol, Saliva Lab Routine Other Specified Disorders Of Adrenal Gland (HCC) Expected: 03/23/2023 (Approximate), Expires: 06/18/2024 Testosterone, Total and Bioavailable Lab Routine Other Specified Disorders Of Adrenal Gland (HCC) Intolerance Heat Initial Expected: 03/20/2023 (Approximate), Expires: 06/18/2024 CT Abdomen without and with IV Contrast Imaging RAD - Routine (most inpatients and all outpatients) Other Specified Disorders Of Adrenal Gland (HCC) Expected: 09/18/2023 (Approximate), Expires: 06/18/2024 Creatinine, 24 hour, Urine Lab Routine Other Specified Disorders Of Adrenal Gland (HCC) Expected: 03/23/2023 (Approximate), Expires: 03/20/2024 Cortisol, Free, 24 hour, Urine Lab Routine Other Specified Disorders Of Adrenal Gland (HCC) Expected: 03/23/2023 (Approximate), Expires: 03/20/2024 Scheduled Referrals Name Type Priority Associated Diagnoses Order Schedule Endocrinology office visit (clinic) Outpatient Referral Routine Other Specified Disorders Of Adrenal Gland (HCC) Expected: 09/18/2023 (Approximate), Expires: 06/18/2024 documented as of this encounter Visit Diagnoses Diagnosis Hyperglycemia- Primary Other Specified Disorders Of Adrenal Gland (HCC) Intolerance Heat Initial documented in this encounter
--- OUTSIDE RECORDS SUMMARY | 2023-03-25 09:33 | XMS_ITS | Encounter Summary ---
Author Name Unknown Organization [facility] Address [address] [place] [address] Care Team Providers Care Pluck Trimmer Name Role Phone Unavailable Primary Care Provider Unavailabl e Reason for Referral * MRI/CAT/PET Scan (Routine) - Closed Specialty Diagnoses / Procedures Referred By Jun ortiz Referred To Contact Radiology Diagnoses Acute Embolism And Thrombosis Of Unspecified Deep Veins Of Lower Extremity Bilateral (HCC) Procedures CT Abdomen Pelvis Venogram with IV Contrast Diana Ramírez D.O. [address] [place] [address] [facility] Referral ID Status Reason Start Date Expiration Date Visits Re quested Visits Authorized [id number] Closed 03/09/2023 03/08/2024 1 1 ONAL BANKING OFFICER Reason for Visit * MRI/CAT/PET Scan (Routine) - Closed Specialty Diagnoses / Procedures Referred By Jun ortiz Referred To Contact Radiology Diagnoses Acute Embolism And Thrombosis Of Unspecified Deep Veins Of Lower Extremity Bilateral (HCC) Procedures CT Abdomen Pelvis Venogram with IV Contrast Diana Ramírez D.O. [address] [place] [address] [facility] Referral ID Status Reason Start Date Expiration Date Visits Re quested Visits Authorized [id number] Closed 03/09/2023 03/08/2024 1 1 Encounter Details Date Type Department Care Team (Latest Contact Info) Description 03/11/2023 2:52 PM PERSONAL BANKING OFFICER - 03/11/2023 11:59 PM PERSONAL BANKING OFFICER Hospital Encounter Department of Radiology, [place], in [place], [place] [address] [place] [address] Diana Ramírez D.O. [address] [place] [address] Acute Embolism And Thrombosis Of Unspecified Deep Veins Of Lower Extremity Bilateral (HCC) Discharge Disposition: Home or Self Care Social History Tobacco Use Types Packs/Day Years Used Date Smoking Tobacco: Former Cigarettes 2 16 1 - 11/12/1996 Smokeless Tobacco: Never Alcohol Use Standard Drinks/Week Comments Never 0 (1 standard drink = 0.6 oz pur e alcohol) [facility] Utilities Answer Date Recorded In the past 12 months has th e electric, gas, oil, or water company threatened to shut off services in your [...] Sex Assigned at Male 03/02/2023 10:00 AM PERSONAL BANKING OFFICER Gender Identity Male 03/02/2023 10:00 AM PERSONAL BANKING OFFICER Sexual Orientation Lesbian or Boo 03/02/2023 10 :00 AM PERSONAL BANKING OFFICER documented as of this encounter Medications at Time of Discharge Medication Sig Dispensed Refills Start Date End Date enoxaparin (LOVENOX) 120 mg/0.8 mL injection Inject 0.73 mL (110 mg total) under the skin 2 (two) times a day. 48 mL 0 03/11/2023 04/10/2023 documented as of this encounter Plan of Treatment Upcoming Encounters Date Type Department Care Team (Late st Contact Info) Description 06/12/2023 12:30 PM CDT Appointment Department of Laboratory Medicine and Pathology, [facility] in [place], [place] [address] [place] [address] Diana Ramírez, D.O. [address] [place] [phone] 06/12/2023 2:00 PM CDT Office Visit Department of Vascular Medicine in [place], [place] [address] [place] [address] Diana Ramírez, D.O. [address] [place] [phone] documented as of this encounter Procedures Procedure Name Priority Date/Time Associated Diagnosis Comments CT ABDOMEN PELVIS VENOGRAM WITH IV CONTRAST RAD - Routine (most inpatients and all outpatients) 03/11/2023 4:22 PM PERSONAL BANKING OFFICER Acute Embolism And Thrombosis Of Unspecified Deep Veins Of Lower Extremity Bilateral (HCC) documented in this encounter Results * CT Abdomen Pelvis Venogram with IV Contrast (03/11/2023 4:22 PM PERSONAL BANKING OFFICER) Anatomical Region Laterality Modality Abdomen, Pelvis, Cardiovascu lar RST LOS, Abdominal ARZ LOS, Vascular Interventional FLA LOS, Procedural, Vascular Interventional NWWI LOS N/A Computed Tomography, Computed Tomography 03/11/2023 4:14 PM PERSONAL BANKING OFFICER Impressions 03/11/2023 5:18 PM PERSONAL BANKING OFFICER Patent venous vasculature in the abdomen/pelvis. Narrative 03/11/2023 5:18 PM PERSONAL BANKING OFFICER EXAM: ??CT ABDOMEN PELVIS VENOGRAM WITH IV [...] in the abdomen/pelvis. Diana BRO CT PROCEDURES documented in this encounter Visit Diagnoses Diagnosis Acute Embolism And Thrombosis Of Unspecified Deep Veins Of Lower Extremity Bilateral (HCC) documented in this encounter Administered Medications Inactive Administered Medications - up to 3 most recent administrations Medication Order MAR Action Action Date Dose Rate Site iodixanoL 320 mg iodine/mL injection 1-200 mL (VISIPAQUE) 1-200 mL, intravenous, Once in imaging, contrast, Starting on Thu03/11/23 at 1538, For 1 dose, Imaging Protocol Orders, Dose per Radiant Medication Guidelines Given 03/11/2023 4:01 PM PERSONAL BANKING OFFICER 180 mL sodium chloride (PF) 0.9 % injection 1-100 mL 1-100 mL, intravenous, Once, On Thu03/11/23 at 1600, For 1 dose, Imaging Protocol Orders Given 03/11/2023 4:01 PM PERSONAL BANKING OFFICER 30 mL documented in this encounter
--- OUTSIDE RECORDS SUMMARY | 2023-03-25 09:33 | XMS_ITS | Encounter Summary ---
Author Name Unknown Organization [facility] Address [address] [place] [address] Care Team Providers Care Product Design Specialist Name Role Phone Unavailable Primary Care Provider Unavailabl e Encounter Details Date Type Department Care Team (Late st Contact Info) Description 02/25/2023 Orders Only Department of Vascular Medicine in [place], [place] [address] [place] [address] Anel Arreguin P.A.-C. [address] [place] [address] Social History Tobacco Use Types Packs/Day Years Used Date Smoking Tobacco: Unknown [facility] Utilities Answer Date Recorded In the [...] your living situation today? I [facility] a [facility] to live 03/02/2023 Sex and Gender Information Value Date Recorded Sex Assigned at Male 03/02/2023 10:00 AM CLOTH TEARER Gender Identity Male 03/02/2023 10:00 AM CLOTH TEARER Sexual Orientation Lesbian or Boo 03/02/2023 10 :00 AM CLOTH TEARER documented as of this encounter Plan of Treatment Upcoming Encounters Date Type Department Care Team (Late st Contact Info) Description 06/12/2023 12:30 PM CDT Appointment Department of Laboratory Medicine and Pathology, [facility] in [place], [place] [address] [place] [address] Diana Ramírez D.O. [address] [place] [phone] 06/12/2023 2:00 PM CDT Office Visit Department of Vascular Medicine in [place], [place] [address] [place] [address] Diana Ramírez D.O. [address] [place] [phone] documented as of this encounter Visit Diagnoses Not on filedocumented in this encounter
--- OUTSIDE RECORDS SUMMARY | 2023-03-25 09:33 | XMS_ITS | Encounter Summary ---
Author Name Unknown Organization [facility] Address [address] [place] [address] Care Team Providers Care Gem Expert Name Role Phone Unavailable Primary Care Provider Unavailabl e Reason for Referral * Outpatient (Routine) - Closed Specialty Diagnoses / Procedures Referred By Contac t Referred To Contact Vascular Medicine Diagnoses Acute Embolism And Thrombosis Of Unspecified Deep Veins Of Lower Extremity Bilateral (HCC) Spencer Coates M.D. [address] [place] [address] [facility] Referral ID Status Reason Start Date Expiration Date Visits Re quested Visits Authorized [id number] Closed 02/12/2023 02/12/2024 1 1 ER Encounter Details Date Type Department Care Team (Late st Contact Info) Description 02/12/2023 [facility] [address] [place] [address] Spencer Coates M.D. [address] [place] [address] Acute Embolism And Thrombosis Of Unspecified Deep Veins Of Lower Extremity Bilateral (HCC) (Primary Dx) Social History Tobacco Use Types Packs/Day Years Used Date Smoking Tobacco: Unknown Nutrition Answer Date Recorded Nutrition: EVOO Fat Source Unknown 02/12 Nutrition: Servings of Fruits/Vegetables per Day Not on file 02/12/2023 Dental Answer Date Recorded Dental: Regular Dentist Unknown 02/13/20 Sex and Gender Information Value Date Recorded Sex Assigned at Male 03/02/2023 10:00 AM PARKER Gender Identity Male 03/02/2023 10:00 AM PARKER Sexual Orientation Lesbian or Boo 03/02/2023 10 :00 AM PARKER documented as of this encounter Plan of Treatment Upcoming Encounters Date Type Department Care Team (Late st Contact Info) Description 06/12/2023 12:30 PM CDT Appointment Department of Laboratory Medicine and Pathology, [facility] in [place], [place] [address] [place] [address] Diana Ramírez D.O. [address] [place] [address] 06/12/2023 2:00 PM CDT Office Visit Department of Vascular Medicine in [place], [place] [address] [place] [address] Diana Ramírez D.O. [address] [place] [address] Scheduled Referrals Name Type Priority Associated Diagnoses Orde r Schedule Vascular Surgery Referral Outpatient Referral Routine Acute Embolism And Thrombosis Of Unspecified Deep Veins Of Lower Extremity Bilateral (HCC) Expected: 02/12/2023 (Approximate), Expires: 05/13/2024 documented as of this encounter Visit Diagnoses Diagnosis Acute Embolism And Thrombosis Of Unspecified Deep Veins Of Lower Extremity Bilateral (HCC)- Primary documented in this encounter
--- OUTSIDE RECORDS SUMMARY | 2023-03-25 09:33 | XMS_ITS | Encounter Summary ---
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 (VTE). This individual may have other genetic and environmental risk factors for VTE. If indicated, consider genetic consultation and counseling for this individual and potentially affected family members regarding laboratory testing. 03/11/2023 7:55 AM MANAGER BIOSTATISTICS DTL Comment: ----ADDITIONAL INFORMATION---- This test uses [...] developed and its performance characteristics determined by [facility] in a manner consistent with CLIA requirements. This test has not been cleared or approved by the U.S. Food and Drug Administration. Blood (Blood, Venous) 03/09/2023 10:59 AM MANAGER BIOSTATISTICS 03/09/2023 11:45 AM MANAGER BIOSTATISTICS Aleena Ramírez D.O. LAB GENETIC TESTI Performing Organization Address City/State/[facility] Co de Phone Number [facility] [address] [place] [address], [facility] DTL [address] [place] [address] * (ABNORMAL) Comprehensive Metabolic Panel (03/09/2023 10:59 AM MANAGER BIOSTATISTICS) Pathologist [facility] Potassium, S 4.6 3.6 - 5.2 mmol/L 03/09/2023 12:22 PM MANAGER BIOSTATISTICS DTL Sodium, S 142 135 - 145 mmol/L 03/09/2023 12:22 PM MANAGER BIOSTATISTICS DTL Chloride, S 101 98 - 107 mmol/L 03/09/2023 12:22 PM MANAGER BIOSTATISTICS DTL Bicarbonate, S 29 22 - 29 mmol/L 03/09/2023 12:22 PM MANAGER BIOSTATISTICS DTL Anion Gap 12 7 - 15 03/09/2023 12:22 PM MANAGER BIOSTATISTICS DTL BUN (Blood Urea Nitrogen), S 19 8 - 24 mg/dL 03/09/2023 12:22 PM MANAGER BIOSTATISTICS DTL Creatinine 1.21 0.74 - 1.35 mg/dL 03/09/2023 12:22 PM MANAGER BIOSTATISTICS DTL Estimated GFR (eGFR) 68 >=60 mL/min/BS A 03/09/2023 12:22 PM MANAGER BIOSTATISTICS DTL Comment: Estimated GFR calculated using the 2020 CKD_EPI creatinine equation. Calcium, Total, S 9.5 8.8 - 10.2 mg/dL 03/09/2023 12:22 PM MANAGER BIOSTATISTICS DTL Glucose, S 156(H) 70 - 140 mg/dL 03/09/2023 12:22 PM MANAGER BIOSTATISTICS DTL Protein, Total, S 6.9 6.3 - 7.9 g/dL 03/09/2023 12:22 PM MANAGER BIOSTATISTICS DTL Albumin, S 4.5 3.5 - 5.0 g/dL 03/09/2023 12:22 PM MANAGER BIOSTATISTICS DTL Aspartate Aminotransferase (AST), S 24 8 - 48 U/L 03/09/2023 12:22 PM MANAGER BIOSTATISTICS DTL Alkaline Phosphatase, S 40 40 - 129 U/L 03/09/2023 12:22 PM MANAGER BIOSTATISTICS DTL Alanine Aminotransferase (ALT), S 42 7 - 55 U/L 03/09/2023 12:22 PM MANAGER BIOSTATISTICS DTL Bilirubin, Total, S 0.3 0.0 - 1.2 mg/dL 03/09/2023 12:22 PM MANAGER BIOSTATISTICS DTL Blood (Blood, Venous) 03/09/2023 10:59 AM MANAGER BIOSTATISTICS 03/09/2023 11:41 AM MANAGER BIOSTATISTICS Aleena Ramírez D.O. LAB BLOOD ADD-ON [facility] [address] [place] [address], [facility] DTL [facility] [address] [place] [address] documented in this encounter Visit Diagnoses Diagnosis Acute Embolism And Thrombosis Of Unspecified Deep Veins Of Lower Extremity Bilateral (HCC)- Primary Acute Embolism And Thrombosis Of Unspecified Deep Veins Of Lower Extremity Bilateral (HCC) Acute Embolism And Thrombosis Of Unspecified Deep Veins Of Lower Extremity Bilateral (HCC) Acute Embolism And Thrombosis Of Unspecified Deep Veins Of Lower Extremity Bilateral (HCC) documented in this encounter
--- OUTSIDE RECORDS SUMMARY | 2023-03-25 09:33 | XMS_ITS | Encounter Summary ---
Author Name Unknown Organization [facility] Address [address] [place] [address] Care Team Providers Care Legal Billing Coordinator Name Role Phone Unavailable Primary Care Provider Unavailabl e Reason for Referral * Outpatient (Routine) - Closed Specialty Diagnoses / Procedures Referred By Contac t Referred To Contact Diagnoses Acute Embolism And Thrombosis Of Unspecified Deep Veins Of Lower Extremity Bilateral (HCC) Procedures US Lower Extremity Veins Bilateral Diana Ramírez D.O. [address] [place] [address] [facility] Referral ID Status Reason Start Date Expiration Date Visits Re quested Visits Authorized [id number] Closed 03/09/2023 03/08/2024 1 1 TRY PICKER Reason for Visit * Outpatient (Routine) - Closed Specialty Diagnoses / Procedures Referred By Contac t Referred To Contact Diagnoses Acute Embolism And Thrombosis Of Unspecified Deep Veins Of Lower Extremity Bilateral (HCC) Procedures US Lower Extremity Veins Bilateral Diana Ramírez D.O. [address] [place] [address] [facility] Referral ID Status Reason Start Date Expiration Date Visits Re quested Visits Authorized [id number] Closed 03/09/2023 03/08/2024 1 1 Encounter Details Date Type Department Care Team (Latest Contact Info) Description 03/09/2023 1:04 PM POULTRY PICKER - 03/09/2023 11:59 PM POULTRY PICKER Hospital Encounter Department of Radiology, [facility], in [place], [place] [address] [place] [address] Diana Ramírez D.O. [address] [place] [address] Acute Embolism And Thrombosis Of Unspecified Deep Veins Of Lower Extremity Bilateral (HCC) Discharge Disposition: Home or Self Care Social History Tobacco Use Types Packs/Day Years Used Date Smoking Tobacco: Former Cigarettes 2 16 1 - 11/12/1996 Smokeless Tobacco: Never Alcohol Use Standard Drinks/Week Comments Never 0 (1 standard drink = 0.6 oz pur e alcohol) [facility] Utilities Answer Date Recorded In the [...] your living situation today? I have a [facility] place to live 03/02/2023 Sex and Gender Information Value Date Recorded Sex Assigned at Male 03/02/2023 10:00 AM POULTRY PICKER Gender Identity Male 03/02/2023 10:00 AM POULTRY PICKER Sexual Orientation Lesbian or Boo 03/02/2023 10 :00 AM POULTRY PICKER documented as of this encounter Medications at [...] Appointment Department of Laboratory Medicine and Pathology, [facility] in [place], [place] [address] [place] [address] Diana Ramírez D.OElke [address] [place] [phone] 06/12/2023 2:00 PM CDT Office Visit Department of Vascular Medicine in [place], [place] [address] [place] [address] Diana Ramírez DElkeOElke [address] [place] [phone] documented as of this encounter Procedures Procedure Name Priority Date/Time Associated Diagnosis Comments US LOWER EXTREMITY VEINS BILATERAL RAD - Routine (most inpatients and all outpatients) 03/09/2023 2:41 PM POULTRY PICKER Acute Embolism And Thrombosis Of Unspecified Deep Veins Of Lower Extremity Bilateral (HCC) documented in this encounter Results * US Lower Extremity Veins Bilateral (03/09/2023 2:41 PM POULTRY PICKER) Anatomical Region Laterality Modality Lower Extremity, Ultrasound RST LOS, Ultrasound ARZ LOS, Ultrasound FLA LOS Bilateral Ultrasound Impressions 03/09/2023 3:22 PM POULTRY PICKER Negative for acute DVT. Subacute SVT in the right GSV in the calf. Narrative 03/09/2023 3:22 PM POULTRY PICKER EXAM: US LOWER EXTREMITY VEINS BILATERAL Exam [...] and management can be found on the [employer] site. Link [email or web address] Procedure Note Slime Anderson M.D. - 03/09/2023 [...] thrombosis and management can be found on the[employer] site. [email or web address] IMPRESSION: Negative for acute DVT. Subacute SVT in the right GSV in the calf. Diana BRO US PROCEDURES documented in this encounter Visit Diagnoses Diagnosis Acute Embolism And Thrombosis Of Unspecified Deep Veins Of Lower Extremity Bilateral (HCC) documented in this encounter
--- OUTSIDE RECORDS SUMMARY | 2023-03-25 09:33 | XMS_ITS | Continuity of Care Document ---
Author Name Unknown Organization [facility] Address [address] [place] [address] Phone Care Team Providers Care Career Guidance Counselor Name Role Phone Jason Hutchinson Unavailable Unavailable [...] Available - Active Procedures Procedure Date Office/Outpatient Visit,[facility] 2016 Advance Directives Directive Yes / No Effective Date File Name No Information Encounters Encounter Description Practice Location Reason(s) For Visit Diagnoses Date Provider Providers Copied on Encounter Office/Outpat ient Visit,New, [facility], [address], [place], [place], [id number], [place] tel:[phone] [facility] Other spondylosis , lumbar region Seferino Gomez. [facility], [address], [place], [place], [id number], [place]. tel:[phone] Referring Provider: Spencer Coates [facility] [address] [place], [address]. tel:[phone] Family History Family Member Type Diagnosis Age At Onset No Information Payers Payer name Insurance type Covered republican ID Authoriza tion(s) No Information Social History [...]
--- OUTSIDE RECORDS SUMMARY | 2023-03-25 09:34 | XMS_ITS | Clinical Summary ---
Author Name Unknown Organization [facility] Address [place], [place] [address] Care Team Providers Care Inspector General Name Role Phone Spencer Coates MD Primary Care Provider [phone] Allergies Active Allergy Reactions Criticality Noted Date Comments Penicillins *Unknown - Childhood Rxn 05/25/2006 Medications Medication Sig Dispensed Refills Start Date End Date Status lisinopril (PRINIVIL; ZESTRIL) 5 mg tabletIndications:HT N (hypertension) TAKE 1 TABLET BY MOUTH EVERY DAY 90 tablet 0 05/28/2016 Active LORazepam (ATIVAN) 0.5 mg tabIndications:Socia l phobia TAKE 1 TABLET BY MOUTH EVERY DAY NEEDED 15 tablet 0 09/08/2016 Active sertraline (ZOLOFT) 100 mg tabletIndications:So cial phobia TAKE 1/2 TABLET BY MOUTH DAILY 15 tablet 0 11/28/2016 Active verapamil (VERELAN) 180 mg Controlled-Release capsuleIndications:H TN (hypertension) TAKE 1 CAPSULE BY MOUTH EVERY MORNING 30 capsule 0 05/04/2017 Active traMADoL (ULTRAM) 50 mg tablet tramadol 50 mg tablet 0 Active BiPapIndications:CSA (central sleep apnea) BIPAP ASV machine for home use at pressure: EPAP 5-18, PS0-20, MaxP25, auto rate , full face mask x1/3month with a full face cushion x1/mo 1 Each 11 03/12/2022 Active Active Problems Problem Noted Date Diagnosed Date CSA (central sleep apnea) 10/12/2019 Last Assessment & Plan: ASV EPAP5-18, PS0-20, MaxP 25, Auto rate Right-sided low back pain without sciatica 04/02 DDD (degenerative disc disease), lumbar 04/02/19 16 DISH (diffuse idiopathic skeletal hyperostosis) 04/02/2015 Adenomatous colon polyp 01/14/2012 Overview: Colonoscopy 01/2012 polyp repeat in 5 years Other isolated or specific phobias 03/11/2011 Overview: Flying Encounter for long-term (current) use of other m edications 03/11/2011 Overview: Benzodiazepine. No contract. No misuse. OK to fill monthly unless this changes. Cluster headache 10/14/2010 HTN (hypertension) 06/24/2010 Social phobia 11/17/2006 Esophageal reflux 05/25/2006 Resolved Problems Problem Noted Date Diagnosed Date Resolved Date Other isolated or specific phobias 11/17/2006 03/11/2011 Anxiety state, unspecified 05/25/2006 0 03/11/2011 Immunizations Name Administration Dates Next Due HepA-HepB (Twinrix) 12/16/2001,06/14/2001,2001 Inactivated Polio Vaccine 03/06/2004 Influenza, IIV3 (Age >=3 years) 01/22/20 13,11/12/2011,11/15/2010,12/03/2009, 11/19/2007,02/15/2007,03/06/2004,01/18/2001, 01/09/2000 Influenza, IIV4 11/20/2015,11/22/2014,12/28/2013 MMR 03/02/1997 Td (Age >=7 Years) 07/10/2006,03/02/1997 Tdap 03/04/2011 Typhoid (oral) 03/06/2004 Yellow Fever 11/19/2007 Family History Medical History Relation Name Comments Cancer-colon Father Other Mother pulmonary hyper tension Relation Name Status Comments Father Mother Alive Social History Tobacco Use Types Packs/Day Years Used Date Smoking Tobacco: Former Cigarettes Smokeless Tobacco: Never Tobacco Cessation:Counseling Given: Not Answered Comments:quit in 1996 Alcohol Use Standard Drinks/Week Comments No 0 (1 standard drink = 0.6 oz pur e alcohol) Social Connections Answer Date Recorded Frequency of Communication with Friends and Fami ly Not on file 03/02/2021 Financial Resource Strain Answer Date R ecorded Difficulty of Paying Living Expenses Not on file 03/02/2021 Difficulty of Paying Living Expenses Not on file 03/02/2021 Sex and Gender Information Value Date Recorded Sex Assigned at Not on file Gender Identity Not on file Sexual Orientation Not on file Obstetrics History Last Filed Vital Signs Vital Sign Reading Time Taken Comments Blood Pressure 136/82 02/01/2020 1:28 PM CALL CENTER DISPATCHER Pulse 85 02/01/2020 1:28 PM CALL CENTER DISPATCHER Temperature 36.4 ??C (97.5 ??F) 05/26/2016 1:40 PM CD T Respiratory Rate 16 02/01/2020 1:28 PM CALL CENTER DISPATCHER Oxygen Saturation 95% 05/26/2016 1:40 PM CDT Inhaled Oxygen Concentration - - Weight 115.7 kg (255 lb) 10/12/2019 12:19 PM CDT Height 172.7 cm (5' 8) 10/12/2019 12:19 PM CDT Body Mass Index 38.77 10/12/2019 12:19 PM CDT Plan of Treatment Health Maintenance Due Date Last Done Comments HIV for age 15-65 1976 Hepatitis C screening for age 18-79 10/17/1979 Zoster (shingles) series for age 50+ (1 of 2) 10/17/2011 Colonoscopy through age 75 01/12/2017 01/13/2012 Depression screening for age 12+ 03/28/2017 03/28/2016, 04/10/2015 Lipids for age 45-75 05/10/2020 05/11/2015, 01/21/2013, 09/19/2011 BMI (ht and wt on same day) for age 18+ 10/11/2020 10/12/2019, 05/26/2016, 04/24/2016, Additional history exists Tetanus booster 03/04/2021 03/04/2011, 06/30, 03/02/1997 COVID-19 vaccine series (2022- season) 2022 12/05/2021, 07/23/2021, 01/23/2021, Additional history exists Influenza for age 50-64 10/31/2022 11/20/19 16, 11/22/2014, 12/28/2013, Additional history exists Tdap Completed 03/04/2011 Pneumococcal series for age 6-64 Aged Out No longer eligible based on patient's age to complete this topic Care Teams Inspector General Relationship Specialty Start Date End Date Spencer Coates MD [address] [place] [address] PCP - General Internal Medicine 10/03/19
[2023-03-25 10:22] LABS: Free T4 Free Thyroxine* 1.14 ng/dL (0.70-1.85)
[2023-03-25 10:35] LABS: Hemoglobin A1C* 5.7 % (0-5.6)
[2023-03-26 22:11] LABS: Cortisol, Serum 18.6 ug/dL; Sex Hormone Binding Globulin 46 nmol/L (19-76); Testosterone, Adult Male 379 ng/dL (300-720); Testosterone, Bioavailable 154 ng/dL (131-682); Testosterone, Free Calculation 59 pg/mL (47-244); Testosterone, Percentage Free 1.6 % (1.6-2.9)
[2023-03-27 07:32] LABS: Adrenocorticotropic Hormone 43.1 pg/mL (7.2-63.3)
[2023-03-28 07:59] LABS: Renin Activity 8.3 ng/mL/hr
== END 2023-03-25 09:09 | disposition home or self-care (01) ==
LOC: NPINS 09:08
PROVIDERS: PCP Internal Medicine
DX: E27.8 Other specified disorders of adrenal gland (principal); T67.8XXA Other effects of heat and light, initial encounter
CPT/HCPCS: 82024; 82088; 82533; 83036; 83835; 84244; 84270; 84402; 84403; 84439; 84443

== ENCOUNTER 2023-03-30 11:53 | Outpatient (CLI) | payer MEDICAID, SELFPAY ==
--- OUTSIDE RECORDS SUMMARY | 2023-03-30 12:00 | XMS_ITS | Encounter Summary ---
Author Name Unknown Organization [facility] Address [address] [place] [address] Care Team Providers Care Institute Scientist Name Role Phone Unavailable Primary Care Provider Unavailabl e Reason for Referral * Outpatient (Routine) - Authorized Specialty Diagnoses / Procedures Referred By Contac t Referred To Contact Vascular Medicine Diana Ramírez D.O. [address] [place] [address] [facility] Referral ID Status Reason Start Date Expiration Date V isits Requested Visits Authorized [id number] Authorized 03/17/2023 03/16/2026 1 1 E TIER * Outpatient (Routine) - Closed Specialty Diagnoses / Procedures Referred By Contac t Referred To Contact Endocrinology Diagnoses Other Specified Disorders Of Adrenal Gland (HCC) Diana Ramírez D.O. [address] [place] [address] [facility] Referral ID Status Reason Start Date Expiration Date Visits Re quested Visits Authorized [id number] Closed 03/17/2023 03/16/2024 1 1 E TIER Reason for Visit * Outpatient (Routine) - Closed Specialty Diagnoses / Procedures Referred By Contac t Referred To Contact Vascular Medicine Diana Ramírez D.O. [address] [place] [address] [facility] Referral ID Status Reason Start Date Expiration Date Visits Re quested Visits Authorized [id number] Closed 03/09/2023 03/08/2026 1 1 Encounter Details Date Type Department Care Team (Late st Contact Info) Description 03/17/2023 4:00 PM CRATE TIER Telemedicine Department of Vascular Medicine in [place], [place] [address] [place] [address] Diana Ramírez D.O. [address] [place] [address] Acute Embolism And Thrombosis Of Unspecified Deep Veins Of Lower Extremity Bilateral (HCC) (Primary Dx); Other Specified Disorders Of Adrenal Gland (HCC); Dilated Common Bile Duct Social History Tobacco Use Types Packs/Day Years Used Date Smoking Tobacco: Former Cigarettes 2 16 1 - 11/12/1996 Smokeless Tobacco: Never Alcohol Use Standard Drinks/Week Comments Never 0 (1 standard drink = 0.6 oz pur e alcohol) [facility] Utilities Answer Date Recorded In the past 12 months has [employer], gas, oil, or water avocarrot threatened to shut off services in your [...] Sex Assigned at Male 03/02/2023 10:00 AM CRATE TIER Gender Identity Male 03/02/2023 10:00 AM CRATE TIER Sexual Orientation Lesbian or Boo 03/02/2023 10 :00 AM CRATE TIER documented as of this encounter Progress Notes [...] in the future should additional questions arise. E TIER documented in this encounter Plan of Treatment Upcoming Encounters Date Type Department Care Team (Late st Contact Info) Description 06/12/2023 12:30 PM CDT Appointment Department of Laboratory Medicine and Pathology, [facility], in [place], [place] [address] [place] [address] Diana Ramírez D.O. [address] [place] [address] 06/12/2023 2:00 PM CDT Office Visit Department of Vascular Medicine in [place], [place] [address] [place] [address] Diana Ramírez D.O. [address] [place] [address] Scheduled Orders Name Type Priority Associated Diagnoses [...]
--- OUTSIDE RECORDS SUMMARY | 2023-03-30 12:00 | XMS_ITS | Referral Summary ---
Author Name Unknown Organization [facility] Address [address] [place] [address] Care Team Providers Care Sales Representative [employer] Name Role Phone Unavailable Primary Care Provider Unavailabl e Source Comments Patient records contain information from all sites at [facility]. For routine questions regarding patient records, call [phone] during business hours, M-F 8:00 AM - 5:00 PM Central Time. Record requests for emergency care only can be directed to [phone] at any time.[facility] Encounters Date Type Department Care Team Description 03/23/2023 7:12 AM ANIMAL SCIENTIST - 03/23/2023 11:59 PM ANIMAL SCIENTIST Hospital Encounter Department of Laboratory Medicine and Pathology, [facility], in [place], [place] [address] [place] [phone] Renate Luo M.D. Other Specified Disorders Of Adrenal Gland (HCC) Discharge Disposition: Home or Self Care 03/20/2023 1:30 PM ANIMAL SCIENTIST Comprehensive Visit Division of Endocrinology in [place], [place] [address] [place] [phone] Renate Luo M.D. Hyperglycemia (Primary Dx); Other Specified Disorders Of Adrenal Gland (HCC); Intolerance Heat Initial 03/17/2023 4:00 PM ANIMAL SCIENTIST Telemedicine Department of Vascular Medicine in [place], [place] [address] [place] [phone] Diana Ramírez D.O. Acute Embolism And Thrombosis Of Unspecified Deep Veins Of Lower Extremity Bilateral (HCC) (Primary Dx); Other Specified Disorders Of Adrenal Gland (HCC); Dilated Common Bile Duct 03/11/2023 2:52 PM ANIMAL SCIENTIST - 03/11/2023 11:59 PM ANIMAL SCIENTIST Hospital Encounter Department of Radiology, [facility] in [place], [place] [address] [place] [address] Diana Ramírez D.O. Acute Embolism And Thrombosis Of Unspecified Deep Veins Of Lower Extremity Bilateral (HCC) Discharge Disposition: Home or Self Care 03/09/2023 1:04 PM ANIMAL SCIENTIST - 03/09/2023 11:59 PM ANIMAL SCIENTIST Hospital Encounter Department of Radiology, [facility] in [place], [place] [address] [place] [address] Diana Ramírez D.O. Acute Embolism And Thrombosis Of Unspecified Deep Veins Of Lower Extremity Bilateral (HCC) Discharge Disposition: Home or Self Care 03/09/2023 10:30 AM ANIMAL SCIENTIST - 03/09/2023 1:03 PM ANIMAL SCIENTIST Hospital Encounter Department of Laboratory Medicine and Pathology, [facility] in [place], [place] [address] [place] [phone] Diana Ramírez D.O. Acute Embolism And Thrombosis Of Unspecified Deep Veins Of Lower Extremity Bilateral (HCC) Discharge Disposition: Home or Self Care 03/09/2023 9:00 AM ANIMAL SCIENTIST Comprehensive Visit Department of Vascular Medicine in [address] [phone] Diana Ramírez D.O. Acute Embolism And Thrombosis Of Unspecified Deep Veins Of Lower Extremity Bilateral (HCC) (Primary Dx) 02/25/2023 Clinical Communication Department of Vascular Medicine in [address] [phone] Diana Ramírez D.O. Triage (comments) 02/25/2023 Orders Only Department of Vascular Medicine in [address] [phone] Anel Arreguin P.A.-C. 02/13/2023 1:25 PM ANIMAL SCIENTIST Ancillary Procedure Department of Radiology in [place], [place] [address] [place] [phone] Shirlene Restrepo, DIFFERENTIAL REPAIRER, C.N.P., D.N.P. Personal History Of Other Venous Thrombosis And Embolism 02/13/2023 1:20 PM ANIMAL SCIENTIST Ancillary Procedure Department of Radiology in [place], [place] [address] [place] [address] Shirlene Restrepo APRN, C.N.P., D.N.P. Personal History Of Other Venous Thrombosis And Embolism 02/13/2023 Orders Only Department of Vascular Medicine in [place], [place] [address] [place] [address] Shirlene Restrepo APRN, C.N.P., D.N.P. Personal History Of Other Venous Thrombosis And Embolism (Primary Dx) 02/12/2023 Community Orders [facility] [address] [place] [address] Spencer Coates M.D. Acute Embolism [...] drink = 0.6 oz pur e alcohol) [facility] Disceraities Answer Date Recorded In the past 12 months has e [employer], gas, oil, or water [employer] threatened to shut off services in your [...] Sex Assigned at Male 03/02/2023 10:00 AM ANIMAL SCIENTIST Gender Identity Male 03/02/2023 10:00 AM ANIMAL SCIENTIST Sexual Orientation Lesbian or Boo 03/02/2023 10 :00 AM ANIMAL SCIENTIST Last Filed Vital Signs Vital Sign Reading Time Taken Comments Blood Pressure 136/84 03/09/2023 8:52 AM ANIMAL SCIENTIST Pulse 91 03/09/2023 8:52 AM ANIMAL SCIENTIST Temperature - - Respiratory Rate - - Oxygen Saturation - - Inhaled Oxygen Concentration - - Weight 110 kg (243 lb 9.7 oz) 03/09/2023 8:50 AM ANIMAL SCIENTIST Height 174.4 cm (5' 8.66) 03/09/2023 8:50 AM CS T Body Mass Index 36.33 03/09/2023 8:50 AM ANIMAL SCIENTIST Plan of Treatment Upcoming Encounters Date Type Department Care Team (Late st Contact Info) Description 06/12/2023 12:30 PM CDT Appointment Department of Laboratory Medicine and Pathology, [facility] in [place], [place] [address] [place] [phone] Diana Ramírez D.OElke [address] [place] [phone] 06/12/2023 2:00 PM CDT Office Visit Department of Vascular Medicine in [place], [place] [address] [place] [address] Diana Ramírez D.OElke [address] [place] [phone] Procedures Procedure Name Priority Date/Time Associated Diagnosis Comments CREATININE, U Routine 03/26/2023 7:00 AM ANIMAL SCIENTIST Other Specified Disorders Of Adrenal Gland (HCC) CT ABDOMEN PELVIS VENOGRAM WITH IV CONTRAST RAD - Routine (most inpatients and all outpatients) 03/11/2023 4:22 PM ANIMAL SCIENTIST Acute Embolism And Thrombosis Of Unspecified Deep Veins Of Lower Extremity Bilateral (HCC) US LOWER EXTREMITY VEINS BILATERAL RAD - Routine (most inpatients and all outpatients) 03/09/2023 2:41 PM ANIMAL SCIENTIST Acute Embolism And Thrombosis Of Unspecified Deep Veins Of Lower Extremity Bilateral (HCC) HEPARIN LEVEL ANTI-XA ASSAY, P Routine 03/09/2023 10:59 AM ANIMAL SCIENTIST Acute Embolism And Thrombosis Of Unspecified Deep Veins Of Lower Extremity Bilateral (HCC) ACTIVATED PARTIAL THROMBOPLASTIN TIME (APTT), P Routine 03/09/2023 10:59 AM ANIMAL SCIENTIST Acute Embolism And Thrombosis Of Unspecified Deep Veins Of Lower Extremity Bilateral (HCC) PROTHROMBIN TIME (PT), P Routine 03/09/2023 10:59 AM ANIMAL SCIENTIST Acute Embolism And Thrombosis Of Unspecified Deep Veins Of Lower Extremity Bilateral (HCC) CBC WITH DIFFERENTIAL, B Routine 03/09/2023 10:59 AM ANIMAL SCIENTIST Acute Embolism And Thrombosis Of Unspecified Deep Veins Of Lower Extremity Bilateral (HCC) BETA-2 GLYCOPROTEIN 1 ABS, IGG AND IGM, S Routine 03/09/2023 10:59 AM ANIMAL SCIENTIST Acute Embolism And Thrombosis Of Unspecified Deep Veins Of Lower Extremity Bilateral (HCC) PHOSPHOLIPID (CARDIOLIPIN) ABS, IGG AND IGM, S Routine 03/09/2023 10:59 AM ANIMAL SCIENTIST Acute Embolism And Thrombosis Of Unspecified Deep Veins Of Lower Extremity Bilateral (HCC) PS/PT AB, IGG/IGM, S Routine 03/09/2023 10:59 AM ANIMAL SCIENTIST Acute Embolism And Thrombosis Of Unspecified Deep Veins Of Lower Extremity Bilateral (HCC) LUPUS ANTICOAGULANT PROFILE Routine 03/09/2023 10:59 AM ANIMAL SCIENTIST Acute Embolism And Thrombosis Of Unspecified Deep Veins Of Lower Extremity Bilateral (HCC) ANTITHROMBIN AG, P Routine 03/09/2023 10:59 AM ANIMAL SCIENTIST Acute Embolism And Thrombosis Of Unspecified Deep Veins Of Lower Extremity Bilateral (HCC) ANTITHROMBIN ACTIVITY, P Routine 03/09/2023 10:59 AM ANIMAL SCIENTIST Acute Embolism And Thrombosis Of Unspecified Deep Veins Of Lower Extremity Bilateral (HCC) PROTHROMBIN [id number] MUTATION, B Routine 03/09/2023 10:59 AM ANIMAL SCIENTIST Acute Embolism And Thrombosis Of Unspecified Deep Veins Of Lower Extremity Bilateral (HCC) COMPREHENSIVE METABOLIC PANEL, S/P Routine 03/09/2023 10:59 AM ANIMAL SCIENTIST Acute Embolism And Thrombosis Of Unspecified Deep Veins Of Lower Extremity Bilateral (HCC) INTERPRETATION OF OUTSIDE US VASCULAR RAD - Routine (most inpatients and all outpatients) 02/13/2023 1:29 PM ANIMAL SCIENTIST Personal History Of Other Venous Thrombosis And Embolism OUTSIDE US Routine 02/11/2023 1:00 PM ANIMAL SCIENTIST from Last 3 Months Results * Creatinine, 24 hour, Urine (03/26/2023 7:00 AM ANIMAL SCIENTIST) Creatinine, 24 HR, U 1548 930 - 2955 mg/24 h 03/29/2023 12:09 PM ANIMAL SCIENTIST DTL Collection Duration 24 h 03/29/2023 10:14 AM ANIMAL SCIENTIST DTL Urine Volume 1800 mL 03/29/2023 10:14 AM ANIMAL SCIENTIST DTL Creatinine Conc 86 mg/dL 12:09 PM ANIMAL SCIENTIST DTL Urine (Urine, 24 Hours) 03/26/2023 7:00 AM ANIMAL SCIENTIST 03/29/2023 10:14 AM ANIMAL SCIENTIST Renate Johnson M.D. LAB URINE ORDERABLES [facility] [place] [address] [place] [address], [facility] DTL [facility] [address] [place] [address] * CT Abdomen Pelvis Venogram with IV Contrast (03/11/2023 4:22 PM ANIMAL SCIENTIST) Anatomical Region Laterality Modality Abdomen, Pelvis, Cardiovascu lar RST LOS, Abdominal ARZ LOS, Vascular Interventional FLA LOS, Procedural, Vascular Interventional NWWI LOS N/A Computed Tomography, Computed Tomography 03/11/2023 4:14 PM ANIMAL SCIENTIST Impressions 03/11/2023 5:18 PM ANIMAL SCIENTIST Patent venous vasculature in the abdomen/pelvis. Narrative 03/11/2023 5:18 PM ANIMAL SCIENTIST EXAM: ??CT ABDOMEN PELVIS VENOGRAM WITH IV [...] Lower Extremity Veins Bilateral (03/09/2023 2:41 PM ANIMAL SCIENTIST) Anatomical Region Laterality Modality Lower Extremity, Ultrasound RST LOS, Ultrasound ARZ LOS, Ultrasound FLA LOS Bilateral Ultrasound Impressions 03/09/2023 3:22 PM ANIMAL SCIENTIST Negative for acute DVT. Subacute SVT in the right GSV in the calf. Narrative 03/09/2023 3:22 PM ANIMAL SCIENTIST EXAM: US LOWER EXTREMITY VEINS BILATERAL Exam [...] and management can be found on the [employer] site. Link https://[employer].[facility] babiesNovoPedicsorg/topic/clinical-answers/cnt-66854011/cpm-204 31576 Procedure Note Slime Anderson M.D. - 03/09/2023 [...] thrombosis and management can be found on the[employer]k site. Linkhttps://[employer].championActivityHerotracy medical centerCyPhy Works/topic/clinical-answers/cnt-15020477/cpm -2049 1725 IMPRESSION: Negative for acute DVT. Subacute SVT in the right GSV in the calf. Diana Ramírez D.O. Joby US PROCEDURES * Phosphatidylserine/Prothrombin Antibody, IgG and IgM (03/09/2023 10:59 AM ANIMAL SCIENTIST) [facility] PS/PT Ab, IgG, S <9.4 <=30.0 (Negative ) U 03/11/2023 8:14 PM ANIMAL SCIENTIST [facility] Comment: ----ADDITIONAL INFORMATION---- This test has been modified from the insole taper's instructions. Its performance characteristics were determined by [facility] in a manner consistent with CLIA requirements. This test has not been cleared or approved by the U.S. Food and Drug Administration. PS/PT Ab, IgM, S 13.7 <=30.0 (Negative ) U 03/11/2023 8:14 PM ANIMAL SCIENTIST [facility] Comment: ----ADDITIONAL INFORMATION---- This test has been modified from the insole taper's instructions. Its performance characteristics were determined by [facility] in a manner consistent with CLIA requirements. This test has not been cleared or approved by the U.S. Food and Drug Administration. Blood (Blood, Venous) 03/09/2023 10:59 AM ANIMAL SCIENTIST 03/09/2023 4:33 PM ANIMAL SCIENTIST Diana Ramírez D.O. LAB BLOOD ADD-ON Performing Organization Address City/[facility] Co de Phone Number [facility] [address] [place] [address] [facility] [address] [place] [address] * Beta-2 Glycoprotein 1 Antibodies, IgG and IgM (03/09/2023 10:59 AM ANIMAL SCIENTIST) Beta 2 GP1 Ab IgG, S <9.4 <15.0 (Negative) U 03/10/2023 8:15 PM ANIMAL SCIENTIST [facility] Beta 2 GP1 Ab IgM, S <9.4 <15.0 (Negative) [facility] 03/10/2023 8:45 PM ANIMAL SCIENTIST [facility] Blood (Blood, Venous) 03/09/2023 10:59 AM ANIMAL SCIENTIST 03/09/2023 3:50 PM ANIMAL SCIENTIST Diana Ramírez D.O. LAB BLOOD ADD-ON Performing Organization Address City/[facility]/ZIP Co de Phone Number [facility] [address] [place] [phone] [facility] [address] 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 The Prothrombin (F2 c.*97G>A) variant is a mild risk factor for venous thromboembolism (VTE). This individual may have other genetic and environmental risk factors for VTE. If indicated, consider genetic consultation and counseling for this individual and potentially affected family members regarding laboratory testing. 03/11/2023 7:55 AM ANIMAL SCIENTIST DTL Comment: ----ADDITIONAL INFORMATION---- This test uses [...] developed and its performance characteristics determined by [facility] in a manner consistent with CLIA requirements. This test has not been cleared or approved by the U.S. Food and Drug Administration. Blood (Blood, Venous) 03/09/2023 10:59 AM ANIMAL SCIENTIST 03/09/2023 11:45 AM ANIMAL SCIENTIST Diana CADENA GENETIC TESTI [facility] [address] [place] [address], [facility] DT [address] [facility] [address] [place] [address] * Antithrombin Antigen (03/09/2023 10:59 AM ANIMAL SCIENTIST) Antithrombin Antigen, P 90 80 - 120 % 03/09/2023 12:39 PM ANIMAL SCIENTIST DTL Comment: ----ADDITIONAL INFORMATION---- This test has been modified from the insole taper's instructions. Its performance characteristics were determined by [facility] in a manner consistent with CLIA requirements. This test has not been cleared or approved by the U.S. Food and Drug Administration. Blood (Blood, Venous) 03/09/2023 10:59 AM ANIMAL SCIENTIST 03/09/2023 11:37 AM ANIMAL SCIENTIST Diana Ramírez D.O. LAB BLOOD ADD-ON [facility] [place] [address] [place] [address], [facility] [address] [place] [address] * Lupus Anticoag Prof (03/09/2023 10:59 AM ANIMAL SCIENTIST) [facility] Lupus Anticoagulant [facility] SEE COMMENT 03/09/2023 1:41 PM ANIMAL SCIENTIST DTL Comment: No evidence of a lupus [...] 9.4 - 12.5 sec 03/09/2023 1:41 PM ANIMAL SCIENTIST DTL INR 1.1 0.9 - 1.1 03/09/2023 1:41 PM ANIMAL SCIENTIST DTL Comment: ----ADDITIONAL INFORMATION---- Standard intensity warfarin therapeutic range: 2.0 to 3.0 High intensity warfarin therapeutic range: 2.5 to 3.5 Activated Partial Thrombopl Time, P 32 25 - 37 sec 03/09/2023 1:41 PM ANIMAL SCIENTIST DTL DRVVT Screen Ratio 1.19 <1.20 ratio 03/09/2023 1:41 PM ANIMAL SCIENTIST DTL Blood (Blood, Venous) 03/09/2023 10:59 AM ANIMAL SCIENTIST 03/09/2023 11:37 AM ANIMAL SCIENTIST Narrative [facility] [place] - 03/09/2023 1:41 PM ANIMAL SCIENTIST Specimen Information: Specimen ID: [id number] Specimen Type: Blood Specimen Collection Start Date: 03/09/2023 10:59 AM Specimen Received Date: 03/09/2023 11:37 AM Specimen ID: [id number] Specimen Type: Blood Specimen Collection Start Date: 03/09/2023 10:59 AM Specimen Received Date: 03/09/2023 11:37 AM Specimen ID: [id number] Specimen Type: Blood Specimen Collection Start Date: 03/09/2023 10:59 AM Specimen Received Date: 03/09/2023 11:37 AM Specimen ID: [id number] Specimen Type: Blood Specimen Collection Start Date: 03/09/2023 10:59 AM Specimen Received Date: 03/09/2023 11:37 AM Diana Ramírez D.O. LAB BLOOD NON ADD -ON [facility] [place] [address] [place] [address], [facility] [address] [place] [address] * Phospholipid (Cardiolipin) Antibodies, IgG and IgM (03/09/2023 10:59 AM ANIMAL SCIENTIST) Pathologist [facility] Phospholipid Ab IgM, S 9.9 <15.0 (Negative) MPL 03/10/2023 6:20 PM ANIMAL SCIENTIST [facility] Phospholipid Ab IgG, S <9.4 <15.0 (Negative) GPL 03/10/2023 6:06 PM ANIMAL SCIENTIST [facility] Blood (Blood, Venous) 03/09/2023 10:59 AM ANIMAL SCIENTIST 03/09/2023 3:50 PM ANIMAL SCIENTIST Diana Ramírez D.O. LAB BLOOD ADD-ON [facility] [address] [place] [address] [facility] [address] [place] [address] * APTT (Activated Partial Thromboplastin Time) (03/09/2023 10:59 AM ANIMAL SCIENTIST) Pathologist [facility] Activated Partial Thrombopl Time, P 33 25 - 37 sec 03/09/2023 12:12 PM ANIMAL SCIENTIST DTL Blood (Blood, Venous) 03/09/2023 10:59 AM ANIMAL SCIENTIST 03/09/2023 11:28 AM ANIMAL SCIENTIST Diana Ramírez D.O. LAB BLOOD ADD-ON [facility] [place] [address] [place] [address], [facility] [address] [place] [address] * Prothrombin Time (PT) (03/09/2023 10:59 AM ANIMAL SCIENTIST) Prothrombin Time, P 11.9 9.4 - 12.5 sec 03/09/2023 12:12 PM ANIMAL SCIENTIST DT INR 1.1 0.9 - 1.1 03/09/2023 12:12 PM ANIMAL SCIENTIST DT Comment: ----ADDITIONAL INFORMATION---- Standard intensity warfarin therapeutic range: 2.0 to 3.0 ?? High intensity warfarin therapeutic range: 2.5 to 3.5 Blood (Blood, Venous) 03/09/2023 10:59 AM ANIMAL SCIENTIST 03/09/2023 11:28 AM ANIMAL SCIENTIST Diana Ramírez D.O. LAB BLOOD ADD-ON [facility] [place] [address] [place] [address], [facility] [address] [place] [address] * Heparin Anti-Xa Assay (03/09/2023 10:59 AM ANIMAL SCIENTIST) Heparin Anti-Xa, P 0.39 IU/mL 2023 12:12 PM ANIMAL SCIENTIST DTL Comment: UFH therapeutic range: ?? 0.30-0.70 [...] (UFH). Blood (Blood, Venous) 03/09/2023 10:59 AM ANIMAL SCIENTIST 03/09/2023 11:28 AM ANIMAL SCIENTIST Diana Ramírez D.O. LAB BLOOD NON ADD -ON Performing Organization Address City/[facility]/ZIP Co de Phone Number [facility] [place] [address] [place], [place] [phone] [place] [address] * Antithrombin Activity (03/09/2023 10:59 AM ANIMAL SCIENTIST) Pathologist [facility] Antithrombin Activity, P 86 80 - 130 % 03/09/2023 12:36 PM ANIMAL SCIENTIST DTL Comment: Direct factor Xa inhibitor therapy (rivaroxaban (Xarelto), apixaban (Eliquis), edoxaban (Savaysa)) may interfere with the functional Xa based AT assay and cause an overestimation of AT activity thus potentially masking diagnosis of AT deficiency. ??Suggest clinical correlation and consider repeat AT testing remote from direct factor Xa inhibitor therapy, if clinically indicated. ----ADDITIONAL INFORMATION---- This test has been modified from the insole taper's instructions. Its performance characteristics were determined by [facility] in a manner consistent with CLIA requirements. This test has not been cleared or approved by the U.S. Food and Drug Administration. Blood (Blood, Venous) 03/09/2023 10:59 AM ANIMAL SCIENTIST 03/09/2023 11:37 AM ANIMAL SCIENTIST Diana Ramírez D.O. LAB BLOOD ADD-ON Performing Organization Address City/[facility]/ZIP Co de Phone Number [facility] [place] [address] [place], [place] [phone] [place] [address] [facility] [address] [place] [address] * (ABNORMAL) CBC with Differential, Blood (03/09/2023 10:59 AM ANIMAL SCIENTIST) Hemoglobin 16.0 13.2 - 16.6 g/dL 03/09/2023 11:42 AM ANIMAL SCIENTIST DTL Hematocrit 47.4 38.3 - 48.6 % 03/09/2023 11:42 AM ANIMAL SCIENTIST DTL Erythrocytes 5.33 4.35 - 5.65 x10(12)/L 03/09/2023 11:42 AM ANIMAL SCIENTIST DTL MCV 88.9 78.2 - 97.9 fL 03/09/2023 11:42 AM ANIMAL SCIENTIST DTL RBC Distrib Width 12.6 11.8 - 14.5 % 03/09/2023 11:42 AM ANIMAL SCIENTIST DTL Platelet Count 302 135 - 317 x10(9)/L 03/09/2023 11:42 AM ANIMAL SCIENTIST DTL Leukocytes 8.5 3.4 - 9.6 x10(9)/L 03/09/2023 11:42 AM ANIMAL SCIENTIST DTL Neutrophils 3.99 1.56 - 6.45 x10(9)/L 03/09/2023 11:42 AM ANIMAL SCIENTIST PM Lymphocytes 3.64(H) 0.95 - 3.07 x10(9)/L 03/09/2023 11:42 AM ANIMAL SCIENTIST DTL Monocytes 0.75 0.26 - 0.81 x10(9)/L 03/09/2023 11:42 AM ANIMAL SCIENTIST DTL Eosinophils 0.06 0.03 - 0.48 x10(9)/L 03/09/2023 11:42 AM ANIMAL SCIENTIST DTL Basophils <0.03 0.01 - 0.08 x10(9)/L 03/09/2023 11:42 AM ANIMAL SCIENTIST DTL Blood (Blood, Venous) 03/09/2023 10:59 AM ANIMAL SCIENTIST 03/09/2023 11:28 AM ANIMAL SCIENTIST Diana Ramírez D.O. LAB BLOOD ADD-ON [facility] [place] [address] [place] [address], [facility] DTL [facility] [address] [place] [address] DHPM [facility] [address] [place] [address] * (ABNORMAL) Comprehensive Metabolic Panel (03/09/2023 10:59 AM ANIMAL SCIENTIST) Pathologist [facility] Potassium, S 4.6 3.6 - 5.2 mmol/L 03/09/2023 12:22 PM ANIMAL SCIENTIST DTL Sodium, S 142 135 - 145 mmol/L 03/09/2023 12:22 PM ANIMAL SCIENTIST DTL Chloride, S 101 98 - 107 mmol/L 03/09/2023 12:22 PM ANIMAL SCIENTIST DTL Bicarbonate, S 29 22 - 29 mmol/L 03/09/2023 12:22 PM ANIMAL SCIENTIST DTL Anion Gap 12 7 - 15 03/09/2023 12:22 PM ANIMAL SCIENTIST DTL BUN (Blood Urea Nitrogen), S 19 8 - 24 mg/dL 03/09/2023 12:22 PM ANIMAL SCIENTIST DTL Creatinine 1.21 0.74 - 1.35 mg/dL 03/09/2023 12:22 PM ANIMAL SCIENTIST DTL Estimated GFR (eGFR) 68 >=60 mL/min/BS A 03/09/2023 12:22 PM ANIMAL SCIENTIST DTL Comment: Estimated GFR calculated using the 2020 CKD_EPI creatinine equation. Calcium, Total, S 9.5 8.8 - 10.2 mg/dL 03/09/2023 12:22 PM ANIMAL SCIENTIST DTL Glucose, S 156(H) 70 - 140 mg/dL 03/09/2023 12:22 PM ANIMAL SCIENTIST DTL Protein, Total, S 6.9 6.3 - 7.9 g/dL 03/09/2023 12:22 PM ANIMAL SCIENTIST DTL Albumin, S 4.5 3.5 - 5.0 g/dL 03/09/2023 12:22 PM ANIMAL SCIENTIST DTL Aspartate Aminotransferase (AST), S 24 8 - 48 U/L 03/09/2023 12:22 PM ANIMAL SCIENTIST DTL Alkaline Phosphatase, S 40 40 - 129 U/L 03/09/2023 12:22 PM ANIMAL SCIENTIST DTL Alanine Aminotransferase (ALT), S 42 7 - 55 U/L 03/09/2023 12:22 PM ANIMAL SCIENTIST DTL Bilirubin, Total, S 0.3 0.0 - 1.2 mg/dL 03/09/2023 12:22 PM ANIMAL SCIENTIST DTL Blood (Blood, Venous) 03/09/2023 10:59 AM ANIMAL SCIENTIST 03/09/2023 11:41 AM ANIMAL SCIENTIST Diana Ramírez D.O. LAB BLOOD ADD-ON [facility] [address] [place] [address], [place] [facility]3] [address] [place] [address] * Interpretation of Outside US Vascular (02/13/2023 1:29 PM ANIMAL SCIENTIST) Anatomical Region Laterality Modality Ultrasound RST LOS, Ultrasou nd ARZ LOS, Ultrasound FLA LOS, Procedural, Other, Vascular N/A Ultrasound 02/13/2023 1:31 PM ANIMAL SCIENTIST Impressions 02/13/2023 2:06 PM ANIMAL SCIENTIST 1. Positive for interval development of acute/subacute-appearing DVT in the left popliteal vein. 2. 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 Narrative 02/13/2023 2:06 PM ANIMAL SCIENTIST EXAM: ??INTERPRETATION OF OUTSIDE US VASCULAR with [...] venous LE BI-Outside US (02/11/2023 1:00 PM ANIMAL SCIENTIST) Narrative [facility]IMS - 02/12/2023 10:21 AM ANIMAL SCIENTIST This order has been created and auto-finalized [...]
--- OUTSIDE RECORDS SUMMARY | 2023-03-30 12:00 | XMS_ITS | Encounter Summary ---
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 [address] [place] [address] [facility] Referral ID Status Reason Start Date Expiration Date V isits Requested Visits Authorized [id number] Authorized 03/20/2023 09/18/2024 1 1 ICIAN VICE PRESIDENT * MRI/CAT/PET Scan (Routine) - Pending Review Specialty Diagnoses / Procedures Referred By Contac t Referred To Contact Radiology Diagnoses Other Specified Disorders Of Adrenal Gland (HCC) Procedures CT Abdomen without and with IV Contrast Renate Luo M.D. [address] [place] [address] [facility] Referral ID Status Reason Start Date Expiration Date V isits Requested Visits Authorized [id number] Pending Review 03/20/2023 03/19/2024 1 1 ICIAN VICE PRESIDENT Reason for Visit * Outpatient (Routine) - Closed Specialty Diagnoses / Procedures Referred By Contac t Referred To Contact Endocrinology Diagnoses Other Specified Disorders Of Adrenal Gland (HCC) Diana Ramírez D.O. [address] [place] [address] [facility] Referral ID Status Reason Start Date Expiration Date Visits Re quested Visits Authorized [id number] Closed 03/17/2023 03/16/2024 1 1 Encounter Details Date Type Department Care Team (Latest Contact Info) Description 03/20/2023 1:30 PM PHYSICIAN VICE PRESIDENT Comprehensive Visit Division of Endocrinology in [place], [place] [address] [place] [phone] Renate Luo M.D. [address] [place] [phone] Hyperglycemia (Primary Dx); Other Specified Disorders Of Adrenal Gland (HCC); Intolerance Heat Initial Social History Tobacco Use Types Packs/Day Years Used Date Smoking Tobacco: Former Cigarettes 2 16 1 - 11/12/1996 Smokeless Tobacco: Never Alcohol Use Standard Drinks/Week Comments Never 0 (1 standard drink = 0.6 oz pur e alcohol) [facility] Utilities Answer Date Recorded In the past 12 months has [place], gas, oil, or water [employer] threatened to shut off services in your [...] your living situation today? I have a [facility] place to live 03/02/2023 Sex and Gender Information Value Date Recorded Sex Assigned at Male 03/02/2023 10:00 AM PHYSICIAN VICE PRESIDENT Gender Identity Male 03/02/2023 10:00 AM PHYSICIAN VICE PRESIDENT Sexual Orientation Lesbian or Boo 03/02/2023 10 :00 AM PHYSICIAN VICE PRESIDENT documented as of this encounter Consult Notes * Renate Luo M.D. - 03/20/2023 1:30 PM CST SUBJECTIVE CHIEF COMPLAINT / REASON FOR VISIT Francis Restrepo is a 62 y.o. male who presents for evaluation of adrenal thickening he was referred by Diana Ramírez D.O.. 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 ICIAN VICE PRESIDENT documented in this encounter Miscellaneous Notes * Addendum Note - Cheyanne Dumas - 03/20/2023 1:30 PM CSTAddended by: CHEYANNE DUMAS on: 03/20/2023 02:34 PM Modules accepted: Orders ICIAN VICE PRESIDENT documented in this encounter Plan of Treatment Upcoming Encounters Date Type Department Care Team (Late st Contact Info) Description 06/12/2023 12:30 PM CDT Appointment Department of Laboratory Medicine and Pathology, [facility] in [place], [place] [address] [place] [address] Diana Ramírez D.O. [address] [place] [address] 06/12/2023 2:00 PM CDT Office Visit Department of Vascular Medicine in [place], [place] [address] [place] [phone] Diana Ramírez D.O. [address] [place] [phone] Pending Results Name Type Priority Associated Diagnoses Date /Time Cortisol, Saliva Lab Routine Other Specified Disorders Of Adrenal Gland (HCC) 03/24/2023 11:00 PM PHYSICIAN VICE PRESIDENT Cortisol, Free, 24 hour, Urine Lab Routine Other Specified Disorders Of Adrenal Gland (HCC) 03/26/2023 7:00 AM PHYSICIAN VICE PRESIDENT Scheduled Orders Name Type Priority Associated Diagnoses [...] Gland (HCC) Expected: 09/18/2023 (Approximate), Expires: 06/18/2024 Cortisol, Free, 24 hour, Urine Lab Routine Other Specified Disorders Of Adrenal Gland (HCC) Expected: 03/23/2023 (Approximate), Expires: 03/20/2024 Scheduled Referrals Name Type Priority Associated Diagnoses Order Schedule Endocrinology office visit (clinic) Outpatient Referral Routine Other Specified Disorders Of Adrenal Gland (HCC) Expected: 09/18/2023 (Approximate), Expires: 06/18/2024 documented as of this encounter Results * Creatinine, 24 hour, Urine (03/26/2023 7:00 AM PHYSICIAN VICE PRESIDENT) Creatinine, 24 HR, U 1548 930 - 2955 mg/24 h 03/29/2023 12:09 PM PHYSICIAN VICE PRESIDENT DTL Collection Duration 24 h 03/29/2023 10:14 AM PHYSICIAN VICE PRESIDENT DTL Urine Volume 1800 mL 03/29/2023 10:14 AM PHYSICIAN VICE PRESIDENT DTL Creatinine Conc 86 mg/dL 12:09 PM PHYSICIAN VICE PRESIDENT DTL Urine (Urine, 24 Hours) 03/26/2023 7:00 AM PHYSICIAN VICE PRESIDENT 03/29/2023 10:14 AM PHYSICIAN VICE PRESIDENT Renate Johnson M.D. LAB URINE ORDERABLES [facility] [address] [place] [address], [facility] DTL [facility] [address] [place] [address] documented in this encounter Visit Diagnoses Diagnosis Hyperglycemia- Primary Other Specified Disorders Of Adrenal Gland (HCC) Intolerance Heat Initial documented in this encounter
--- OUTSIDE RECORDS SUMMARY | 2023-03-30 12:00 | XMS_ITS | Encounter Summary ---
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 [address] [place] [address] Other Specified Disorders Of Adrenal Gland (HCC) Discharge Disposition: Home or Self Care Social History Tobacco Use Types Packs/Day Years Used Date Smoking Tobacco: Former Cigarettes 2 16 1 - 11/12/1996 Smokeless Tobacco: Never Alcohol Use Standard Drinks/Week Comments Never 0 (1 standard drink = 0.6 oz pur e alcohol) [facility] Utilities Answer Date Recorded In the past 12 months has [employer], gas, oil, or water [employer] threatened to shut off services in your [...] your living situation today? I have a [facility] place to live 03/02/2023 Sex and Gender Information Value Date Recorded Sex Assigned at Male 03/02/2023 10:00 AM DIRECTOR WHOLESALE Gender Identity Male 03/02/2023 10:00 AM DIRECTOR WHOLESALE Sexual Orientation Lesbian or Boo 03/02/2023 10 :00 AM DIRECTOR WHOLESALE documented as of this encounter Medications at [...] Appointment Department of Laboratory Medicine and Pathology, [facility], in [place], [place] [address] [place] [address] Diana Ramírez D.O. [address] [place] [address] 06/12/2023 2:00 PM CDT Office Visit Department of Vascular Medicine in [place], [place] [address] [place] [address] Diana Ramírez D.O. [address] [place] [address] Pending Results Name Type Priority Associated Diagnoses Date /Time Cortisol, Saliva Lab Routine Other Specified Disorders Of Adrenal Gland (HCC) 03/24/2023 11:00 PM DIRECTOR WHOLESALE Cortisol, Free, 24 hour, Urine Lab Routine Other Specified Disorders Of Adrenal Gland (HCC) 03/26/2023 7:00 AM DIRECTOR WHOLESALE Scheduled Orders Name Type Priority Associated Diagnoses [...] until 03/23/2023 documented as of this encounter Procedures Procedure Name Priority Date/Time Associated Diagnosis Comments CREATININE, U Routine 03/26/2023 7:00 AM DIRECTOR WHOLESALE Other Specified Disorders Of Adrenal Gland (HCC) documented in this encounter Results * Creatinine, 24 hour, Urine (03/26/2023 7:00 AM DIRECTOR WHOLESALE) Creatinine, 24 HR, U 1548 930 - 2955 mg/24 h 03/29/2023 12:09 PM DIRECTOR WHOLESALE DTL Collection Duration 24 h 03/29/2023 10:14 AM DIRECTOR WHOLESALE DTL Urine Volume 1800 mL 03/29/2023 10:14 AM DIRECTOR WHOLESALE DTL Creatinine Conc 86 mg/dL 12:09 PM DIRECTOR WHOLESALE DTL Urine (Urine, 24 Hours) 03/26/2023 7:00 AM DIRECTOR WHOLESALE 03/29/2023 10:14 AM DIRECTOR WHOLESALE Renate Johnson M.D. LAB URINE ORDERABLES [address] [address], [facility] [address] [address] documented in this encounter Visit Diagnoses Diagnosis Other Specified Disorders Of Adrenal Gland (HCC) documented in this encounter
--- OUTSIDE RECORDS SUMMARY | 2023-03-30 12:00 | XMS_ITS | Clinical Summary ---
Author Name Unknown Organization [facility] Address [address] [place] [address] Care Team Providers Care Vascular Technician Name Role Phone Unavailable Primary Care Provider Unavailabl e Source Comments Patient records contain information from all sites at [facility]. For routine questions regarding patient records, call [phone] during business hours, M-F 8:00 AM - 5:00 PM Central Time. Record requests for emergency care only can be directed to [phone] at any time.[facility] Allergies Active Allergy Reactions Criticality Noted Date [...] Department Care Team Description 03/23/2023 7:12 AM LABORER TANBARK - 03/23/2023 11:59 PM LABORER TANBARK Hospital Encounter Department of Laboratory Medicine and Pathology, [facility] in [place], [place] [address] [place] [phone] Renate Luo M.D. Other Specified Disorders Of Adrenal Gland (HCC) Discharge Disposition: Home or Self Care 03/20/2023 1:30 PM LABORER TANBARK Comprehensive Visit Division of Endocrinology in [address] [phone] Renate Luo M.D. Hyperglycemia (Primary Dx); Other Specified Disorders Of Adrenal Gland (HCC); Intolerance Heat Initial 03/17/2023 4:00 PM LABORER TANBARK Telemedicine Department of Vascular Medicine in [place], [place] [address] [place] [phone] Diana Ramírez D.O. Acute Embolism And Thrombosis Of Unspecified Deep Veins Of Lower Extremity Bilateral (HCC) (Primary Dx); Other Specified Disorders Of Adrenal Gland (HCC); Dilated Common Bile Duct 03/11/2023 2:52 PM LABORER TANBARK - 03/11/2023 11:59 PM LABORER TANBARK Hospital Encounter Department of Radiology, [place], [place] [address] [place] [address] Diana Ramírez D.O. Acute Embolism And Thrombosis Of Unspecified Deep Veins Of Lower Extremity Bilateral (HCC) Discharge Disposition: Home or Self Care 03/09/2023 1:04 PM LABORER TANBARK - 03/09/2023 11:59 PM LABORER TANBARK Hospital Encounter Department of Radiology, [facility] in [place], [place] [address] [place] [phone] Diana Ramírez D.O. Acute Embolism And Thrombosis Of Unspecified Deep Veins Of Lower Extremity Bilateral (HCC) Discharge Disposition: Home or Self Care 03/09/2023 10:30 AM LABORER TANBARK - 03/09/2023 1:03 PM LABORER TANBARK Hospital Encounter Department of Laboratory Medicine and Pathology, [facility] in [place], [place] [address] [place] [phone] Diana Ramírez D.O. Acute Embolism And Thrombosis Of Unspecified Deep Veins Of Lower Extremity Bilateral (HCC) Discharge Disposition: Home or Self Care 03/09/2023 9:00 AM LABORER TANBARK Comprehensive Visit Department of Vascular Medicine in [address] [phone] Diana Ramírez D.O. Acute Embolism And Thrombosis Of Unspecified Deep Veins Of Lower Extremity Bilateral (HCC) (Primary Dx) 02/25/2023 Clinical Communication Department of Vascular Medicine in [address] [address] Diana Ramírez D.O. Triage (comments) 02/25/2023 Orders Only Department of Vascular Medicine in [address] [phone] Anel Arreguin P.A.-C. 02/13/2023 1:25 PM LABORER TANBARK Ancillary Procedure Department of Radiology in [address] [phone] Shirlene Restrepo APRN, C.N.P., D.N.P. Personal History Of Other Venous Thrombosis And Embolism 02/13/2023 1:20 PM LABORER TANBARK Ancillary Procedure Department of Radiology in [address] [phone] Shirlene Restrepo APRN, C.N.P., D.N.P. Personal History Of Other Venous Thrombosis And Embolism 02/13/2023 Orders Only Department of Vascular Medicine in [address] [phone] Shirlene Restrepo, WILLIS, C.N.P., D.N.P. Personal History Of Other Venous Thrombosis And Embolism (Primary Dx) 02/12/2023 [facility] [address] [place] [address] Spencer Coates M.D. Acute Embolism And Thrombosis [...] drink = 0.6 oz pur e alcohol) [facility] Utilities Answer Date Recorded In the past 12 months has [employer], gas, oil, or water [employer] threatened to shut off services in your [...] Answer Date Recorded Employment status Unemployed/not in [employer] paid workforce but seeking employment 03/02/2023 Housing Stability Answer Date Recorded What is your living situation today? I have a [facility] place to live 03/02/2023 Sex and Gender Information Value Date Recorded Sex Assigned at Male 03/02/2023 10:00 AM LABORER TANBARK Gender Identity Male 03/02/2023 10:00 AM LABORER TANBARK Sexual Orientation Lesbian or Boo 03/02/2023 10 :00 AM LABORER TANBARK Last Filed Vital Signs Vital Sign Reading Time Taken Comments Blood Pressure 136/84 03/09/2023 8:52 AM LABORER TANBARK Pulse 91 03/09/2023 8:52 AM LABORER TANBARK Temperature - - Respiratory Rate - - Oxygen Saturation - - Inhaled Oxygen Concentration - - Weight 110 kg (243 lb 9.7 oz) 03/09/2023 8:50 AM LABORER TANBARK Height 174.4 cm (5' 8.66) 03/09/2023 8:50 AM CS T Body Mass Index 36.33 03/09/2023 8:50 AM LABORER TANBARK Plan of Treatment Upcoming Encounters Date Type Department Care Team (Late st Contact Info) Description 06/12/2023 12:30 PM CDT Appointment Department of Laboratory Medicine and Pathology, [facility] in [place], [place] [address] [place] [address] Diana Ramírez D.OElke [address] [place] [address] 06/12/2023 2:00 PM CDT Office Visit Department of Vascular Medicine in [place], [place] [address] [place] [address] Diana Ramírez D.O. [address] [place] [address] Health Maintenance Due Date Last Done Comments [...] Comments CREATININE, U Routine 03/26/2023 7:00 AM LABORER TANBARK Other Specified Disorders Of Adrenal Gland (HCC) CT ABDOMEN PELVIS VENOGRAM WITH IV CONTRAST RAD - Routine (most inpatients and all outpatients) 03/11/2023 4:22 PM LABORER TANBARK Acute Embolism And Thrombosis Of Unspecified Deep Veins Of Lower Extremity Bilateral (HCC) US LOWER EXTREMITY VEINS BILATERAL RAD - Routine (most inpatients and all outpatients) 03/09/2023 2:41 PM LABORER TANBARK Acute Embolism And Thrombosis Of Unspecified Deep Veins Of Lower Extremity Bilateral (HCC) HEPARIN LEVEL ANTI-XA ASSAY, P Routine 03/09/2023 10:59 AM LABORER TANBARK Acute Embolism And Thrombosis Of Unspecified Deep Veins Of Lower Extremity Bilateral (HCC) ACTIVATED PARTIAL THROMBOPLASTIN TIME (APTT), P Routine 03/09/2023 10:59 AM LABORER TANBARK Acute Embolism And Thrombosis Of Unspecified Deep Veins Of Lower Extremity Bilateral (HCC) PROTHROMBIN TIME (PT), P Routine 03/09/2023 10:59 AM LABORER TANBARK Acute Embolism And Thrombosis Of Unspecified Deep Veins Of Lower Extremity Bilateral (HCC) CBC WITH DIFFERENTIAL, B Routine 03/09/2023 10:59 AM LABORER TANBARK Acute Embolism And Thrombosis Of Unspecified Deep Veins Of Lower Extremity Bilateral (HCC) BETA-2 GLYCOPROTEIN 1 ABS, IGG AND IGM, S Routine 03/09/2023 10:59 AM LABORER TANBARK Acute Embolism And Thrombosis Of Unspecified Deep Veins Of Lower Extremity Bilateral (HCC) PHOSPHOLIPID (CARDIOLIPIN) ABS, IGG AND IGM, S Routine 03/09/2023 10:59 AM LABORER TANBARK Acute Embolism And Thrombosis Of Unspecified Deep Veins Of Lower Extremity Bilateral (HCC) PS/PT AB, IGG/IGM, S Routine 03/09/2023 10:59 AM LABORER TANBARK Acute Embolism And Thrombosis Of Unspecified Deep Veins Of Lower Extremity Bilateral (HCC) LUPUS ANTICOAGULANT PROFILE Routine 03/09/2023 10:59 AM LABORER TANBARK Acute Embolism And Thrombosis Of Unspecified Deep Veins Of Lower Extremity Bilateral (HCC) ANTITHROMBIN AG, P Routine 03/09/2023 10:59 AM LABORER TANBARK Acute Embolism And Thrombosis Of Unspecified Deep Veins Of Lower Extremity Bilateral (HCC) ANTITHROMBIN ACTIVITY, P Routine 03/09/2023 10:59 AM LABORER TANBARK Acute Embolism And Thrombosis Of Unspecified Deep Veins Of Lower Extremity Bilateral (HCC) PROTHROMBIN [id number] MUTATION, B Routine 03/09/2023 10:59 AM LABORER TANBARK Acute Embolism And Thrombosis Of Unspecified Deep Veins Of Lower Extremity Bilateral (HCC) COMPREHENSIVE METABOLIC PANEL, S/P Routine 03/09/2023 10:59 AM LABORER TANBARK Acute Embolism And Thrombosis Of Unspecified Deep Veins Of Lower Extremity Bilateral (HCC) INTERPRETATION OF OUTSIDE US VASCULAR RAD - Routine (most inpatients and all outpatients) 02/13/2023 1:29 PM LABORER TANBARK Personal History Of Other Venous Thrombosis And Embolism OUTSIDE US Routine 02/11/2023 1:00 PM LABORER TANBARK from Last 3 Months Results * Creatinine, 24 hour, Urine (03/26/2023 7:00 AM LABORER TANBARK) Creatinine, 24 HR, U 1548 930 - 2955 mg/24 h 03/29/2023 12:09 PM LABORER TANBARK DTL Collection Duration 24 h 03/29/2023 10:14 AM LABORER TANBARK DTL Urine Volume 1800 mL 03/29/2023 10:14 AM LABORER TANBARK DTL Creatinine Conc 86 mg/dL 12:09 PM LABORER TANBARK DTL Urine (Urine, 24 Hours) 03/26/2023 7:00 AM LABORER TANBARK 03/29/2023 10:14 AM LABORER TANBARK Renate Johnson M.D. LAB URINE ORDERABLES [facility] [address] [place] [address], [facility] Laboratories[facility] [address] [place] [address] * CT Abdomen Pelvis Venogram with IV Contrast (03/11/2023 4:22 PM LABORER TANBARK) Anatomical Region Laterality Modality Abdomen, Pelvis, Cardiovascu lar RST LOS, Abdominal ARZ LOS, Vascular Interventional FLA LOS, Procedural, Vascular Interventional NWWI LOS N/A Computed Tomography, Computed Tomography 03/11/2023 4:14 PM LABORER TANBARK Impressions 03/11/2023 5:18 PM LABORER TANBARK Patent venous vasculature in the abdomen/pelvis. Narrative 03/11/2023 5:18 PM LABORER TANBARK EXAM: ??CT ABDOMEN PELVIS VENOGRAM WITH IV [...] Lower Extremity Veins Bilateral (03/09/2023 2:41 PM LABORER TANBARK) Anatomical Region Laterality Modality Lower Extremity, Ultrasound RST LOS, Ultrasound ARZ LOS, Ultrasound FLA LOS Bilateral Ultrasound Impressions 03/09/2023 3:22 PM LABORER TANBARK Negative for acute DVT. Subacute SVT in the right GSV in the calf. Narrative 03/09/2023 3:22 PM LABORER TANBARK EXAM: US LOWER EXTREMITY VEINS BILATERAL Exam [...] and management can be found on the [place] site. Link [email or web address]/topic/clinical-answers/[email or web address]/[email or web address] Procedure Note Slime Anderson M.D. - 03/09/2023 [...] thrombosis and management can be found on the[employer]act [employer] site. [email or web address] [email or web address]/topic/clinical-answers/cnt-68334861/[facility] -2049 1725 IMPRESSION: Negative for acute DVT. Subacute SVT in the right GSV in the calf. Diana BRO US PROCEDURES * Phosphatidylserine/Prothrombin Antibody, IgG and IgM (03/09/2023 10:59 AM LABORER TANBARK) PS/PT Ab, IgG, S <9.4 <=30.0 (Negative ) U 03/11/2023 8:14 PM LABORER TANBARK [facility] Comment: ----ADDITIONAL INFORMATION---- This test has been modified from the sales administration manager's instructions. Its performance characteristics were determined by [facility] in a manner consistent with CLIA requirements. This test has not been cleared or approved by the U.S. Food and Drug Administration. PS/PT Ab, IgM, S 13.7 <=30.0 (Negative ) U 03/11/2023 8:14 PM LABORER TANBARK [facility] Comment: ----ADDITIONAL INFORMATION---- This test has been modified from the sales administration manager's instructions. Its performance characteristics were determined by [facility] in a manner consistent with CLIA requirements. This test has not been cleared or approved by the U.S. Food and Drug Administration. Blood (Blood, Venous) 03/09/2023 10:59 AM LABORER TANBARK 03/09/2023 4:33 PM LABORER TANBARK Diana Ramírez D.O. LAB BLOOD ADD-ON Performing Organization Address [facility] Co de Phone Number [facility] [address] [place] [address] [place] [address] [place] [address] * Beta-2 Glycoprotein 1 Antibodies, IgG and IgM (03/09/2023 10:59 AM LABORER TANBARK) Beta 2 GP1 Ab IgG, S <9.4 <15.0 (Negative) [facility] 03/10/2023 8:15 PM LABORER TANBARK [facility] Beta 2 GP1 Ab IgM, S <9.4 <15.0 (Negative) [facility] 03/10/2023 8:45 PM LABORER TANBARK [facility] Blood (Blood, Venous) 03/09/2023 10:59 AM LABORER TANBARK 03/09/2023 3:50 PM LABORER TANBARK Diana Ramírez D.O. LAB BLOOD ADD-ON Performing Organization Address [facility] Co de Phone Number [facility] [address] [place] [address] [facility] [address] 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 The Prothrombin (F2 c.*97G>A) variant is a mild risk factor for venous thromboembolism (VTE). This individual may have other genetic and environmental risk factors for VTE. If indicated, consider genetic consultation and counseling for this individual and potentially affected family members regarding laboratory testing. 03/11/2023 7:55 AM LABORER TANBARK DTL Comment: ----ADDITIONAL INFORMATION---- This test uses [...] developed and its performance characteristics determined by [facility] in a manner consistent with CLIA requirements. This test has not been cleared or approved by the U.S. Food and Drug Administration. Blood (Blood, Venous) 03/09/2023 10:59 AM LABORER TANBARK 03/09/2023 11:45 AM LABORER TANBARK Diana Ramírez D.O. LAB GENETIC TESTI NG Performing Organization Address City/[facility]/ZIP Co de Phone Number [place] [address] [place] [address] * Antithrombin Antigen (03/09/2023 10:59 AM LABORER TANBARK) [facility] Antithrombin Antigen, P 90 80 - 120 % 03/09/2023 12:39 PM LABORER TANBARK DTL Comment: ----ADDITIONAL INFORMATION---- This test has been modified from the sales administration manager's instructions. Its performance characteristics were determined by [facility] in a manner consistent with CLIA requirements. This test has not been cleared or approved by the U.S. Food and Drug Administration. Blood (Blood, Venous) 03/09/2023 10:59 AM LABORER TANBARK 03/09/2023 11:37 AM LABORER TANBARK Diana Ramírez D.O. LAB BLOOD ADD-ON [facility] [address] [place] [address], [facility] [address] [address] * Lupus Anticoag Prof (03/09/2023 10:59 AM LABORER TANBARK) [facility] Lupus Anticoagulant [facility] SEE COMMENT 03/09/2023 1:41 PM LABORER TANBARK DTL Comment: No evidence of a lupus [...] 9.4 - 12.5 sec 03/09/2023 1:41 PM LABORER TANBARK DTL INR 1.1 0.9 - 1.1 03/09/2023 1:41 PM LABORER TANBARK DTL Comment: ----ADDITIONAL INFORMATION---- Standard intensity warfarin therapeutic range: 2.0 to 3.0 High intensity warfarin therapeutic range: 2.5 to 3.5 Activated Partial Thrombopl Time, P 32 25 - 37 sec 03/09/2023 1:41 PM LABORER TANBARK DTL DRVVT Screen Ratio 1.19 <1.20 ratio 03/09/2023 1:41 PM LABORER TANBARK DTL Blood (Blood, Venous) 03/09/2023 10:59 AM LABORER TANBARK 03/09/2023 11:37 AM LABORER TANBARK Narrative [facility] - 03/09/2023 1:41 PM LABORER TANBARK Specimen Information: Specimen ID: [id number] Specimen Type: Blood Specimen Collection Start Date: 03/09/2023 10:59 AM Specimen Received Date: 03/09/2023 11:37 AM Specimen ID: [id number] Specimen Type: Blood Specimen Collection Start Date: 03/09/2023 10:59 AM Specimen Received Date: 03/09/2023 11:37 AM Specimen ID: [id number] Specimen Type: Blood Specimen Collection Start Date: 03/09/2023 10:59 AM Specimen Received Date: 03/09/2023 11:37 AM Specimen ID: [id number] Specimen Type: Blood Specimen Collection Start Date: 03/09/2023 10:59 AM Specimen Received Date: 03/09/2023 11:37 AM Diana Ramírez D.O. LAB BLOOD NON ADD -ON [facility] [address] [place] [address], [facility]TA[facility] [address] [place] [address] * Phospholipid (Cardiolipin) Antibodies, IgG and IgM (03/09/2023 10:59 AM LABORER TANBARK) Pathologist [facility] Phospholipid Ab IgM, S 9.9 <15.0 (Negative) MPL 03/10/2023 6:20 PM LABORER TANBARK [facility] Phospholipid Ab IgG, S <9.4 <15.0 (Negative) GPL 03/10/2023 6:06 PM LABORER TANBARK [facility] Blood (Blood, Venous) 03/09/2023 10:59 AM LABORER TANBARK 03/09/2023 3:50 PM LABORER TANBARK Diana Ramírez D.O. LAB BLOOD ADD-ON Performing Organization Address City/[facility] Co de Phone Number [facility] [address] [place] [address] [facility] [address] [place] [address] * APTT (Activated Partial Thromboplastin Time) (03/09/2023 10:59 AM LABORER TANBARK) Pathologist [facility] Activated Partial Thrombopl Time, P 33 25 - 37 sec 03/09/2023 12:12 PM LABORER TANBARK [facility] Blood (Blood, Venous) 03/09/2023 10:59 AM LABORER TANBARK 03/09/2023 11:28 AM LABORER TANBARK Diana Ramírez D.O. LAB BLOOD ADD-ON [facility] [address] [place], [place] [address] [address] [place] [address] * Prothrombin Time (PT) (03/09/2023 10:59 AM LABORER TANBARK) Prothrombin Time, P 11.9 9.4 - 12.5 sec 03/09/2023 12:12 PM LABORER TANBARK DT INR 1.1 0.9 - 1.1 03/09/2023 12:12 PM LABORER TANBARK DTL Comment: ----ADDITIONAL INFORMATION---- Standard intensity warfarin therapeutic range: 2.0 to 3.0 ?? High intensity warfarin therapeutic range: 2.5 to 3.5 Blood (Blood, Venous) 03/09/2023 10:59 AM LABORER TANBARK 03/09/2023 11:28 AM LABORER TANBARK Diana Ramírez D.O. LAB BLOOD ADD-ON [facility] [address] [place] [address], [facility] [address] [place] [address] * Heparin Anti-Xa Assay (03/09/2023 10:59 AM LABORER TANBARK) Heparin Anti-Xa, P 0.39 IU/mL 2023 12:12 PM LABORER TANBARK DTL Comment: UFH therapeutic range: ?? 0.30-0.70 [...] (UFH). Blood (Blood, Venous) 03/09/2023 10:59 AM LABORER TANBARK 03/09/2023 11:28 AM LABORER TANBARK Diana Ramírez D.O. LAB BLOOD NON ADD -ON [facility] [address] [place] [address], [facility] [address] [place] [address] * Antithrombin Activity (03/09/2023 10:59 AM LABORER TANBARK) Antithrombin Activity, P 86 80 - 130 % 03/09/2023 12:36 PM LABORER TANBARK DTL Comment: Direct factor Xa inhibitor therapy (rivaroxaban (Xarelto), apixaban (Eliquis), edoxaban (Savaysa)) may interfere with the functional Xa based AT assay and cause an overestimation of AT activity thus potentially masking diagnosis of AT deficiency. ??Suggest clinical correlation and consider repeat AT testing remote from direct factor Xa inhibitor therapy, if clinically indicated. ----ADDITIONAL INFORMATION---- This test has been modified from the sales administration manager's instructions. Its performance characteristics were determined by [facility] in a manner consistent with CLIA requirements. This test has not been cleared or approved by the U.S. Food and Drug Administration. Blood (Blood, Venous) 03/09/2023 10:59 AM LABORER TANBARK 03/09/2023 11:37 AM LABORER TANBARK Diana Ramírez D.O. LAB BLOOD ADD-ON [facility] [address] [place] [address], [facility] [address] [place] [address] * (ABNORMAL) CBC with Differential, Blood (03/09/2023 10:59 AM LABORER TANBARK) Hemoglobin 16.0 13.2 - 16.6 g/dL 03/09/2023 11:42 AM LABORER TANBARK DTL Hematocrit 47.4 38.3 - 48.6 % 03/09/2023 11:42 AM LABORER TANBARK DTL Erythrocytes 5.33 4.35 - 5.65 x10(12)/L 03/09/2023 11:42 AM LABORER TANBARK DTL MCV 88.9 78.2 - 97.9 fL 03/09/2023 11:42 AM LABORER TANBARK DTL RBC Distrib Width 12.6 11.8 - 14.5 % 03/09/2023 11:42 AM LABORER TANBARK DTL Platelet Count 302 135 - 317 x10(9)/L 03/09/2023 11:42 AM LABORER TANBARK DTL Leukocytes 8.5 3.4 - 9.6 x10(9)/L 03/09/2023 11:42 AM LABORER TANBARK DTL Neutrophils 3.99 1.56 - 6.45 x10(9)/L 03/09/2023 11:42 AM LABORER TANBARK DHPM Lymphocytes 3.64(H) 0.95 - 3.07 x10(9)/L 03/09/2023 11:42 AM LABORER TANBARK DTL Monocytes 0.75 0.26 - 0.81 x10(9)/L 03/09/2023 11:42 AM LABORER TANBARK DTL Eosinophils 0.06 0.03 - 0.48 x10(9)/L 03/09/2023 11:42 AM LABORER TANBARK DTL Basophils <0.03 0.01 - 0.08 x10(9)/L 03/09/2023 11:42 AM LABORER TANBARK DTL Blood (Blood, Venous) 03/09/2023 10:59 AM LABORER TANBARK 03/09/2023 11:28 AM LABORER TANBARK Diana Ramírez D.O. LAB BLOOD ADD-ON [facility] [address] [place] [address], [facility] DTL [facility] [address] [place] [address] [facility] [address] [place] [address] * (ABNORMAL) Comprehensive Metabolic Panel (03/09/2023 10:59 AM LABORER TANBARK) Potassium, S 4.6 3.6 - 5.2 mmol/L 03/09/2023 12:22 PM LABORER TANBARK DTL Sodium, S 142 135 - 145 mmol/L 03/09/2023 12:22 PM LABORER TANBARK DTL Chloride, S 101 98 - 107 mmol/L 03/09/2023 12:22 PM LABORER TANBARK DTL Bicarbonate, S 29 22 - 29 mmol/L 03/09/2023 12:22 PM LABORER TANBARK DTL Anion Gap 12 7 - 15 03/09/2023 12:22 PM LABORER TANBARK DTL BUN (Blood Urea Nitrogen), S 19 8 - 24 mg/dL 03/09/2023 12:22 PM LABORER TANBARK DTL Creatinine 1.21 0.74 - 1.35 mg/dL 03/09/2023 12:22 PM LABORER TANBARK DTL Estimated GFR (eGFR) 68 >=60 mL/min/BS A 03/09/2023 12:22 PM LABORER TANBARK DTL Comment: Estimated GFR calculated using the 2020 CKD_EPI creatinine equation. Calcium, Total, S 9.5 8.8 - 10.2 mg/dL 03/09/2023 12:22 PM LABORER TANBARK DTL Glucose, S 156(H) 70 - 140 mg/dL 03/09/2023 12:22 PM LABORER TANBARK DTL Protein, Total, S 6.9 6.3 - 7.9 g/dL 03/09/2023 12:22 PM LABORER TANBARK DTL Albumin, S 4.5 3.5 - 5.0 g/dL 03/09/2023 12:22 PM LABORER TANBARK DTL Aspartate Aminotransferase (AST), S 24 8 - 48 U/L 03/09/2023 12:22 PM LABORER TANBARK DTL Alkaline Phosphatase, S 40 40 - 129 U/L 03/09/2023 12:22 PM LABORER TANBARK DTL Alanine Aminotransferase (ALT), S 42 7 - 55 U/L 03/09/2023 12:22 PM LABORER TANBARK DTL Bilirubin, Total, S 0.3 0.0 - 1.2 mg/dL 03/09/2023 12:22 PM LABORER TANBARK DTL Blood (Blood, Venous) 03/09/2023 10:59 AM LABORER TANBARK 03/09/2023 11:41 AM LABORER TANBARK Diana Ramírez D.O. LAB BLOOD ADD-ON [facility] [address] [place] [address], [facility] DTL [facility] [address] [place] [address] * Interpretation of Outside US Vascular (02/13/2023 1:29 PM LABORER TANBARK) Anatomical Region Laterality Modality Ultrasound RST LOS, Ultrasou nd ARZ LOS, Ultrasound FLA LOS, Procedural, Other, Vascular N/A Ultrasound 02/13/2023 1:31 PM LABORER TANBARK Impressions 02/13/2023 2:06 PM LABORER TANBARK 1. Positive for interval development of acute/subacute-appearing DVT in the left popliteal vein. 2. 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 Narrative 02/13/2023 2:06 PM LABORER TANBARK EXAM: ??INTERPRETATION OF OUTSIDE US VASCULAR with [...] the prior exam. Shirlene Restrepo APRN, C.N.P., [place]. IMG US PROCEDURES * US venous LE BI-Outside US (02/11/2023 1:00 PM LABORER TANBARK) Narrative [facility] - 02/12/2023 10:21 AM LABORER TANBARK This order has been created and auto-finalized [...]
--- OUTSIDE RECORDS SUMMARY | 2023-03-30 12:00 | XMS_ITS ---
Author Name Unknown Organization [facility] Address [address] [place] [address] Care Team Providers Care Rail Loader Name Role Phone Unavailable Unavailable Unavailable Surgery Details Not on file Complications Check Surgery Details section. Procedure Estimated Blood Loss Check Surgery Details section. Procedure Findings Check Surgery Details section. Procedure Specimens Taken Check Surgery Details section.
--- OUTSIDE RECORDS SUMMARY | 2023-03-30 12:00 | XMS_ITS | Data Portability ---
Author Name Unknown Address [address] [place] [address] Phone [phone] Organization [facility], Main Office Address [address] [place] [address] Assessment Encounter Date Assessment Date Assessment LastModified by Organization Details LastModified Time 07/30/2019 07/30/2019 1. 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 Discussed the response. The milia are almost pathognomonic one on the hands for porphyria cutanea tarda. Discussed time for improvement of the skin's fragility. He will take months. 2. Sebaceous hyperplasia right cheek forehead discussed etiology discussed cosmetic nature anesthetized 1% lidocaine with epinephrine lightly hyfrecated wound care instructions given. 3. Milia on the cheek and related to the porphyria cutanea tarda. Mayuri on the right hand was expressed. Follow-up as needed. Total visit exceeded 35 minutes over 80% [id number] counseling [id number] Not available 07/30/2019 14:23:53 Plan of Treatment Reminders Order Date Submit Date Provider Last Modified By Organization Details Last Modified Time Details Appointments None record ed. Lab None record ed. Referral None record ed. Procedures None record ed. Surgeries None record ed. Imaging None record ed. Medication Orders None record ed. Patient TargetsNo targets recorded. Patient InstructionsNo instructions recorded. Reason for Referral None Reported. Medical Equipment None Reported. Medications Name Sig Start Date Stop Date Status Note LastModified by Organization Details LastModified Time losartan 50 mg tablet active Not Available Not Available Not Available cyclobenzaprine 10 mg tablet active Not Available Not Available No t Available verapamil ER (SR) 180 mg tablet,extended release active Not Available Not Available Not Available sulfamethoxazole 800 mg-trimethoprim 160 mg tablet active Not Available Not Availabl e Not Available tramadol 50 mg tablet active Not Available Not Available Not Available triamcinolone acetonide 0.1 % topical cream active Not Available Not Availabl e Not Available lisinopril 5 mg tablet active Not Available Not Available Not Available lorazepam 1 mg tablet active Not Available Not Available Not Available albuterol sulfate HFA 90 mcg/actuation aerosol inhaler active Not Available Not Availa ble Not Available sertraline 50 mg tablet active Not Available Not Available Not Available naproxen 500 mg tablet active Not Available Not Available Not Available Vitals None Recorded Social History None recorded. Functional Status None recorded. Mental Status None recorded. Family History Nothing Reported. Medical History No medical history recorded. Past Encounters Encounter ID Performer Location Encounter Start Date Encounter Closed Date Diagnosis/Indication [id number] Peri Diaz MD Main Office [address] [place] [address] 07/30/2019 11:46:54 07/30/2019 14:36:45 Milia Sebaceous hyperplasia Porphyria cutanea tarda Health Concerns Section Related Observation LastModified by Organization Detai ls LastModified Time None Recorded Concern Status LastModified by Organization Details LastModified Time None Recorded Advance Directives Directive None Recorded Payers Encounter Date Sequence Insurance Name Policy Number Policy Bruce Covered Member ID Bruce Member ID Guarantor Name 07/30/2019 1 [employer] (EPO) [id number] Francis Restrepo [id number] Francis Restrepo Notes Date Note Type Note Provider Name and Address Organization Details Recorded Time 07/30/2019 text/html HPI Notes: 58-year-old male seen by me in [place] for porphyria cutanea tarda drug-induced from Naprosyn. He is here for follow-up of that. He also has a few other lesions he would like looked at. His past medical history family history and social history reviewed from [place]'s website electronic healthcare record. Unchanged. Except for the following. He tried to discontinue Naprosyn but the pain arthritis was too severe. He tried ibuprofen up to 2400 mg a day with mild improvement. He then saw his primary physician who put him on tramadol which is markedly reduced the pain. He does use it with ibuprofen. Is very happy with his results. He notes since discontinuing this the fragility his hands has not improved but no new lesions have developed. Peri Diaz MD Formerly named [facility] [place], [address], [facility] 07/30/2019 14:36:06
--- OUTSIDE RECORDS SUMMARY | 2023-03-30 12:00 | XMS_ITS | Encounter Summary ---
Author Name Unknown Organization [facility] Address [address] [place] [address] Care Team Providers Care Rn Invasive Name Role Phone Unavailable Primary Care Provider Unavailabl e Reason for Referral * MRI/CAT/PET Scan (Routine) - Closed Specialty Diagnoses / Procedures Referred By Jun ortiz Referred To Contact Radiology Diagnoses Acute Embolism And Thrombosis Of Unspecified Deep Veins Of Lower Extremity Bilateral (HCC) Procedures CT Abdomen Pelvis Venogram with IV Contrast Diana Ramírez D.O. [address] [place] [address] [facility] Referral ID Status Reason Start Date Expiration Date Visits Re quested Visits Authorized [id number] Closed 03/09/2023 03/08/2024 1 1 Y WORKER Reason for Visit * MRI/CAT/PET Scan (Routine) - Closed Specialty Diagnoses / Procedures Referred By Jun ortiz Referred To Contact Radiology Diagnoses Acute Embolism And Thrombosis Of Unspecified Deep Veins Of Lower Extremity Bilateral (HCC) Procedures CT Abdomen Pelvis Venogram with IV Contrast Diana Ramírez D.O. [address] [place] [address] [facility] Referral ID Status Reason Start Date Expiration Date Visits Re quested Visits Authorized [id number] Closed 03/09/2023 03/08/2024 1 1 Encounter Details Date Type Department Care Team (Latest Contact Info) Description 03/11/2023 2:52 PM SPRAY WORKER - 03/11/2023 11:59 PM SPRAY WORKER Hospital Encounter Department of Radiology, [place], in [place], [place] [address] [place] [address] Diana Ramírez D.O. [address] [place] [address] Acute Embolism And Thrombosis Of Unspecified Deep Veins Of Lower Extremity Bilateral (HCC) Discharge Disposition: Home or Self Care Social History Tobacco Use Types Packs/Day Years Used Date Smoking Tobacco: Former Cigarettes 2 16 1 - 11/12/1996 Smokeless Tobacco: Never Alcohol Use Standard Drinks/Week Comments Never 0 (1 standard drink = 0.6 oz pur e alcohol) [facility] Utilities Answer Date Recorded In the [...] Sex Assigned at Male 03/02/2023 10:00 AM SPRAY WORKER Gender Identity Male 03/02/2023 10:00 AM SPRAY WORKER Sexual Orientation Lesbian or Boo 03/02/2023 10 :00 AM SPRAY WORKER documented as of this encounter Medications at [...] Department of Laboratory Medicine and Pathology, [facility] in [place], [place] [address] [place] [address] Diana Ramírez, D.O. [address] [place] [phone] 06/12/2023 2:00 PM CDT Office Visit Department of Vascular Medicine in [place], [place] [address] [place] [address] Diana Ramírez, D.O. [address] [place] [phone] documented as of this encounter Procedures Procedure Name Priority Date/Time Associated Diagnosis Comments CT ABDOMEN PELVIS VENOGRAM WITH IV CONTRAST RAD - Routine (most inpatients and all outpatients) 03/11/2023 4:22 PM SPRAY WORKER Acute Embolism And Thrombosis Of Unspecified Deep Veins Of Lower Extremity Bilateral (HCC) documented in this encounter Results * CT Abdomen Pelvis Venogram with IV Contrast (03/11/2023 4:22 PM SPRAY WORKER) Anatomical Region Laterality Modality Abdomen, Pelvis, Cardiovascu lar RST LOS, Abdominal ARZ LOS, Vascular Interventional FLA LOS, Procedural, Vascular Interventional NWWI LOS N/A Computed Tomography, Computed Tomography 03/11/2023 4:14 PM SPRAY WORKER Impressions 03/11/2023 5:18 PM SPRAY WORKER Patent venous vasculature in the abdomen/pelvis. Narrative 03/11/2023 5:18 PM SPRAY WORKER EXAM: ??CT ABDOMEN PELVIS VENOGRAM WITH IV [...] Radiant Medication Guidelines Given 03/11/2023 4:01 PM SPRAY WORKER 180 mL sodium chloride (PF) 0.9 % injection 1-100 mL 1-100 mL, intravenous, Once, On Thu03/11/23 at 1600, For 1 dose, Imaging Protocol Orders Given 03/11/2023 4:01 PM SPRAY WORKER 30 mL documented in this encounter
--- OUTSIDE RECORDS SUMMARY | 2023-03-30 12:00 | XMS_ITS | Encounter Summary ---
Author Name Unknown Organization [facility] Address [address] [place] [address] Care Team Providers Care Litigation Docket Manager Name Role Phone Unavailable Primary Care Provider Unavailabl e Reason for Referral * Outpatient (Routine) - Closed Specialty Diagnoses / Procedures Referred By Contac t Referred To Contact Diagnoses Acute Embolism And Thrombosis Of Unspecified Deep Veins Of Lower Extremity Bilateral (HCC) Procedures US Lower Extremity Veins Bilateral Diana Ramírez D.O. [address] [place] [address] [facility] Referral ID Status Reason Start Date Expiration Date Visits Re quested Visits Authorized [id number] Closed 03/09/2023 03/08/2024 1 1 EE FARMER Reason for Visit * Outpatient (Routine) - Closed Specialty Diagnoses / Procedures Referred By Contac t Referred To Contact Diagnoses Acute Embolism And Thrombosis Of Unspecified Deep Veins Of Lower Extremity Bilateral (HCC) Procedures US Lower Extremity Veins Bilateral Diana Ramírez D.O. [address] [place] [address] [facility] Referral ID Status Reason Start Date Expiration Date Visits Re quested Visits Authorized [id number] Closed 03/09/2023 03/08/2024 1 1 Encounter Details Date Type Department Care Team (Latest Contact Info) Description 03/09/2023 1:04 PM COFFEE FARMER - 03/09/2023 11:59 PM COFFEE FARMER Hospital Encounter Department of Radiology, [facility], in [place], [place] [address] [place] [address] Diana Ramírez D.O. [address] [place] [address] Acute Embolism And Thrombosis Of Unspecified Deep Veins Of Lower Extremity Bilateral (HCC) Discharge Disposition: Home or Self Care Social History Tobacco Use Types Packs/Day Years Used Date Smoking Tobacco: Former Cigarettes 2 16 1 - 11/12/1996 Smokeless Tobacco: Never Alcohol Use Standard Drinks/Week Comments Never 0 (1 standard drink = 0.6 oz pur e alcohol) [facility] Utilities Answer Date Recorded In the past [...] Sex Assigned at Male 03/02/2023 10:00 AM COFFEE FARMER Gender Identity Male 03/02/2023 10:00 AM COFFEE FARMER Sexual Orientation Lesbian or Boo 03/02/2023 10 :00 AM COFFEE FARMER documented as of this encounter Medications at [...] Appointment Department of Laboratory Medicine and Pathology, [facility] in [place], [place] [address] [place] [address] Diana Ramírez D.OElke [address] [place] [phone] 06/12/2023 2:00 PM CDT Office Visit Department of Vascular Medicine in [place], [place] [address] [place] [address] Diana Ramírez DElkeOElke [address] [place] [phone] documented as of this encounter Procedures Procedure Name Priority Date/Time Associated Diagnosis Comments US LOWER EXTREMITY VEINS BILATERAL RAD - Routine (most inpatients and all outpatients) 03/09/2023 2:41 PM COFFEE FARMER Acute Embolism And Thrombosis Of Unspecified Deep Veins Of Lower Extremity Bilateral (HCC) documented in this encounter Results * US Lower Extremity Veins Bilateral (03/09/2023 2:41 PM COFFEE FARMER) Anatomical Region Laterality Modality Lower Extremity, Ultrasound RST LOS, Ultrasound ARZ LOS, Ultrasound FLA LOS Bilateral Ultrasound Impressions 03/09/2023 3:22 PM COFFEE FARMER Negative for acute DVT. Subacute SVT in the right GSV in the calf. Narrative 03/09/2023 3:22 PM COFFEE FARMER EXAM: US LOWER EXTREMITY VEINS BILATERAL Exam [...] and management can be found on the [employer] site. Link [email or web address] Procedure Note Slime Anderson M.D. - 03/09/2023 [...] management can be found on the[employer] site. [email or web address] IMPRESSION: Negative for acute DVT. Subacute SVT in the right GSV in the calf. Diana BRO US PROCEDURES documented in this encounter Visit Diagnoses Diagnosis Acute Embolism And Thrombosis Of Unspecified Deep Veins Of Lower Extremity Bilateral (HCC) documented in this encounter
--- OUTSIDE RECORDS SUMMARY | 2023-03-30 12:01 | XMS_ITS | Encounter Summary ---
Author Name Unknown Organization [facility] Address [address] [place] [address] Care Team Providers Care Residential Green Building Designer Name Role Phone Unavailable Primary Care Provider Unavailabl e Encounter Details Date Type Department Care Team (Late st Contact Info) Description 02/25/2023 Orders Only Department of Vascular Medicine in [place], [place] [address] [place] [address] Anel Arreguin P.A.-C. [address] [place] [address] Social History Tobacco Use Types Packs/Day Years Used Date Smoking Tobacco: Unknown [facility] Utilities Answer Date Recorded In the [...] your living situation today? I have a [facility] place to live 03/02/2023 Sex and Gender Information Value Date Recorded Sex Assigned at Male 03/02/2023 10:00 AM ENVIRONMENTAL PROTECTION SPECIALIST Gender Identity Male 03/02/2023 10:00 AM ENVIRONMENTAL PROTECTION SPECIALIST Sexual Orientation Lesbian or Boo 03/02/2023 10 :00 AM ENVIRONMENTAL PROTECTION SPECIALIST documented as of this encounter Plan of Treatment Upcoming Encounters Date Type Department Care Team (Late st Contact Info) Description 06/12/2023 12:30 PM CDT Appointment Department of Laboratory Medicine and Pathology, [facility] in [place], [place] [address] [place] [address] Diana Ramírez D.O. [address] [place] [phone] 06/12/2023 2:00 PM CDT Office Visit Department of Vascular Medicine in [place], [place] [address] [place] [address] Diana Ramírez D.O. [address] [place] [phone] documented as of this encounter Visit Diagnoses Not on filedocumented in this encounter
--- OUTSIDE RECORDS SUMMARY | 2023-03-30 12:01 | XMS_ITS | Continuity of Care Document ---
Author Name Unknown Organization [facility] Address [address] [place] [address] Phone Care Team Providers Care Informatics Coordinator Name Role Phone Jason Hutchinson Unavailable Unavailable [...] Available - Active Procedures Procedure Date Office/Outpatient Visit,[facility] 2016 Advance Directives Directive Yes / No Effective Date File Name No Information Encounters Encounter Description Practice Location Reason(s) For Visit Diagnoses Date Provider Providers Copied on Encounter Office/Outpat ient Visit,[place], [facility], [address], [place], [place], [id number], [place] tel:[phone] [facility] Other spondylosis , lumbar region Seferino Gomez. [facility], [address], [place], [place], [id number], [place]. tel:[phone] Referring Provider: Spencer Coates [facility] [address] [place], [address]. tel:[phone] Family History Family Member Type Diagnosis Age [...]
--- OUTSIDE RECORDS SUMMARY | 2023-03-30 12:01 | XMS_ITS | Clinical Summary ---
Author Name Unknown Organization [facility] Address [place], [place] [address] Care Team Providers Care Home Theatre Technician Name Role Phone Spencer Coates MD Primary Care Provider [phone] Allergies Active Allergy Reactions Criticality Noted Date [...] Comments Blood Pressure 136/82 02/01/2020 1:28 PM PEDIATRIC DENTIST Pulse 85 02/01/2020 1:28 PM PEDIATRIC DENTIST Temperature 36.4 ??C (97.5 ??F) 05/26/2016 1:40 PM CD T Respiratory Rate 16 02/01/2020 1:28 PM PEDIATRIC DENTIST Oxygen Saturation 95% 05/26/2016 1:40 PM CDT [...] age to complete this topic Care Teams Home Theatre Technician Relationship Specialty Start Date End Date Spencer Coates MD [address] [place] [address] PCP - General Internal Medicine 10/03/19
--- OUTSIDE RECORDS SUMMARY | 2023-03-30 12:01 | XMS_ITS | Encounter Summary ---
Author Name Unknown Organization [facility] Address [address] [place] [address] Care Team Providers Care Cable Repairer Name Role Phone Unavailable Primary Care Provider Unavailabl e Encounter Details Date Type Department Care Team (Latest Contact Info) Description 02/13/2023 1:25 PM CARDIOPULMONARY TECHNOLOGIST Ancillary Procedure Department of Radiology in [place], [place] [address] [place] [phone] Shirlene Restrepo, VEGETABLE CUTTER, C.N.P., D.N.P. [address] [place] [phone] Personal History Of Other Venous Thrombosis And Embolism Social History Tobacco Use Types Packs/Day Years Used Date Smoking Tobacco: Unknown Nutrition Answer Date Recorded Nutrition: EVOO Fat Source Unknown 02/12 Nutrition: Servings of Fruits/Vegetables per Day Not on file 02/12/2023 Dental Answer Date Recorded Dental: Regular Dentist Unknown 02/13/20 Sex and Gender Information Value Date Recorded Sex Assigned at Male 03/02/2023 10:00 AM CARDIOPULMONARY TECHNOLOGIST Gender Identity Male 03/02/2023 10:00 AM CARDIOPULMONARY TECHNOLOGIST Sexual Orientation Lesbian or Boo 03/02/2023 10 :00 AM CARDIOPULMONARY TECHNOLOGIST documented as of this encounter Plan of Treatment Upcoming Encounters Date Type Department Care Team (Late st Contact Info) Description 06/12/2023 12:30 PM CDT Appointment Department of Laboratory Medicine and Pathology, [facility] in [place], [place] [address] [place] [phone] Diana Ramírez D.O. [address] [place] [phone] 06/12/2023 2:00 PM CDT Office Visit Department of Vascular Medicine in [place], [place] [address] [place] [address] Diana Ramírez D.O. [address] [place] [address] documented as of this encounter Visit Diagnoses Diagnosis Personal History Of Other Venous Thrombosis And Embolism documented in this encounter
--- OUTSIDE RECORDS SUMMARY | 2023-03-30 12:01 | XMS_ITS | Encounter Summary ---
Author Name Unknown Organization [facility] Address [address] [place] [address] Care Team Providers Care Stamp Classifier Name Role Phone Unavailable Primary Care Provider Unavailabl e Encounter Details Date Type Department Care Team (Latest Contact Info) Description 02/13/2023 1:20 PM SITE PHYSICIAN Ancillary Procedure Department of Radiology in [place], [place] [address] [place] [phone] Shirlene Restrepo, FLEXBOARD OPERATOR, C.N.P., D.N.P. [address] [place] [phone] Personal History Of Other Venous Thrombosis And Embolism Social History Tobacco Use Types Packs/Day Years Used Date Smoking Tobacco: Unknown Nutrition Answer Date Recorded Nutrition: EVOO Fat Source Unknown 02/12 Nutrition: Servings of Fruits/Vegetables per Day Not on file 02/12/2023 Dental Answer Date Recorded Dental: Regular Dentist Unknown 02/13/20 Sex and Gender Information Value Date Recorded Sex Assigned at Male 03/02/2023 10:00 AM SITE PHYSICIAN Gender Identity Male 03/02/2023 10:00 AM SITE PHYSICIAN Sexual Orientation Lesbian or Boo 03/02/2023 10 :00 AM SITE PHYSICIAN documented as of this encounter Plan of Treatment Upcoming Encounters Date Type Department Care Team (Late st Contact Info) Description 06/12/2023 12:30 PM CDT Appointment Department of Laboratory Medicine and Pathology, [facility] in [place], [place] [address] [place] [phone] Diana Ramírez D.O. [address] [place] [phone] 06/12/2023 2:00 PM CDT Office Visit Department of Vascular Medicine in [place], [place] [address] [place] [address] Diana Ramírez D.O. [address] [place] [address] documented as of this encounter Procedures Procedure Name Priority Date/Time Associated Diagnosis Comments INTERPRETATION OF OUTSIDE US VASCULAR RAD - Routine (most inpatients and all outpatients) 02/13/2023 1:29 PM SITE PHYSICIAN Personal History Of Other Venous Thrombosis And Embolism documented in this encounter Results * Interpretation of Outside US Vascular (02/13/2023 1:29 PM SITE PHYSICIAN) Anatomical Region Laterality Modality Ultrasound RST LOS, Ultrasou nd ARZ LOS, Ultrasound FLA LOS, Procedural, Other, Vascular N/A Ultrasound 02/13/2023 1:31 PM SITE PHYSICIAN Impressions 02/13/2023 2:06 PM SITE PHYSICIAN 1. Positive for interval development of acute/subacute-appearing DVT in the left popliteal vein. 2. 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 Narrative 02/13/2023 2:06 PM SITE PHYSICIAN EXAM: ??INTERPRETATION OF OUTSIDE US VASCULAR with [...]
--- OUTSIDE RECORDS SUMMARY | 2023-03-30 12:01 | XMS_ITS | Encounter Summary ---
Author Name Unknown Organization [facility] Address [address] [place] [address] Care Team Providers Care Handcrew Foreman Name Role Phone Unavailable Primary Care Provider Unavailabl e Reason for Referral * Outpatient (Routine) - Closed Specialty Diagnoses / Procedures Referred By Contac t Referred To Contact Vascular Medicine Diagnoses Acute Embolism And Thrombosis Of Unspecified Deep Veins Of Lower Extremity Bilateral (HCC) Spencer Coates M.D. [address] [place] [address] [facility] Referral ID Status Reason Start Date Expiration Date Visits Re quested Visits Authorized [id number] Closed 02/12/2023 02/12/2024 1 1 PMENT OPERATION INSTRUCTOR Encounter Details Date Type Department Care Team (Late st Contact Info) Description 02/12/2023 [facility] [address] [place] [address] Spencer Coates M.D. [address] [place] [address] Acute Embolism And Thrombosis Of Unspecified Deep [...] Sex Assigned at Male 03/02/2023 10:00 AM EQUIPMENT OPERATION INSTRUCTOR Gender Identity Male 03/02/2023 10:00 AM EQUIPMENT OPERATION INSTRUCTOR Sexual Orientation Lesbian or Boo 03/02/2023 10 :00 AM EQUIPMENT OPERATION INSTRUCTOR documented as of this encounter Plan of Treatment Upcoming Encounters Date Type Department Care Team (Late st Contact Info) Description 06/12/2023 12:30 PM CDT Appointment Department of Laboratory Medicine and Pathology, [facility] in [place], [place] [address] [place] [address] Diana Ramírez D.O. [address] [place] [address] 06/12/2023 2:00 PM CDT Office Visit Department of Vascular Medicine in [place], [place] [address] [place] [address] Diana Ramírez D.O. [address] [place] [address] Scheduled Referrals Name Type Priority Associated Diagnoses [...]
--- OUTSIDE RECORDS SUMMARY | 2023-03-30 12:01 | XMS_ITS | Encounter Summary ---
Author Name Unknown Organization [facility] Address [address] [place] [address] Care Team Providers Care Orchid Worker Name Role Phone Unavailable Primary Care Provider Unavailabl e Encounter Details Date Type Department Care Team (Latest Contact Info) Description 03/09/2023 10:30 AM OPTICIAN APPRENTICE DISPENSING - 03/09/2023 1:03 PM [facility] Hospital Encounter Department of Laboratory Medicine and Pathology, [facility], in [place], [place] [address] [place] [address] Diana Ramírez D.O. [address] [place] [address] Acute Embolism And Thrombosis Of Unspecified Deep Veins Of Lower Extremity Bilateral (HCC) Discharge Disposition: Home or Self Care Social History Tobacco Use Types Packs/Day Years Used Date Smoking Tobacco: Former Cigarettes 2 16 1 - 11/12/1996 Smokeless Tobacco: Never Alcohol Use Standard Drinks/Week Comments Never 0 (1 standard drink = 0.6 oz pur e alcohol) [facility] Utilities Answer Date Recorded In the past 12 months has [employer], gas, oil, or water [employer] threatened to shut off services in your [...] your living situation today? I have a [facility] place to live 03/02/2023 Sex and Gender Information Value Date Recorded Sex Assigned at Male 03/02/2023 10:00 AM OPTICIAN APPRENTICE DISPENSING Gender Identity Male 03/02/2023 10:00 AM OPTICIAN APPRENTICE DISPENSING Sexual Orientation Lesbian or Boo 03/02/2023 10 :00 AM OPTICIAN APPRENTICE DISPENSING documented as of this encounter Medications at [...] and Pathology, [facility], in [place], [place] [address] [place] [address] Diana Ramírez D.O. [address] [place] [address] 06/12/2023 2:00 PM CDT Office Visit Department of Vascular Medicine in [place], [place] [address] [place] [address] Diana Ramírez D.O. [address] [place] [phone] documented as of this encounter Procedures Procedure Name Priority Date/Time Associated Diagnosis Comments PS/PT AB, IGG/IGM, S Routine 03/09/2023 10:59 AM OPTICIAN APPRENTICE DISPENSING Acute Embolism And Thrombosis Of Unspecified Deep Veins Of Lower Extremity Bilateral (HCC) BETA-2 GLYCOPROTEIN 1 ABS, IGG AND IGM, S Routine 03/09/2023 10:59 AM OPTICIAN APPRENTICE DISPENSING Acute Embolism And Thrombosis Of Unspecified Deep Veins Of Lower Extremity Bilateral (HCC) PROTHROMBIN [id number] MUTATION, B Routine 03/09/2023 10:59 AM OPTICIAN APPRENTICE DISPENSING Acute Embolism And Thrombosis Of Unspecified Deep Veins Of Lower Extremity Bilateral (HCC) ANTITHROMBIN AG, P Routine 03/09/2023 10 :59 AM OPTICIAN APPRENTICE DISPENSING Acute Embolism And Thrombosis Of Unspecified Deep Veins Of Lower Extremity Bilateral (HCC) LUPUS ANTICOAGULANT PROFILE Routine 03/09/2023 10:59 AM OPTICIAN APPRENTICE DISPENSING Acute Embolism And Thrombosis Of Unspecified Deep Veins Of Lower Extremity Bilateral (HCC) PHOSPHOLIPID (CARDIOLIPIN) ABS, IGG AND IGM, S Routine 03/09/2023 10:59 AM OPTICIAN APPRENTICE DISPENSING Acute Embolism And Thrombosis Of Unspecified Deep Veins Of Lower Extremity Bilateral (HCC) ACTIVATED PARTIAL THROMBOPLASTIN TIME (APTT), P Routine 03/09/2023 10:59 AM OPTICIAN APPRENTICE DISPENSING Acute Embolism And Thrombosis Of Unspecified Deep Veins Of Lower Extremity Bilateral (HCC) PROTHROMBIN TIME (PT), P Routine 03/09/2023 10:59 AM OPTICIAN APPRENTICE DISPENSING Acute Embolism And Thrombosis Of Unspecified Deep Veins Of Lower Extremity Bilateral (HCC) HEPARIN LEVEL ANTI-XA ASSAY, P Routine 03/09/2023 10:59 AM OPTICIAN APPRENTICE DISPENSING Acute Embolism And Thrombosis Of Unspecified Deep Veins Of Lower Extremity Bilateral (HCC) ANTITHROMBIN ACTIVITY, P Routine 03/09/2023 10:59 AM OPTICIAN APPRENTICE DISPENSING Acute Embolism And Thrombosis Of Unspecified Deep Veins Of Lower Extremity Bilateral (HCC) CBC WITH DIFFERENTIAL, B Routine 03/09/2023 10:59 AM OPTICIAN APPRENTICE DISPENSING Acute Embolism And Thrombosis Of Unspecified Deep Veins Of Lower Extremity Bilateral (HCC) COMPREHENSIVE METABOLIC PANEL, S/P Routine 03/09/2023 10:59 AM OPTICIAN APPRENTICE DISPENSING Acute Embolism And Thrombosis Of Unspecified Deep Veins Of Lower Extremity Bilateral (HCC) documented in this encounter Results * Heparin Anti-Xa Assay (03/09/2023 10:59 AM OPTICIAN APPRENTICE DISPENSING) [facility] Heparin Anti-Xa, P 0.39 IU/mL 2023 12:12 PM OPTICIAN APPRENTICE DISPENSING DTL Comment: UFH therapeutic range: ?? 0.30-0.70 [...] (UFH). Blood (Blood, Venous) 03/09/2023 10:59 AM OPTICIAN APPRENTICE DISPENSING 03/09/2023 11:28 AM OPTICIAN APPRENTICE DISPENSING Diana Ramírez D.O. LAB BLOOD NON ADD -ON [place] [address] [place], [place] [address] [address] [place] [address] * APTT (Activated Partial Thromboplastin Time) (03/09/2023 10:59 AM OPTICIAN APPRENTICE DISPENSING) [facility] Activated Partial Thrombopl Time, P 33 25 - 37 sec 03/09/2023 12:12 PM OPTICIAN APPRENTICE DISPENSING DTL Blood (Blood, Venous) 03/09/2023 10:59 AM OPTICIAN APPRENTICE DISPENSING 03/09/2023 11:28 AM OPTICIAN APPRENTICE DISPENSING Diana Ramírez D.O. LAB BLOOD ADD-ON Performing Organization Address City/[facility]/ZIP Co de Phone Number [facility] [address] [place], [place] [phone] [place] [address] [address] [place] [address] * Prothrombin Time (PT) (03/09/2023 10:59 AM OPTICIAN APPRENTICE DISPENSING) [facility] Prothrombin Time, P 11.9 9.4 - 12.5 sec 03/09/2023 12:12 PM OPTICIAN APPRENTICE DISPENSING DTL INR 1.1 0.9 - 1.1 03/09/2023 12:12 PM OPTICIAN APPRENTICE DISPENSING DTL Comment: ----ADDITIONAL INFORMATION---- Standard intensity warfarin therapeutic range: 2.0 to 3.0 ?? High intensity warfarin therapeutic range: 2.5 to 3.5 Blood (Blood, Venous) 03/09/2023 10:59 AM OPTICIAN APPRENTICE DISPENSING 03/09/2023 11:28 AM OPTICIAN APPRENTICE DISPENSING Diana Ramírez D.O. LAB BLOOD ADD-ON [facility] [address] [place], [place] [phone] [place] [address] [address] [place] [address] * (ABNORMAL) CBC with Differential, Blood (03/09/2023 10:59 AM OPTICIAN APPRENTICE DISPENSING) [facility] Hemoglobin 16.0 13.2 - 16.6 g/dL 03/09/2023 11:42 AM OPTICIAN APPRENTICE DISPENSING DTL Hematocrit 47.4 38.3 - 48.6 % 03/09/2023 11:42 AM OPTICIAN APPRENTICE DISPENSING DTL Erythrocytes 5.33 4.35 - 5.65 x10(12)/L 03/09/2023 11:42 AM OPTICIAN APPRENTICE DISPENSING DTL MCV 88.9 78.2 - 97.9 fL 03/09/2023 11:42 AM OPTICIAN APPRENTICE DISPENSING DTL RBC Distrib Width 12.6 11.8 - 14.5 % 03/09/2023 11:42 AM OPTICIAN APPRENTICE DISPENSING DTL Platelet Count 302 135 - 317 x10(9)/L 03/09/2023 11:42 AM OPTICIAN APPRENTICE DISPENSING DTL Leukocytes 8.5 3.4 - 9.6 x10(9)/L 03/09/2023 11:42 AM OPTICIAN APPRENTICE DISPENSING DTL Neutrophils 3.99 1.56 - 6.45 x10(9)/L 03/09/2023 11:42 AM OPTICIAN APPRENTICE DISPENSING PM Lymphocytes 3.64(H) 0.95 - 3.07 x10(9)/L 03/09/2023 11:42 AM OPTICIAN APPRENTICE DISPENSING DTL Monocytes 0.75 0.26 - 0.81 x10(9)/L 03/09/2023 11:42 AM OPTICIAN APPRENTICE DISPENSING DTL Eosinophils 0.06 0.03 - 0.48 x10(9)/L 03/09/2023 11:42 AM OPTICIAN APPRENTICE DISPENSING DTL Basophils <0.03 0.01 - 0.08 x10(9)/L 03/09/2023 11:42 AM OPTICIAN APPRENTICE DISPENSING DTL Blood (Blood, Venous) 03/09/2023 10:59 AM OPTICIAN APPRENTICE DISPENSING 03/09/2023 11:28 AM OPTICIAN APPRENTICE DISPENSING Diana Ramírez D.O. LAB BLOOD ADD-ON [facility] [address] [place] [address], [facility] DTL [facility] [address] [place] [address] [facility] [address] [place] [address] * Beta-2 Glycoprotein 1 Antibodies, IgG and IgM (03/09/2023 10:59 AM OPTICIAN APPRENTICE DISPENSING) Beta 2 GP1 Ab IgG, S <9.4 <15.0 (Negative) SGU 03/10/2023 8:15 PM OPTICIAN APPRENTICE DISPENSING SDS Beta 2 GP1 Ab IgM, S <9.4 <15.0 (Negative) SMU 03/10/2023 8:45 PM OPTICIAN APPRENTICE DISPENSING [facility] Blood (Blood, Venous) 03/09/2023 10:59 AM OPTICIAN APPRENTICE DISPENSING 03/09/2023 3:50 PM OPTICIAN APPRENTICE DISPENSING Diana Ramírez D.O. LAB BLOOD ADD-ON Performing Organization Address [facility] Co de Phone Number [facility] [address] [place] [address] [facility] [address] [place] [address] * Phospholipid (Cardiolipin) Antibodies, IgG and IgM (03/09/2023 10:59 AM OPTICIAN APPRENTICE DISPENSING) Phospholipid Ab IgM, S 9.9 <15.0 (Negative) MPL 03/10/2023 6:20 PM OPTICIAN APPRENTICE DISPENSING [facility] Phospholipid Ab IgG, S <9.4 <15.0 (Negative) GPL 03/10/2023 6:06 PM OPTICIAN APPRENTICE DISPENSING [facility] Blood (Blood, Venous) 03/09/2023 10:59 AM OPTICIAN APPRENTICE DISPENSING 03/09/2023 3:50 PM OPTICIAN APPRENTICE DISPENSING Diana Ramírez D.O. LAB BLOOD ADD-ON Performing Organization Address [facility] Co de Phone Number [facility] [address] [place] [address] [facility] [address] [place] [address] * Phosphatidylserine/Prothrombin Antibody, IgG and IgM (03/09/2023 10:59 AM OPTICIAN APPRENTICE DISPENSING) PS/PT Ab, IgG, S <9.4 <=30.0 (Negative ) U 03/11/2023 8:14 PM OPTICIAN APPRENTICE DISPENSING [facility] Comment: ----ADDITIONAL INFORMATION---- This test has been modified from the burial vault setter's instructions. Its performance characteristics were determined by [facility] in a manner consistent with CLIA requirements. This test has not been cleared or approved by the U.S. Food and Drug Administration. PS/PT Ab, IgM, S 13.7 <=30.0 (Negative ) U 03/11/2023 8:14 PM OPTICIAN APPRENTICE DISPENSING [facility] Comment: ----ADDITIONAL INFORMATION---- This test has been modified from the burial vault setter's instructions. Its performance characteristics were determined by [facility] in a manner consistent with CLIA requirements. This test has not been cleared or approved by the U.S. Food and Drug Administration. Blood (Blood, Venous) 03/09/2023 10:59 AM OPTICIAN APPRENTICE DISPENSING 03/09/2023 4:33 PM OPTICIAN APPRENTICE DISPENSING Diana Ramírez D.O. LAB BLOOD ADD-ON [facility] [address] [place] [address] [facility] [address] [place] [address] * Lupus Anticoag Prof (03/09/2023 10:59 AM OPTICIAN APPRENTICE DISPENSING) [facility] Lupus Anticoagulant Tech Interp SEE COMMENT 03/09/2023 1:41 PM OPTICIAN APPRENTICE DISPENSING DTL Comment: No evidence of a lupus [...] 9.4 - 12.5 sec 03/09/2023 1:41 PM OPTICIAN APPRENTICE DISPENSING DTL INR 1.1 0.9 - 1.1 03/09/2023 1:41 PM OPTICIAN APPRENTICE DISPENSING DTL Comment: ----ADDITIONAL INFORMATION---- Standard intensity warfarin therapeutic range: 2.0 to 3.0 High intensity warfarin therapeutic range: 2.5 to 3.5 Activated Partial Thrombopl Time, P 32 25 - 37 sec 03/09/2023 1:41 PM OPTICIAN APPRENTICE DISPENSING DTL DRVVT Screen Ratio 1.19 <1.20 ratio 03/09/2023 1:41 PM OPTICIAN APPRENTICE DISPENSING DTL Blood (Blood, Venous) 03/09/2023 10:59 AM OPTICIAN APPRENTICE DISPENSING 03/09/2023 11:37 AM OPTICIAN APPRENTICE DISPENSING Narrative [facility] - 03/09/2023 1:41 PM OPTICIAN APPRENTICE DISPENSING Specimen Information: Specimen ID: [id number] Specimen Type: Blood Specimen Collection Start Date: 03/09/2023 10:59 AM Specimen Received Date: 03/09/2023 11:37 AM Specimen ID: [id number] Specimen Type: Blood Specimen Collection Start Date: 03/09/2023 10:59 AM Specimen Received Date: 03/09/2023 11:37 AM Specimen ID: [id number] Specimen Type: Blood Specimen Collection Start Date: 03/09/2023 10:59 AM Specimen Received Date: 03/09/2023 11:37 AM Specimen ID: [id number] Specimen Type: Blood Specimen Collection Start Date: 03/09/2023 10:59 AM Specimen Received Date: 03/09/2023 11:37 AM Diana Ramírez D.O. LAB BLOOD NON ADD -ON [facility] [address] [place] [address], [facility] [address] [place] [address] * Antithrombin Antigen (03/09/2023 10:59 AM OPTICIAN APPRENTICE DISPENSING) [facility] Antithrombin Antigen, P 90 80 - 120 % 03/09/2023 12:39 PM OPTICIAN APPRENTICE DISPENSING DTL Comment: ----ADDITIONAL INFORMATION---- This test has been modified from the burial vault setter's instructions. Its performance characteristics were determined by [facility] in a manner consistent with CLIA requirements. This test has not been cleared or approved by the U.S. Food and Drug Administration. Blood (Blood, Venous) 03/09/2023 10:59 AM OPTICIAN APPRENTICE DISPENSING 03/09/2023 11:37 AM OPTICIAN APPRENTICE DISPENSING Diana Ramírez D.O. LAB BLOOD ADD-ON [facility] [address] [place] [address], [facility] [place] [address] * Antithrombin Activity (03/09/2023 10:59 AM OPTICIAN APPRENTICE DISPENSING) Antithrombin Activity, P 86 80 - 130 % 03/09/2023 12:36 PM OPTICIAN APPRENTICE DISPENSING DTL Comment: Direct factor Xa inhibitor therapy (rivaroxaban (Xarelto), apixaban (Eliquis), edoxaban (Savaysa)) may interfere with the functional Xa based AT assay and cause an overestimation of AT activity thus potentially masking diagnosis of AT deficiency. ??Suggest clinical correlation and consider repeat AT testing remote from direct factor Xa inhibitor therapy, if clinically indicated. ----ADDITIONAL INFORMATION---- This test has been modified from the burial vault setter's instructions. Its performance characteristics were determined by [facility] in a manner consistent with CLIA requirements. This test has not been cleared or approved by the U.S. Food and Drug Administration. Blood (Blood, Venous) 03/09/2023 10:59 AM OPTICIAN APPRENTICE DISPENSING 03/09/2023 11:37 AM OPTICIAN APPRENTICE DISPENSING Diana Ramírez D.O. LAB BLOOD ADD-ON [facility] [address] [place] [address], 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 The Prothrombin (F2 c.*97G>A) variant is a mild risk factor for venous thromboembolism (VTE). This individual may have other genetic and environmental risk factors for VTE. If indicated, consider genetic consultation and counseling for this individual and potentially affected family members regarding laboratory testing. 03/11/2023 7:55 AM OPTICIAN APPRENTICE DISPENSING DTL Comment: ----ADDITIONAL INFORMATION---- This test uses [...] developed and its performance characteristics determined by [facility] in a manner consistent with CLIA requirements. This test has not been cleared or approved by the U.S. Food and Drug Administration. Blood (Blood, Venous) 03/09/2023 10:59 AM OPTICIAN APPRENTICE DISPENSING 03/09/2023 11:45 AM OPTICIAN APPRENTICE DISPENSING Diana Ramírez D.O. LAB GENETIC TESTI [facility] [address] [place] [address], [facility] DTL [address] [facility] [address] [place] [address] * (ABNORMAL) Comprehensive Metabolic Panel (03/09/2023 10:59 AM OPTICIAN APPRENTICE DISPENSING) Pathologist [facility] Potassium, S 4.6 3.6 - 5.2 mmol/L 03/09/2023 12:22 PM OPTICIAN APPRENTICE DISPENSING DTL Sodium, S 142 135 - 145 mmol/L 03/09/2023 12:22 PM OPTICIAN APPRENTICE DISPENSING DTL Chloride, S 101 98 - 107 mmol/L 03/09/2023 12:22 PM OPTICIAN APPRENTICE DISPENSING DTL Bicarbonate, S 29 22 - 29 mmol/L 03/09/2023 12:22 PM OPTICIAN APPRENTICE DISPENSING DTL Anion Gap 12 7 - 15 03/09/2023 12:22 PM OPTICIAN APPRENTICE DISPENSING DTL BUN (Blood Urea Nitrogen), S 19 8 - 24 mg/dL 03/09/2023 12:22 PM OPTICIAN APPRENTICE DISPENSING DTL Creatinine 1.21 0.74 - 1.35 mg/dL 03/09/2023 12:22 PM OPTICIAN APPRENTICE DISPENSING DTL Estimated GFR (eGFR) 68 >=60 mL/min/BS A 03/09/2023 12:22 PM OPTICIAN APPRENTICE DISPENSING DTL Comment: Estimated GFR calculated using the 2020 CKD_EPI creatinine equation. Calcium, Total, S 9.5 8.8 - 10.2 mg/dL 03/09/2023 12:22 PM OPTICIAN APPRENTICE DISPENSING DTL Glucose, S 156(H) 70 - 140 mg/dL 03/09/2023 12:22 PM OPTICIAN APPRENTICE DISPENSING DTL Protein, Total, S 6.9 6.3 - 7.9 g/dL 03/09/2023 12:22 PM OPTICIAN APPRENTICE DISPENSING DTL Albumin, S 4.5 3.5 - 5.0 g/dL 03/09/2023 12:22 PM OPTICIAN APPRENTICE DISPENSING DTL Aspartate Aminotransferase (AST), S 24 8 - 48 U/L 03/09/2023 12:22 PM OPTICIAN APPRENTICE DISPENSING DTL Alkaline Phosphatase, S 40 40 - 129 U/L 03/09/2023 12:22 PM OPTICIAN APPRENTICE DISPENSING DTL Alanine Aminotransferase (ALT), S 42 7 - 55 U/L 03/09/2023 12:22 PM OPTICIAN APPRENTICE DISPENSING DTL Bilirubin, Total, S 0.3 0.0 - 1.2 mg/dL 03/09/2023 12:22 PM OPTICIAN APPRENTICE DISPENSING DTL Blood (Blood, Venous) 03/09/2023 10:59 AM OPTICIAN APPRENTICE DISPENSING 03/09/2023 11:41 AM OPTICIAN APPRENTICE DISPENSING Diana Ramírez D.O. LAB BLOOD ADD-ON [facility] [address] [place] [address], [facility] DTL [facility] [address] [place] [address] documented in this encounter Visit Diagnoses Diagnosis Acute Embolism And Thrombosis Of Unspecified Deep Veins Of Lower Extremity Bilateral (HCC) documented in this encounter
--- OUTSIDE RECORDS SUMMARY | 2023-03-30 12:01 | XMS_ITS | Encounter Summary ---
Author Name Unknown Organization [facility] Address [address] [place] [address] Care Team Providers Care Transportation Mechanic Name Role Phone Unavailable Primary Care Provider Unavailabl e Encounter Details Date Type Department Care Team (Late st Contact Info) Description 02/13/2023 Orders Only Department of Vascular Medicine in [place], [place] [address] [place] [phone] Shirlene Restrepo, MORTGAGE MANAGER, C.N.P., D.N.P. [address] [place] [phone] Personal History Of Other Venous Thrombosis And [...] Sex Assigned at Male 03/02/2023 10:00 AM CORPORATE QUALITY ENGINEER Gender Identity Male 03/02/2023 10:00 AM CORPORATE QUALITY ENGINEER Sexual Orientation Lesbian or Boo 03/02/2023 10 :00 AM CORPORATE QUALITY ENGINEER documented as of this encounter Plan of Treatment Upcoming Encounters Date Type Department Care Team (Late st Contact Info) Description 06/12/2023 12:30 PM CDT Appointment Department of Laboratory Medicine and Pathology, [facility] in [place], [place] [address] [place] [phone] Diana Ramírez D.O. [address] [place] [phone] 06/12/2023 2:00 PM CDT Office Visit Department of Vascular Medicine in [place], [place] [address] [place] [address] Diana Ramírez D.O. [address] [place] [address] documented as of this encounter Results * Interpretation of Outside US Vascular (02/13/2023 1:29 PM CORPORATE QUALITY ENGINEER) Anatomical Region Laterality Modality Ultrasound RST LOS, Ultrasou nd ARZ LOS, Ultrasound FLA LOS, Procedural, Other, Vascular N/A Ultrasound 02/13/2023 1:31 PM CORPORATE QUALITY ENGINEER Impressions 02/13/2023 2:06 PM CORPORATE QUALITY ENGINEER 1. Positive for interval development of acute/subacute-appearing DVT in the left popliteal vein. 2. 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 Narrative 02/13/2023 2:06 PM CORPORATE QUALITY ENGINEER EXAM: ??INTERPRETATION OF OUTSIDE US VASCULAR with [...]
--- OUTSIDE RECORDS SUMMARY | 2023-03-30 12:01 | XMS_ITS | Encounter Summary ---
Author Name Unknown Organization [facility] Address [address] [place] [address] Care Team Providers Care Christmas Tree Grader Name Role Phone Unavailable Primary Care Provider Unavailabl e Reason for Visit * Reason Onset Date Comments Triage 02/25/2023 comments Encounter Details Date Type Department Care Team (Latest Contact Info) Description 02/25/2023 Clinical Communication Department of Vascular Medicine in [place], [place] [address] [place] [address] Diana Ramírez DShamar [address] [place] [address] Triage (comments) Social History Tobacco Use Types Packs/Day Years Used Date Smoking Tobacco: Unknown [facility] Utilities Answer Date Recorded In the past [...] your living situation today? I have a [facility] place to live 03/02/2023 Sex and Gender Information Value Date Recorded Sex Assigned at Male 03/02/2023 10:00 AM MARINE STEAMFITTER Gender Identity Male 03/02/2023 10:00 AM MARINE STEAMFITTER Sexual Orientation Lesbian or Boo 03/02/2023 10 :00 AM MARINE STEAMFITTER documented as of this encounter Plan of Treatment Upcoming Encounters Date Type Department Care Team (Late st Contact Info) Description 06/12/2023 12:30 PM CDT Appointment Department of Laboratory Medicine and Pathology, [facility], in [place], [place] [address] [place] [address] Diana Ramírez D.OElke [address] [place] [phone] 06/12/2023 2:00 PM CDT Office Visit Department of Vascular Medicine in [place], [place] [address] [place] [address] Diana Ramírez D.O. [address] [place] [phone] documented as of this encounter Visit Diagnoses Not on filedocumented in this encounter
--- OUTSIDE RECORDS SUMMARY | 2023-03-30 12:01 | XMS_ITS | Encounter Summary ---
Author Name Unknown Organization [facility] Address [address] [place] [address] Care Team Providers Care Auricular Detoxification Specialist Name Role Phone Unavailable Primary Care Provider Unavailabl e Reason for Referral * Outpatient (Routine) - Closed Specialty Diagnoses / Procedures Referred By Contac t Referred To Contact Vascular Medicine Aleena Ramírez D.O. [address] [place] [address] [facility] Referral ID Status Reason Start Date Expiration Date Visits Re quested Visits Authorized [id number] Closed 03/09/2023 03/08/2026 1 1 ECTOR RAG SORTING * MRI/CAT/PET Scan (Routine) - Closed Specialty Diagnoses / Procedures Referred By Contac t Referred To Contact Radiology Diagnoses Acute Embolism And Thrombosis Of Unspecified Deep Veins Of Lower Extremity Bilateral (HCC) Procedures CT Abdomen Pelvis Venogram with IV Contrast Aleena Ramírez D.O. [address] [place] [address] [facility] Referral ID Status Reason Start Date Expiration Date Visits Re quested Visits Authorized [id number] Closed 03/09/2023 03/08/2024 1 1 ECTOR RAG SORTING * Outpatient (Routine) - Closed Specialty Diagnoses / Procedures Referred By Contac t Referred To Contact Diagnoses Acute Embolism And Thrombosis Of Unspecified Deep Veins Of Lower Extremity Bilateral (HCC) Procedures US Lower Extremity Veins Bilateral Aleena Ramírez D.O. [address] [place] [address] [facility] Referral ID Status Reason Start Date Expiration Date Visits Re quested Visits Authorized [id number] Closed 03/09/2023 03/08/2024 1 1 ECTOR RAG SORTING Reason for Visit * Outpatient (Routine) - Closed Specialty Diagnoses / Procedures Referred By Jun t Referred To Contact Vascular Medicine Diagnoses Acute Embolism And Thrombosis Of Unspecified Deep Veins Of Lower Extremity Bilateral (HCC) Spencer Coates M.D. [address] [place] [address] [facility] Referral ID Status Reason Start Date Expiration Date Visits Re quested Visits Authorized [id number] Closed 02/12/2023 02/12/2024 1 1 Encounter Details Date Type Department Care Team (Latest Contact Info) Description 03/09/2023 9:00 AM INSPECTOR RAG SORTING Comprehensive Visit Department of Vascular Medicine in [place], [place] [address] [place] [address] Aleena Ramírez D.O. [address] [place] [phone] Acute Embolism And Thrombosis Of Unspecified Deep Veins Of Lower Extremity Bilateral (HCC) (Primary Dx) Social History Tobacco Use Types Packs/Day Years Used Date Smoking Tobacco: Former Cigarettes 2 16 1 - 11/12/1996 Smokeless Tobacco: Never Tobacco Cessation:Counseling Given: Not Answered Alcohol Use Standard Drinks/Week Comments Never 0 (1 standard drink = 0.6 oz pur e alcohol) [facility] Utilities Answer Date Recorded In the past 12 months has Portfol[employer], gas, oil, or water Droid system master threatened to shut off services in your [...] living situation today? I have a [facility] place to live 03/02/2023 Sex and Gender Information Value Date Recorded Sex Assigned at Male 03/02/2023 10:00 AM INSPECTOR RAG SORTING Gender Identity Male 03/02/2023 10:00 AM INSPECTOR RAG SORTING Sexual Orientation Lesbian or Boo 03/02/2023 10 :00 AM INSPECTOR RAG SORTING documented as of this encounter Last Filed Vital Signs Vital Sign Reading Time Taken Comments Blood Pressure 136/84 03/09/2023 8:52 AM INSPECTOR RAG SORTING Pulse 91 03/09/2023 8:52 AM INSPECTOR RAG SORTING Temperature - - Respiratory Rate - - Oxygen Saturation - - Inhaled Oxygen Concentration - - Weight 110 kg (243 lb 9.7 oz) 03/09/2023 8:50 AM INSPECTOR RAG SORTING Height 174.4 cm (5' 8.66) 03/09/2023 8:50 AM CS T Body Mass Index 36.33 03/09/2023 8:50 AM INSPECTOR RAG SORTING documented in this encounter Consult Notes * [...] associated with travel. 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 He [...] bowel resection history. Denies prior history of OH, CVA, TIA, or prior hospitalization/transfusion for major [...] Family History: Brother with history of DVT (trucker hand), age 61 (on apixaban) Sister with provoked following surgery, age 54 Mother: COPD, no VTE. Passed at age 89. Father: Lung cancer with colon metastasis (passed age 62), no VTE. Social: Prior flight mechanic (discontinued due to COVID and clotting disorder). [...] in consultation. We will continue to follow. ECTOR RAG SORTING documented in this encounter Miscellaneous Notes * Addendum Note - Aleena Ramírez D.O. - 03/09/2023 9:00 AM CSTAddended by: ALEENA RAMÍREZ on: 03/11/2023 12:35 PM Modules accepted: Orders ECTOR RAG SORTING documented in this encounter Plan of Treatment Upcoming Encounters Date Type Department Care Team (Late st Contact Info) Description 06/12/2023 12:30 PM CDT Appointment Department of Laboratory Medicine and Pathology, [facility] in [place], [place] [address] [place] [address] Aleena Ramírez D.O. [address] [place] [phone] 06/12/2023 2:00 PM CDT Office Visit Department of Vascular Medicine in [place], [place] [address] [place] [address] Aleena Ramírez D.O. [address] [place] [phone] Scheduled Referrals Name Type Priority Associated Diagnoses Order Schedule Vascular Medicine office visit (clinic) Thrombophilia Outpatient Referral Routine Expected: 03/16/2023 (Approximate), Expires: 06/07/2024 documented as of this encounter Results * CT Abdomen Pelvis Venogram with IV Contrast (03/11/2023 4:22 PM INSPECTOR RAG SORTING) Anatomical Region Laterality Modality Abdomen, Pelvis, Cardiovascu lar RST LOS, Abdominal ARZ LOS, Vascular Interventional FLA LOS, Procedural, Vascular Interventional NWWI LOS N/A Computed Tomography, Computed Tomography 03/11/2023 4:14 PM INSPECTOR [employer]AG S[employer]ING Impressions 03/11/2023 5:18 PM INSPECTOR RAG SORTING Patent venous vasculature in the abdomen/pelvis. Narrative 03/11/2023 5:18 PM INSPECTOR RAG SORTING EXAM: ??CT ABDOMEN PELVIS VENOGRAM WITH IV [...] Lower Extremity Veins Bilateral (03/09/2023 2:41 PM INSPECTOR RAG SORTING) Anatomical Region Laterality Modality Lower Extremity, Ultrasound RST LOS, Ultrasound ARZ LOS, Ultrasound FLA LOS Bilateral Ultrasound Impressions 03/09/2023 3:22 PM INSPECTOR RAG SORTING Negative for acute DVT. Subacute SVT in the right GSV in the calf. Narrative 03/09/2023 3:22 PM INSPECTOR RAG SORTING EXAM: US LOWER EXTREMITY VEINS BILATERAL Exam [...] and management can be found on the [employer] site. Link https://[email or web address]/topic/clinical-answers/[email or web address]/[email or web address] 55647 Procedure Note Slime Anderson M.D. - 03/09/2023 [...] thrombosis and management can be found on theAskReebee site. Linkhttps://[email or web address]/topic/clinical-answers/[email or web address]/cpm -2049 1725 IMPRESSION: Negative for acute DVT. Subacute SVT in the right GSV in the calf. Aleena Ramírez D.O. IMG US PROCEDURES * Heparin Anti-Xa Assay (03/09/2023 10:59 AM INSPECTOR RAG SORTING) Pathologist [facility] Heparin Anti-Xa, P 0.39 IU/mL 2023 12:12 PM INSPECTOR RAG SORTING DTL Comment: UFH therapeutic range: ?? 0.30-0.70 [...] (UFH). Blood (Blood, Venous) 03/09/2023 10:59 AM INSPECTOR RAG SORTING 03/09/2023 11:28 AM INSPECTOR RAG SORTING Aleena Ramírez D.O. LAB BLOOD NON ADD -ON [facility] Agent Video Intelligence [place] [address] [place], [place] [address] [address] [place] [address] * APTT (Activated Partial Thromboplastin Time) (03/09/2023 10:59 AM INSPECTOR RAG SORTING) Pathologist [facility] Activated Partial Thrombopl Time, P 33 25 - 37 sec 03/09/2023 12:12 PM INSPECTOR RAG SORTING DTL Blood (Blood, Venous) 03/09/2023 10:59 AM INSPECTOR RAG SORTING 03/09/2023 11:28 AM INSPECTOR RAG SORTING Aleena Ramírez D.O. LAB BLOOD ADD-ON [facility] [address] [place] [address], [facility] [address] [place] [address] * Prothrombin Time (PT) (03/09/2023 10:59 AM INSPECTOR RAG SORTING) [facility] Prothrombin Time, P 11.9 9.4 - 12.5 sec 03/09/2023 12:12 PM INSPECTOR RAG SORTING DTL INR 1.1 0.9 - 1.1 03/09/2023 12:12 PM INSPECTOR RAG SORTING DTL Comment: ----ADDITIONAL INFORMATION---- Standard intensity warfarin therapeutic range: 2.0 to 3.0 ?? High intensity warfarin therapeutic range: 2.5 to 3.5 Blood (Blood, Venous) 03/09/2023 10:59 AM INSPECTOR RAG SORTING 03/09/2023 11:28 AM INSPECTOR RAG SORTING Aleena Ramírez D.O. LAB BLOOD ADD-ON [facility] [address] [place] [address], [facility] [address] [place] [address] * (ABNORMAL) CBC with Differential, Blood (03/09/2023 10:59 AM INSPECTOR RAG SORTING) Pathologist [facility] Hemoglobin 16.0 13.2 - 16.6 g/dL 03/09/2023 11:42 AM INSPECTOR RAG SORTING DTL Hematocrit 47.4 38.3 - 48.6 % 03/09/2023 11:42 AM INSPECTOR RAG SORTING DTL Erythrocytes 5.33 4.35 - 5.65 x10(12)/L 03/09/2023 11:42 AM INSPECTOR RAG SORTING DTL MCV 88.9 78.2 - 97.9 fL 03/09/2023 11:42 AM INSPECTOR RAG SORTING DTL RBC Distrib Width 12.6 11.8 - 14.5 % 03/09/2023 11:42 AM INSPECTOR RAG SORTING DTL Platelet Count 302 135 - 317 x10(9)/L 03/09/2023 11:42 AM INSPECTOR RAG SORTING DTL Leukocytes 8.5 3.4 - 9.6 x10(9)/L 03/09/2023 11:42 AM INSPECTOR RAG SORTING DTL Neutrophils 3.99 1.56 - 6.45 x10(9)/L 03/09/2023 11:42 AM INSPECTOR RAG SORTING DHPM Lymphocytes 3.64(H) 0.95 - 3.07 x10(9)/L 03/09/2023 11:42 AM INSPECTOR RAG SORTING DTL Monocytes 0.75 0.26 - 0.81 x10(9)/L 03/09/2023 11:42 AM INSPECTOR RAG SORTING DTL Eosinophils 0.06 0.03 - 0.48 x10(9)/L 03/09/2023 11:42 AM INSPECTOR RAG SORTING DTL Basophils <0.03 0.01 - 0.08 x10(9)/L 03/09/2023 11:42 AM INSPECTOR RAG SORTING DTL Blood (Blood, Venous) 03/09/2023 10:59 AM INSPECTOR RAG SORTING 03/09/2023 11:28 AM INSPECTOR RAG SORTING Aleena Ramírez D.O. LAB BLOOD ADD-ON [facility] [address] [place] [address], [facility] DTL [facility] [address] [place] [address] [facility] [address] [place] [address] * Beta-2 Glycoprotein 1 Antibodies, IgG and IgM (03/09/2023 10:59 AM INSPECTOR RAG SORTING) [facility] Beta 2 GP1 Ab IgG, S <9.4 <15.0 (Negative) SGU 03/10/2023 8:15 PM INSPECTOR RAG SORTING SDS Beta 2 GP1 Ab IgM, S <9.4 <15.0 (Negative) SMU 03/10/2023 8:45 PM INSPECTOR RAG SORTING [facility] Blood (Blood, Venous) 03/09/2023 10:59 AM INSPECTOR RAG SORTING 03/09/2023 3:50 PM INSPECTOR RAG SORTING Aleena Ramírez D.O. LAB BLOOD ADD-ON Performing Organization Address [facility] Co de Phone Number [facility] [address] [place] [address] [facility] [address] [place] [address] * Phospholipid (Cardiolipin) Antibodies, IgG and IgM (03/09/2023 10:59 AM INSPECTOR RAG SORTING) Phospholipid Ab IgM, S 9.9 <15.0 (Negative) MPL 03/10/2023 6:20 PM INSPECTOR RAG SORTING SDS Phospholipid Ab IgG, S <9.4 <15.0 (Negative) GPL 03/10/2023 6:06 PM INSPECTOR RAG SORTING [facility] Blood (Blood, Venous) 03/09/2023 10:59 AM INSPECTOR RAG SORTING 03/09/2023 3:50 PM INSPECTOR RAG SORTING Aleena Ramírez D.O. LAB BLOOD ADD-ON Performing Organization Address [facility] Co de Phone Number [facility] [address] [place] [address] [facility] [address] [place] [address] * Phosphatidylserine/Prothrombin Antibody, IgG and IgM (03/09/2023 10:59 AM INSPECTOR RAG SORTING) PS/PT Ab, IgG, S <9.4 <=30.0 (Negative ) U 03/11/2023 8:14 PM INSPECTOR RAG SORTING [facility] Comment: ----ADDITIONAL INFORMATION---- This test has been modified from the building construction professor's instructions. Its performance characteristics were determined by [facility] in a manner consistent with CLIA requirements. This test has not been cleared or approved by the U.S. Food and Drug Administration. PS/PT Ab, IgM, S 13.7 <=30.0 (Negative ) U 03/11/2023 8:14 PM INSPECTOR RAG SORTING [facility] Comment: ----ADDITIONAL INFORMATION---- This test has been modified from the building construction professor's instructions. Its performance characteristics were determined by [facility] in a manner consistent with CLIA requirements. This test has not been cleared or approved by the U.S. Food and Drug Administration. Blood (Blood, Venous) 03/09/2023 10:59 AM INSPECTOR RAG SORTING 03/09/2023 4:33 PM INSPECTOR RAG SORTING Aleena Ramírez D.O. LAB BLOOD ADD-ON [facility] [address] [place] [address] [facility] [address] [place] [address] * Lupus Anticoag Prof (03/09/2023 10:59 AM INSPECTOR RAG SORTING) [facility] Lupus Anticoagulant Tech Interp SEE COMMENT 03/09/2023 1:41 PM INSPECTOR RAG SORTING DTL Comment: No evidence of a lupus [...] 9.4 - 12.5 sec 03/09/2023 1:41 PM INSPECTOR RAG SORTING DTL INR 1.1 0.9 - 1.1 03/09/2023 1:41 PM INSPECTOR RAG SORTING DTL Comment: ----ADDITIONAL INFORMATION---- Standard intensity warfarin therapeutic range: 2.0 to 3.0 High intensity warfarin therapeutic range: 2.5 to 3.5 Activated Partial Thrombopl Time, P 32 25 - 37 sec 03/09/2023 1:41 PM INSPECTOR RAG SORTING DTL DRVVT Screen Ratio 1.19 <1.20 ratio 03/09/2023 1:41 PM INSPECTOR RAG SORTING DTL Blood (Blood, Venous) 03/09/2023 10:59 AM INSPECTOR RAG SORTING 03/09/2023 11:37 AM INSPECTOR RAG SORTING Narrative [facility] - 03/09/2023 1:41 PM INSPECTOR RAG SORTING Specimen Information: Specimen ID: [id number] Specimen Type: Blood Specimen Collection Start Date: 03/09/2023 10:59 AM Specimen Received Date: 03/09/2023 11:37 AM Specimen ID: [id number] Specimen Type: Blood Specimen Collection Start Date: 03/09/2023 10:59 AM Specimen Received Date: 03/09/2023 11:37 AM Specimen ID: [id number] Specimen Type: Blood Specimen Collection Start Date: 03/09/2023 10:59 AM Specimen Received Date: 03/09/2023 11:37 AM Specimen ID: [id number] Specimen Type: Blood Specimen Collection Start Date: 03/09/2023 10:59 AM Specimen Received Date: 03/09/2023 11:37 AM Aleena Ramírez D.O. LAB BLOOD NON ADD -ON [facility] [address] [place] [address] * Antithrombin Antigen (03/09/2023 10:59 AM INSPECTOR RAG SORTING) [facility] Antithrombin Antigen, P 90 80 - 120 % 03/09/2023 12:39 PM INSPECTOR RAG SORTING DTL Comment: ----ADDITIONAL INFORMATION---- This test has been modified from the building construction professor's instructions. Its performance characteristics were determined by [facility] in a manner consistent with CLIA requirements. This test has not been cleared or approved by the U.S. Food and Drug Administration. Blood (Blood, Venous) 03/09/2023 10:59 AM INSPECTOR RAG SORTING 03/09/2023 11:37 AM INSPECTOR RAG SORTING Aleena Ramírez D.O. LAB BLOOD ADD-ON Performing Organization Address [facility] Co de Phone Number [facility] [address] [place] [address], [facility] [address] [place] [address] * Antithrombin Activity (03/09/2023 10:59 AM INSPECTOR RAG SORTING) Antithrombin Activity, P 86 80 - 130 % 03/09/2023 12:36 PM INSPECTOR RAG SORTING DTL Comment: Direct factor Xa inhibitor therapy (rivaroxaban (Xarelto), apixaban (Eliquis), edoxaban (Savaysa)) may interfere with the functional Xa based AT assay and cause an overestimation of AT activity thus potentially masking diagnosis of AT deficiency. ??Suggest clinical correlation and consider repeat AT testing remote from direct factor Xa inhibitor therapy, if clinically indicated. ----ADDITIONAL INFORMATION---- This test has been modified from the building construction professor's instructions. Its performance characteristics were determined by [facility] in a manner consistent with CLIA requirements. This test has not been cleared or approved by the U.S. Food and Drug Administration. Blood (Blood, Venous) 03/09/2023 10:59 AM INSPECTOR RAG SORTING 03/09/2023 11:37 AM INSPECTOR RAG SORTING Aleena Ramírez D.O. 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 The Prothrombin (F2 c.*97G>A) variant is a mild risk factor for venous thromboembolism (VTE). This individual may have other genetic and environmental risk factors for VTE. If indicated, consider genetic consultation and counseling for this individual and potentially affected family members regarding laboratory testing. 03/11/2023 7:55 AM INSPECTOR RAG SORTING DTL Comment: ----ADDITIONAL INFORMATION---- This test uses [...] developed and its performance characteristics determined by [facility] in a manner consistent with CLIA requirements. This test has not been cleared or approved by the U.S. Food and Drug Administration. Blood (Blood, Venous) 03/09/2023 10:59 AM INSPECTOR RAG SORTING 03/09/2023 11:45 AM INSPECTOR RAG SORTING Aleena Ramírez D.O. LAB GENETIC TESTI Performing Organization Address City/State/[facility] Co de Phone Number [facility] [address] [place] [address], [facility] DTL [address] [place] [address] * (ABNORMAL) Comprehensive Metabolic Panel (03/09/2023 10:59 AM INSPECTOR RAG SORTING) Pathologist [facility] Potassium, S 4.6 3.6 - 5.2 mmol/L 03/09/2023 12:22 PM INSPECTOR RAG SORTING DTL Sodium, S 142 135 - 145 mmol/L 03/09/2023 12:22 PM INSPECTOR RAG SORTING DTL Chloride, S 101 98 - 107 mmol/L 03/09/2023 12:22 PM INSPECTOR RAG SORTING DTL Bicarbonate, S 29 22 - 29 mmol/L 03/09/2023 12:22 PM INSPECTOR RAG SORTING DTL Anion Gap 12 7 - 15 03/09/2023 12:22 PM INSPECTOR RAG SORTING DTL BUN (Blood Urea Nitrogen), S 19 8 - 24 mg/dL 03/09/2023 12:22 PM INSPECTOR RAG SORTING DTL Creatinine 1.21 0.74 - 1.35 mg/dL 03/09/2023 12:22 PM INSPECTOR RAG SORTING DTL Estimated GFR (eGFR) 68 >=60 mL/min/BS A 03/09/2023 12:22 PM INSPECTOR RAG SORTING DTL Comment: Estimated GFR calculated using the 2020 CKD_EPI creatinine equation. Calcium, Total, S 9.5 8.8 - 10.2 mg/dL 03/09/2023 12:22 PM INSPECTOR RAG SORTING DTL Glucose, S 156(H) 70 - 140 mg/dL 03/09/2023 12:22 PM INSPECTOR RAG SORTING DTL Protein, Total, S 6.9 6.3 - 7.9 g/dL 03/09/2023 12:22 PM INSPECTOR RAG SORTING DTL Albumin, S 4.5 3.5 - 5.0 g/dL 03/09/2023 12:22 PM INSPECTOR RAG SORTING DTL Aspartate Aminotransferase (AST), S 24 8 - 48 U/L 03/09/2023 12:22 PM INSPECTOR RAG SORTING DTL Alkaline Phosphatase, S 40 40 - 129 U/L 03/09/2023 12:22 PM INSPECTOR RAG SORTING DTL Alanine Aminotransferase (ALT), S 42 7 - 55 U/L 03/09/2023 12:22 PM INSPECTOR RAG SORTING DTL Bilirubin, Total, S 0.3 0.0 - 1.2 mg/dL 03/09/2023 12:22 PM INSPECTOR RAG SORTING DTL Blood (Blood, Venous) 03/09/2023 10:59 AM INSPECTOR RAG SORTING 03/09/2023 11:41 AM INSPECTOR RAG SORTING Aleena Ramírez D.O. LAB BLOOD ADD-ON [facility] [address] [place] [address], [facility] DTL [facility] [address] [place] [address] documented in this encounter Visit Diagnoses Diagnosis [...]
--- NOTE | 2023-03-30 12:15 | CRLHL7_ITS ---
For Patients: As a result of the Century Cures Act, medical imaging exams and procedure reports are released immediately into your electronic medical record. You may view this report before your referring provider. If you have questions, please contact your health care provider. 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 COMPARISON: 02/11/2023 TECHNIQUE: A compression venous ultrasound exam was performed of the left lower extremity using curtis-scale imaging, color Doppler and spectral Doppler analysis. FINDINGS: Sonographic imaging of the left lower extremity demonstrates normal compressibility and color Doppler venous blood flow within the common femoral vein, deep femoral vein, and the proximal greater saphenous vein. Within the thigh, the femoral vein is patent and compressible. Nonocclusive noncompressible clot material present within the left popliteal vein. Limited imaging of the contralateral groin demonstrates a normal spectral waveform and color Doppler venous blood flow within the right common femoral vein. IMPRESSION: Similar appearance of the left popliteal vein with persistent noncompressible/nonocclusive thrombus. Dictated by Kwan Fox MD @ 03/30/2023 3:57:54 PM (Electronically Signed)
== END 2023-03-30 11:54 | disposition home or self-care (01) ==
PROVIDERS: PCP Internal Medicine; Visit Provider Internal Medicine
DX: I82.409 Acute embolism and thrombosis of unspecified deep veins of unspecified lower extremity (principal); I82.432 Acute embolism and thrombosis of left popliteal vein
CPT/HCPCS: 93971

== ENCOUNTER 2023-04-06 09:08 | Outpatient (REF) | payer MEDICAID, SELFPAY ==
--- OUTSIDE RECORDS SUMMARY | 2023-04-06 09:12 | XMS_ITS | Encounter Summary ---
Author Name Unknown Organization [facility] Address [address] [place] [address] Care Team Providers Care Belt Sander Stone Name Role Phone Unavailable Primary Care Provider Unavailabl e Reason for Visit * Outpatient (Routine) - Closed Specialty Diagnoses / Procedures Referred By Jun t Referred To Contact Vascular Medicine Diana Ramírez D.O. [address] [place] [phone] [facility] Referral ID Status Reason Start Date Expiration Date Visits Re quested Visits Authorized [id number] Closed 03/30/2023 09/28/2024 1 1 Encounter Details Date Type Department Care Team (Late st Contact Info) Description 04/02/2023 2:00 PM FOOD SERVER Office Visit Department of Vascular Medicine in [place], [place] [address] [place] [phone] Diana Ramírez D.O. [address] [place] [phone] Other Pulmonary Embolism Without Acute Cor Pulmonale (HCC) (Primary Dx) Social History Tobacco Use Types Packs/Day Years Used Date Smoking Tobacco: Former Cigarettes 2 16 1 - 11/12/1996 Smokeless Tobacco: Never Alcohol Use Standard Drinks/Week Comments Never 0 (1 standard drink = 0.6 oz pur e alcohol) [facility] Utilities Answer Date Recorded In [...] your living situation today? I have a [facility] place to live 03/02/2023 Sex and Gender Information Value Date Recorded Sex Assigned at Male 03/02/2023 10:00 AM FOOD SERVER Gender Identity Male 03/02/2023 10:00 AM FOOD SERVER Sexual Orientation Lesbian or Boo 03/02/2023 10 :00 AM FOOD SERVER documented as of this encounter Last Filed Vital Signs Vital Sign Reading Time Taken Comments Blood Pressure 141/81 04/02/2023 1:33 PM FOOD SERVER Pulse 94 04/02/2023 1:33 PM FOOD SERVER Temperature - - Respiratory Rate - - Oxygen Saturation - - Inhaled Oxygen Concentration - - Weight 111 kg (244 lb 11.4 oz) 04/02/2023 1:27 P M FOOD SERVER Height 175 cm (5' 8.9) 04/02/2023 1:27 PM FOOD SERVER Body Mass Index 36.24 04/02/2023 1:27 PM FOOD SERVER documented in this encounter Progress Notes * Diana Ramírez D.O. - 04/02/2023 2:00 PM CST [facility] PROGRESS NOTE Mr. Restrepo is a 62 y.o. 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 His work-up demonstrated a prothrombin gene mutation (heterozygous) alone (otherwise negative workup including APS serologies). It is possible that he had popliteal DVT recurrence due to prolonged travel and 1-2 missed doses of apixaban. However, he dosing was missed >10 days before onset of new symptoms and during his trip, he was in first-class and lying flat for the majority of his flight. Importantly, on CT imaging he was noted to have bilateral adrenal thickening and is undergoing an endocrine evaluation for this finding. He was treated initially with enoxaparin; we discussed at length during his last visit additional options for anticoagulation. We decided together to pursue warfarin therapy. However, when he researched warfarin, he did find that this would be a more challenging medication to manage. After discussion with his PCP, there was a decision to trial apixaban again. He took 2 doses of apixaban as well as 2 doses of enoxaparin concurrently; the subsequent day he reported increasing discomfort behind his left knee. This prompted a repeat left DVT US which reported an acute left popliteal DVT. He contacted our office at which point I instructed him to continue on enoxaparin 1 mg/kg BIDwith repeat ultrasound completed today. His repeat ultrasound does not reveal any new thrombus. In review of his outside imaging, while thepopliteal vein did not compress on one view; there is patency of the vessel with excellent flow in multiple other views obtained. OBJECTIVE BP 141/81 (BP Location: Right arm, Patient Position: Sitting) Pulse 94 Ht 175 cm Wt 111 kg BMI 36.24 kg/m?? PHYSICAL EXAM Physical examination is limited by [...] 10:59 AM BILITOT 0.3 03/09/2023 10:59 AM US Lower Extremity Veins Left Result Date: 04/02/2023 EXAM: US LOWER EXTREMITY VEINS LEFT COMPARISON: Ultrasound of the left lower extremity 03/30/2023 and 03/09/2023. Popliteal Vein: Negative. Notably, the popliteal vein appeared patent but noncompressible on the provided images from the comparison examination on 03/30/2023 performed at another institution. Today,the popliteal vein is completely compressible and with good Doppler flow. This discrepancy is likely due to differences in technique versus less likely interval resolution. Negative for acute DVT. Specifically, no left popliteal vein DVT on today's examination. CT Abdomen Pelvis Venogram with IV Contrast Result Date: 03/11/2023 Patent venous vasculature in the abdomen/pelvis. US Lower Extremity Veins Bilateral Result Date: 03/09/2023 Negative for acute DVT. Subacute SVT in the right GSV in the calf. ASSESSMENT / PLAN Concern for apixaban failure Acute/subacute left popliteal vein DVT, resolved Unprovoked DVT/PE (March 2022) Hypertension ARI Obesity, BMI 36 History of porphyria cutaneous tarda (drug-induced) Mr. Restrepo is a pleasant 62 y.o. male with history of unprovoked DVT/PE in March 2022 and recurrent focal left popliteal vein DVT in January 2023 after international travel and 1-2 missed apixabandoses in the preceding weeks. His thrombophilia work-up demonstrated prothrombin gene heterozygosity; his other incidental findings included marked bilateral adrenal thickening of unclear etiology for which he is undergoing evaluation by Endocrinology. If he does have a component of Isaiah's, patients with endogenous hypercortisolism are at an approximate 18 fold increased VTE risk compared to the general population. This would certainly be multiplicative when considered in the context of his other risk factors (prothrombin gene mutation which carries a 3-5x increase for VTE, obesity, sleep apnea, etc). When reviewing his outside ultrasound from 03/30 due to concern for new popliteal vein thrombosis despite enoxaparin AND concurrent apixaban use; I think this was technical error. In the longitudinal view, the vessel is widely patent with expected respiratory phasity and appropriate response on augmentation. Furthermore, repeat imaging today is negative with clear compressibility of the vessel. This is obtained only 3 days after his reported 'acute' popliteal DVT which I think is highly unlikely. We did review his initial US from [place] in January (02/11/23) which prompted this evaluation;and that does clearly show a new popliteal vein DVT which cleared/migrated on enoxaparin. There wasresolution of this clot on subsequent imaging 03/09/23. In summary, he did have a DVT recurrence (02/11/23) on apixaban with multiple risk factors for DOACfailure. Individually, these are unlikely to have caused failure but cumulatively this is plausible(travel, 1-2 missed doses, prothrombin gene mutation, obesity, and possible underlying hypercortisolism). I do not think his recent outside scan reporting a popliteal DVT recurrence on 03/09/23 is accurate by imaging review and after repeat [facility] US today which is negative. We have decided together to continue on enoxaparin while he undergoes evaluation for his endocrine abnormalities. This is quite reasonable; he would like to switch to once daily dosing. I think this is appropriate as he previously did well on this. Once his endocrine work-up is completed, I recommend for him to transition to warfarin for long-term therapy. INR goal 2.0-3.0; he understands this will require education about diet/medication interactions, etc. Alternatively, if his underlying endocrine disorder can be addressed, we could contemplate utilizing another DOAC (rivaroxaban though I would be hesitant given prior missed doses) or perhaps dabigatran. He understands this and would like to stay on enoxaparin presently with plan for warfarin in the more immediate future. RECOMMENDATIONS No evidence of DVT recurrence on enoxaparin; please continue enoxaparin for now. When ready (no biopsies or invasive testing needed), plan to transition to warfarin (INR 2.0-3.0) after enrollment in your local INR/Coumadin Clinic. Plan for follow up in June 2023 as scheduled; we will obtain your remaining lab tests today in preparation for this visit. It was a pleasure to visit with Mr. Restrepo today; images and plan were reviewed in detail. We will continue to follow. SERVER documented in this encounter Plan of Treatment Upcoming Encounters Date Type Department Care Team (Late st Contact Info) Description 06/12/2023 2:00 PM CDT Office Visit Department of Vascular Medicine in [place], [place] [address] [place] [address] Diana Ramírez D.O. [address] [place] [phone] documented as of this encounter Visit Diagnoses Diagnosis Other Pulmonary Embolism Without Acute Cor Pulmonale (HCC)- Primary documented in this encounter
--- OUTSIDE RECORDS SUMMARY | 2023-04-06 09:12 | XMS_ITS | Encounter Summary ---
Author Name Unknown Organization [facility] Address [address] [place] [address] Care Team Providers Care Air Liaison And Special Staff Name Role Phone Unavailable Primary Care Provider Unavailabl e Reason for Visit * Reason Onset Date Comments [facility] - Outside Materials 04/01/2023 Labs Encounter Details Date Type Department Care Team (Latest Contact Info) Description 04/01/2023 Clinical Communication Division of Endocrinology in [place], [place] [address] [place] [phone] Renate Luo M.D. [address] [place] [address] [facility] - Outside Materials (Labs ) Social History Tobacco Use Types Packs/Day Years Used Date Smoking Tobacco: Former Cigarettes 2 16 1 - 11/12/1996 Smokeless Tobacco: Never Alcohol Use Standard Drinks/Week Comments Never 0 (1 standard drink = 0.6 oz pur e alcohol) [facility] Utilities Answer Date Recorded In the past 12 months has [employer], gas, oil, or water [employer] threatened to shut off services in your [...] your living situation today? I have a [facility] place to live 03/02/2023 Sex and Gender Information Value Date Recorded Sex Assigned at Male 03/02/2023 10:00 AM GENERAL MANAGER FARM Gender Identity Male 03/02/2023 10:00 AM GENERAL MANAGER FARM Sexual Orientation Lesbian or Boo 03/02/2023 10 :00 AM GENERAL MANAGER FARM documented as of this encounter Plan of Treatment Upcoming Encounters Date Type Department Care Team (Late st Contact Info) Description 06/12/2023 2:00 PM CDT Office Visit Department of Vascular Medicine in [place], [place] [address] [place] [address] Diana Ramírez D.O. [address] [place] [address] Scheduled Orders Name Type Priority Associated Diagnoses Orde r Schedule Cortisol Lab Routine Abnormal Computed Tomography Adrenal Expected: 04/03/2023 (Approximate), Expires: 04/01/2024 ACTH (Adrenocorticotropic Hormone) Lab Routine Abnormal Computed Tomography Adrenal Expected: 04/03/2023 (Approximate), Expires: 06/29/2024 Dexamethasone Lab Routine Abnormal Computed Tomography Adrenal Expected: 04/03/2023 (Approximate), Expires: 06/29/2024 documented as of this encounter Visit Diagnoses Diagnosis Abnormal Computed Tomography Adrenal- Primary documented in this encounter
--- OUTSIDE RECORDS SUMMARY | 2023-04-06 09:12 | XMS_ITS | Encounter Summary ---
Author Name Unknown Organization [facility] Address [address] [place] [address] Care Team Providers Care Client Customer Manager Name Role Phone Unavailable Primary Care Provider Unavailabl e Reason for Referral * Outpatient (Routine) - Closed Specialty Diagnoses / Procedures Referred By Contac t Referred To Contact Diagnoses Embolism And Thrombosis Of Superficial Veins Of Right Lower Extremity Procedures US Lower Extremity Veins Left Diana Ramírez D.O. [address] [place] [address] [facility] Referral ID Status Reason Start Date Expiration Date Visits Re quested Visits Authorized [id number] Closed 03/30/2023 03/29/2024 1 1 ARY CARE NURSE PRACTITIONER Reason for Visit * Outpatient (Routine) - Closed Specialty Diagnoses / Procedures Referred By Contac t Referred To Contact Diagnoses Embolism And Thrombosis Of Superficial Veins Of Right Lower Extremity Procedures US Lower Extremity Veins Left Diana Ramírez D.O. [address] [place] [address] [facility] Referral ID Status Reason Start Date Expiration Date Visits Re quested Visits Authorized [id number] Closed 03/30/2023 03/29/2024 1 1 Encounter Details Date Type Department Care Team (Latest Contact Info) Description 04/02/2023 10:29 AM PRIMARY CARE NURSE PRACTITIONER - 04/02/2023 2:25 PM PRIMARY CARE NURSE PRACTITIONER Hospital Encounter Department of Radiology, [facility], in [place], [place] [address] [place] [address] Diana Ramírez D.O. [address] [place] [address] Embolism And Thrombosis Of Superficial Veins Of Right Lower Extremity Discharge Disposition: Home or Self Care Social History Tobacco Use Types Packs/Day Years Used Date Smoking Tobacco: Former Cigarettes 2 16 1 - 11/12/1996 Smokeless Tobacco: Never Alcohol Use Standard Drinks/Week Comments Never 0 (1 standard drink = 0.6 oz pur e alcohol) [facility] Utilities Answer Date Recorded In the [...] your living situation today? I have a [facility] place to live 03/02/2023 Sex and Gender Information Value Date Recorded Sex Assigned at Male 03/02/2023 10:00 AM PRIMARY CARE NURSE PRACTITIONER Gender Identity Male 03/02/2023 10:00 AM PRIMARY CARE NURSE PRACTITIONER Sexual Orientation Lesbian or Boo 03/02/2023 10 :00 AM PRIMARY CARE NURSE PRACTITIONER documented as of this encounter Medications at Time of Discharge Medication Sig Dispensed Refills Start Date End Date dexAMETHasone (DECADRON) 1 mg tabletIndications:Abnorm al Computed Tomography Adrenal Take 1 tablet between 11pm and midnight the night before the early AM lab draw. 1 tablet 0 04/01/2023 enoxaparin (LOVENOX) 100 mg/mL injection Inject 1.5 mL (150 mg total) under the skin daily. Stop taking when INR >2.0 30 mL 1 04/02/2023 LORazepam (ATIVAN) 1 mg tablet Take 1 [...] Office Visit Department of Vascular Medicine in [place], [place] [address] [place] [address] Diana Ramírez D.O. [address] [place] [address] documented as of this encounter Procedures Procedure Name Priority Date/Time Associated Diagnosis Comments US LOWER EXTREMITY VEINS LEFT RAD - Routine (most inpatients and all outpatients) 04/02/2023 11:14 AM PRIMARY CARE NURSE PRACTITIONER Embolism And Thrombosis Of Superficial Veins Of Right Lower Extremity documented in this encounter Results * US Lower Extremity Veins Left (04/02/2023 11:14 AM PRIMARY CARE NURSE PRACTITIONER) Anatomical Region Laterality Modality Lower Extremity, Ultrasound RST LOS, Ultrasound ARZ LOS, Ultrasound FLA LOS Left Ultrasound Impressions 04/02/2023 12:36 PM PRIMARY CARE NURSE PRACTITIONER Negative for acute DVT. Specifically, no left popliteal vein DVT on today's examination. Narrative 04/02/2023 12:36 PM PRIMARY CARE NURSE PRACTITIONER EXAM: US LOWER EXTREMITY VEINS LEFT Exam performed with color and spectral Doppler analysis. COMPARISON: Ultrasound of the left lower extremity 03/30/2023 and 03/09/2023. FINDINGS: LEFT: Common Femoral Vein: Negative. Profunda Femoral Vein: Negative. Femoral Vein: Negative. Popliteal Vein: Negative. Notably, the popliteal vein appeared patent but noncompressible on the provided images from the comparison examination on 03/30/2023 performed at another institution. Today, the popliteal vein is completely compressible and with good Doppler flow. This discrepancy is likely due to differences in technique versus less likely interval resolution. Gastrocnemius Veins: Negative where seen. Soleal Veins: Negative where seen. Posterior Tibial Veins: Negative where seen. Peroneal Veins: Negative where seen. Great Saphenous Vein: Negative where seen. Small Saphenous Vein: Not evaluated. Popliteal Fossa: Negative. Other: n/a Information on venous thrombosis and management can be found on the [employer] site. Link [email or web address] Procedure Note Tequila Weiss M.D., Ph.D. - 04/02/2023 EXAM: US LOWER EXTREMITY VEINS LEFT Exam performed with color and spectral Doppler analysis. COMPARISON: Ultrasound of the left lower extremity 03/30/2023 and03/09/2023. FINDINGS: LEFT: Common Femoral Vein: Negative. Profunda Femoral Vein: Negative. Femoral Vein: Negative. Popliteal Vein: Negative. Notably, the popliteal vein appeared patent butnoncompressible on the provided images from the comparison examination on03/30/2023 performed at another institution. Today, the popliteal vein iscompletely compressible and with good Doppler flow. This discrepancy is likely due to differences intechnique versus less likely interval resolution. Gastrocnemius Veins: Negative where seen. Soleal Veins: Negative where seen. Posterior Tibial Veins: Negative where seen. Peroneal Veins: Negative where seen. Great Saphenous Vein: Negative where seen. Small Saphenous Vein: Not evaluated. Popliteal Fossa: Negative. Other: n/a Information on venous thrombosis and management can be found on the[employer]MayoExpert site. [email or web address] IMPRESSION: Negative for acute DVT. Specifically, no left popliteal vein DVT ontoday's examination. Diana BRO US PROCEDURES documented in this encounter Visit Diagnoses Diagnosis Embolism And Thrombosis Of Superficial Veins Of Right Lower Extremity documented in this encounter
--- OUTSIDE RECORDS SUMMARY | 2023-04-06 09:12 | XMS_ITS | Clinical Summary ---
Author Name Unknown Organization [facility] Address [address] [place] [address] Care Team Providers Care Clinical Lab Technologist Name Role Phone Unavailable Primary Care Provider Unavailabl e Source Comments Patient records contain information from all sites at [facility]. For routine questions regarding patient records, call [phone] during business hours, M-F 8:00 AM - 5:00 PM Central Time. Record requests for emergency care only can be directed to [phone] at any time.[facility] Allergies Active Allergy Reactions Criticality Noted Date Comments Penicillin Other (see comments) 03/11/2023 Reaction happened as child Ropinirole GI intolerance High 02/09/2023 Medications Medication Sig Dispensed Refills Start Date End Date Status losartan-hydroCHL OROthiazide (HYZAAR) 100-12.5 mg per tablet Take 1 [...] day as needed. for anxiety 0 Active dexAMETHasone (DECADRON) 1 mg tabletIndications :Abnormal Computed Tomography Adrenal Take 1 tablet between 11pm and midnight the night before the early AM lab draw. 1 tablet 0 04/01/2023 Active enoxaparin (LOVENOX) 100 mg/mL injection Inject 1.5 mL (150 mg total) under the skin daily. Stop taking when INR >2.0 30 mL 1 04/02/2023 Active enoxaparin (LOVENOX) 100 mg/mL injection Inject 1.1 mL (110 mg total) under the skin 2 (two) times a day. 120 mL 0 03/09/2023 03/11/2023 Discontinued enoxaparin (LOVENOX) 120 mg/0.8 mL injection Inject 0.73 mL (110 mg total) under the skin 2 (two) times a day. 48 mL 0 03/11/2023 04/02/2023 Discontinued Active Problems Problem Noted Date Diagnosed [...] Encounters Date Type Department Care Team Description 04/02/2023 2:26 PM WATCH ELECTRICIAN - 04/02/2023 11:59 PM WATCH ELECTRICIAN Hospital Encounter Department of Laboratory Medicine and Pathology, [place], [place] [address] [place] [address] Diana Ramírez D.O. Acute Embolism And Thrombosis Of Unspecified Deep Veins Of Lower Extremity Bilateral (HCC); Dilated Common Bile Duct Discharge Disposition: Home or Self Care 04/02/2023 2:00 PM WATCH ELECTRICIAN Office Visit Department of Vascular Medicine in [place], [place] [address] [place] [address] Diana Ramírez D.O. Other Pulmonary Embolism Without Acute Cor Pulmonale (HCC) (Primary Dx) 04/02/2023 10:29 AM WATCH ELECTRICIAN - 04/02/2023 2:25 PM WATCH ELECTRICIAN Hospital Encounter Department of Radiology, [place], [place] [address] [place] [address] Diana Ramírez D.O. Embolism And Thrombosis Of Superficial Veins Of Right Lower Extremity Discharge Disposition: Home or Self Care 04/01/2023 Clinical Communication Division of Endocrinology in [place], [place] [address] [place] [phone] Renate Luo M.D. [employer] ) 03/30/2023 Orders Only Department of Vascular Medicine in [place], [place] [address] [place] [phone] Diana Ramírez D.OElke Embolism And Thrombosis Of Superficial Veins Of Right Lower Extremity (Primary Dx) 03/30/2023 Orders Only Department of Vascular Medicine in [place], [place] [address] [place] [phone] Diana Ramírez D.O. 03/30/2023 Clinical Communication Department of Vascular Medicine in [place], [place] [address] [place] [phone] Diana Ramírez D.O. 03/30/2023 Clinical Communication Division of Endocrinology in [place], [place] [address] [place] [phone] Renate Luo M.D. 03/23/2023 7:12 AM WATCH ELECTRICIAN - 03/23/2023 11:59 PM WATCH ELECTRICIAN Hospital Encounter Department of Laboratory Medicine and Pathology, [facility] in [place], [place] [address] [place] [phone] Renate Luo M.D. Other Specified Disorders Of Adrenal Gland (HCC) Discharge Disposition: Home or Self Care 03/20/2023 1:30 PM WATCH ELECTRICIAN Comprehensive Visit Division of Endocrinology in [place], [place] [address] [place] [phone] Renate Luo M.D. Hyperglycemia (Primary Dx); Other Specified Disorders Of Adrenal Gland (HCC); Intolerance Heat Initial 03/17/2023 4:00 PM WATCH ELECTRICIAN Telemedicine Department of Vascular Medicine in [place], [place] [address] [place] [phone] Diana Ramírez D.OElke Acute Embolism And Thrombosis Of Unspecified Deep Veins Of Lower Extremity Bilateral (HCC) (Primary Dx); Other Specified Disorders Of Adrenal Gland (HCC); Dilated Common Bile Duct 03/11/2023 2:52 PM WATCH ELECTRICIAN - 03/11/2023 11:59 PM WATCH ELECTRICIAN Hospital Encounter Department of Radiology, [facility] in [place], [place] [address] [place] [phone] Diana Ramírez D.O. Acute Embolism And Thrombosis Of Unspecified Deep Veins Of Lower Extremity Bilateral (HCC) Discharge Disposition: Home or Self Care 03/09/2023 1:04 PM WATCH ELECTRICIAN - 03/09/2023 11:59 PM WATCH ELECTRICIAN Hospital Encounter Department of Radiology, [facility] in [place], [place] [address] [place] [phone] Diana Ramírez D.O. Acute Embolism And Thrombosis Of Unspecified Deep Veins Of Lower Extremity Bilateral (HCC) Discharge Disposition: Home or Self Care 03/09/2023 10:30 AM WATCH ELECTRICIAN - 03/09/2023 1:03 PM WATCH ELECTRICIAN Hospital Encounter Department of Laboratory Medicine and Pathology, [facility] in [place], [place] [address] [place] [phone] Diana Ramírez D.O. Acute Embolism And Thrombosis Of Unspecified Deep Veins Of Lower Extremity Bilateral (HCC) Discharge Disposition: Home or Self Care 03/09/2023 9:00 AM WATCH ELECTRICIAN Comprehensive Visit Department of Vascular Medicine in [address] [phone] Diana Ramírez D.O. Acute Embolism And Thrombosis Of Unspecified Deep Veins Of Lower Extremity Bilateral (HCC) (Primary Dx) 02/25/2023 Clinical Communication Department of Vascular Medicine in [address] [phone] Diana Ramírez D.O. Triage (comments) 02/25/2023 Orders Only Department of Vascular Medicine in [address] [phone] Anel Arreguin P.A.-C. 02/13/2023 1:25 PM WATCH ELECTRICIAN Ancillary Procedure Department of Radiology in [address] [phone] Shirlene Restrepo, SHELL COREMAKER, C.N.P., D.N.P. Personal History Of Other Venous Thrombosis And Embolism 02/13/2023 1:20 PM WATCH ELECTRICIAN Ancillary Procedure Department of Radiology in [place], [place] [address] [place] [address] Shirlene Restrepo APRN, C.N.Lindsay., D.N.P. Personal History Of Other Venous Thrombosis And Embolism 02/13/2023 Orders Only Department of Vascular Medicine in [place], [place] [address] [place] [address] Shirlene Restrepo APRN, C.N.P., D.N.P. Personal History Of Other Venous Thrombosis And Embolism (Primary Dx) 02/12/2023 [facility] Orders [facility] [address] [place] [address] Spencer Coates M.D. Acute Embolism And Thrombosis [...] drink = 0.6 oz pur e alcohol) [facility] Utilities Answer Date Recorded In the past 12 months has e [employer], gas, oil, or water [employer] threatened to shut off services in your [...] your living situation today? I have a [facility] place to live 03/02/2023 Sex and Gender Information Value Date Recorded Sex Assigned at Male 03/02/2023 10:00 AM WATCH ELECTRICIAN Gender Identity Male 03/02/2023 10:00 AM WATCH ELECTRICIAN Sexual Orientation Lesbian or Boo 03/02/2023 10 :00 AM WATCH ELECTRICIAN Last Filed Vital Signs Vital Sign Reading Time Taken Comments Blood Pressure 141/81 04/02/2023 1:33 PM WATCH ELECTRICIAN Pulse 94 04/02/2023 1:33 PM WATCH ELECTRICIAN Temperature - - Respiratory Rate - - Oxygen Saturation - - Inhaled Oxygen Concentration - - Weight 111 kg (244 lb 11.4 oz) 04/02/2023 1:27 P M WATCH ELECTRICIAN Height 175 cm (5' 8.9) 04/02/2023 1:27 PM WATCH ELECTRICIAN Body Mass Index 36.24 04/02/2023 1:27 PM WATCH ELECTRICIAN Plan of Treatment Upcoming Encounters Date Type Department Care Team (Late st Contact Info) Description 06/12/2023 2:00 PM CDT Office Visit Department of Vascular Medicine in [place], [place] [address] [place] [address] Diana Ramírez D.O. [address] [place] [address] Health Maintenance Due Date Last Done Comments CT Colonography 1961 Cologuard 1961 Colonoscopy 1961 Colorectal Cancer Surveillance 1960 Hepatitis C Screening 1961 Lipid (Cholesterol) Screening 1961 Hepatitis A Vaccines (2 of 3 - Hep A risk 3-dose series) 01/13/2002 12/16/2001, 12/16/2001, 12/16/2001, Additional history exists Zoster Vaccines (2 of 2) 02/11/2023 12/17/2022 Depression Screening (Annual PHQ-2) 03/02/2023 Office Visit for Blood Pressure Check / Re-check 07/01/2023 04/02/2023 Creatinine Level (Kidney Function Test) 03/09/2024 03/09/2023 Fasting Glucose for Diabetes Screening 03/09/2024 03/09/2023 Potassium Level 03/09/2024 03/09/2023 Sodium Level 03/09/2024 03/09/2023 DTaP,Tdap,and Td Vaccines (3 - Td or Tdap) 07/02/2031 07/01/2021, 03/04/2011, 07/10/2006, Additional history exists Hepatitis B Vaccines Completed 12/16/2001, 12/16/2001, 12/16/2001, Additional history exists COVID-19 Vaccine Completed 12/05/2022, 07/2021, 07/23/2021, Additional history exists Influenza Vaccine Completed 12/05/2022, , 12/05/2021, Additional history exists Pneumococcal vaccine (0-64 years) Aged Out No longer eligible based on patient's age to complete this topic Procedures Procedure Name Priority Date/Time Associated Diagnosis Comments GAMMA-GLUTAMYLTRANSFE RASE (GGT), S/P Routine 04/02/2023 2:49 PM WATCH ELECTRICIAN Acute Embolism And Thrombosis Of Unspecified Deep Veins Of Lower Extremity Bilateral (HCC) Dilated Common Bile Duct D-DIMER, P Routine 04/02/2023 2:49 PM WATCH ELECTRICIAN Acute Embolism And Thrombosis Of Unspecified Deep Veins Of Lower Extremity Bilateral (HCC) Dilated Common Bile Duct MONOCLONAL GAMMOPATHY DIAGNOSTIC, S Routine 04/02/2023 2:49 PM WATCH ELECTRICIAN Acute Embolism And Thrombosis Of Unspecified Deep Veins Of Lower Extremity Bilateral (HCC) Dilated Common Bile Duct HEPARIN-PF4 AB (HIT), S Routine 04/02/2023 2:49 PM WATCH ELECTRICIAN Acute Embolism And Thrombosis Of Unspecified Deep Veins Of Lower Extremity Bilateral (HCC) Dilated Common Bile Duct US LOWER EXTREMITY VEINS LEFT RAD - Routine (most inpatients and all outpatients) 04/02/2023 11:14 AM WATCH ELECTRICIAN Embolism And Thrombosis Of Superficial Veins Of Right Lower Extremity OUTSIDE US Routine 03/30/2023 12:05 PM WATCH ELECTRICIAN CORTISOL, SALIVA Routine 03/28/2023 1:47 PM WATCH ELECTRICIAN Other Specified Disorders Of Adrenal Gland (HCC) CORTISOL, FREE, U Routine 03/26/2023 7:0 0 AM WATCH ELECTRICIAN Other Specified Disorders Of Adrenal Gland (HCC) CREATININE, U Routine 03/26/2023 7:00 AM WATCH ELECTRICIAN Other Specified Disorders Of Adrenal Gland (HCC) CORTISOL, SALIVA Routine 03/24/2023 11:00 PM WATCH ELECTRICIAN Other Specified Disorders Of Adrenal Gland (HCC) CT ABDOMEN PELVIS VENOGRAM WITH IV CONTRAST RAD - Routine (most inpatients and all outpatients) 03/11/2023 4:22 PM WATCH ELECTRICIAN Acute Embolism And Thrombosis Of Unspecified Deep Veins Of Lower Extremity Bilateral (HCC) US LOWER EXTREMITY VEINS BILATERAL RAD - Routine (most inpatients and all outpatients) 03/09/2023 2:41 PM WATCH ELECTRICIAN Acute Embolism And Thrombosis Of Unspecified Deep Veins Of Lower Extremity Bilateral (HCC) HEPARIN LEVEL ANTI-XA ASSAY, P Routine 03/09/2023 10:59 AM WATCH ELECTRICIAN Acute Embolism And Thrombosis Of Unspecified Deep Veins Of Lower Extremity Bilateral (HCC) ACTIVATED PARTIAL THROMBOPLASTIN TIME (APTT), P Routine 03/09/2023 10:59 AM WATCH ELECTRICIAN Acute Embolism And Thrombosis Of Unspecified Deep Veins Of Lower Extremity Bilateral (HCC) PROTHROMBIN TIME (PT), P Routine 03/09/2023 10:59 AM WATCH ELECTRICIAN Acute Embolism And Thrombosis Of Unspecified Deep Veins Of Lower Extremity Bilateral (HCC) CBC WITH DIFFERENTIAL, B Routine 03/09/2023 10:59 AM WATCH ELECTRICIAN Acute Embolism And Thrombosis Of Unspecified Deep Veins Of Lower Extremity Bilateral (HCC) BETA-2 GLYCOPROTEIN 1 ABS, IGG AND IGM, S Routine 03/09/2023 10:59 AM WATCH ELECTRICIAN Acute Embolism And Thrombosis Of Unspecified Deep Veins Of Lower Extremity Bilateral (HCC) PHOSPHOLIPID (CARDIOLIPIN) ABS, IGG AND IGM, S Routine 03/09/2023 10:59 AM WATCH ELECTRICIAN Acute Embolism And Thrombosis Of Unspecified Deep Veins Of Lower Extremity Bilateral (HCC) PS/PT AB, IGG/IGM, S Routine 03/09/2023 10:59 AM WATCH ELECTRICIAN Acute Embolism And Thrombosis Of Unspecified Deep Veins Of Lower Extremity Bilateral (HCC) LUPUS ANTICOAGULANT PROFILE Routine 03/09/2023 10:59 AM WATCH ELECTRICIAN Acute Embolism And Thrombosis Of Unspecified Deep Veins Of Lower Extremity Bilateral (HCC) ANTITHROMBIN AG, P Routine 03/09/2023 10:59 AM WATCH ELECTRICIAN Acute Embolism And Thrombosis Of Unspecified Deep Veins Of Lower Extremity Bilateral (HCC) ANTITHROMBIN ACTIVITY, P Routine 03/09/2023 10:59 AM WATCH ELECTRICIAN Acute Embolism And Thrombosis Of Unspecified Deep Veins Of Lower Extremity Bilateral (HCC) PROTHROMBIN [id number] MUTATION, B Routine 03/09/2023 10:59 AM WATCH ELECTRICIAN Acute Embolism And Thrombosis Of Unspecified Deep Veins Of Lower Extremity Bilateral (HCC) COMPREHENSIVE METABOLIC PANEL, S/P Routine 03/09/2023 10:59 AM WATCH ELECTRICIAN Acute Embolism And Thrombosis Of Unspecified Deep Veins Of Lower Extremity Bilateral (HCC) INTERPRETATION OF OUTSIDE US VASCULAR RAD - Routine (most inpatients and all outpatients) 02/13/2023 1:29 PM WATCH ELECTRICIAN Personal History Of Other Venous Thrombosis And Embolism OUTSIDE US Routine 02/11/2023 1:00 PM WATCH ELECTRICIAN from Last 3 Months Results * Heparin-PF4 IgG Antibody (HIT) (04/02/2023 2:49 PM WATCH ELECTRICIAN) [facility] HIT KELLY 0.100 <0.400 OD 04/02/2023 7:20 PM WATCH ELECTRICIAN DTL HIT Interpretation Negative Negative 2023 7:20 PM WATCH ELECTRICIAN DTL HIT Comment Patient serum has no reactivity for IgG antibodies to complexes of heparinoid and platelet factor 4 (H/PF4 complexes). ??A negative IgG heparin/PF4 antibody test result provides no clear laboratory evidence of heparin induced thrombocytopen ia (HIT type II). ??Although a negative test result has a high negative predictive power for a diagnosis of HIT, it does not completely exclude a clinical HIT diagnosis, especially when clinical probability is high. 04/02/2023 7:20 PM WATCH ELECTRICIAN DTL Comment: ----ADDITIONAL INFORMATION---- This test has been modified from the drapery hand's instructions. Its performance characteristics were determined by [facility] in a manner consistent with CLIA requirements. This test has not been cleared or approved by the U.S. Food and Drug Administration. Blood (Blood, Venous) 04/02/2023 2:49 PM WATCH ELECTRICIAN 04/02/2023 4:00 PM WATCH ELECTRICIAN Diana Ramírez D.O. LAB BLOOD NON ADD -ON [facility] [address] [place] [address], [facility] DT [address] [place] [address] * D-Dimer (04/02/2023 2:49 PM WATCH ELECTRICIAN) [facility] D-Dimer, P <220 <=500 ng/mL FEU 04/02/2023 4:29 PM WATCH ELECTRICIAN DTL Comment: ----ADDITIONAL INFORMATION---- D-dimer values less than or equal to 500 ng/mL fibrinogen equivalent units (FEU) may be used in conjunction with clinical pre-test probability to exclude deep vein thrombosis (DVT) and/or pulmonary embolism (PE). Blood (Blood, Venous) 04/02/2023 2:49 PM WATCH ELECTRICIAN 04/02/2023 3:12 PM WATCH ELECTRICIAN Diana Ramírez D.O. LAB BLOOD ADD-ON Performing Organization Address City/[facility]/[place] [address], [place] [address] * GGT (Gamma-Glutamyltransferase) (04/02/2023 2:49 PM WATCH ELECTRICIAN) Gamma Glutamyltransferase (GGT), S 29 8 - 61 U/L 04/02/2023 4:44 PM WATCH ELECTRICIAN DT Blood (Blood, Venous) 04/02/2023 2:49 PM WATCH ELECTRICIAN 04/02/2023 3:27 PM WATCH ELECTRICIAN Diana Ramírez D.O. LAB BLOOD ADD-ON Performing Organization Address [facility] Co de Phone Number [address] [address], [place] [address] * US Lower Extremity Veins Left (04/02/2023 11:14 AM WATCH ELECTRICIAN) Anatomical Region Laterality Modality Lower Extremity, Ultrasound RST LOS, Ultrasound ARZ LOS, Ultrasound FLA LOS Left Ultrasound Impressions 04/02/2023 12:36 PM WATCH ELECTRICIAN Negative for acute DVT. Specifically, no left popliteal vein DVT on today's examination. Narrative 04/02/2023 12:36 PM WATCH ELECTRICIAN EXAM: US LOWER EXTREMITY VEINS LEFT Exam [...] and management can be found on the My Pick Box site. Link [email or web address] Procedure Note Tequila Weiss M.D., Ph.D. - [...] thrombosis and management can be found on theMy Pick Box site. [email or web address] 1725 IMPRESSION: Negative for acute DVT. Specifically, no left popliteal vein DVT ontoday's examination. Diana E Brunton D.O. IMG US PROCEDURES * US venous LE LT-Outside US (03/30/2023 12:05 PM WATCH ELECTRICIAN) Only the most recent of2 resultswithin the time period is included. Narrative IIMS - 04/01/2023 11:05 AM WATCH ELECTRICIAN This order has been created and auto-finalized to support the import of outside images. If available, original interpretation can be found on the Media Tab in Chart Review, in Document Viewer, or as an image in QREADS. If a re-interpretation or overread is required please follow defined workflow. ?? Provider Not In System IMG US PROCEDURES Performing Organization Address City/[facility]/ZIP Co de Phone Number [facility] NA * Cortisol, Saliva (03/28/2023 1:47 PM WATCH ELECTRICIAN) Only the most recent of2 resultswithin the time period is included. Cortisol, Saliva <50 ng/dL 04/01/19 24 1:42 AM WATCH ELECTRICIAN [facility] Comment: ----REFERENCE VALUE---- 7:00-9:00 am: 100-750 3:00-5:00 pm: <401 11:00 pm-Midnight: <100 ----ADDITIONAL INFORMATION---- This test was developed and its performance characteristics determined by [facility] in a manner consistent with CLIA requirements. This test has not been cleared or approved by the U.S. Food and Drug Administration. Saliva (Salivary Gland) 03/28/2023 1:47 PM WATCH ELECTRICIAN 03/30/2023 12:05 PM WATCH ELECTRICIAN Renate Johnson M.D. LAB BODY FLUIDS AND STOOLS ORDERABLES [facility] [address] [place] [address] [facility] [address] [place] [address] [place] [address] * Creatinine, 24 hour, Urine (03/26/2023 7:00 AM WATCH ELECTRICIAN) Creatinine, 24 HR, U 1548 930 - 2955 mg/24 h 03/29/2023 12:09 PM WATCH ELECTRICIAN DTL Collection Duration 24 h 03/29/2023 10:14 AM WATCH ELECTRICIAN DTL Urine Volume 1800 mL 03/29/2023 10:14 AM WATCH ELECTRICIAN DTL Creatinine Conc 86 mg/dL 12:09 PM WATCH ELECTRICIAN DTL Urine (Urine, 24 Hours) 03/26/2023 7:00 AM WATCH ELECTRICIAN 03/29/2023 10:14 AM WATCH ELECTRICIAN Renate Johnson M.D. LAB URINE ORDERABLES Performing Organization Address [facility] Co de Phone Number [facility] [address] [place] [address], [facility] [address] [place] [address] * Cortisol, Free, 24 hour, Urine (03/26/2023 7:00 AM WATCH ELECTRICIAN) Cortisol, U 9.9 3.5 - 45 mcg/24 h 04/01/2023 12:20 AM WATCH ELECTRICIAN [facility] Collection Duration 24 h 04/01 12:20 AM WATCH ELECTRICIAN SDS Volume 1800 mL 04/01/2023 12:20 AM WATCH ELECTRICIAN [facility] Comment: ----ADDITIONAL INFORMATION---- This test was developed and its performance characteristics determined by [facility] in a manner consistent with CLIA requirements. This test has not been cleared or approved by the U.S. Food and Drug Administration. Urine (Urine, 24 Hours) 03/26/2023 7:00 AM WATCH ELECTRICIAN 03/30/2023 11:52 AM WATCH ELECTRICIAN Renate Johnson M.D. LAB URINE ORDERABLES Performing Organization Address [facility] Co de Phone Number [facility] [address] [place] [address] [facility] [address] [place] [address] [place] [address] * CT Abdomen Pelvis Venogram with IV Contrast (03/11/2023 4:22 PM WATCH ELECTRICIAN) Anatomical Region Laterality Modality Abdomen, Pelvis, Cardiovascu lar RST LOS, Abdominal ARZ LOS, Vascular Interventional FLA LOS, Procedural, Vascular Interventional NWWI LOS N/A Computed Tomography, Computed Tomography 03/11/2023 4:14 PM WATCH ELECTRICIAN Impressions 03/11/2023 5:18 PM WATCH ELECTRICIAN Patent venous vasculature in the abdomen/pelvis. Narrative 03/11/2023 5:18 PM WATCH ELECTRICIAN EXAM: ??CT ABDOMEN PELVIS VENOGRAM WITH IV [...] Lower Extremity Veins Bilateral (03/09/2023 2:41 PM WATCH ELECTRICIAN) Anatomical Region Laterality Modality Lower Extremity, Ultrasound RST LOS, Ultrasound ARZ LOS, Ultrasound FLA LOS Bilateral Ultrasound Impressions 03/09/2023 3:22 PM WATCH ELECTRICIAN Negative for acute DVT. Subacute SVT in the right GSV in the calf. Narrative 03/09/2023 3:22 PM WATCH ELECTRICIAN EXAM: US LOWER EXTREMITY VEINS BILATERAL Exam [...] and management can be found on the My Pick Box site. Link [email or web address]/[email or web address] Procedure Note Slime Anderson M.D. - 03/09/2023 [...] thrombosis and management can be found on the[employer] site. [email or web address]/[email or web address] 1725 IMPRESSION: Negative for acute DVT. Subacute SVT in the right GSV in the calf. Diana BRO US PROCEDURES * Phosphatidylserine/Prothrombin Antibody, IgG and IgM (03/09/2023 10:59 AM WATCH ELECTRICIAN) PS/PT Ab, IgG, S <9.4 <=30.0 (Negative ) U 03/11/2023 8:14 PM WATCH ELECTRICIAN [facility] Comment: ----ADDITIONAL INFORMATION---- This test has been modified from the drapery hand's instructions. Its performance characteristics were determined by [facility] in a manner consistent with CLIA requirements. This test has not been cleared or approved by the U.S. Food and Drug Administration. PS/PT Ab, IgM, S 13.7 <=30.0 (Negative ) U 03/11/2023 8:14 PM WATCH ELECTRICIAN [facility] Comment: ----ADDITIONAL INFORMATION---- This test has been modified from the drapery hand's instructions. Its performance characteristics were determined by [facility] in a manner consistent with CLIA requirements. This test has not been cleared or approved by the U.S. Food and Drug Administration. Blood (Blood, Venous) 03/09/2023 10:59 AM WATCH ELECTRICIAN 03/09/2023 4:33 PM WATCH ELECTRICIAN Diana Ramírez D.O. LAB BLOOD ADD-ON Performing Organization Address [facility] Co de Phone Number [facility] [address] [place] [address] [facility] [address] [place] [address] * Beta-2 Glycoprotein 1 Antibodies, IgG and IgM (03/09/2023 10:59 AM WATCH ELECTRICIAN) Pathologist [facility] Beta 2 GP1 Ab IgG, S <9.4 <15.0 (Negative) [facility] 03/10/2023 8:15 PM WATCH ELECTRICIAN [facility] Beta 2 GP1 Ab IgM, S <9.4 <15.0 (Negative) [facility] 03/10/2023 8:45 PM WATCH ELECTRICIAN [facility] Blood (Blood, Venous) 03/09/2023 10:59 AM WATCH ELECTRICIAN 03/09/2023 3:50 PM WATCH ELECTRICIAN Diana Ramírez D.O. LAB BLOOD ADD-ON Performing Organization Address [facility] Co de Phone Number [facility] [address] [place] [address] [facility] [address] 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 The Prothrombin (F2 c.*97G>A) variant is a mild risk factor for venous thromboembolism (VTE). This individual may have other genetic and environmental risk factors for VTE. If indicated, consider genetic consultation and counseling for this individual and potentially affected family members regarding laboratory testing. 03/11/2023 7:55 AM WATCH ELECTRICIAN DTL Comment: ----ADDITIONAL INFORMATION---- This test uses [...] developed and its performance characteristics determined by [facility] in a manner consistent with CLIA requirements. This test has not been cleared or approved by the U.S. Food and Drug Administration. Blood (Blood, Venous) 03/09/2023 10:59 AM WATCH ELECTRICIAN 03/09/2023 11:45 AM WATCH ELECTRICIAN Diana Ramírez D.O. LAB GENETIC TESTI NG Performing Organization Address City/[facility]/ZIP Co de Phone Number [facility] [address] [place] [address], [facility] [address] [address] * Antithrombin Antigen (03/09/2023 10:59 AM WATCH ELECTRICIAN) [facility] Signature Antithrombin Antigen, P 90 80 - 120 % 03/09/2023 12:39 PM WATCH ELECTRICIAN DTL Comment: ----ADDITIONAL INFORMATION---- This test has been modified from the drapery hand's instructions. Its performance characteristics were determined by [facility] in a manner consistent with CLIA requirements. This test has not been cleared or approved by the U.S. Food and Drug Administration. Blood (Blood, Venous) 03/09/2023 10:59 AM WATCH ELECTRICIAN 03/09/2023 11:37 AM WATCH ELECTRICIAN Diana Ramírez D.O. LAB BLOOD ADD-ON Performing Organization Address City/[facility]/ZIP Co de Phone Number [facility] [address] [place] [address], [facility] [address] [place] [address] * Lupus Anticoag Prof (03/09/2023 10:59 AM WATCH ELECTRICIAN) [facility] Lupus Anticoagulant [facility] SEE COMMENT 03/09/2023 1:41 PM WATCH ELECTRICIAN DTL Comment: No evidence of a lupus [...] 9.4 - 12.5 sec 03/09/2023 1:41 PM WATCH ELECTRICIAN DTL INR 1.1 0.9 - 1.1 03/09/2023 1:41 PM WATCH ELECTRICIAN DTL Comment: ----ADDITIONAL INFORMATION---- Standard intensity warfarin therapeutic range: 2.0 to 3.0 High intensity warfarin therapeutic range: 2.5 to 3.5 Activated Partial Thrombopl Time, P 32 25 - 37 sec 03/09/2023 1:41 PM WATCH ELECTRICIAN DTL DRVVT Screen Ratio 1.19 <1.20 ratio 03/09/2023 1:41 PM WATCH ELECTRICIAN DTL Blood (Blood, Venous) 03/09/2023 10:59 AM WATCH ELECTRICIAN 03/09/2023 11:37 AM WATCH ELECTRICIAN Narrative [facility] - 03/09/2023 1:41 PM WATCH ELECTRICIAN Specimen Information: Specimen ID: [id number] Specimen Type: Blood Specimen Collection Start Date: 03/09/2023 10:59 AM Specimen Received Date: 03/09/2023 11:37 AM Specimen ID: [id number] Specimen Type: Blood Specimen Collection Start Date: 03/09/2023 10:59 AM Specimen Received Date: 03/09/2023 11:37 AM Specimen ID: [id number] Specimen Type: Blood Specimen Collection Start Date: 03/09/2023 10:59 AM Specimen Received Date: 03/09/2023 11:37 AM Specimen ID: [id number] Specimen Type: Blood Specimen Collection Start Date: 03/09/2023 10:59 AM Specimen Received Date: 03/09/2023 11:37 AM Diana Ramírez D.O. LAB BLOOD NON ADD -ON Performing Organization Address City/[facility] Co de Phone Number [facility] [address] [place] [address], [facility] [address] [place] [address] * Phospholipid (Cardiolipin) Antibodies, IgG and IgM (03/09/2023 10:59 AM WATCH ELECTRICIAN) Pathologist [facility] Phospholipid Ab IgM, S 9.9 <15.0 (Negative) MPL 03/10/2023 6:20 PM WATCH ELECTRICIAN [facility] Phospholipid Ab IgG, S <9.4 <15.0 (Negative) GPL 03/10/2023 6:06 PM WATCH ELECTRICIAN [facility] Blood (Blood, Venous) 03/09/2023 10:59 AM WATCH ELECTRICIAN 03/09/2023 3:50 PM WATCH ELECTRICIAN Diana Ramírez D.O. LAB BLOOD ADD-ON Performing Organization Address [facility] Co de Phone Number [facility] [address] [place] [address] [facility] [address] [place] [address] * APTT (Activated Partial Thromboplastin Time) (03/09/2023 10:59 AM WATCH ELECTRICIAN) Pathologist [facility] Activated Partial Thrombopl Time, P 33 25 - 37 sec 03/09/2023 12:12 PM WATCH ELECTRICIAN [facility] Blood (Blood, Venous) 03/09/2023 10:59 AM WATCH ELECTRICIAN 03/09/2023 11:28 AM WATCH ELECTRICIAN Diana Ramírez D.O. LAB BLOOD ADD-ON Performing Organization Address [facility] Co de Phone Number [facility] [address] [place], [place] [phone] [place] [address] [address] [place] [address] * Prothrombin Time (PT) (03/09/2023 10:59 AM WATCH ELECTRICIAN) Prothrombin Time, P 11.9 9.4 - 12.5 sec 03/09/2023 12:12 PM WATCH ELECTRICIAN DT INR 1.1 0.9 - 1.1 03/09/2023 12:12 PM WATCH ELECTRICIAN DTL Comment: ----ADDITIONAL INFORMATION---- Standard intensity warfarin therapeutic range: 2.0 to 3.0 ?? High intensity warfarin therapeutic range: 2.5 to 3.5 Blood (Blood, Venous) 03/09/2023 10:59 AM WATCH ELECTRICIAN 03/09/2023 11:28 AM WATCH ELECTRICIAN Diana Ramírez D.O. LAB BLOOD ADD-ON Performing Organization Address [facility] Co de Phone Number [facility] [address] [place] [address], [address] [address] * Heparin Anti-Xa Assay (03/09/2023 10:59 AM WATCH ELECTRICIAN) Heparin Anti-Xa, P 0.39 IU/mL 2023 12:12 PM WATCH ELECTRICIAN DTL Comment: UFH therapeutic range: ?? 0.30-0.70 [...] (UFH). Blood (Blood, Venous) 03/09/2023 10:59 AM WATCH ELECTRICIAN 03/09/2023 11:28 AM WATCH ELECTRICIAN Diana Ramírez D.O. LAB BLOOD NON ADD -ON Performing Organization Address [facility] Co de Phone Number [facility] [address] [place] [address], [facility] [address] [place] [address] * Antithrombin Activity (03/09/2023 10:59 AM WATCH ELECTRICIAN) Antithrombin Activity, P 86 80 - 130 % 03/09/2023 12:36 PM WATCH ELECTRICIAN DTL Comment: Direct factor Xa inhibitor therapy (rivaroxaban (Xarelto), apixaban (Eliquis), edoxaban (Savaysa)) may interfere with the functional Xa based AT assay and cause an overestimation of AT activity thus potentially masking diagnosis of AT deficiency. ??Suggest clinical correlation and consider repeat AT testing remote from direct factor Xa inhibitor therapy, if clinically indicated. ----ADDITIONAL INFORMATION---- This test has been modified from the drapery hand's instructions. Its performance characteristics were determined by [facility] in a manner consistent with CLIA requirements. This test has not been cleared or approved by the U.S. Food and Drug Administration. Blood (Blood, Venous) 03/09/2023 10:59 AM WATCH ELECTRICIAN 03/09/2023 11:37 AM WATCH ELECTRICIAN Diana Ramírez D.O. LAB BLOOD ADD-ON Performing Organization Address City/[facility] Co de Phone Number [facility] [address] [place] [address], [facility] [address] [place] [address] * (ABNORMAL) CBC with Differential, Blood (03/09/2023 10:59 AM WATCH ELECTRICIAN) Hemoglobin 16.0 13.2 - 16.6 g/dL 03/09/2023 11:42 AM WATCH ELECTRICIAN DTL Hematocrit 47.4 38.3 - 48.6 % 03/09/2023 11:42 AM WATCH ELECTRICIAN DTL Erythrocytes 5.33 4.35 - 5.65 x10(12)/L 03/09/2023 11:42 AM WATCH ELECTRICIAN DTL MCV 88.9 78.2 - 97.9 fL 03/09/2023 11:42 AM WATCH ELECTRICIAN DTL RBC Distrib Width 12.6 11.8 - 14.5 % 03/09/2023 11:42 AM WATCH ELECTRICIAN DTL Platelet Count 302 135 - 317 x10(9)/L 03/09/2023 11:42 AM WATCH ELECTRICIAN DTL Leukocytes 8.5 3.4 - 9.6 x10(9)/L 03/09/2023 11:42 AM WATCH ELECTRICIAN DTL Neutrophils 3.99 1.56 - 6.45 x10(9)/L 03/09/2023 11:42 AM WATCH ELECTRICIAN PM Lymphocytes 3.64(H) 0.95 - 3.07 x10(9)/L 03/09/2023 11:42 AM WATCH ELECTRICIAN DTL Monocytes 0.75 0.26 - 0.81 x10(9)/L 03/09/2023 11:42 AM WATCH ELECTRICIAN DTL Eosinophils 0.06 0.03 - 0.48 x10(9)/L 03/09/2023 11:42 AM WATCH ELECTRICIAN DTL Basophils <0.03 0.01 - 0.08 x10(9)/L 03/09/2023 11:42 AM WATCH ELECTRICIAN DTL Blood (Blood, Venous) 03/09/2023 10:59 AM WATCH ELECTRICIAN 03/09/2023 11:28 AM WATCH ELECTRICIAN Diana Ramírez D.O. LAB BLOOD ADD-ON [facility] [address] [place] [address], [facility] DTL [facility] [address] [place], [place] [address] [place] [address] [place] [address] * (ABNORMAL) Comprehensive Metabolic Panel (03/09/2023 10:59 AM WATCH ELECTRICIAN) [facility] Potassium, S 4.6 3.6 - 5.2 mmol/L 03/09/2023 12:22 PM WATCH ELECTRICIAN DTL Sodium, S 142 135 - 145 mmol/L 03/09/2023 12:22 PM WATCH ELECTRICIAN DTL Chloride, S 101 98 - 107 mmol/L 03/09/2023 12:22 PM WATCH ELECTRICIAN DTL Bicarbonate, S 29 22 - 29 mmol/L 03/09/2023 12:22 PM WATCH ELECTRICIAN DTL Anion Gap 12 7 - 15 03/09/2023 12:22 PM WATCH ELECTRICIAN DTL BUN (Blood Urea Nitrogen), S 19 8 - 24 mg/dL 03/09/2023 12:22 PM WATCH ELECTRICIAN DTL Creatinine 1.21 0.74 - 1.35 mg/dL 03/09/2023 12:22 PM WATCH ELECTRICIAN DTL Estimated GFR (eGFR) 68 >=60 mL/min/BS A 03/09/2023 12:22 PM WATCH ELECTRICIAN DTL Comment: Estimated GFR calculated using the 2020 CKD_EPI creatinine equation. Calcium, Total, S 9.5 8.8 - 10.2 mg/dL 03/09/2023 12:22 PM WATCH ELECTRICIAN DTL Glucose, S 156(H) 70 - 140 mg/dL 03/09/2023 12:22 PM WATCH ELECTRICIAN DTL Protein, Total, S 6.9 6.3 - 7.9 g/dL 03/09/2023 12:22 PM WATCH ELECTRICIAN DTL Albumin, S 4.5 3.5 - 5.0 g/dL 03/09/2023 12:22 PM WATCH ELECTRICIAN DTL Aspartate Aminotransferase (AST), S 24 8 - 48 U/L 03/09/2023 12:22 PM WATCH ELECTRICIAN DTL Alkaline Phosphatase, S 40 40 - 129 U/L 03/09/2023 12:22 PM WATCH ELECTRICIAN DTL Alanine Aminotransferase (ALT), S 42 7 - 55 U/L 03/09/2023 12:22 PM WATCH ELECTRICIAN DTL Bilirubin, Total, S 0.3 0.0 - 1.2 mg/dL 03/09/2023 12:22 PM WATCH ELECTRICIAN DTL Blood (Blood, Venous) 03/09/2023 10:59 AM WATCH ELECTRICIAN 03/09/2023 11:41 AM WATCH ELECTRICIAN Diana Ramírez D.O. LAB BLOOD ADD-ON [facility] [address] [place] [address], [facility] DTL [facility] [address] [place] [address] * Interpretation of Outside US Vascular (02/13/2023 1:29 PM WATCH ELECTRICIAN) Anatomical Region Laterality Modality Ultrasound RST LOS, Ultrasou nd ARZ LOS, Ultrasound FLA LOS, Procedural, Other, Vascular N/A Ultrasound 02/13/2023 1:31 PM WATCH ELECTRICIAN Impressions 02/13/2023 2:06 PM WATCH ELECTRICIAN 1. Positive for interval development of acute/subacute-appearing DVT in the left popliteal vein. 2. 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 Narrative 02/13/2023 2:06 PM WATCH ELECTRICIAN EXAM: ??INTERPRETATION OF OUTSIDE US VASCULAR with [...] has improved slightly since the prior exam. Joshua Conway APRN.N.Lindsay., D.N.P. IMG US PROCEDURES from Last 3 Months
--- OUTSIDE RECORDS SUMMARY | 2023-04-06 09:12 | XMS_ITS | Encounter Summary ---
Author Name Unknown Organization [facility] Address [address] [place] [address] Care Team Providers Care Integrated Program Teacher Name Role Phone Unavailable Primary Care Provider Unavailabl e Encounter Details Date Type Department Care Team (Late st Contact Info) Description 03/30/2023 Clinical Communication Department of Vascular Medicine in [place], [place] [address] [place] [address] Diana Ramírez D.O. [address] [place] [address] Social History Tobacco Use Types Packs/Day Years Used Date Smoking Tobacco: Former Cigarettes 2 16 1 - 11/12/1996 Smokeless Tobacco: Never Alcohol Use Standard Drinks/Week Comments Never 0 (1 standard drink = 0.6 oz pur e alcohol) [facility] Utilities Answer Date Recorded In the past 12 months has [facility] [employer], gas, oil, or water [employer] threatened to shut off services in your [...] Sex Assigned at Male 03/02/2023 10:00 AM SQUEEGEE OPERATOR Gender Identity Male 03/02/2023 10:00 AM SQUEEGEE OPERATOR Sexual Orientation Lesbian or Boo 03/02/2023 10 :00 AM SQUEEGEE OPERATOR documented as of this encounter Plan of Treatment Upcoming Encounters Date Type Department Care Team (Late st Contact Info) Description 06/12/2023 2:00 PM CDT Office Visit Department of Vascular Medicine in [place], [place] [address] [place] [address] Diana Ramírez D.O. [address] [place] [address] documented as of this encounter Visit Diagnoses Not on filedocumented in this encounter
--- OUTSIDE RECORDS SUMMARY | 2023-04-06 09:12 | XMS_ITS | Encounter Summary ---
Author Name Unknown Organization [facility] Address [address] [place] [address] Care Team Providers Care Networking Technology Instructor Name Role Phone Unavailable Primary Care Provider Unavailabl e Encounter Details Date Type Department Care Team (Latest Contact Info) Description 03/23/2023 7:12 AM SOLID WASTE DIVISION SUPERVISOR - 03/23/2023 11:59 PM [facility] Hospital Encounter Department of Laboratory Medicine and Pathology, [facility], in [place], [place] [address] [place] [address] Renate Luo M.D. [address] [place] [address] Other Specified Disorders Of Adrenal Gland (HCC) Discharge Disposition: Home or Self Care Social History Tobacco Use Types Packs/Day Years Used Date Smoking Tobacco: Former Cigarettes 2 16 1 - 11/12/1996 Smokeless Tobacco: Never Alcohol Use Standard Drinks/Week Comments Never 0 (1 standard drink = 0.6 oz pur e alcohol) [facility] Utilities Answer Date Recorded In the past 12 months has [employer] gas, oil, or water [employer] threatened to shut off services in your [...] living situation today? I have a [facility] place to live 03/02/2023 Sex and Gender Information Value Date Recorded Sex Assigned at Male 03/02/2023 10:00 AM SOLID WASTE DIVISION SUPERVISOR Gender Identity Male 03/02/2023 10:00 AM SOLID WASTE DIVISION SUPERVISOR Sexual Orientation Lesbian or Boo 03/02/2023 10 :00 AM SOLID WASTE DIVISION SUPERVISOR documented as of this encounter Medications at Time of Discharge Medication Sig Dispensed Refills Start Date End Date LORazepam (ATIVAN) 1 mg tablet Take 1 [...] Take 180 mg by mouth daily. 0 enoxaparin (LOVENOX) 120 mg/0.8 mL injection Inject 0.73 mL (110 mg total) under the skin 2 (two) times a day. 48 mL 0 03/11/2023 04/02/2023 documented as of this encounter Miscellaneous Notes * Result Encounter Note - Renate Luo M.D. - 04/01/2023 12:47 PM CST So far all your lab work (urine and saliva) testing is normal. Have you completed the blood work? Ihaven't seen this result yet? Sincerely, Dr. Jonah Johnson D WASTE DIVISION SUPERVISOR documented in this encounter Plan of Treatment Upcoming Encounters Date Type Department Care Team (Late st Contact Info) Description 06/12/2023 2:00 PM CDT Office Visit Department of Vascular Medicine in [place], [place] [address] [place] [address] Diana Ramírez D.O. [address] [place] [address] documented as of this encounter Procedures Procedure Name Priority Date/Time Associated Diagnosis Comments CORTISOL, SALIVA Routine 03/28/2023 1:47 PM SOLID WASTE DIVISION SUPERVISOR Other Specified Disorders Of Adrenal Gland (HCC) CREATININE, U Routine 03/26/2023 7:00 AM SOLID WASTE DIVISION SUPERVISOR Other Specified Disorders Of Adrenal Gland (HCC) CORTISOL, FREE, U Routine 03/26/2023 7:0 0 AM SOLID WASTE DIVISION SUPERVISOR Other Specified Disorders Of Adrenal Gland (HCC) CORTISOL, SALIVA Routine 03/24/2023 11:0 0 PM SOLID WASTE DIVISION SUPERVISOR Other Specified Disorders Of Adrenal Gland (HCC) documented in this encounter Results * Cortisol, Saliva (03/28/2023 1:47 PM SOLID WASTE DIVISION SUPERVISOR) Cortisol, Saliva <50 ng/dL 04/01/19 24 1:42 AM SOLID WASTE DIVISION SUPERVISOR [facility] Comment: ----REFERENCE VALUE---- 7:00-9:00 am: 100-750 3:00-5:00 pm: <401 11:00 pm-Midnight: <100 ----ADDITIONAL INFORMATION---- This test was developed and its performance characteristics determined by [facility] in a manner consistent with CLIA requirements. This test has not been cleared or approved by the U.S. Food and Drug Administration. Saliva (Salivary Gland) 03/28/2023 1:47 PM SOLID WASTE DIVISION SUPERVISOR 03/30/2023 12:05 PM SOLID WASTE DIVISION SUPERVISOR Renate Johnson M.D. LAB BODY FLUIDS AND STOOLS ORDERABLES Performing Organization Address [facility] Co de Phone Number [facility] [address] [place] [address] [facility] [address] [place] [address] [place] [address] * Cortisol, Free, 24 hour, Urine (03/26/2023 7:00 AM SOLID WASTE DIVISION SUPERVISOR) Cortisol, U 9.9 3.5 - 45 mcg/24 h 04/01/2023 12:20 AM SOLID WASTE DIVISION SUPERVISOR [facility] Collection Duration 24 h 04/01 12:20 AM SOLID WASTE DIVISION SUPERVISOR [facility] Volume 1800 mL 04/01/2023 12:20 AM SOLID WASTE DIVISION SUPERVISOR [facility] Comment: ----ADDITIONAL INFORMATION---- This test was developed and its performance characteristics determined by [facility] in a manner consistent with CLIA requirements. This test has not been cleared or approved by the U.S. Food and Drug Administration. Urine (Urine, 24 Hours) 03/26/2023 7:00 AM SOLID WASTE DIVISION SUPERVISOR 03/30/2023 11:52 AM SOLID WASTE DIVISION SUPERVISOR Renate Johnson M.D. LAB URINE ORDERABLES Performing Organization Address [facility] Co de Phone Number [facility] [address] [place] [address] [facility] [address] [place] [address] [place] [place] [address] * Creatinine, 24 hour, Urine (03/26/2023 7:00 AM SOLID WASTE DIVISION SUPERVISOR) Creatinine, 24 HR, U 1548 930 - 2955 mg/24 h 03/29/2023 12:09 PM SOLID WASTE DIVISION SUPERVISOR DTL Collection Duration 24 h 03/29/2023 10:14 AM SOLID WASTE DIVISION SUPERVISOR DTL Urine Volume 1800 mL 03/29/2023 10:14 AM SOLID WASTE DIVISION SUPERVISOR DTL Creatinine Conc 86 mg/dL 01/28/202 4 12:09 PM SOLID WASTE DIVISION SUPERVISOR DTL Urine (Urine, 24 Hours) 03/26/2023 7:00 AM SOLID WASTE DIVISION SUPERVISOR 03/29/2023 10:14 AM SOLID WASTE DIVISION SUPERVISOR Renate Johnson M.D. LAB URINE ORDERABLES Performing Organization Address [facility] de Phone Number [facility] [address] [place] [address], [facility] [address] [place] [address] * Cortisol, Saliva (03/24/2023 11:00 PM SOLID WASTE DIVISION SUPERVISOR) Midnight Cortisol <50 <100 ng/dL 03/30/2023 5:10 PM SOLID WASTE DIVISION SUPERVISOR [facility] Comment: ----ADDITIONAL INFORMATION---- This test was developed and its performance characteristics determined by [facility] in a manner consistent with CLIA requirements. This test has not been cleared or approved by the U.S. Food and Drug Administration. Saliva (Salivary Gland) 03/24/2023 11:00 PM SOLID WASTE DIVISION SUPERVISOR 03/26/2023 2:28 PM SOLID WASTE DIVISION SUPERVISOR Renate Johnson M.D. LAB BODY FLUIDS AND STOOLS ORDERABLES Performing Organization Address City/[facility] Co de Phone Number [facility] [address] [place] [address] [facility] [address] [place] [address] [place] [address] documented in this encounter Visit Diagnoses Diagnosis Other Specified Disorders Of Adrenal Gland (HCC) documented in this encounter
--- OUTSIDE RECORDS SUMMARY | 2023-04-06 09:12 | XMS_ITS ---
Author Name Unknown Organization [facility] Address [address] [place] [address] Care Team Providers Care Slice Plug Cutter Operator Helper Name Role Phone Unavailable Unavailable Unavailable Surgery Details Not on file Complications Check Surgery Details section. Procedure Estimated Blood Loss Check Surgery Details section. Procedure Findings Check Surgery Details section. Procedure Specimens Taken Check Surgery Details section.
--- OUTSIDE RECORDS SUMMARY | 2023-04-06 09:12 | XMS_ITS | Encounter Summary ---
Author Name Unknown Organization [facility] Address [address] [place] [address] Care Team Providers Care Merry Go Round Attendant Name Role Phone Unavailable Primary Care Provider Unavailabl e Reason for Referral * Outpatient (Routine) - Closed Specialty Diagnoses / Procedures Referred By Contac t Referred To Contact Diagnoses Embolism And Thrombosis Of Superficial Veins Of Right Lower Extremity Procedures US Lower Extremity Veins Left Diana Ramírez D.O. [address] [place] [phone] [facility] Referral ID Status Reason Start Date Expiration Date Visits Re quested Visits Authorized [id number] Closed 03/30/2023 03/29/2024 1 1 LEUM INSTALLER Encounter Details Date Type Department Care Team (Late st Contact Info) Description 03/30/2023 Orders Only Department of Vascular Medicine in [place], [place] [address] [place] [phone] Diana Ramírez D.O. [address] [place] [phone] Embolism And Thrombosis Of Superficial Veins Of Right Lower Extremity (Primary Dx) Social History Tobacco Use Types Packs/Day Years Used Date Smoking Tobacco: Former Cigarettes 2 16 1 - 11/12/1996 Smokeless Tobacco: Never Alcohol Use Standard Drinks/Week Comments Never 0 (1 standard drink = 0.6 oz pur e alcohol) [facility] Utilities Answer Date Recorded In the past 12 months has [employer], oil, or [employer] threatened to shut off services in your [...] your living situation today? [facility] 03/02/2023 Sex and Gender Information Value Date Recorded Sex Assigned at Male 03/02/2023 10:00 AM LINOLEUM INSTALLER Gender Identity Male 03/02/2023 10:00 AM LINOLEUM INSTALLER Sexual Orientation Lesbian or Boo 03/02/2023 10 :00 AM LINOLEUM INSTALLER documented as of this encounter Plan of Treatment Upcoming Encounters Date Type Department Care Team (Late st Contact Info) Description 06/12/2023 2:00 PM CDT Office Visit Department of Vascular Medicine in [place], [place] [address] [place] [phone] Diana Ramírez D.O. [address] [place] [address] documented as of this encounter Results * US Lower Extremity Veins Left (04/02/2023 11:14 AM LINOLEUM INSTALLER) Anatomical Region Laterality Modality Lower Extremity, Ultrasound RST LOS, Ultrasound ARZ LOS, Ultrasound FLA LOS Left Ultrasound Impressions 04/02/2023 12:36 PM LINOLEUM INSTALLER Negative for acute DVT. Specifically, no left popliteal vein DVT on today's examination. Narrative 04/02/2023 12:36 PM LINOLEUM INSTALLER EXAM: US LOWER EXTREMITY VEINS LEFT Exam [...] and management can be found on the [employer] site. Link [email or web address] Procedure Note Tequila Weiss M.D., Ph.D. - 04/02/2023 EXAM: US LOWER EXTREMITY VEINS LEFT Exam performed with color and spectral Doppler analysis. COMPARISON: Ultrasound of the left lower extremity 03/30/2023 and03/09/2023. FINDINGS: LEFT: Common Femoral Vein: Negative. Profunda Femoral Vein: Negative. Femoral Vein: Negative. Popliteal Vein: Negative. Notably, the popliteal vein appeared patent butnoncompressible on the provided images from the comparison examination 03/30/2023 performed at another institution. Today, the [...] management can be found on the[employer] site. [email or web address] IMPRESSION: Negative for acute DVT. Specifically, no left popliteal vein DVT ontoday's examination. Diana BRO US PROCEDURES documented in this encounter Visit Diagnoses Diagnosis Embolism And Thrombosis Of Superficial Veins Of Right Lower Extremity- Primary Embolism And Thrombosis Of Superficial Veins Of Right Lower Extremity documented in this encounter
--- OUTSIDE RECORDS SUMMARY | 2023-04-06 09:12 | XMS_ITS | Referral Summary ---
Author Name Unknown Organization [facility] Address [address] [place] [address] Care Team Providers Care Hvac Services Professional Name Role Phone Unavailable Primary Care Provider Unavailabl e Source Comments Patient records contain information from all sites at [facility]. For routine questions regarding patient records, call [phone] during business hours, M-F 8:00 AM - 5:00 PM Central Time. Record requests for emergency care only can be directed to [phone] at any time.[facility] Encounters Date Type Department Care Team Description 04/02/2023 2:26 PM AUTO DAMAGE ADJUSTER - 04/02/2023 11:59 PM AUTO DAMAGE ADJUSTER Hospital Encounter Department of Laboratory Medicine and Pathology, [facility] in [place], [place] [address] [place] [phone] Diana Ramírez D.O. Acute Embolism And Thrombosis Of Unspecified Deep Veins Of Lower Extremity Bilateral (HCC); Dilated Common Bile Duct Discharge Disposition: Home or Self Care 04/02/2023 2:00 PM AUTO DAMAGE ADJUSTER Office Visit Department of Vascular Medicine in [place], [place] [address] [place] [address] Diana Ramírez D.O. Other Pulmonary Embolism Without Acute Cor Pulmonale (HCC) (Primary Dx) 04/02/2023 10:29 AM AUTO DAMAGE ADJUSTER - 04/02/2023 2:25 PM AUTO DAMAGE ADJUSTER Hospital Encounter Department of Radiology, [facility] in [place], [place] [address] [place] [address] Diana Ramírez D.O. Embolism And Thrombosis Of Superficial Veins Of Right Lower Extremity Discharge Disposition: Home or Self Care 04/01/2023 Clinical Communication Division of Endocrinology in [place], [place] [address] [place] [phone] Renate Luo M.D. [employer] ) 03/30/2023 Orders Only Department of Vascular Medicine in [place], [place] [address] [place] [phone] Diana Ramírez D.O. Embolism And Thrombosis Of Superficial Veins Of Right Lower Extremity (Primary Dx) 03/30/2023 Orders Only Department of Vascular Medicine in [place], [place] [address] [place] [phone] Diana Ramírez D.O. 03/30/2023 Clinical Communication Department of Vascular Medicine in [place], [place] [address] [place] [phone] Diana Ramírez D.O. 03/30/2023 Clinical Communication Division of Endocrinology in [address] [phone] Renate Luo M.D. 03/23/2023 7:12 AM AUTO DAMAGE ADJUSTER - 03/23/2023 11:59 PM AUTO DAMAGE ADJUSTER Hospital Encounter Department of Laboratory Medicine and Pathology, [facility], in [address] [phone] Renate Luo M.D. Other Specified Disorders Of Adrenal Gland (HCC) Discharge Disposition: Home or Self Care 03/20/2023 1:30 PM AUTO DAMAGE ADJUSTER Comprehensive Visit Division of Endocrinology in [address] [phone] Renate Luo M.D. Hyperglycemia (Primary Dx); Other Specified Disorders Of Adrenal Gland (HCC); Intolerance Heat Initial 03/17/2023 4:00 PM AUTO DAMAGE ADJUSTER Telemedicine Department of Vascular Medicine in [place], [place] [address] [place] [phone] Diana Ramírez D.OElke Acute Embolism And Thrombosis Of Unspecified Deep Veins Of Lower Extremity Bilateral (HCC) (Primary Dx); Other Specified Disorders Of Adrenal Gland (HCC); Dilated Common Bile Duct 03/11/2023 2:52 PM AUTO DAMAGE ADJUSTER - 03/11/2023 11:59 PM AUTO DAMAGE ADJUSTER Hospital Encounter Department of Radiology, [facility] in [place], [place] [address] [place] [address] Diana Ramírez D.O. Acute Embolism And Thrombosis Of Unspecified Deep Veins Of Lower Extremity Bilateral (HCC) Discharge Disposition: Home or Self Care 03/09/2023 1:04 PM AUTO DAMAGE ADJUSTER - 03/09/2023 11:59 PM AUTO DAMAGE ADJUSTER Hospital Encounter Department of Radiology, [facility] in [place], [place] [address] [place] [address] Diana Ramírez D.O. Acute Embolism And Thrombosis Of Unspecified Deep Veins Of Lower Extremity Bilateral (HCC) Discharge Disposition: Home or Self Care 03/09/2023 10:30 AM AUTO DAMAGE ADJUSTER - 03/09/2023 1:03 PM AUTO DAMAGE ADJUSTER Hospital Encounter Department of Laboratory Medicine and Pathology, [facility] in [place], [place] [address] [place] [phone] Diana Ramírez D.O. Acute Embolism And Thrombosis Of Unspecified Deep Veins Of Lower Extremity Bilateral (HCC) Discharge Disposition: Home or Self Care 03/09/2023 9:00 AM AUTO DAMAGE ADJUSTER Comprehensive Visit Department of Vascular Medicine in [place], [place] [address] [place] [phone] Diana Ramírez D.O. Acute Embolism And Thrombosis Of Unspecified Deep Veins Of Lower Extremity Bilateral (HCC) (Primary Dx) 02/25/2023 Clinical Communication Department of Vascular Medicine in [place], [place] [address] [place] [phone] Diana Ramírez D.O. Triage (comments) 02/25/2023 Orders Only Department of Vascular Medicine in [address] [phone] Anel Arreguin P.A.-C. 02/13/2023 1:25 PM AUTO DAMAGE ADJUSTER Ancillary Procedure Department of Radiology in [place], [place] [address] [place] [phone] Shirlene Restrepo, WILLIS, C.N.P., D.N.P. Personal History Of Other Venous Thrombosis And Embolism 02/13/2023 1:20 PM AUTO DAMAGE ADJUSTER Ancillary Procedure Department of Radiology in [place], [place] [address] [place] [address] Shirlene Restrepo APRN, C.N.P., D.N.P. Personal History Of Other Venous Thrombosis And Embolism 02/13/2023 Orders Only Department of Vascular Medicine in [place], [place] [address] [place] [phone] Shirlene Restrepo APRN, C.N.P., D.N.P. Personal History Of Other Venous Thrombosis And Embolism (Primary Dx) 02/12/2023 Community Orders [facility] [address] [place] [phone] Spencer Coates M.D. Acute Embolism And Thrombosis [...] drink = 0.6 oz pur e alcohol) [facility] Utilities Answer Date Recorded In the past 12 months has th e [facility], gas, oil, or water [employer] threatened to shut off services in your [...] your living situation today? I have a [facility] place to live 03/02/2023 Sex and Gender Information Value Date Recorded Sex Assigned at Male 03/02/2023 10:00 AM AUTO DAMAGE ADJUSTER Gender Identity Male 03/02/2023 10:00 AM AUTO DAMAGE ADJUSTER Sexual Orientation Lesbian or Boo 03/02/2023 10 :00 AM AUTO DAMAGE ADJUSTER Last Filed Vital Signs Vital Sign Reading Time Taken Comments Blood Pressure 141/81 04/02/2023 1:33 PM AUTO DAMAGE ADJUSTER Pulse 94 04/02/2023 1:33 PM AUTO DAMAGE ADJUSTER Temperature - - Respiratory Rate - - Oxygen Saturation - - Inhaled Oxygen Concentration - - Weight 111 kg (244 lb 11.4 oz) 04/02/2023 1:27 P M AUTO DAMAGE ADJUSTER Height 175 cm (5' 8.9) 04/02/2023 1:27 PM AUTO DAMAGE ADJUSTER Body Mass Index 36.24 04/02/2023 1:27 PM AUTO DAMAGE ADJUSTER Plan of Treatment Upcoming Encounters Date Type Department Care Team (Late st Contact Info) Description 06/12/2023 2:00 PM CDT Office Visit Department of Vascular Medicine in [place], [place] [address] [place] [address] Diana Ramírez D.O. [address] [place] [address] Procedures Procedure Name Priority Date/Time Associated Diagnosis Comments GAMMA-GLUTAMYLTRANSFE RASE (GGT), S/P Routine 04/02/2023 2:49 PM AUTO DAMAGE ADJUSTER Acute Embolism And Thrombosis Of Unspecified Deep Veins Of Lower Extremity Bilateral (HCC) Dilated Common Bile Duct D-DIMER, P Routine 04/02/2023 2:49 PM AUTO DAMAGE ADJUSTER Acute Embolism And Thrombosis Of Unspecified Deep Veins Of Lower Extremity Bilateral (HCC) Dilated Common Bile Duct MONOCLONAL GAMMOPATHY DIAGNOSTIC, S Routine 04/02/2023 2:49 PM AUTO DAMAGE ADJUSTER Acute Embolism And Thrombosis Of Unspecified Deep Veins Of Lower Extremity Bilateral (HCC) Dilated Common Bile Duct HEPARIN-PF4 AB (HIT), S Routine 04/02/2023 2:49 PM AUTO DAMAGE ADJUSTER Acute Embolism And Thrombosis Of Unspecified Deep Veins Of Lower Extremity Bilateral (HCC) Dilated Common Bile Duct US LOWER EXTREMITY VEINS LEFT RAD - Routine (most inpatients and all outpatients) 04/02/2023 11:14 AM AUTO DAMAGE ADJUSTER Embolism And Thrombosis Of Superficial Veins Of Right Lower Extremity OUTSIDE US Routine 03/30/2023 12:05 PM AUTO DAMAGE ADJUSTER CORTISOL, SALIVA Routine 03/28/2023 1:47 PM AUTO DAMAGE ADJUSTER Other Specified Disorders Of Adrenal Gland (HCC) CORTISOL, FREE, U Routine 03/26/2023 7:0 0 AM AUTO DAMAGE ADJUSTER Other Specified Disorders Of Adrenal Gland (HCC) CREATININE, U Routine 03/26/2023 7:00 AM AUTO DAMAGE ADJUSTER Other Specified Disorders Of Adrenal Gland (HCC) CORTISOL, SALIVA Routine 03/24/2023 11:00 PM AUTO DAMAGE ADJUSTER Other Specified Disorders Of Adrenal Gland (HCC) CT ABDOMEN PELVIS VENOGRAM WITH IV CONTRAST RAD - Routine (most inpatients and all outpatients) 03/11/2023 4:22 PM AUTO DAMAGE ADJUSTER Acute Embolism And Thrombosis Of Unspecified Deep Veins Of Lower Extremity Bilateral (HCC) US LOWER EXTREMITY VEINS BILATERAL RAD - Routine (most inpatients and all outpatients) 03/09/2023 2:41 PM AUTO DAMAGE ADJUSTER Acute Embolism And Thrombosis Of Unspecified Deep Veins Of Lower Extremity Bilateral (HCC) HEPARIN LEVEL ANTI-XA ASSAY, P Routine 03/09/2023 10:59 AM AUTO DAMAGE ADJUSTER Acute Embolism And Thrombosis Of Unspecified Deep Veins Of Lower Extremity Bilateral (HCC) ACTIVATED PARTIAL THROMBOPLASTIN TIME (APTT), P Routine 03/09/2023 10:59 AM AUTO DAMAGE ADJUSTER Acute Embolism And Thrombosis Of Unspecified Deep Veins Of Lower Extremity Bilateral (HCC) PROTHROMBIN TIME (PT), P Routine 03/09/2023 10:59 AM AUTO DAMAGE ADJUSTER Acute Embolism And Thrombosis Of Unspecified Deep Veins Of Lower Extremity Bilateral (HCC) CBC WITH DIFFERENTIAL, B Routine 03/09/2023 10:59 AM AUTO DAMAGE ADJUSTER Acute Embolism And Thrombosis Of Unspecified Deep Veins Of Lower Extremity Bilateral (HCC) BETA-2 GLYCOPROTEIN 1 ABS, IGG AND IGM, S Routine 03/09/2023 10:59 AM AUTO DAMAGE ADJUSTER Acute Embolism And Thrombosis Of Unspecified Deep Veins Of Lower Extremity Bilateral (HCC) PHOSPHOLIPID (CARDIOLIPIN) ABS, IGG AND IGM, S Routine 03/09/2023 10:59 AM AUTO DAMAGE ADJUSTER Acute Embolism And Thrombosis Of Unspecified Deep Veins Of Lower Extremity Bilateral (HCC) PS/PT AB, IGG/IGM, S Routine 03/09/2023 10:59 AM AUTO DAMAGE ADJUSTER Acute Embolism And Thrombosis Of Unspecified Deep Veins Of Lower Extremity Bilateral (HCC) LUPUS ANTICOAGULANT PROFILE Routine 03/09/2023 10:59 AM AUTO DAMAGE ADJUSTER Acute Embolism And Thrombosis Of Unspecified Deep Veins Of Lower Extremity Bilateral (HCC) ANTITHROMBIN AG, P Routine 03/09/2023 10:59 AM AUTO DAMAGE ADJUSTER Acute Embolism And Thrombosis Of Unspecified Deep Veins Of Lower Extremity Bilateral (HCC) ANTITHROMBIN ACTIVITY, P Routine 03/09/2023 10:59 AM AUTO DAMAGE ADJUSTER Acute Embolism And Thrombosis Of Unspecified Deep Veins Of Lower Extremity Bilateral (HCC) PROTHROMBIN [id number] MUTATION, B Routine 03/09/2023 10:59 AM AUTO DAMAGE ADJUSTER Acute Embolism And Thrombosis Of Unspecified Deep Veins Of Lower Extremity Bilateral (HCC) COMPREHENSIVE METABOLIC PANEL, S/P Routine 03/09/2023 10:59 AM AUTO DAMAGE ADJUSTER Acute Embolism And Thrombosis Of Unspecified Deep Veins Of Lower Extremity Bilateral (HCC) INTERPRETATION OF OUTSIDE US VASCULAR RAD - Routine (most inpatients and all outpatients) 02/13/2023 1:29 PM AUTO DAMAGE ADJUSTER Personal History Of Other Venous Thrombosis And Embolism OUTSIDE US Routine 02/11/2023 1:00 PM AUTO DAMAGE ADJUSTER from Last 3 Months Results * Heparin-PF4 IgG Antibody (HIT) (04/02/2023 2:49 PM AUTO DAMAGE ADJUSTER) [facility] Signature HIT KELLY 0.100 <0.400 OD 04/02/2023 7:20 PM AUTO DAMAGE ADJUSTER DTL HIT Interpretation Negative Negative 2023 7:20 PM AUTO DAMAGE ADJUSTER DTL HIT Comment Patient serum has no [...] clinical probability is high. 04/02/2023 7:20 PM AUTO DAMAGE ADJUSTER DTL Comment: ----ADDITIONAL INFORMATION---- This test has been modified from the recycling center operator's instructions. Its performance characteristics were determined by [facility] in a manner consistent with CLIA requirements. This test has not been cleared or approved by the U.S. Food and Drug Administration. Blood (Blood, Venous) 04/02/2023 2:49 PM AUTO DAMAGE ADJUSTER 04/02/2023 4:00 PM AUTO DAMAGE ADJUSTER Diana Ramírez D.O. LAB BLOOD NON ADD -ON [facility] [address] [place] [address], [facility] DTL [address] [place] [address] * D-Dimer (04/02/2023 2:49 PM AUTO DAMAGE ADJUSTER) D-Dimer, P <220 <=500 ng/mL FEU 04/02/2023 4:29 PM AUTO DAMAGE ADJUSTER DTL Comment: ----ADDITIONAL INFORMATION---- D-dimer values less than or equal to 500 ng/mL fibrinogen equivalent units (FEU) may be used in conjunction with clinical pre-test probability to exclude deep vein thrombosis (DVT) and/or pulmonary embolism (PE). Blood (Blood, Venous) 04/02/2023 2:49 PM AUTO DAMAGE ADJUSTER 04/02/2023 3:12 PM AUTO DAMAGE ADJUSTER Diana Ramírez D.O. LAB BLOOD ADD-ON Performing Organization Address City/[facility]/ZIP [place] [address] * GGT (Gamma-Glutamyltransferase) (04/02/2023 2:49 PM AUTO DAMAGE ADJUSTER) Pathologist [facility] Gamma Glutamyltransferase (GGT), S 29 8 - 61 U/L 04/02/2023 4:44 PM AUTO DAMAGE ADJUSTER DTL Blood (Blood, Venous) 04/02/2023 2:49 PM AUTO DAMAGE ADJUSTER 04/02/2023 3:27 PM AUTO DAMAGE ADJUSTER Diana Ramírez D.O. LAB BLOOD ADD-ON Performing Organization Address City/[facility]/ZIP Co de Phone Number [facility] [address] [place] [address] * US Lower Extremity Veins Left (04/02/2023 11:14 AM AUTO DAMAGE ADJUSTER) Anatomical Region Laterality Modality Lower Extremity, Ultrasound RST LOS, Ultrasound ARZ LOS, Ultrasound FLA LOS Left Ultrasound Impressions 04/02/2023 12:36 PM AUTO DAMAGE ADJUSTER Negative for acute DVT. Specifically, no left popliteal vein DVT on today's examination. Narrative 04/02/2023 12:36 PM AUTO DAMAGE ADJUSTER EXAM: US LOWER EXTREMITY VEINS LEFT Exam [...] and management can be found on the [employer] site. Link https://Oligasisert.[facility].org/topic/clinical-answers/cnt-73282178/cpm-204 37906 Procedure Note Tequila Weiss M.D., Ph.D. - [...] thrombosis and management can be found on the[employer] site. Linkhttps://askmayoexpert.[facility].org/topic/clinical-answers/cnt-21617861/cpm -7589 1728 IMPRESSION: Negative for acute DVT. Specifically, no left popliteal vein DVT ontoday's examination. Diana Ramírez D.O. IMG US PROCEDURES * US venous LE LT-Outside US (03/30/2023 12:05 PM AUTO DAMAGE ADJUSTER) Only the most recent of2 resultswithin the time period is included. Narrative IIMS - 04/01/2023 11:05 AM AUTO DAMAGE ADJUSTER This order has been created and auto-finalized to support the import of outside images. If available, original interpretation can be found on the Media Tab in Chart Review, in Document Viewer, or as an image in QREADS. If a re-interpretation or overread is required please follow defined workflow. ?? Provider Not In System IMG US PROCEDURES Performing Organization Address City/[facility] Co de Phone Number [facility] NA * Cortisol, Saliva (03/28/2023 1:47 PM AUTO DAMAGE ADJUSTER) Only the most recent of2 resultswithin the time period is included. Cortisol, Saliva <50 ng/dL 04/01/19 24 1:42 AM AUTO DAMAGE ADJUSTER [facility] Comment: ----REFERENCE VALUE---- 7:00-9:00 am: 100-750 3:00-5:00 pm: <401 11:00 pm-Midnight: <100 ----ADDITIONAL INFORMATION---- This test was developed and its performance characteristics determined by [facility] in a manner consistent with CLIA requirements. This test has not been cleared or approved by the U.S. Food and Drug Administration. Saliva (Salivary Gland) 03/28/2023 1:47 PM AUTO DAMAGE ADJUSTER 03/30/2023 12:05 PM AUTO DAMAGE ADJUSTER Renate Johnson M.D. LAB BODY FLUIDS AND STOOLS ORDERABLES [facility] [address] [place] [address] [facility] [address] [place] [address] [place] [address] * Creatinine, 24 hour, Urine (03/26/2023 7:00 AM AUTO DAMAGE ADJUSTER) Creatinine, 24 HR, U 1548 930 - 2955 mg/24 h 03/29/2023 12:09 PM AUTO DAMAGE ADJUSTER DTL Collection Duration 24 h 03/29/2023 10:14 AM AUTO DAMAGE ADJUSTER DTL Urine Volume 1800 mL 03/29/2023 10:14 AM AUTO DAMAGE ADJUSTER DTL Creatinine Conc 86 mg/dL 12:09 PM AUTO DAMAGE ADJUSTER DTL Urine (Urine, 24 Hours) 03/26/2023 7:00 AM AUTO DAMAGE ADJUSTER 03/29/2023 10:14 AM AUTO DAMAGE ADJUSTER Renate Johnson M.D. LAB URINE ORDERABLES Performing Organization Address City/[facility] Co de Phone Number [facility] [address] [place], [place] [address] [address] [place] [address] * Cortisol, Free, 24 hour, Urine (03/26/2023 7:00 AM AUTO DAMAGE ADJUSTER) Cortisol, U 9.9 3.5 - 45 mcg/24 h 04/01/2023 12:20 AM AUTO DAMAGE ADJUSTER SDS Collection Duration 24 h 04/01 12:20 AM AUTO DAMAGE ADJUSTER SDS Volume 1800 mL 04/01/2023 12:20 AM AUTO DAMAGE ADJUSTER [facility] Comment: ----ADDITIONAL INFORMATION---- This test was developed and its performance characteristics determined by [facility] in a manner consistent with CLIA requirements. This test has not been cleared or approved by the U.S. Food and Drug Administration. Urine (Urine, 24 Hours) 03/26/2023 7:00 AM AUTO DAMAGE ADJUSTER 03/30/2023 11:52 AM AUTO DAMAGE ADJUSTER Renate Johnson M.D. LAB URINE ORDERABLES Performing Organization Address City/[facility]/ZIP Co de Phone Number [facility] [address] [place] [address] [facility] [address] [place] [address] [place] [address] * CT Abdomen Pelvis Venogram with IV Contrast (03/11/2023 4:22 PM AUTO DAMAGE ADJUSTER) Anatomical Region Laterality Modality Abdomen, Pelvis, Cardiovascu lar RST LOS, Abdominal ARZ LOS, Vascular Interventional FLA LOS, Procedural, Vascular Interventional NWWI LOS N/A Computed Tomography, Computed Tomography 03/11/2023 4:14 PM AUTO DAMAGE ADJUSTER Impressions 03/11/2023 5:18 PM AUTO DAMAGE ADJUSTER Patent venous vasculature in the abdomen/pelvis. Narrative 03/11/2023 5:18 PM AUTO DAMAGE ADJUSTER EXAM: ??CT ABDOMEN PELVIS VENOGRAM WITH IV [...] Lower Extremity Veins Bilateral (03/09/2023 2:41 PM AUTO DAMAGE ADJUSTER) Anatomical Region Laterality Modality Lower Extremity, Ultrasound RST LOS, Ultrasound ARZ LOS, Ultrasound FLA LOS Bilateral Ultrasound Impressions 03/09/2023 3:22 PM AUTO DAMAGE ADJUSTER Negative for acute DVT. Subacute SVT in the right GSV in the calf. Narrative 03/09/2023 3:22 PM AUTO DAMAGE ADJUSTER EXAM: US LOWER EXTREMITY VEINS BILATERAL Exam [...] and management can be found on the [employer] site. Link https://Perdoo.[facility].org/topic/clinical-answers/cnt-26728370/cpm-204 73342 Procedure Note Slime Anderson M.D. - 03/09/2023 [...] thrombosis and management can be found on the[employer] site. Linkhttps://Perdoo.[facility] emergencyPetfloworg/topic/clinical-answers/cnt-36794766/cpm -2049 1725 IMPRESSION: Negative for acute DVT. Subacute SVT in the right GSV in the calf. Diana BRO US PROCEDURES * Phosphatidylserine/Prothrombin Antibody, IgG and IgM (03/09/2023 10:59 AM AUTO DAMAGE ADJUSTER) PS/PT Ab, IgG, S <9.4 <=30.0 (Negative ) U 03/11/2023 8:14 PM AUTO DAMAGE ADJUSTER [facility] Comment: ----ADDITIONAL INFORMATION---- This test has been modified from the recycling center operator's instructions. Its performance characteristics were determined by [facility] in a manner consistent with CLIA requirements. This test has not been cleared or approved by the U.S. Food and Drug Administration. PS/PT Ab, IgM, S 13.7 <=30.0 (Negative ) U 03/11/2023 8:14 PM AUTO DAMAGE ADJUSTER [facility] Comment: ----ADDITIONAL INFORMATION---- This test has been modified from the recycling center operator's instructions. Its performance characteristics were determined by [facility] in a manner consistent with CLIA requirements. This test has not been cleared or approved by the U.S. Food and Drug Administration. Blood (Blood, Venous) 03/09/2023 10:59 AM AUTO DAMAGE ADJUSTER 03/09/2023 4:33 PM AUTO DAMAGE ADJUSTER Diana Ramírez D.O. LAB BLOOD ADD-ON Performing Organization Address City/[facility]/ZIP Co de Phone Number [facility] [address] [place] [address] [facility] [address] [place] [address] * Beta-2 Glycoprotein 1 Antibodies, IgG and IgM (03/09/2023 10:59 AM AUTO DAMAGE ADJUSTER) Beta 2 GP1 Ab IgG, S <9.4 <15.0 (Negative) [facility] 03/10/2023 8:15 PM AUTO DAMAGE ADJUSTER [facility] Beta 2 GP1 Ab IgM, S <9.4 <15.0 (Negative) U 03/10/2023 8:45 PM AUTO DAMAGE ADJUSTER [facility] Blood (Blood, Venous) 03/09/2023 10:59 AM AUTO DAMAGE ADJUSTER 03/09/2023 3:50 PM AUTO DAMAGE ADJUSTER Diana Ramírez D.O. 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 The Prothrombin (F2 c.*97G>A) variant is a mild risk factor for venous thromboembolism (VTE). This individual may have other genetic and environmental risk factors for VTE. If indicated, consider genetic consultation and counseling for this individual and potentially affected family members regarding laboratory testing. 03/11/2023 7:55 AM AUTO DAMAGE ADJUSTER DTL Comment: ----ADDITIONAL INFORMATION---- This test uses [...] and its performance characteristics determined by [facility] in a manner consistent with CLIA requirements. This test has not been cleared or approved by the U.S. Food and Drug Administration. Blood (Blood, Venous) 03/09/2023 10:59 AM AUTO DAMAGE ADJUSTER 03/09/2023 11:45 AM AUTO DAMAGE ADJUSTER Diana Ramírez D.O. LAB GENETIC TESTI Performing Organization Address City/State/[facility] Co de Phone Number [facility] [address] [place] [address], [facility] DT [address] [facility] [address] [place] [address] * Antithrombin Antigen (03/09/2023 10:59 AM AUTO DAMAGE ADJUSTER) Antithrombin Antigen, P 90 80 - 120 % 03/09/2023 12:39 PM AUTO DAMAGE ADJUSTER DTL Comment: ----ADDITIONAL INFORMATION---- This test has been modified from the recycling center operator's instructions. Its performance characteristics were determined by [facility] in a manner consistent with CLIA requirements. This test has not been cleared or approved by the U.S. Food and Drug Administration. Blood (Blood, Venous) 03/09/2023 10:59 AM AUTO DAMAGE ADJUSTER 03/09/2023 11:37 AM AUTO DAMAGE ADJUSTER Diana Ramírez D.O. LAB BLOOD ADD-ON [facility] [address] [place] [address], [facility] [address] [facility] [address] [place] [address] * Lupus Anticoag Prof (03/09/2023 10:59 AM AUTO DAMAGE ADJUSTER) [facility] Lupus Anticoagulant Tech Inter SEE COMMENT 03/09/2023 1:41 PM AUTO DAMAGE ADJUSTER DTL Comment: No evidence of a lupus [...] 9.4 - 12.5 sec 03/09/2023 1:41 PM AUTO DAMAGE ADJUSTER DTL INR 1.1 0.9 - 1.1 03/09/2023 1:41 PM AUTO DAMAGE ADJUSTER DTL Comment: ----ADDITIONAL INFORMATION---- Standard intensity warfarin therapeutic range: 2.0 to 3.0 High intensity warfarin therapeutic range: 2.5 to 3.5 Activated Partial Thrombopl Time, P 32 25 - 37 sec 03/09/2023 1:41 PM AUTO DAMAGE ADJUSTER DTL DRVVT Screen Ratio 1.19 <1.20 ratio 03/09/2023 1:41 PM AUTO DAMAGE ADJUSTER DTL Blood (Blood, Venous) 03/09/2023 10:59 AM AUTO DAMAGE ADJUSTER 03/09/2023 11:37 AM AUTO DAMAGE ADJUSTER Narrative [facility] - 03/09/2023 1:41 PM AUTO DAMAGE ADJUSTER Specimen Information: Specimen ID: [id number] Specimen Type: Blood Specimen Collection Start Date: 03/09/2023 10:59 AM Specimen Received Date: 03/09/2023 11:37 AM Specimen ID: [id number] Specimen Type: Blood Specimen Collection Start Date: 03/09/2023 10:59 AM Specimen Received Date: 03/09/2023 11:37 AM Specimen ID: [id number] Specimen Type: Blood Specimen Collection Start Date: 03/09/2023 10:59 AM Specimen Received Date: 03/09/2023 11:37 AM Specimen ID: [id number] Specimen Type: Blood Specimen Collection Start Date: 03/09/2023 10:59 AM Specimen Received Date: 03/09/2023 11:37 AM Diana Ramírez D.O. LAB BLOOD NON ADD -ON Performing Organization Address City/[facility]/ZIP Co de Phone Number [facility] [address] [place] [address], [facility] [address] [place] [address] * Phospholipid (Cardiolipin) Antibodies, IgG and IgM (03/09/2023 10:59 AM AUTO DAMAGE ADJUSTER) [facility] Phospholipid Ab IgM, S 9.9 <15.0 (Negative) MPL 03/10/2023 6:20 PM AUTO DAMAGE ADJUSTER [facility] Phospholipid Ab IgG, S <9.4 <15.0 (Negative) GPL 03/10/2023 6:06 PM AUTO DAMAGE ADJUSTER [facility] Blood (Blood, Venous) 03/09/2023 10:59 AM AUTO DAMAGE ADJUSTER 03/09/2023 3:50 PM AUTO DAMAGE ADJUSTER Diana Ramírez D.O. LAB BLOOD ADD-ON [facility] [address] [place] [address] [facility] [address] [place] [address] * APTT (Activated Partial Thromboplastin Time) (03/09/2023 10:59 AM AUTO DAMAGE ADJUSTER) [facility] Activated Partial Thrombopl Time, P 33 25 - 37 sec 03/09/2023 12:12 PM AUTO DAMAGE ADJUSTER DTL Blood (Blood, Venous) 03/09/2023 10:59 AM AUTO DAMAGE ADJUSTER 03/09/2023 11:28 AM AUTO DAMAGE ADJUSTER Diana Ramírez D.O. LAB BLOOD ADD-ON Performing Organization Address [facility] de Phone Number [facility] [address] [place] [address], [facility] [address] [place] [address] * Prothrombin Time (PT) (03/09/2023 10:59 AM AUTO DAMAGE ADJUSTER) [facility] Prothrombin Time, P 11.9 9.4 - 12.5 sec 03/09/2023 12:12 PM AUTO DAMAGE ADJUSTER DT INR 1.1 0.9 - 1.1 03/09/2023 12:12 PM AUTO DAMAGE ADJUSTER DT Comment: ----ADDITIONAL INFORMATION---- Standard intensity warfarin therapeutic range: 2.0 to 3.0 ?? High intensity warfarin therapeutic range: 2.5 to 3.5 Blood (Blood, Venous) 03/09/2023 10:59 AM AUTO DAMAGE ADJUSTER 03/09/2023 11:28 AM AUTO DAMAGE ADJUSTER Diana Ramírez D.O. LAB BLOOD ADD-ON Performing Organization Address [facility] de Phone Number [facility] [address] [place] [address], [facility] [address] [place] [address] * Heparin Anti-Xa Assay (03/09/2023 10:59 AM AUTO DAMAGE ADJUSTER) [facility] Heparin Anti-Xa, P 0.39 IU/mL 2023 12:12 PM AUTO DAMAGE ADJUSTER DTL Comment: UFH therapeutic range: ?? 0.30-0.70 [...] (UFH). Blood (Blood, Venous) 03/09/2023 10:59 AM AUTO DAMAGE ADJUSTER 03/09/2023 11:28 AM AUTO DAMAGE ADJUSTER Diana Ramírez D.O. LAB BLOOD NON ADD -ON Performing Organization Address [facility] Co de Phone Number [facility] [address] [place], [place] [id number] [place] [address] * Antithrombin Activity (03/09/2023 10:59 AM AUTO DAMAGE ADJUSTER) Antithrombin Activity, P 86 80 - 130 % 03/09/2023 12:36 PM AUTO DAMAGE ADJUSTER DTL Comment: Direct factor Xa inhibitor therapy (rivaroxaban (Xarelto), apixaban (Eliquis), edoxaban (Savaysa)) may interfere with the functional Xa based AT assay and cause an overestimation of AT activity thus potentially masking diagnosis of AT deficiency. ??Suggest clinical correlation and consider repeat AT testing remote from direct factor Xa inhibitor therapy, if clinically indicated. ----ADDITIONAL INFORMATION---- This test has been modified from the recycling center operator's instructions. Its performance characteristics were determined by [facility] in a manner consistent with CLIA requirements. This test has not been cleared or approved by the U.S. Food and Drug Administration. Blood (Blood, Venous) 03/09/2023 10:59 AM AUTO DAMAGE ADJUSTER 03/09/2023 11:37 AM AUTO DAMAGE ADJUSTER Diana Ramírez D.O. LAB BLOOD ADD-ON Performing Organization Address [facility] Co de Phone Number [facility] [address] [place] [address], [facility] [address] [place] [address] * (ABNORMAL) CBC with Differential, Blood (03/09/2023 10:59 AM AUTO DAMAGE ADJUSTER) Hemoglobin 16.0 13.2 - 16.6 g/dL 03/09/2023 11:42 AM AUTO DAMAGE ADJUSTER DTL Hematocrit 47.4 38.3 - 48.6 % 03/09/2023 11:42 AM AUTO DAMAGE ADJUSTER DTL Erythrocytes 5.33 4.35 - 5.65 x10(12)/L 03/09/2023 11:42 AM AUTO DAMAGE ADJUSTER DTL MCV 88.9 78.2 - 97.9 fL 03/09/2023 11:42 AM AUTO DAMAGE ADJUSTER DTL RBC Distrib Width 12.6 11.8 - 14.5 % 03/09/2023 11:42 AM AUTO DAMAGE ADJUSTER DTL Platelet Count 302 135 - 317 x10(9)/L 03/09/2023 11:42 AM AUTO DAMAGE ADJUSTER DTL Leukocytes 8.5 3.4 - 9.6 x10(9)/L 03/09/2023 11:42 AM AUTO DAMAGE ADJUSTER DTL Neutrophils 3.99 1.56 - 6.45 x10(9)/L 03/09/2023 11:42 AM AUTO DAMAGE ADJUSTER PM Lymphocytes 3.64(H) 0.95 - 3.07 x10(9)/L 03/09/2023 11:42 AM AUTO DAMAGE ADJUSTER DTL Monocytes 0.75 0.26 - 0.81 x10(9)/L 03/09/2023 11:42 AM AUTO DAMAGE ADJUSTER DTL Eosinophils 0.06 0.03 - 0.48 x10(9)/L 03/09/2023 11:42 AM AUTO DAMAGE ADJUSTER DTL Basophils <0.03 0.01 - 0.08 x10(9)/L 03/09/2023 11:42 AM AUTO DAMAGE ADJUSTER DTL Blood (Blood, Venous) 03/09/2023 10:59 AM AUTO DAMAGE ADJUSTER 03/09/2023 11:28 AM AUTO DAMAGE ADJUSTER Diana Ramírez D.O. LAB BLOOD ADD-ON [facility] [address] [place] [address], [facility] DTL [facility] [address] [place] [address] [facility] [address] [place] [address] * (ABNORMAL) Comprehensive Metabolic Panel (03/09/2023 10:59 AM AUTO DAMAGE ADJUSTER) [facility] Potassium, S 4.6 3.6 - 5.2 mmol/L 03/09/2023 12:22 PM AUTO DAMAGE ADJUSTER DTL Sodium, S 142 135 - 145 mmol/L 03/09/2023 12:22 PM AUTO DAMAGE ADJUSTER DTL Chloride, S 101 98 - 107 mmol/L 03/09/2023 12:22 PM AUTO DAMAGE ADJUSTER DTL Bicarbonate, S 29 22 - 29 mmol/L 03/09/2023 12:22 PM AUTO DAMAGE ADJUSTER DTL Anion Gap 12 7 - 15 03/09/2023 12:22 PM AUTO DAMAGE ADJUSTER DTL BUN (Blood Urea Nitrogen), S 19 8 - 24 mg/dL 03/09/2023 12:22 PM AUTO DAMAGE ADJUSTER DTL Creatinine 1.21 0.74 - 1.35 mg/dL 03/09/2023 12:22 PM AUTO DAMAGE ADJUSTER DTL Estimated GFR (eGFR) 68 >=60 mL/min/BS A 03/09/2023 12:22 PM AUTO DAMAGE ADJUSTER DTL Comment: Estimated GFR calculated using the 2020 CKD_EPI creatinine equation. Calcium, Total, S 9.5 8.8 - 10.2 mg/dL 03/09/2023 12:22 PM AUTO DAMAGE ADJUSTER DTL Glucose, S 156(H) 70 - 140 mg/dL 03/09/2023 12:22 PM AUTO DAMAGE ADJUSTER DTL Protein, Total, S 6.9 6.3 - 7.9 g/dL 03/09/2023 12:22 PM AUTO DAMAGE ADJUSTER DTL Albumin, S 4.5 3.5 - 5.0 g/dL 03/09/2023 12:22 PM AUTO DAMAGE ADJUSTER DTL Aspartate Aminotransferase (AST), S 24 8 - 48 U/L 03/09/2023 12:22 PM AUTO DAMAGE ADJUSTER DTL Alkaline Phosphatase, S 40 40 - 129 U/L 03/09/2023 12:22 PM AUTO DAMAGE ADJUSTER DTL Alanine Aminotransferase (ALT), S 42 7 - 55 U/L 03/09/2023 12:22 PM AUTO DAMAGE ADJUSTER DTL Bilirubin, Total, S 0.3 0.0 - 1.2 mg/dL 03/09/2023 12:22 PM AUTO DAMAGE ADJUSTER DTL Blood (Blood, Venous) 03/09/2023 10:59 AM AUTO DAMAGE ADJUSTER 03/09/2023 11:41 AM AUTO DAMAGE ADJUSTER Diana Ramírez D.O. LAB BLOOD ADD-ON [facility] [address] [place] [address], [place] [facility] [facility] [address] [place] [address] * Interpretation of Outside US Vascular (02/13/2023 1:29 PM AUTO DAMAGE ADJUSTER) Anatomical Region Laterality Modality Ultrasound RST LOS, Ultrasou nd ARZ LOS, Ultrasound FLA LOS, Procedural, Other, Vascular N/A Ultrasound 02/13/2023 1:31 PM AUTO DAMAGE ADJUSTER Impressions 02/13/2023 2:06 PM AUTO DAMAGE ADJUSTER 1. Positive for interval development of acute/subacute-appearing DVT in the left popliteal vein. 2. 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 Narrative 02/13/2023 2:06 PM AUTO DAMAGE ADJUSTER EXAM: ??INTERPRETATION OF OUTSIDE US VASCULAR with [...] slightly since the prior exam. Joshua Conway APRN.N.P., D.N.P. IMG US PROCEDURES from Last 3 Months
--- OUTSIDE RECORDS SUMMARY | 2023-04-06 09:12 | XMS_ITS | Encounter Summary ---
Author Name Unknown Organization [facility] Address [address] [place] [address] Care Team Providers Care Tube Coremaker Name Role Phone Unavailable Primary Care Provider Unavailabl e Encounter Details Date Type Department Care Team (Latest Contact Info) Description 04/02/2023 2:26 PM SUPPLIER RELATIONSHIP DIRECTOR - 04/02/2023 11:59 PM SUPPLIER RELATIONSHIP DIRECTOR Hospital Encounter Department of Laboratory Medicine and Pathology, [facility], in [place], [place] [address] [place] [address] Diana Ramírez D.O. [address] [place] [address] Acute Embolism And Thrombosis Of Unspecified Deep Veins Of Lower Extremity Bilateral (HCC); Dilated Common Bile Duct Discharge Disposition: Home or Self Care Social History Tobacco Use Types Packs/Day Years Used Date Smoking Tobacco: Former Cigarettes 2 16 1 - 11/12/1996 Smokeless Tobacco: Never Alcohol Use Standard Drinks/Week Comments Never 0 (1 standard drink = 0.6 oz pur e alcohol) [facility] Utilities Answer Date Recorded In the past 12 months has e [employer], gas, oil, or water [employer] threatened to shut off services in your [...] your living situation today? I have a [facility] place to live 03/02/2023 Sex and Gender Information Value Date Recorded Sex Assigned at Male 03/02/2023 10:00 AM SUPPLIER RELATIONSHIP DIRECTOR Gender Identity Male 03/02/2023 10:00 AM SUPPLIER RELATIONSHIP DIRECTOR Sexual Orientation Lesbian or Boo 03/02/2023 10 :00 AM SUPPLIER RELATIONSHIP DIRECTOR documented as of this encounter Medications at [...] Office Visit Department of Vascular Medicine in [place], [place] [address] [place] [address] Diana Ramírez D.O. [address] [place] [address] Pending Results Name Type Priority Associated Diagnoses Date /Time Monoclonal Gammopathy Diagnostic Lab Routine Acute Embolism And Thrombosis Of Unspecified Deep Veins Of Lower Extremity Bilateral (HCC) Dilated Common Bile Duct 04/02/2023 2:49 PM SUPPLIER RELATIONSHIP DIRECTOR documented as of this encounter Procedures Procedure Name Priority Date/Time Associated Diagnosis Comments MONOCLONAL GAMMOPATHY DIAGNOSTIC, S Routine 04/02/2023 2:49 PM SUPPLIER RELATIONSHIP DIRECTOR Acute Embolism And Thrombosis Of Unspecified Deep Veins Of Lower Extremity Bilateral (HCC) Dilated Common Bile Duct HEPARIN-PF4 AB (HIT), S Routine 04/02/2023 2:49 PM SUPPLIER RELATIONSHIP DIRECTOR Acute Embolism And Thrombosis Of Unspecified Deep Veins Of Lower Extremity Bilateral (HCC) Dilated Common Bile Duct D-DIMER, P Routine 04/02/2023 2:49 PM SUPPLIER RELATIONSHIP DIRECTOR Acute Embolism And Thrombosis Of Unspecified Deep Veins Of Lower Extremity Bilateral (HCC) Dilated Common Bile Duct GAMMA-GLUTAMYLTRANS FERASE (GGT), S/P Routine 04/02/2023 2:49 PM SUPPLIER RELATIONSHIP DIRECTOR Acute Embolism And Thrombosis Of Unspecified Deep Veins Of Lower Extremity Bilateral (HCC) Dilated Common Bile Duct documented in this encounter Results * GGT (Gamma-Glutamyltransferase) (04/02/2023 2:49 PM SUPPLIER RELATIONSHIP DIRECTOR) Gamma Glutamyltransferase (GGT), S 29 8 - 61 U/L 04/02/2023 4:44 PM SUPPLIER RELATIONSHIP DIRECTOR DTL Blood (Blood, Venous) 04/02/2023 2:49 PM SUPPLIER RELATIONSHIP DIRECTOR 04/02/2023 3:27 PM SUPPLIER RELATIONSHIP DIRECTOR Diana Ramírez D.O. LAB BLOOD ADD-ON Performing Organization Address [facility] [place] [address] * D-Dimer (04/02/2023 2:49 PM SUPPLIER RELATIONSHIP DIRECTOR) [facility] D-Dimer, P <220 <=500 ng/mL FEU 04/02/2023 4:29 PM SUPPLIER RELATIONSHIP DIRECTOR DT Comment: ----ADDITIONAL INFORMATION---- D-dimer values less than or equal to 500 ng/mL fibrinogen equivalent units (FEU) may be used in conjunction with clinical pre-test probability to exclude deep vein thrombosis (DVT) and/or pulmonary embolism (PE). Blood (Blood, Venous) 04/02/2023 2:49 PM SUPPLIER RELATIONSHIP DIRECTOR 04/02/2023 3:12 PM SUPPLIER RELATIONSHIP DIRECTOR Diana Ramírez D.O. LAB BLOOD ADD-ON Performing Organization Address [facility] Co de Phone Number [facility] [address] [place] [address] * Heparin-PF4 IgG Antibody (HIT) (04/02/2023 2:49 PM SUPPLIER RELATIONSHIP DIRECTOR) [facility] HIT KELLY 0.100 <0.400 OD 04/02/2023 7:20 PM SUPPLIER RELATIONSHIP DIRECTOR DTL HIT Interpretation Negative Negative 2023 7:20 PM SUPPLIER RELATIONSHIP DIRECTOR DTL HIT Comment Patient serum has no [...] clinical probability is high. 04/02/2023 7:20 PM SUPPLIER RELATIONSHIP DIRECTOR DT Comment: ----ADDITIONAL INFORMATION---- This test has been modified from the turret lathe operator's instructions. Its performance characteristics were determined by [facility] in a manner consistent with CLIA requirements. This test has not been cleared or approved by the U.S. Food and Drug Administration. Blood (Blood, Venous) 04/02/2023 2:49 PM SUPPLIER RELATIONSHIP DIRECTOR 04/02/2023 4:00 PM SUPPLIER RELATIONSHIP DIRECTOR Diana Ramírez D.O. LAB BLOOD NON ADD -ON [facility] [address] [place] [address], [facility] DTL [address] [place] [address] documented in this encounter Visit Diagnoses Diagnosis Acute Embolism And Thrombosis Of Unspecified Deep Veins Of Lower Extremity Bilateral (HCC) Dilated Common Bile Duct documented in this encounter
--- OUTSIDE RECORDS SUMMARY | 2023-04-06 09:12 | XMS_ITS | Encounter Summary ---
Author Name Unknown Organization [facility] Address [address] [place] [address] Care Team Providers Care Wetland Scientist Name Role Phone Unavailable Primary Care Provider Unavailabl e Encounter Details Date Type Department Care Team (Latest Contact Info) Description 03/30/2023 Clinical Communication Division of Endocrinology in [place], [place] [address] [place] [address] Renate Luo M.D. [address] [place] [address] Social History Tobacco Use Types Packs/Day Years Used Date Smoking Tobacco: Former Cigarettes 2 16 1 - 11/12/1996 Smokeless Tobacco: Never Alcohol Use Standard Drinks/Week Comments Never 0 (1 standard drink = 0.6 oz pur e alcohol) [facility] Utilities Answer Date Recorded In the past 12 months has [employer], gas, oil, or water [employer] threatened to shut off services in your [...] your living situation today? [facility] place [facility] live 03/02/2023 Sex and Gender Information Value Date Recorded Sex Assigned at Male 03/02/2023 10:00 AM ENERGY CONSERVATION TECHNICIAN Gender Identity Male 03/02/2023 10:00 AM ENERGY CONSERVATION TECHNICIAN Sexual Orientation Lesbian or Boo 03/02/2023 10 :00 AM ENERGY CONSERVATION TECHNICIAN documented as of this encounter Plan of Treatment Upcoming Encounters Date Type Department Care Team (Late st Contact Info) Description 06/12/2023 2:00 PM CDT Office Visit Department of Vascular Medicine in [place], [place] [address] [place] [address] Diana Ramírez D.O. [address] [place] [address] documented as of this encounter Visit Diagnoses Not on filedocumented in this encounter
--- OUTSIDE RECORDS SUMMARY | 2023-04-06 09:12 | XMS_ITS | Encounter Summary ---
Author Name Unknown Organization [facility] Address [address] [place] [address] Care Team Providers Care Bunghole Borer Name Role Phone Unavailable Primary Care Provider Unavailabl e Reason for Referral * Outpatient (Routine) - Closed Specialty Diagnoses / Procedures Referred By Jun ortiz Referred To Contact Vascular Medicine Diana Ramírez D.O. [address] [place] [phone] [facility] Referral ID Status Reason Start Date Expiration Date Visits Re quested Visits Authorized [id number] Closed 03/30/2023 09/28/2024 1 1 CTOR WRITING Encounter Details Date Type Department Care Team (Late st Contact Info) Description 03/30/2023 Orders Only Department of Vascular Medicine in [place], [place] [address] [place] [phone] Diana Ramírez D.O. [address] [place] [phone] Social History Tobacco Use Types Packs/Day Years Used Date Smoking Tobacco: Former Cigarettes 2 16 1 - 11/12/1996 Smokeless Tobacco: Never Alcohol Use Standard Drinks/Week Comments Never 0 (1 standard drink = 0.6 oz pur e alcohol) [facility] Utilities Answer Date Recorded In the past [...] your living situation today? I have a [facility] place to live 03/02/2023 Sex and Gender Information Value Date Recorded Sex Assigned at Male 03/02/2023 10:00 AM DIRECTOR WRITING Gender Identity Male 03/02/2023 10:00 AM DIRECTOR WRITING Sexual Orientation Lesbian or Boo 03/02/2023 10 :00 AM DIRECTOR WRITING documented as of this encounter Plan of Treatment Upcoming Encounters Date Type Department Care Team (Late st Contact Info) Description 06/12/2023 2:00 PM CDT Office Visit Department of Vascular Medicine in [place], [place] [address] [place] [address] Diana Ramírez D.O. [address] [place] [address] Scheduled Referrals Name Type Priority Associated Diagnoses Order Schedule Vascular Medicine office visit (clinic) Thrombophilia Outpatient Referral Routine Expected: 04/02/2023, Expires: 06/28/2024 documented as of this encounter Visit Diagnoses Not on filedocumented in this encounter
--- OUTSIDE RECORDS SUMMARY | 2023-04-06 09:12 | XMS_ITS | Encounter Summary ---
Author Name Unknown Organization [facility] Address [address] [place] [address] Care Team Providers Care Pot Fluxer Name Role Phone Unavailable Primary Care Provider Unavailabl e Reason for Referral * Outpatient (Routine) - Authorized Specialty Diagnoses / Procedures Referred By Contac t Referred To Contact Endocrinology Diagnoses Other Specified Disorders Of Adrenal Gland (HCC) Renate Luo M.D. [address] [place] [address] [facility] Referral ID Status Reason Start Date Expiration Date V isits Requested Visits Authorized [id number] Authorized 03/20/2023 09/18/2024 1 1 TY AND OCCUPATIONAL HEALTH MANAGER * MRI/CAT/PET Scan (Routine) - Pending Review Specialty Diagnoses / Procedures Referred By Contac t Referred To Contact Radiology Diagnoses Other Specified Disorders Of Adrenal Gland (HCC) Procedures CT Abdomen without and with IV Contrast Renate Luo M.D. [address] [place] [address] [facility] Referral ID Status Reason Start Date Expiration Date V isits Requested Visits Authorized [id number] Pending Review 03/20/2023 03/19/2024 1 1 TY AND OCCUPATIONAL HEALTH MANAGER Reason for Visit * Outpatient (Routine) - Closed Specialty Diagnoses / Procedures Referred By Contac t Referred To Contact Endocrinology Diagnoses Other Specified Disorders Of Adrenal Gland (HCC) Diana Ramírez D.O. [address] [place] [address] [facility] Referral ID Status Reason Start Date Expiration Date Visits Re quested Visits Authorized [id number] Closed 03/17/2023 03/16/2024 1 1 Encounter Details Date Type Department Care Team (Latest Contact Info) Description 03/20/2023 1:30 PM SAFETY AND OCCUPATIONAL HEALTH MANAGER Comprehensive Visit Division of Endocrinology in [place], [place] [address] [place] [phone] Renate Luo M.D. [address] [place] [phone] Hyperglycemia (Primary Dx); Other Specified Disorders Of Adrenal Gland (HCC); Intolerance Heat Initial Social History Tobacco Use Types Packs/Day Years Used Date Smoking Tobacco: Former Cigarettes 2 16 1 - 11/12/1996 Smokeless Tobacco: Never Alcohol Use Standard Drinks/Week Comments Never 0 (1 standard drink = 0.6 oz pur e alcohol) [facility] Utilities Answer Date Recorded In the past 12 months has [employer], gas, oil, or water [employer] threatened to shut off services in your [...] your living situation today? I have a [facility] place to live 03/02/2023 Sex and Gender Information Value Date Recorded Sex Assigned at Male 03/02/2023 10:00 AM SAFETY AND OCCUPATIONAL HEALTH MANAGER Gender Identity Male 03/02/2023 10:00 AM SAFETY AND OCCUPATIONAL HEALTH MANAGER Sexual Orientation Lesbian or Boo 03/02/2023 10 :00 AM SAFETY AND OCCUPATIONAL HEALTH MANAGER documented as of this encounter Consult Notes * Renate Luo M.D. - 03/20/2023 1:30 PM CST SUBJECTIVE CHIEF COMPLAINT / REASON FOR VISIT Francis Restrepo is a 62 y.o. male who presents for evaluation of adrenal thickening he was referred by Diana Ramírez D.O.. 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 TY AND OCCUPATIONAL HEALTH MANAGER documented in this encounter Miscellaneous Notes * Addendum Note - Cheyanne Dumas - 03/20/2023 1:30 PM CSTAddended by: CHEYANNE DUMAS on: 03/20/2023 02:34 PM Modules accepted: Orders TY AND OCCUPATIONAL HEALTH MANAGER documented in this encounter Plan of Treatment Upcoming Encounters Date Type Department Care Team (Late st Contact Info) Description 06/12/2023 2:00 PM CDT Office Visit Department of Vascular Medicine in [place], [place] [address] [place] [address] Diana Ramírez D.O. [address] [place] [address] Scheduled Orders Name Type Priority Associated Diagnoses [...] (HCC) Hyperglycemia Expected: 03/23/2023 (Approximate), Expires: 06/18/2024 Testosterone, Total and Bioavailable Lab Routine Other Specified Disorders Of Adrenal Gland (HCC) Intolerance Heat Initial Expected: 03/20/2023 (Approximate), Expires: 06/18/2024 CT Abdomen without and with IV Contrast Imaging RAD - Routine (most inpatients and all outpatients) Other Specified Disorders Of Adrenal Gland (HCC) Expected: 09/18/2023 (Approximate), Expires: 06/18/2024 Scheduled Referrals Name Type Priority Associated Diagnoses Order Schedule Endocrinology office visit (clinic) Outpatient Referral Routine Other Specified Disorders Of Adrenal Gland (HCC) Expected: 09/18/2023 (Approximate), Expires: 06/18/2024 documented as of this encounter Results * Cortisol, Saliva (03/28/2023 1:47 PM SAFETY AND OCCUPATIONAL HEALTH MANAGER) Cortisol, Saliva <50 ng/dL 04/01/19 1:42 AM [facility] Comment: ----REFERENCE VALUE---- 7:00-9:00 am: 100-750 3:00-5:00 pm: <401 11:00 pm-Midnight: <100 ----ADDITIONAL INFORMATION---- This test was developed and its performance characteristics determined by [facility] in a manner consistent with CLIA requirements. This test has not been cleared or approved by the U.S. Food and Drug Administration. Saliva (Salivary Gland) 03/28/2023 1:47 PM SAFETY AND OCCUPATIONAL HEALTH MANAGER 03/30/2023 12:05 PM SAFETY AND OCCUPATIONAL HEALTH MANAGER Renate Johnson M.D. LAB BODY FLUIDS AND STOOLS ORDERABLES Performing Organization Address [facility] Co de Phone Number [facility] [address] [place] [address] [facility] [address] [place] [address] [place] [address] * Cortisol, Free, 24 hour, Urine (03/26/2023 7:00 AM [facility]) Cortisol, U 9.9 3.5 - 45 mcg/24 h 04/01/2023 12:20 AM [facility] Collection Duration 24 h 04/01 12:20 AM [facility] Volume 1800 mL 04/01/2023 12:20 AM [facility] Comment: ----ADDITIONAL INFORMATION---- This test was developed and its performance characteristics determined by [facility] in a manner consistent with CLIA requirements. This test has not been cleared or approved by the U.S. Food and Drug Administration. Urine (Urine, 24 Hours) 03/26/2023 7:00 AM SAFETY AND OCCUPATIONAL HEALTH MANAGER 03/30/2023 11:52 AM SAFETY AND OCCUPATIONAL HEALTH MANAGER Renate Johnson M.D. LAB URINE ORDERABLES Performing Organization Address City/[facility] Co de Phone Number [facility] [address] [place] [address] [facility] [address] [place] [address] [place] [address] * Creatinine, 24 hour, Urine (03/26/2023 7:00 AM SAFETY AND OCCUPATIONAL HEALTH MANAGER) Creatinine, 24 HR, U 1548 930 - 2955 mg/24 h 03/29/2023 12:09 PM SAFETY AND OCCUPATIONAL HEALTH MANAGER [facility] Collection Duration 24 h 03/29/2023 10:14 AM SAFETY AND OCCUPATIONAL HEALTH MANAGER [facility] Urine Volume 1800 mL 03/29/2023 10:14 AM SAFETY AND OCCUPATIONAL HEALTH MANAGER [facility] Creatinine Conc 86 mg/dL 12:09 PM SAFETY AND OCCUPATIONAL HEALTH MANAGER DTL Urine (Urine, 24 Hours) 03/26/2023 7:00 AM SAFETY AND OCCUPATIONAL HEALTH MANAGER 03/29/2023 10:14 AM SAFETY AND OCCUPATIONAL HEALTH MANAGER Renate Johnson M.D. LAB URINE ORDERABLES Performing Organization Address City/[facility] Co de Phone Number [facility] [address] [place] [address], [facility] [place] [address] [place] [address] * Cortisol, Saliva (03/24/2023 11:00 PM SAFETY AND OCCUPATIONAL HEALTH MANAGER) Midnight Cortisol <50 <100 ng/dL 03/30/2023 5:10 PM SAFETY AND OCCUPATIONAL HEALTH MANAGER [facility] Comment: ----ADDITIONAL INFORMATION---- This test was developed and its performance characteristics determined by [facility] in a manner consistent with CLIA requirements. This test has not been cleared or approved by the U.S. Food and Drug Administration. Saliva (Salivary Gland) 03/24/2023 11:00 PM SAFETY AND OCCUPATIONAL HEALTH MANAGER 03/26/2023 2:28 PM SAFETY AND OCCUPATIONAL HEALTH MANAGER Renate Johnson M.D. LAB BODY FLUIDS AND STOOLS ORDERABLES [facility] [address] [place] [address] [facility] [address] [place] [address] [place] [address] documented in this encounter Visit Diagnoses Diagnosis Hyperglycemia- Primary Other Specified Disorders Of Adrenal Gland (HCC) Intolerance Heat Initial documented in this encounter
--- OUTSIDE RECORDS SUMMARY | 2023-04-06 09:13 | XMS_ITS | Encounter Summary ---
Author Name Unknown Organization [facility] Address [address] [place] [address] Care Team Providers Care Field Checker Name Role Phone Unavailable Primary Care Provider Unavailabl e Reason for Referral * Outpatient (Routine) - Closed Specialty Diagnoses / Procedures Referred By Contac t Referred To Contact Vascular Medicine Aleena Ramírez D.O. [address] [place] [address] [facility] Referral ID Status Reason Start Date Expiration Date Visits Re quested Visits Authorized [id number] Closed 03/09/2023 03/08/2026 1 1 DROPPER * MRI/CAT/PET Scan (Routine) - Closed Specialty Diagnoses / Procedures Referred By Contac t Referred To Contact Radiology Diagnoses Acute Embolism And Thrombosis Of Unspecified Deep Veins Of Lower Extremity Bilateral (HCC) Procedures CT Abdomen Pelvis Venogram with IV Contrast Aleena Ramírez D.O. [address] [place] [address] [facility] Referral ID Status Reason Start Date Expiration Date Visits Re quested Visits Authorized [id number] Closed 03/09/2023 03/08/2024 1 1 DROPPER * Outpatient (Routine) - Closed Specialty Diagnoses / Procedures Referred By Contac t Referred To Contact Diagnoses Acute Embolism And Thrombosis Of Unspecified Deep Veins Of Lower Extremity Bilateral (HCC) Procedures US Lower Extremity Veins Bilateral Aleena Ramírez D.O. [address] [place] [address] [facility] Referral ID Status Reason Start Date Expiration Date Visits Re quested Visits Authorized [id number] Closed 03/09/2023 03/08/2024 1 1 DROPPER Reason for Visit * Outpatient (Routine) - Closed Specialty Diagnoses / Procedures Referred By Jun t Referred To Contact Vascular Medicine Diagnoses Acute Embolism And Thrombosis Of Unspecified Deep Veins Of Lower Extremity Bilateral (HCC) Spencer Coates M.D. [address] [place] [address] [facility] Referral ID Status Reason Start Date Expiration Date Visits Re quested Visits Authorized [id number] Closed 02/12/2023 02/12/2024 1 1 Encounter Details Date Type Department Care Team (Latest Contact Info) Description 03/09/2023 9:00 AM LOAD DROPPER Comprehensive Visit Department of Vascular Medicine in [place], [place] [address] [place] [address] Aleena Ramírez D.O. [address] [place] [address] Acute Embolism And Thrombosis Of Unspecified Deep Veins Of Lower Extremity Bilateral (HCC) (Primary Dx) Social History Tobacco Use Types Packs/Day Years Used Date Smoking Tobacco: Former Cigarettes 2 16 1 - 11/12/1996 Smokeless Tobacco: Never Tobacco Cessation:Counseling Given: Not Answered Alcohol Use Standard Drinks/Week Comments Never 0 (1 standard drink = 0.6 oz pur e alcohol) [facility] Utilities Answer Date Recorded In the past 12 months has [employer], gas, oil, or water company threatened to [...] your living situation today? I have a [facility] place to live 03/02/2023 Sex and Gender Information Value Date Recorded Sex Assigned at Male 03/02/2023 10:00 AM LOAD DROPPER Gender Identity Male 03/02/2023 10:00 AM LOAD DROPPER Sexual Orientation Lesbian or Boo 03/02/2023 10 :00 AM LOAD DROPPER documented as of this encounter Last Filed Vital Signs Vital Sign Reading Time Taken Comments Blood Pressure 136/84 03/09/2023 8:52 AM LOAD DROPPER Pulse 91 03/09/2023 8:52 AM LOAD DROPPER Temperature - - Respiratory Rate - - Oxygen Saturation - - Inhaled Oxygen Concentration - - Weight 110 kg (243 lb 9.7 oz) 03/09/2023 8:50 AM LOAD DROPPER Height 174.4 cm (5' 8.66) 03/09/2023 8:50 AM CS T Body Mass Index 36.33 03/09/2023 8:50 AM LOAD DROPPER documented in this encounter Consult Notes * [...] associated with travel. 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 [...] bowel resection history. Denies prior history of UT, CVA, TIA, or prior hospitalization/transfusion for major [...] Family History: Brother with history of DVT (concrete mixing truck driver), age 61 (on apixaban) Sister with provoked following surgery, age 54 Mother: COPD, no VTE. Passed at age 89. Father: Lung cancer with colon metastasis (passed age 62), no VTE. Social: Prior flight test mechanic (discontinued due to COVID and clotting [...] in consultation. We will continue to follow. DROPPER documented in this encounter Miscellaneous Notes * Addendum Note - Aleena Ramírez D.O. - 03/09/2023 9:00 AM CSTAddended by: ALEENA RAMÍREZ on: 03/11/2023 12:35 PM Modules accepted: Orders DROPPER documented in this encounter Plan of Treatment Upcoming Encounters Date Type Department Care Team (Late st Contact Info) Description 06/12/2023 2:00 PM CDT Office Visit Department of Vascular Medicine in [place], [place] [address] [place] [address] Aleena Ramírez D.O. [address] [place] [address] Scheduled Referrals Name Type Priority Associated Diagnoses Order Schedule Vascular Medicine office visit (clinic) Thrombophilia Outpatient Referral Routine Expected: 03/16/2023 (Approximate), Expires: 06/07/2024 documented as of this encounter Results * CT Abdomen Pelvis Venogram with IV Contrast (03/11/2023 4:22 PM LOAD DROPPER) Anatomical Region Laterality Modality Abdomen, Pelvis, Cardiovascu lar RST LOS, Abdominal ARZ LOS, Vascular Interventional FLA LOS, Procedural, Vascular Interventional NWWI LOS N/A Computed Tomography, Computed Tomography 03/11/2023 4:14 PM LOAD DROPPER Impressions 03/11/2023 5:18 PM LOAD DROPPER Patent venous vasculature in the abdomen/pelvis. Narrative 03/11/2023 5:18 PM LOAD DROPPER EXAM: ??CT ABDOMEN PELVIS VENOGRAM WITH IV [...] Lower Extremity Veins Bilateral (03/09/2023 2:41 PM LOAD DROPPER) Anatomical Region Laterality Modality Lower Extremity, Ultrasound RST LOS, Ultrasound ARZ LOS, Ultrasound FLA LOS Bilateral Ultrasound Impressions 03/09/2023 3:22 PM LOAD DROPPER Negative for acute DVT. Subacute SVT in the right GSV in the calf. Narrative 03/09/2023 3:22 PM LOAD DROPPER EXAM: US LOWER EXTREMITY VEINS BILATERAL Exam [...] and management can be found on the [employer] site. Link https://[employer]packerert.[facility].org/topic/clinical-answers/cnt-40072117/cpm-204 97277 Procedure Note Slime Anderson M.D. - 03/09/2023 [...] management can be found on the[employer] site. Linkhttps://[facility]yoexpert.[facility].org/topic/clinical-answers/cnt-29380860/[facility] -3004 5986 IMPRESSION: Negative for acute DVT. Subacute SVT in the right GSV in the calf. Aleena Ramírez D.O. IMG US PROCEDURES * Heparin Anti-Xa Assay (03/09/2023 10:59 AM LOAD DROPPER) Heparin Anti-Xa, P 0.39 IU/mL 2023 12:12 PM LOAD DROPPER DTL Comment: UFH therapeutic range: ?? 0.30-0.70 [...] (UFH). Blood (Blood, Venous) 03/09/2023 10:59 AM LOAD DROPPER 03/09/2023 11:28 AM LOAD DROPPER Aleena Ramírez D.O. LAB BLOOD NON ADD -ON [facility] [address] [place] [address], [facility] [address] [place] [address] * APTT (Activated Partial Thromboplastin Time) (03/09/2023 10:59 AM LOAD DROPPER) Activated Partial Thrombopl Time, P 33 25 - 37 sec 03/09/2023 12:12 PM LOAD DROPPER DTL Blood (Blood, Venous) 03/09/2023 10:59 AM LOAD DROPPER 03/09/2023 11:28 AM LOAD DROPPER Aleena Ramírez D.O. LAB BLOOD ADD-ON [facility] [address] [place] [address], [facility] DTL [facility] [address] [place] [address] * Prothrombin Time (PT) (03/09/2023 10:59 AM LOAD DROPPER) Prothrombin Time, P 11.9 9.4 - 12.5 sec 03/09/2023 12:12 PM LOAD DROPPER DTL INR 1.1 0.9 - 1.1 03/09/2023 12:12 PM LOAD DROPPER DTL Comment: ----ADDITIONAL INFORMATION---- Standard intensity warfarin therapeutic range: 2.0 to 3.0 ?? High intensity warfarin therapeutic range: 2.5 to 3.5 Blood (Blood, Venous) 03/09/2023 10:59 AM LOAD DROPPER 03/09/2023 11:28 AM LOAD DROPPER Aleena Ramírez D.O. LAB BLOOD ADD-ON [facility] [address] [place] [address], [facility] [address] [place] [address] * (ABNORMAL) CBC with Differential, Blood (03/09/2023 10:59 AM LOAD DROPPER) Hemoglobin 16.0 13.2 - 16.6 g/dL 03/09/2023 11:42 AM LOAD DROPPER DTL Hematocrit 47.4 38.3 - 48.6 % 03/09/2023 11:42 AM LOAD DROPPER DTL Erythrocytes 5.33 4.35 - 5.65 x10(12)/L 03/09/2023 11:42 AM LOAD DROPPER DTL MCV 88.9 78.2 - 97.9 fL 03/09/2023 11:42 AM LOAD DROPPER DTL RBC Distrib Width 12.6 11.8 - 14.5 % 03/09/2023 11:42 AM LOAD DROPPER DTL Platelet Count 302 135 - 317 x10(9)/L 03/09/2023 11:42 AM LOAD DROPPER DTL Leukocytes 8.5 3.4 - 9.6 x10(9)/L 03/09/2023 11:42 AM LOAD DROPPER DTL Neutrophils 3.99 1.56 - 6.45 x10(9)/L 03/09/2023 11:42 AM LOAD DROPPER PM Lymphocytes 3.64(H) 0.95 - 3.07 x10(9)/L 03/09/2023 11:42 AM LOAD DROPPER DTL Monocytes 0.75 0.26 - 0.81 x10(9)/L 03/09/2023 11:42 AM LOAD DROPPER DTL Eosinophils 0.06 0.03 - 0.48 x10(9)/L 03/09/2023 11:42 AM LOAD DROPPER DTL Basophils <0.03 0.01 - 0.08 x10(9)/L 03/09/2023 11:42 AM LOAD DROPPER DTL Blood (Blood, Venous) 03/09/2023 10:59 AM LOAD DROPPER 03/09/2023 11:28 AM LOAD DROPPER Aleena Ramírez D.O. LAB BLOOD ADD-ON [facility] [address] [place] [address], [facility] DTL [facility] [address] [place] [address] [facility] [address] [place] [address] * Beta-2 Glycoprotein 1 Antibodies, IgG and IgM (03/09/2023 10:59 AM LOAD DROPPER) Pathologist [facility] Beta 2 GP1 Ab IgG, S <9.4 <15.0 (Negative) U 03/10/2023 8:15 PM LOAD DROPPER SDSC Beta 2 GP1 Ab IgM, S <9.4 <15.0 (Negative) U 03/10/2023 8:45 PM LOAD DROPPER SDSC Blood (Blood, Venous) 03/09/2023 10:59 AM LOAD DROPPER 03/09/2023 3:50 PM LOAD DROPPER Aleena Ramírez D.O. LAB BLOOD ADD-ON Performing Organization Address City/[facility]/ZIP Co de Phone Number [facility] [address] [place] [address] [facility] [address] [address] * Phospholipid (Cardiolipin) Antibodies, IgG and IgM (03/09/2023 10:59 AM LOAD DROPPER) Phospholipid Ab IgM, S 9.9 <15.0 (Negative) MPL 03/10/2023 6:20 PM LOAD DROPPER SDS Phospholipid Ab IgG, S <9.4 <15.0 (Negative) GPL 03/10/2023 6:06 PM LOAD DROPPER [facility] Blood (Blood, Venous) 03/09/2023 10:59 AM LOAD DROPPER 03/09/2023 3:50 PM LOAD DROPPER Aleena Ramírez D.O. LAB BLOOD ADD-ON Performing Organization Address City/[facility]/ZIP Co de Phone Number [facility] [address] [place] [address] [place] [id number] [address] * Phosphatidylserine/Prothrombin Antibody, IgG and IgM (03/09/2023 10:59 AM LOAD DROPPER) PS/PT Ab, IgG, S <9.4 <=30.0 (Negative ) U 03/11/2023 8:14 PM LOAD DROPPER [facility] Comment: ----ADDITIONAL INFORMATION---- This test has been modified from the principal android developer's instructions. Its performance characteristics were determined by [facility] in a manner consistent with CLIA requirements. This test has not been cleared or approved by the U.S. Food and Drug Administration. PS/PT Ab, IgM, S 13.7 <=30.0 (Negative ) U 03/11/2023 8:14 PM LOAD DROPPER [facility] Comment: ----ADDITIONAL INFORMATION---- This test has been modified from the principal android developer's instructions. Its performance characteristics were determined by [facility] in a manner consistent with CLIA requirements. This test has not been cleared or approved by the U.S. Food and Drug Administration. Blood (Blood, Venous) 03/09/2023 10:59 AM LOAD DROPPER 03/09/2023 4:33 PM LOAD DROPPER Aleena Ramírez D.O. LAB BLOOD ADD-ON [facility] [address] [place] [address] [facility] [address] [place] [address] * Lupus Anticoag Prof (03/09/2023 10:59 AM LOAD DROPPER) [facility] Lupus Anticoagulant [facility] SEE COMMENT 03/09/2023 1:41 PM LOAD DROPPER DTL Comment: No evidence of a lupus [...] 9.4 - 12.5 sec 03/09/2023 1:41 PM LOAD DROPPER DTL INR 1.1 0.9 - 1.1 03/09/2023 1:41 PM LOAD DROPPER DTL Comment: ----ADDITIONAL INFORMATION---- Standard intensity warfarin therapeutic range: 2.0 to 3.0 High intensity warfarin therapeutic range: 2.5 to 3.5 Activated Partial Thrombopl Time, P 32 25 - 37 sec 03/09/2023 1:41 PM LOAD DROPPER DTL DRVVT Screen Ratio 1.19 <1.20 ratio 03/09/2023 1:41 PM LOAD DROPPER DTL Blood (Blood, Venous) 03/09/2023 10:59 AM LOAD DROPPER 03/09/2023 11:37 AM LOAD DROPPER Narrative [facility] - 03/09/2023 1:41 PM LOAD DROPPER Specimen Information: Specimen ID: [id number] Specimen Type: Blood Specimen Collection Start Date: 03/09/2023 10:59 AM Specimen Received Date: 03/09/2023 11:37 AM Specimen ID: [id number] Specimen Type: Blood Specimen Collection Start Date: 03/09/2023 10:59 AM Specimen Received Date: 03/09/2023 11:37 AM Specimen ID: [id number] Specimen Type: Blood Specimen Collection Start Date: 03/09/2023 10:59 AM Specimen Received Date: 03/09/2023 11:37 AM Specimen ID: [id number] Specimen Type: Blood Specimen Collection Start Date: 03/09/2023 10:59 AM Specimen Received Date: 03/09/2023 11:37 AM Aleena Ramírez D.O. LAB BLOOD NON ADD -ON [address] [place] [address] * Antithrombin Antigen (03/09/2023 10:59 AM LOAD DROPPER) Antithrombin Antigen, P 90 80 - 120 % 03/09/2023 12:39 PM LOAD DROPPER DTL Comment: ----ADDITIONAL INFORMATION---- This test has been modified from the principal android developer's instructions. Its performance characteristics were determined by [facility] in a manner consistent with CLIA requirements. This test has not been cleared or approved by the U.S. Food and Drug Administration. Blood (Blood, Venous) 03/09/2023 10:59 AM LOAD DROPPER 03/09/2023 11:37 AM LOAD DROPPER Aleena Ramírez D.O. LAB BLOOD ADD-ON [facility] [address] [place] [address], [facility] DTL [facility] [address] [place] [address] * Antithrombin Activity (03/09/2023 10:59 AM LOAD DROPPER) Antithrombin Activity, P 86 80 - 130 % 03/09/2023 12:36 PM LOAD DROPPER DTL Comment: Direct factor Xa inhibitor therapy (rivaroxaban (Xarelto), apixaban (Eliquis), edoxaban (Savaysa)) may interfere with the functional Xa based AT assay and cause an overestimation of AT activity thus potentially masking diagnosis of AT deficiency. ??Suggest clinical correlation and consider repeat AT testing remote from direct factor Xa inhibitor therapy, if clinically indicated. ----ADDITIONAL INFORMATION---- This test has been modified from the principal android developer's instructions. Its performance characteristics were determined by [facility] in a manner consistent with CLIA requirements. This test has not been cleared or approved by the U.S. Food and Drug Administration. Blood (Blood, Venous) 03/09/2023 10:59 AM LOAD DROPPER 03/09/2023 11:37 AM LOAD DROPPER Aleena Ramírez D.O. 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 The Prothrombin (F2 c.*97G>A) variant is a mild risk factor for venous thromboembolism (VTE). This individual may have other genetic and environmental risk factors for VTE. If indicated, consider genetic consultation and counseling for this individual and potentially affected family members regarding laboratory testing. 03/11/2023 7:55 AM LOAD DROPPER DTL Comment: ----ADDITIONAL INFORMATION---- This test uses [...] developed and its performance characteristics determined by [facility] in a manner consistent with CLIA requirements. This test has not been cleared or approved by the U.S. Food and Drug Administration. Blood (Blood, Venous) 03/09/2023 10:59 AM LOAD DROPPER 03/09/2023 11:45 AM LOAD DROPPER Aleena Ramírez D.O. LAB GENETIC TESTI [facility] [address] DTL [address] [place] [address] * (ABNORMAL) Comprehensive Metabolic Panel (03/09/2023 10:59 AM LOAD DROPPER) Potassium, S 4.6 3.6 - 5.2 mmol/L 03/09/2023 12:22 PM LOAD DROPPER DTL Sodium, S 142 135 - 145 mmol/L 03/09/2023 12:22 PM LOAD DROPPER DTL Chloride, S 101 98 - 107 mmol/L 03/09/2023 12:22 PM LOAD DROPPER DTL Bicarbonate, S 29 22 - 29 mmol/L 03/09/2023 12:22 PM LOAD DROPPER DTL Anion Gap 12 7 - 15 03/09/2023 12:22 PM LOAD DROPPER DTL BUN (Blood Urea Nitrogen), S 19 8 - 24 mg/dL 03/09/2023 12:22 PM LOAD DROPPER DTL Creatinine 1.21 0.74 - 1.35 mg/dL 03/09/2023 12:22 PM LOAD DROPPER DTL Estimated GFR (eGFR) 68 >=60 mL/min/BS A 03/09/2023 12:22 PM LOAD DROPPER DTL Comment: Estimated GFR calculated using the 2020 CKD_EPI creatinine equation. Calcium, Total, S 9.5 8.8 - 10.2 mg/dL 03/09/2023 12:22 PM LOAD DROPPER DTL Glucose, S 156(H) 70 - 140 mg/dL 03/09/2023 12:22 PM LOAD DROPPER DTL Protein, Total, S 6.9 6.3 - 7.9 g/dL 03/09/2023 12:22 PM LOAD DROPPER DTL Albumin, S 4.5 3.5 - 5.0 g/dL 03/09/2023 12:22 PM LOAD DROPPER DTL Aspartate Aminotransferase (AST), S 24 8 - 48 U/L 03/09/2023 12:22 PM LOAD DROPPER DTL Alkaline Phosphatase, S 40 40 - 129 U/L 03/09/2023 12:22 PM LOAD DROPPER DTL Alanine Aminotransferase (ALT), S 42 7 - 55 U/L 03/09/2023 12:22 PM LOAD DROPPER DTL Bilirubin, Total, S 0.3 0.0 - 1.2 mg/dL 03/09/2023 12:22 PM LOAD DROPPER DTL Blood (Blood, Venous) 03/09/2023 10:59 AM LOAD DROPPER 03/09/2023 11:41 AM LOAD DROPPER Aleena Ramírez D.O. LAB BLOOD ADD-ON [facility] [place] [address] [place] [address], [facility] DTL [facility] [address] [place] [address] documented in this encounter Visit Diagnoses Diagnosis [...]
--- OUTSIDE RECORDS SUMMARY | 2023-04-06 09:13 | XMS_ITS | Encounter Summary ---
Author Name Unknown Organization [facility] Address [address] [place] [address] Care Team Providers Care Supervisor Volunteer Services Name Role Phone Unavailable Primary Care Provider Unavailabl e Reason for Referral * Outpatient (Routine) - Closed Specialty Diagnoses / Procedures Referred By Contac t Referred To Contact Diagnoses Acute Embolism And Thrombosis Of Unspecified Deep Veins Of Lower Extremity Bilateral (HCC) Procedures US Lower Extremity Veins Bilateral Diana Ramírez D.O. [address] [place] [address] [facility] Referral ID Status Reason Start Date Expiration Date Visits Re quested Visits Authorized [id number] Closed 03/09/2023 03/08/2024 1 1 DE SALES COORDINATOR Reason for Visit * Outpatient (Routine) - Closed Specialty Diagnoses / Procedures Referred By Contac t Referred To Contact Diagnoses Acute Embolism And Thrombosis Of Unspecified Deep Veins Of Lower Extremity Bilateral (HCC) Procedures US Lower Extremity Veins Bilateral Diana Ramírez D.O. [address] [place] [address] [facility] Referral ID Status Reason Start Date Expiration Date Visits Re quested Visits Authorized [id number] Closed 03/09/2023 03/08/2024 1 1 Encounter Details Date Type Department Care Team (Latest Contact Info) Description 03/09/2023 1:04 PM INSIDE SALES COORDINATOR - 03/09/2023 11:59 PM INSIDE SALES COORDINATOR Hospital Encounter Department of Radiology, [facility], in [place], [place] [address] [place] [address] Diana Ramírez D.O. [address] [place] [address] Acute Embolism And Thrombosis Of Unspecified Deep Veins Of Lower Extremity Bilateral (HCC) Discharge Disposition: Home or Self Care Social History Tobacco Use Types Packs/Day Years Used Date Smoking Tobacco: Former Cigarettes 2 16 1 - 11/12/1996 Smokeless Tobacco: Never Alcohol Use Standard Drinks/Week Comments Never 0 (1 standard drink = 0.6 oz pur e alcohol) [facility] Utilities Answer Date Recorded In the [...] Sex Assigned at Male 03/02/2023 10:00 AM INSIDE SALES COORDINATOR Gender Identity Male 03/02/2023 10:00 AM INSIDE SALES COORDINATOR Sexual Orientation Lesbian or Boo 03/02/2023 10 :00 AM INSIDE SALES COORDINATOR documented as of this encounter Medications at Time of Discharge Medication Sig Dispensed Refills Start Date End Date enoxaparin (LOVENOX) 100 mg/mL injection Inject 1.1 mL (110 mg total) under the skin 2 (two) times a day. 120 mL 0 03/09/2023 03/11/2023 enoxaparin (LOVENOX) 120 mg/0.8 mL injection Inject 0.73 mL (110 mg total) under the skin 2 (two) times a day. 48 mL 0 03/11/2023 04/02/2023 documented as of this encounter Plan of Treatment Upcoming Encounters Date Type Department Care Team (Late st Contact Info) Description 06/12/2023 2:00 PM CDT Office Visit Department of Vascular Medicine in [place], [place] [address] [place] [address] Diana Ramírez D.O. [address] [place] [address] documented as of this encounter Procedures Procedure Name Priority Date/Time Associated Diagnosis Comments US LOWER EXTREMITY VEINS BILATERAL RAD - Routine (most inpatients and all outpatients) 03/09/2023 2:41 PM INSIDE SALES COORDINATOR Acute Embolism And Thrombosis Of Unspecified Deep Veins Of Lower Extremity Bilateral (HCC) documented in this encounter Results * US Lower Extremity Veins Bilateral (03/09/2023 2:41 PM INSIDE SALES COORDINATOR) Anatomical Region Laterality Modality Lower Extremity, Ultrasound RST LOS, Ultrasound ARZ LOS, Ultrasound FLA LOS Bilateral Ultrasound Impressions 03/09/2023 3:22 PM INSIDE SALES COORDINATOR Negative for acute DVT. Subacute SVT in the right GSV in the calf. Narrative 03/09/2023 3:22 PM INSIDE SALES COORDINATOR EXAM: US LOWER EXTREMITY VEINS BILATERAL Exam [...] and management can be found on the [employer] site. Link https://[employer]/topic/clinical-answers/cnt-25125835/cpm-204 25921 Procedure Note Slime Anderson M.D. - 03/09/2023 [...] thrombosis and management can be found on the[employer] site. Linkhttps://[employer].org/topic/clinical-answers/cnt-92387732/cpm -2049 3858 IMPRESSION: Negative for acute DVT. Subacute SVT in the right GSV in the calf. Diana BRO US PROCEDURES documented in this encounter Visit Diagnoses Diagnosis Acute Embolism And Thrombosis Of Unspecified Deep Veins Of Lower Extremity Bilateral (HCC) documented in this encounter
--- OUTSIDE RECORDS SUMMARY | 2023-04-06 09:13 | XMS_ITS | Encounter Summary ---
Author Name Unknown Organization [facility] Address [address] [place] [address] Care Team Providers Care Enrolled Agent Name Role Phone Unavailable Primary Care Provider Unavailabl e Encounter Details Date Type Department Care Team (Latest Contact Info) Description 02/13/2023 1:20 PM PRECISION LAYOUT WORKER Ancillary Procedure Department of Radiology in [place], [place] [address] [place] [phone] Shirlene Restrepo, SKEET OPERATOR, C.N.P., D.N.P. [address] [place] [phone] Personal History Of Other Venous Thrombosis And Embolism Social History Tobacco Use Types Packs/Day Years Used Date Smoking Tobacco: Unknown Nutrition Answer Date Recorded Nutrition: EVOO Fat Source Unknown 02/12 Nutrition: Servings of Fruits/Vegetables per Day Not on file 02/12/2023 Dental Answer Date Recorded Dental: Regular Dentist Unknown 02/13/20 Sex and Gender Information Value Date Recorded Sex Assigned at Male 03/02/2023 10:00 AM PRECISION LAYOUT WORKER Gender Identity Male 03/02/2023 10:00 AM PRECISION LAYOUT WORKER Sexual Orientation Lesbian or Boo 03/02/2023 10 :00 AM PRECISION LAYOUT WORKER documented as of this encounter Plan of Treatment Upcoming Encounters Date Type Department Care Team (Late st Contact Info) Description 06/12/2023 2:00 PM CDT Office Visit Department of Vascular Medicine in [place], [place] [address] [place] [phone] Diana Ramírez D.O. [address] [place] [phone] documented as of this encounter Procedures Procedure Name Priority Date/Time Associated Diagnosis Comments INTERPRETATION OF OUTSIDE US VASCULAR RAD - Routine (most inpatients and all outpatients) 02/13/2023 1:29 PM PRECISION LAYOUT WORKER Personal History Of Other Venous Thrombosis And Embolism documented in this encounter Results * Interpretation of Outside US Vascular (02/13/2023 1:29 PM PRECISION LAYOUT WORKER) Anatomical Region Laterality Modality Ultrasound RST LOS, Ultrasou nd ARZ LOS, Ultrasound FLA LOS, Procedural, Other, Vascular N/A Ultrasound 02/13/2023 1:31 PM PRECISION LAYOUT WORKER Impressions 02/13/2023 2:06 PM PRECISION LAYOUT WORKER 1. Positive for interval development of acute/subacute-appearing DVT in the left popliteal vein. 2. 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 Narrative 02/13/2023 2:06 PM PRECISION LAYOUT WORKER EXAM: ??INTERPRETATION OF OUTSIDE US VASCULAR with [...]
--- OUTSIDE RECORDS SUMMARY | 2023-04-06 09:13 | XMS_ITS | Encounter Summary ---
Author Name Unknown Organization [facility] Address [address] [place] [address] Care Team Providers Care Prepress Proofer Name Role Phone Unavailable Primary Care Provider Unavailabl e Encounter Details Date Type Department Care Team (Latest Contact Info) Description 02/13/2023 1:25 PM SIDEROGRAPHER Ancillary Procedure Department of Radiology in [place], [place] [address] [place] [phone] Shirlene Restrepo, CHIPPER, C.N.P., D.N.P. [address] [place] [phone] Personal History Of Other Venous Thrombosis And Embolism Social History Tobacco Use Types Packs/Day Years Used Date Smoking Tobacco: Unknown Nutrition Answer Date Recorded Nutrition: EVOO Fat Source Unknown 02/12 Nutrition: Servings of Fruits/Vegetables per Day Not on file 02/12/2023 Dental Answer Date Recorded Dental: Regular Dentist Unknown 02/13/20 Sex and Gender Information Value Date Recorded Sex Assigned at Male 03/02/2023 10:00 AM SIDEROGRAPHER Gender Identity Male 03/02/2023 10:00 AM SIDEROGRAPHER Sexual Orientation Lesbian or Boo 03/02/2023 10 :00 AM SIDEROGRAPHER documented as of this encounter Plan of Treatment Upcoming Encounters Date Type Department Care Team (Late st Contact Info) Description 06/12/2023 2:00 PM CDT Office Visit Department of Vascular Medicine in [place], [place] [address] [place] [phone] Diana Ramírez D.O. [address] [place] [phone] documented as of this encounter Visit Diagnoses Diagnosis Personal History Of Other Venous Thrombosis And Embolism documented in this encounter
--- OUTSIDE RECORDS SUMMARY | 2023-04-06 09:13 | XMS_ITS | Encounter Summary ---
Author Name Unknown Organization [facility] Address [address] [place] [address] Care Team Providers Care Oleomargarine Maker Name Role Phone Unavailable Primary Care Provider Unavailabl e Encounter Details Date Type Department Care Team (Latest Contact Info) Description 03/09/2023 10:30 AM DIFFERENTIAL REPAIRER - 03/09/2023 1:03 PM [facility] Hospital Encounter Department of Laboratory Medicine and Pathology, [facility], in [place], [place] [address] [place] [phone] Diana Ramírez D.O. [address] [place] [address] Acute Embolism And Thrombosis Of Unspecified Deep [...] Recorded In the past 12 months has [employer], gas, oil, or water [employer] threatened to shut off services in your [...] your living situation today? I have a [facility] place to live 03/02/2023 Sex and Gender Information Value Date Recorded Sex Assigned at Male 03/02/2023 10:00 AM DIFFERENTIAL REPAIRER Gender Identity Male 03/02/2023 10:00 AM DIFFERENTIAL REPAIRER Sexual Orientation Lesbian or Boo 03/02/2023 10 :00 AM DIFFERENTIAL REPAIRER documented as of this encounter Medications at [...] Office Visit Department of Vascular Medicine in [place], [place] [address] [place] [address] Diana Ramírez D.O. [address] [place] [phone] documented as of this encounter Procedures Procedure Name Priority Date/Time Associated Diagnosis Comments PS/PT AB, IGG/IGM, S Routine 03/09/2023 10:59 AM DIFFERENTIAL REPAIRER Acute Embolism And Thrombosis Of Unspecified Deep Veins Of Lower Extremity Bilateral (HCC) BETA-2 GLYCOPROTEIN 1 ABS, IGG AND IGM, S Routine 03/09/2023 10:59 AM DIFFERENTIAL REPAIRER Acute Embolism And Thrombosis Of Unspecified Deep Veins Of Lower Extremity Bilateral (HCC) PROTHROMBIN [id number] MUTATION, B Routine 03/09/2023 10:59 AM DIFFERENTIAL REPAIRER Acute Embolism And Thrombosis Of Unspecified Deep Veins Of Lower Extremity Bilateral (HCC) ANTITHROMBIN AG, P Routine 03/09/2023 10 :59 AM DIFFERENTIAL REPAIRER Acute Embolism And Thrombosis Of Unspecified Deep Veins Of Lower Extremity Bilateral (HCC) LUPUS ANTICOAGULANT PROFILE Routine 03/09/2023 10:59 AM DIFFERENTIAL REPAIRER Acute Embolism And Thrombosis Of Unspecified Deep Veins Of Lower Extremity Bilateral (HCC) PHOSPHOLIPID (CARDIOLIPIN) ABS, IGG AND IGM, S Routine 03/09/2023 10:59 AM DIFFERENTIAL REPAIRER Acute Embolism And Thrombosis Of Unspecified Deep Veins Of Lower Extremity Bilateral (HCC) ACTIVATED PARTIAL THROMBOPLASTIN TIME (APTT), P Routine 03/09/2023 10:59 AM DIFFERENTIAL REPAIRER Acute Embolism And Thrombosis Of Unspecified Deep Veins Of Lower Extremity Bilateral (HCC) PROTHROMBIN TIME (PT), P Routine 03/09/2023 10:59 AM DIFFERENTIAL REPAIRER Acute Embolism And Thrombosis Of Unspecified Deep Veins Of Lower Extremity Bilateral (HCC) HEPARIN LEVEL ANTI-XA ASSAY, P Routine 03/09/2023 10:59 AM DIFFERENTIAL REPAIRER Acute Embolism And Thrombosis Of Unspecified Deep Veins Of Lower Extremity Bilateral (HCC) ANTITHROMBIN ACTIVITY, P Routine 03/09/2023 10:59 AM DIFFERENTIAL REPAIRER Acute Embolism And Thrombosis Of Unspecified Deep Veins Of Lower Extremity Bilateral (HCC) CBC WITH DIFFERENTIAL, B Routine 03/09/2023 10:59 AM DIFFERENTIAL REPAIRER Acute Embolism And Thrombosis Of Unspecified Deep Veins Of Lower Extremity Bilateral (HCC) COMPREHENSIVE METABOLIC PANEL, S/P Routine 03/09/2023 10:59 AM DIFFERENTIAL REPAIRER Acute Embolism And Thrombosis Of Unspecified Deep Veins Of Lower Extremity Bilateral (HCC) documented in this encounter Results * Heparin Anti-Xa Assay (03/09/2023 10:59 AM DIFFERENTIAL REPAIRER) Heparin Anti-Xa, P 0.39 IU/mL 2023 12:12 PM DIFFERENTIAL REPAIRER DTL Comment: UFH therapeutic range: ?? 0.30-0.70 [...] (UFH). Blood (Blood, Venous) 03/09/2023 10:59 AM DIFFERENTIAL REPAIRER 03/09/2023 11:28 AM DIFFERENTIAL REPAIRER Diana Ramírez D.O. LAB BLOOD NON ADD -ON [facility] [place] [address] [place] [address], [facility] [address] [place] [address] * APTT (Activated Partial Thromboplastin Time) (03/09/2023 10:59 AM DIFFERENTIAL REPAIRER) Activated Partial Thrombopl Time, P 33 25 - 37 sec 03/09/2023 12:12 PM DIFFERENTIAL REPAIRER DTL Blood (Blood, Venous) 03/09/2023 10:59 AM DIFFERENTIAL REPAIRER 03/09/2023 11:28 AM DIFFERENTIAL REPAIRER Diana Ramírez D.O. LAB BLOOD ADD-ON Performing Organization Address [facility]/ZIP Co de Phone Number [facility] [place] [address] [place], [place] [phone] [place] [address] [facility] 200 [place] [address] * Prothrombin Time (PT) (03/09/2023 10:59 AM DIFFERENTIAL REPAIRER) Prothrombin Time, P 11.9 9.4 - 12.5 sec 03/09/2023 12:12 PM DIFFERENTIAL REPAIRER DTL INR 1.1 0.9 - 1.1 03/09/2023 12:12 PM DIFFERENTIAL REPAIRER DTL Comment: ----ADDITIONAL INFORMATION---- Standard intensity warfarin therapeutic range: 2.0 to 3.0 ?? High intensity warfarin therapeutic range: 2.5 to 3.5 Blood (Blood, Venous) 03/09/2023 10:59 AM DIFFERENTIAL REPAIRER 03/09/2023 11:28 AM DIFFERENTIAL REPAIRER Diana Ramírez D.O. LAB BLOOD ADD-ON [facility] [place] [address] [place] [address], [facility] [address] [place] [address] * (ABNORMAL) CBC with Differential, Blood (03/09/2023 10:59 AM DIFFERENTIAL REPAIRER) Hemoglobin 16.0 13.2 - 16.6 g/dL 03/09/2023 11:42 AM DIFFERENTIAL REPAIRER DTL Hematocrit 47.4 38.3 - 48.6 % 03/09/2023 11:42 AM DIFFERENTIAL REPAIRER DTL Erythrocytes 5.33 4.35 - 5.65 x10(12)/L 03/09/2023 11:42 AM DIFFERENTIAL REPAIRER DTL MCV 88.9 78.2 - 97.9 fL 03/09/2023 11:42 AM DIFFERENTIAL REPAIRER DTL RBC Distrib Width 12.6 11.8 - 14.5 % 03/09/2023 11:42 AM DIFFERENTIAL REPAIRER DTL Platelet Count 302 135 - 317 x10(9)/L 03/09/2023 11:42 AM DIFFERENTIAL REPAIRER DTL Leukocytes 8.5 3.4 - 9.6 x10(9)/L 03/09/2023 11:42 AM DIFFERENTIAL REPAIRER DTL Neutrophils 3.99 1.56 - 6.45 x10(9)/L 03/09/2023 11:42 AM DIFFERENTIAL REPAIRER PM Lymphocytes 3.64(H) 0.95 - 3.07 x10(9)/L 03/09/2023 11:42 AM DIFFERENTIAL REPAIRER DTL Monocytes 0.75 0.26 - 0.81 x10(9)/L 03/09/2023 11:42 AM DIFFERENTIAL REPAIRER DTL Eosinophils 0.06 0.03 - 0.48 x10(9)/L 03/09/2023 11:42 AM DIFFERENTIAL REPAIRER DTL Basophils <0.03 0.01 - 0.08 x10(9)/L 03/09/2023 11:42 AM DIFFERENTIAL REPAIRER DTL Blood (Blood, Venous) 03/09/2023 10:59 AM DIFFERENTIAL REPAIRER 03/09/2023 11:28 AM DIFFERENTIAL REPAIRER Diana Ramírez D.O. LAB BLOOD ADD-ON [facility] [place] [address] [place] [address], [facility] DTL [facility] [address] [place] [address] [facility] [address] [place] [address] * Beta-2 Glycoprotein 1 Antibodies, IgG and IgM (03/09/2023 10:59 AM DIFFERENTIAL REPAIRER) Pathologist [facility] Beta 2 GP1 Ab IgG, S <9.4 <15.0 (Negative) U 03/10/2023 8:15 PM DIFFERENTIAL REPAIRER SDSC Beta 2 GP1 Ab IgM, S <9.4 <15.0 (Negative) U 03/10/2023 8:45 PM DIFFERENTIAL REPAIRER SDSC Blood (Blood, Venous) 03/09/2023 10:59 AM DIFFERENTIAL REPAIRER 03/09/2023 3:50 PM DIFFERENTIAL REPAIRER Diana Ramírez D.O. LAB BLOOD ADD-ON Performing Organization Address City/[facility]/ZIP Co de Phone Number [facility] [address] [place] [address] [facility] [address] [place] [address] * Phospholipid (Cardiolipin) Antibodies, IgG and IgM (03/09/2023 10:59 AM DIFFERENTIAL REPAIRER) Phospholipid Ab IgM, S 9.9 <15.0 (Negative) MPL 03/10/2023 6:20 PM DIFFERENTIAL REPAIRER SDS Phospholipid Ab IgG, S <9.4 <15.0 (Negative) GPL 03/10/2023 6:06 PM DIFFERENTIAL REPAIRER [facility] Blood (Blood, Venous) 03/09/2023 10:59 AM DIFFERENTIAL REPAIRER 03/09/2023 3:50 PM DIFFERENTIAL REPAIRER Diana Ramírez D.O. LAB BLOOD ADD-ON Performing Organization Address City/[facility] Co de Phone Number [facility] [address] [place] [address] [place] [id number] [place] [address] * Phosphatidylserine/Prothrombin Antibody, IgG and IgM (03/09/2023 10:59 AM DIFFERENTIAL REPAIRER) PS/PT Ab, IgG, S <9.4 <=30.0 (Negative ) U 03/11/2023 8:14 PM DIFFERENTIAL REPAIRER [facility] Comment: ----ADDITIONAL INFORMATION---- This test has been modified from the supervisor park workers's instructions. Its performance characteristics were determined by [facility] in a manner consistent with CLIA requirements. This test has not been cleared or approved by the U.S. Food and Drug Administration. PS/PT Ab, IgM, S 13.7 <=30.0 (Negative ) U 03/11/2023 8:14 PM DIFFERENTIAL REPAIRER [facility] Comment: ----ADDITIONAL INFORMATION---- This test has been modified from the supervisor park workers's instructions. Its performance characteristics were determined by [facility] in a manner consistent with CLIA requirements. This test has not been cleared or approved by the U.S. Food and Drug Administration. Blood (Blood, Venous) 03/09/2023 10:59 AM DIFFERENTIAL REPAIRER 03/09/2023 4:33 PM DIFFERENTIAL REPAIRER Diana Ramírez D.O. LAB BLOOD ADD-ON [facility] [address] [place] [address] [facility] [address] [place] [address] * Lupus Anticoag Prof (03/09/2023 10:59 AM DIFFERENTIAL REPAIRER) [facility] Lupus Anticoagulant [facility] SEE COMMENT 03/09/2023 1:41 PM DIFFERENTIAL REPAIRER DTL Comment: No evidence of a lupus [...] 9.4 - 12.5 sec 03/09/2023 1:41 PM DIFFERENTIAL REPAIRER DTL INR 1.1 0.9 - 1.1 03/09/2023 1:41 PM DIFFERENTIAL REPAIRER DTL Comment: ----ADDITIONAL INFORMATION---- Standard intensity warfarin therapeutic range: 2.0 to 3.0 High intensity warfarin therapeutic range: 2.5 to 3.5 Activated Partial Thrombopl Time, P 32 25 - 37 sec 03/09/2023 1:41 PM DIFFERENTIAL REPAIRER DTL DRVVT Screen Ratio 1.19 <1.20 ratio 03/09/2023 1:41 PM DIFFERENTIAL REPAIRER DTL Blood (Blood, Venous) 03/09/2023 10:59 AM DIFFERENTIAL REPAIRER 03/09/2023 11:37 AM DIFFERENTIAL REPAIRER Narrative [facility] [place] - 03/09/2023 1:41 PM DIFFERENTIAL REPAIRER Specimen Information: Specimen ID: [id number] Specimen Type: Blood Specimen Collection Start Date: 03/09/2023 10:59 AM Specimen Received Date: 03/09/2023 11:37 AM Specimen ID: [id number] Specimen Type: Blood Specimen Collection Start Date: 03/09/2023 10:59 AM Specimen Received Date: 03/09/2023 11:37 AM Specimen ID: [id number] Specimen Type: Blood Specimen Collection Start Date: 03/09/2023 10:59 AM Specimen Received Date: 03/09/2023 11:37 AM Specimen ID: [id number] Specimen Type: Blood Specimen Collection Start Date: 03/09/2023 10:59 AM Specimen Received Date: 03/09/2023 11:37 AM Diana Ramírez D.O. LAB BLOOD NON ADD -ON [address] [place] [address] * Antithrombin Antigen (03/09/2023 10:59 AM DIFFERENTIAL REPAIRER) Antithrombin Antigen, P 90 80 - 120 % 03/09/2023 12:39 PM DIFFERENTIAL REPAIRER DTL Comment: ----ADDITIONAL INFORMATION---- This test has been modified from the supervisor park workers's instructions. Its performance characteristics were determined by [facility] in a manner consistent with CLIA requirements. This test has not been cleared or approved by the U.S. Food and Drug Administration. Blood (Blood, Venous) 03/09/2023 10:59 AM DIFFERENTIAL REPAIRER 03/09/2023 11:37 AM DIFFERENTIAL REPAIRER Diana Ramírez D.O. LAB BLOOD ADD-ON [facility] [place] [address] [place] [address], [facility] [address] [place] [address] * Antithrombin Activity (03/09/2023 10:59 AM DIFFERENTIAL REPAIRER) Antithrombin Activity, P 86 80 - 130 % 03/09/2023 12:36 PM DIFFERENTIAL REPAIRER DTL Comment: Direct factor Xa inhibitor therapy (rivaroxaban (Xarelto), apixaban (Eliquis), edoxaban (Savaysa)) may interfere with the functional Xa based AT assay and cause an overestimation of AT activity thus potentially masking diagnosis of AT deficiency. ??Suggest clinical correlation and consider repeat AT testing remote from direct factor Xa inhibitor therapy, if clinically indicated. ----ADDITIONAL INFORMATION---- This test has been modified from the supervisor park workers's instructions. Its performance characteristics were determined by [facility] in a manner consistent with CLIA requirements. This test has not been cleared or approved by the U.S. Food and Drug Administration. Blood (Blood, Venous) 03/09/2023 10:59 AM DIFFERENTIAL REPAIRER 03/09/2023 11:37 AM DIFFERENTIAL REPAIRER Diana Ramírez D.O. 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 The Prothrombin (F2 c.*97G>A) variant is a mild risk factor for venous thromboembolism (VTE). This individual may have other genetic and environmental risk factors for VTE. If indicated, consider genetic consultation and counseling for this individual and potentially affected family members regarding laboratory testing. 03/11/2023 7:55 AM DIFFERENTIAL REPAIRER DTL Comment: ----ADDITIONAL INFORMATION---- This test uses [...] and its performance characteristics determined by [facility] in a manner consistent with CLIA requirements. This test has not been cleared or approved by the U.S. Food and Drug Administration. Blood (Blood, Venous) 03/09/2023 10:59 AM DIFFERENTIAL REPAIRER 03/09/2023 11:45 AM DIFFERENTIAL REPAIRER Diana Ramírez D.O. LAB GENETIC TESTI [facility] [address] DTL [address] [place] [address] * (ABNORMAL) Comprehensive Metabolic Panel (03/09/2023 10:59 AM DIFFERENTIAL REPAIRER) Potassium, S 4.6 3.6 - 5.2 mmol/L 03/09/2023 12:22 PM DIFFERENTIAL REPAIRER DTL Sodium, S 142 135 - 145 mmol/L 03/09/2023 12:22 PM DIFFERENTIAL REPAIRER DTL Chloride, S 101 98 - 107 mmol/L 03/09/2023 12:22 PM DIFFERENTIAL REPAIRER DTL Bicarbonate, S 29 22 - 29 mmol/L 03/09/2023 12:22 PM DIFFERENTIAL REPAIRER DTL Anion Gap 12 7 - 15 03/09/2023 12:22 PM DIFFERENTIAL REPAIRER DTL BUN (Blood Urea Nitrogen), S 19 8 - 24 mg/dL 03/09/2023 12:22 PM DIFFERENTIAL REPAIRER DTL Creatinine 1.21 0.74 - 1.35 mg/dL 03/09/2023 12:22 PM DIFFERENTIAL REPAIRER DTL Estimated GFR (eGFR) 68 >=60 mL/min/BS A 03/09/2023 12:22 PM DIFFERENTIAL REPAIRER DTL Comment: Estimated GFR calculated using the 2020 CKD_EPI creatinine equation. Calcium, Total, S 9.5 8.8 - 10.2 mg/dL 03/09/2023 12:22 PM DIFFERENTIAL REPAIRER DTL Glucose, S 156(H) 70 - 140 mg/dL 03/09/2023 12:22 PM DIFFERENTIAL REPAIRER DTL Protein, Total, S 6.9 6.3 - 7.9 g/dL 03/09/2023 12:22 PM DIFFERENTIAL REPAIRER DTL Albumin, S 4.5 3.5 - 5.0 g/dL 03/09/2023 12:22 PM DIFFERENTIAL REPAIRER DTL Aspartate Aminotransferase (AST), S 24 8 - 48 U/L 03/09/2023 12:22 PM DIFFERENTIAL REPAIRER DTL Alkaline Phosphatase, S 40 40 - 129 U/L 03/09/2023 12:22 PM DIFFERENTIAL REPAIRER DTL Alanine Aminotransferase (ALT), S 42 7 - 55 U/L 03/09/2023 12:22 PM DIFFERENTIAL REPAIRER DTL Bilirubin, Total, S 0.3 0.0 - 1.2 mg/dL 03/09/2023 12:22 PM DIFFERENTIAL REPAIRER DTL Blood (Blood, Venous) 03/09/2023 10:59 AM DIFFERENTIAL REPAIRER 03/09/2023 11:41 AM DIFFERENTIAL REPAIRER Diana Ramírez D.O. LAB BLOOD ADD-ON [facility] [address] [place] [address], [facility] DTL [facility] [address] [place] [address] documented in this encounter Visit Diagnoses Diagnosis Acute Embolism And Thrombosis Of Unspecified Deep Veins Of Lower Extremity Bilateral (HCC) documented in this encounter
--- OUTSIDE RECORDS SUMMARY | 2023-04-06 09:13 | XMS_ITS | Encounter Summary ---
Author Name Unknown Organization [facility] Address [address] [place] [address] Care Team Providers Care Financial Management Name Role Phone Unavailable Primary Care Provider Unavailabl e Reason for Referral * Outpatient (Routine) - Closed Specialty Diagnoses / Procedures Referred By Contac t Referred To Contact Vascular Medicine Diagnoses Acute Embolism And Thrombosis Of Unspecified Deep Veins Of Lower Extremity Bilateral (HCC) Spencer Coates M.D. [address] [place] [address] [facility] Referral ID Status Reason Start Date Expiration Date Visits Re quested Visits Authorized [id number] Closed 02/12/2023 02/12/2024 1 1 ALT PAVER OPERATOR Encounter Details Date Type Department Care Team (Late st Contact Info) Description 02/12/2023 [facility] [address] [place] [address] Spencer Coates M.D. [address] [place] [address] Acute Embolism And Thrombosis Of Unspecified Deep [...] Sex Assigned at Male 03/02/2023 10:00 AM ASPHALT PAVER OPERATOR Gender Identity Male 03/02/2023 10:00 AM ASPHALT PAVER OPERATOR Sexual Orientation Lesbian or Boo 03/02/2023 10 :00 AM ASPHALT PAVER OPERATOR documented as of this encounter Plan of Treatment Upcoming Encounters Date Type Department Care Team (Late st Contact Info) Description 06/12/2023 2:00 PM CDT Office Visit Department of Vascular Medicine in [place], [place] [address] [place] [address] Diana Ramírez D.O. [address] [place] [address] Scheduled Referrals Name Type Priority Associated Diagnoses [...]
--- OUTSIDE RECORDS SUMMARY | 2023-04-06 09:13 | XMS_ITS | Encounter Summary ---
Author Name Unknown Organization [facility] Address [address] [place] [address] Care Team Providers Care Dye House Vat Worker Name Role Phone Unavailable Primary Care Provider Unavailabl e Reason for Referral * MRI/CAT/PET Scan (Routine) - Closed Specialty Diagnoses / Procedures Referred By Jun ortiz Referred To Contact Radiology Diagnoses Acute Embolism And Thrombosis Of Unspecified Deep Veins Of Lower Extremity Bilateral (HCC) Procedures CT Abdomen Pelvis Venogram with IV Contrast Diana Ramírez D.O. [address] [place] [address] [facility] Referral ID Status Reason Start Date Expiration Date Visits Re quested Visits Authorized [id number] Closed 03/09/2023 03/08/2024 1 1 SORTER Reason for Visit * MRI/CAT/PET Scan (Routine) - Closed Specialty Diagnoses / Procedures Referred By Jun ortiz Referred To Contact Radiology Diagnoses Acute Embolism And Thrombosis Of Unspecified Deep Veins Of Lower Extremity Bilateral (HCC) Procedures CT Abdomen Pelvis Venogram with IV Contrast Diana Ramírez D.O. [address] [place] [address] [facility] Referral ID Status Reason Start Date Expiration Date Visits Re quested Visits Authorized [id number] Closed 03/09/2023 03/08/2024 1 1 Encounter Details Date Type Department Care Team (Latest Contact Info) Description 03/11/2023 2:52 PM BOX SORTER - 03/11/2023 11:59 PM BOX SORTER Hospital Encounter Department of Radiology, [place], in [place], [place] [address] [place] [address] Diana Ramírez D.O. [address] [place] [address] Acute Embolism And Thrombosis Of Unspecified Deep Veins Of Lower Extremity Bilateral (HCC) Discharge Disposition: Home or Self Care Social History Tobacco Use Types Packs/Day Years Used Date Smoking Tobacco: Former Cigarettes 2 16 1 - 11/12/1996 Smokeless Tobacco: Never Alcohol Use Standard Drinks/Week Comments Never 0 (1 standard drink = 0.6 oz pur e alcohol) [facility] Utilities Answer Date Recorded In [...] Sex Assigned at Male 03/02/2023 10:00 AM BOX SORTER Gender Identity Male 03/02/2023 10:00 AM BOX SORTER Sexual Orientation Lesbian or Boo 03/02/2023 10 :00 AM BOX SORTER documented as of this encounter Medications at [...] Office Visit Department of Vascular Medicine in [place], [place] [address] [place] [address] Diana Ramírez D.O. [address] [place] [address] documented as of this encounter Procedures Procedure Name Priority Date/Time Associated Diagnosis Comments CT ABDOMEN PELVIS VENOGRAM WITH IV CONTRAST RAD - Routine (most inpatients and all outpatients) 03/11/2023 4:22 PM BOX SORTER Acute Embolism And Thrombosis Of Unspecified Deep Veins Of Lower Extremity Bilateral (HCC) documented in this encounter Results * CT Abdomen Pelvis Venogram with IV Contrast (03/11/2023 4:22 PM BOX SORTER) Anatomical Region Laterality Modality Abdomen, Pelvis, Cardiovascu lar RST LOS, Abdominal ARZ LOS, Vascular Interventional FLA LOS, Procedural, Vascular Interventional NWWI LOS N/A Computed Tomography, Computed Tomography 03/11/2023 4:14 PM BOX SORTER Impressions 03/11/2023 5:18 PM BOX SORTER Patent venous vasculature in the abdomen/pelvis. Narrative 03/11/2023 5:18 PM BOX SORTER EXAM: ??CT ABDOMEN PELVIS VENOGRAM WITH IV [...] Radiant Medication Guidelines Given 03/11/2023 4:01 PM BOX SORTER 180 mL sodium chloride (PF) 0.9 % injection 1-100 mL 1-100 mL, intravenous, Once, On Thu03/11/23 at 1600, For 1 dose, Imaging Protocol Orders Given 03/11/2023 4:01 PM BOX SORTER 30 mL documented in this encounter
--- OUTSIDE RECORDS SUMMARY | 2023-04-06 09:13 | XMS_ITS | Continuity of Care Document ---
Author Name Unknown Organization [facility] Address [address] [place] [address] Phone Care Team Providers Care Land Checker Name Role Phone Jason Hutchinson Unavailable Unavailable [...] Available - Active Procedures Procedure Date Office/Outpatient Visit,[facility], [facility] [place] Advance Directives Directive Yes / No Effective Date File Name No Information Encounters Encounter Description Practice Location Reason(s) For Visit Diagnoses Date Provider Providers Copied on Encounter Office/Outpat ient Visit,[place], [facility], [address], [place], [place], [id number], [place] tel:[phone] [facility] Other spondylosis , lumbar region Seferino Gomez. [facility], [address], [place], [place], [id number], [place]. tel:[phone] Referring Provider: Spencer Coates [facility] [address] [place], [address]. tel:[phone] Family History Family Member Type Diagnosis Age At Onset No Information Payers Payer name Insurance type Covered libertarian ID Authoriza tion(s) No Information Social History [...]
--- OUTSIDE RECORDS SUMMARY | 2023-04-06 09:13 | XMS_ITS | Encounter Summary ---
Author Name Unknown Organization [facility] Address [address] [place] [address] Care Team Providers Care Customer Account Manager Name Role Phone Unavailable Primary Care Provider Unavailabl e Encounter Details Date Type Department Care Team (Late st Contact Info) Description 02/25/2023 Orders Only Department of Vascular Medicine in [place], [place] [address] [place] [address] Anel Arreguin P.A.-C. [address] [place] [address] Social History Tobacco Use Types Packs/Day Years Used Date Smoking Tobacco: Unknown [facility] Utilities Answer Date Recorded In [...] your living situation today? [facility] 03/02/2023 Sex and Gender Information Value Date Recorded Sex Assigned at Male 03/02/2023 10:00 AM SALES SUPPORT SPECIALIST Gender Identity Male 03/02/2023 10:00 AM SALES SUPPORT SPECIALIST Sexual Orientation Lesbian or Boo 03/02/2023 10 :00 AM SALES SUPPORT SPECIALIST documented as of this encounter Plan of Treatment Upcoming Encounters Date Type Department Care Team (Late st Contact Info) Description 06/12/2023 2:00 PM CDT Office Visit Department of Vascular Medicine in [place], [place] [address] [place] [address] Diana Ramírez D.O. [address] [place] [address] documented as of this encounter Visit Diagnoses Not on filedocumented in this encounter
--- OUTSIDE RECORDS SUMMARY | 2023-04-06 09:13 | XMS_ITS | Encounter Summary ---
Author Name Unknown Organization [facility] Address [address] [place] [address] Care Team Providers Care Haul Driver Name Role Phone Unavailable Primary Care Provider Unavailabl e Reason for Visit * Reason Onset Date Comments Triage 02/25/2023 comments Encounter Details Date Type Department Care Team (Latest Contact Info) Description 02/25/2023 Clinical Communication Department of Vascular Medicine in [place], [place] [address] [place] [address] Diana Ramírez DShamar [address] [place] [address] Triage (comments) Social History Tobacco Use Types Packs/Day Years Used Date Smoking Tobacco: Unknown [facility] Utilities Answer Date Recorded In the [...] your living situation today? I have a [facility] place to live 03/02/2023 Sex and Gender Information Value Date Recorded Sex Assigned at Male 03/02/2023 10:00 AM CARGO AND RAMP SERVICES MANAGER Gender Identity Male 03/02/2023 10:00 AM CARGO AND RAMP SERVICES MANAGER Sexual Orientation Lesbian or Boo 03/02/2023 10 :00 AM CARGO AND RAMP SERVICES MANAGER documented as of this encounter Plan of Treatment Upcoming Encounters Date Type Department Care Team (Late st Contact Info) Description 06/12/2023 2:00 PM CDT Office Visit Department of Vascular Medicine in [place], [place] [address] [place] [address] Dinaa Ramírez D.O. [address] [place] [address] documented as of this encounter Visit Diagnoses Not on filedocumented in this encounter
--- OUTSIDE RECORDS SUMMARY | 2023-04-06 09:13 | XMS_ITS | Encounter Summary ---
Author Name Unknown Organization [facility] Address [address] [place] [address] Care Team Providers Care Fiberglass Luggage Molder Name Role Phone Unavailable Primary Care Provider Unavailabl e Reason for Referral * Outpatient (Routine) - Authorized Specialty Diagnoses / Procedures Referred By Contac t Referred To Contact Vascular Medicine Diana Ramírez D.O. [address] [place] [address] [facility] Referral ID Status Reason Start Date Expiration Date V isits Requested Visits Authorized [id number] Authorized 03/17/2023 03/16/2026 1 1 GN DRAFTER * Outpatient (Routine) - Closed Specialty Diagnoses / Procedures Referred By Contac t Referred To Contact Endocrinology Diagnoses Other Specified Disorders Of Adrenal Gland (HCC) Diana Ramírez D.O. [address] [place] [address] [facility] Referral ID Status Reason Start Date Expiration Date Visits Re quested Visits Authorized [id number] Closed 03/17/2023 03/16/2024 1 1 GN DRAFTER Reason for Visit * Outpatient (Routine) - Closed Specialty Diagnoses / Procedures Referred By Contac t Referred To Contact Vascular Medicine Diana Ramírez D.O. [address] [place] [address] [facility] Referral ID Status Reason Start Date Expiration Date Visits Re quested Visits Authorized [id number] Closed 03/09/2023 03/08/2026 1 1 Encounter Details Date Type Department Care Team (Late st Contact Info) Description 03/17/2023 4:00 PM DESIGN DRAFTER Telemedicine Department of Vascular Medicine in [place], [place] [address] [place] [address] Diana Ramírez D.O. [address] [place] [address] Acute Embolism And Thrombosis Of Unspecified Deep [...] = 0.6 oz pur e alcohol) [facility] Utilities Answer Date Recorded In the past 12 months has [employer], gas, oil, or water [employer] threatened to shut off services in your [...] your living situation today? I have a [facility] place to live 03/02/2023 Sex and Gender Information Value Date Recorded Sex Assigned at Male 03/02/2023 10:00 AM DESIGN DRAFTER Gender Identity Male 03/02/2023 10:00 AM DESIGN DRAFTER Sexual Orientation Lesbian or Boo 03/02/2023 10 :00 AM DESIGN DRAFTER documented as of this encounter Progress Notes [...] in the future should additional questions arise. GN DRAFTER documented in this encounter Plan of Treatment Upcoming Encounters Date Type Department Care Team (Late st Contact Info) Description 06/12/2023 2:00 PM CDT Office Visit Department of Vascular Medicine in [place], [place] [address] [place] [address] Diana Ramírez D.O. [address] [place] [address] Pending Results Name Type Priority Associated Diagnoses Date /Time Monoclonal Gammopathy Diagnostic Lab Routine Acute Embolism And Thrombosis Of Unspecified Deep Veins Of Lower Extremity Bilateral (HCC) Dilated Common Bile Duct 04/02/2023 2:49 PM DESIGN DRAFTER Scheduled Referrals Name Type Priority Associated Diagnoses Order Schedule Endocrinology - Pituitary / gonad / adrenal disorders consult (clinic) Outpatient Referral Routine Other Specified Disorders Of Adrenal Gland (HCC) Expected: 03/17/2023 (Approximate), Expires: 06/15/2024 Vascular Medicine office visit (clinic) Thrombophilia Outpatient Referral Routine Expected: 06/16/2023 (Approximate), Expires: 06/15/2024 documented as of this encounter Results * GGT (Gamma-Glutamyltransferase) (04/02/2023 2:49 PM DESIGN DRAFTER) Gamma Glutamyltransferase (GGT), S 29 8 - 61 U/L 04/02/2023 4:44 PM DESIGN DRAFTER DTL Blood (Blood, Venous) 04/02/2023 2:49 PM DESIGN DRAFTER 04/02/2023 3:27 PM DESIGN DRAFTER Diana Ramírez D.O. LAB BLOOD ADD-ON Performing Organization Address [facility]/ZIP Co de Phone Number [facility] [address] [place] [address], [facility] [address] [place] [address] * D-Dimer (04/02/2023 2:49 PM DESIGN DRAFTER) D-Dimer, P <220 <=500 ng/mL FEU 04/02/2023 4:29 PM DESIGN DRAFTER DTL Comment: ----ADDITIONAL INFORMATION---- D-dimer values less than or equal to 500 ng/mL fibrinogen equivalent units (FEU) may be used in conjunction with clinical pre-test probability to exclude deep vein thrombosis (DVT) and/or pulmonary embolism (PE). Blood (Blood, Venous) 04/02/2023 2:49 PM DESIGN DRAFTER 04/02/2023 3:12 PM DESIGN DRAFTER Diana Ramírez D.O. LAB BLOOD ADD-ON Performing Organization Address City/[facility]/ZIP Co de Phone Number [facility] [address] [place] [address], [facility] [address] [place] [address] * Heparin-PF4 IgG Antibody (HIT) (04/02/2023 2:49 PM DESIGN DRAFTER) HIT KELLY 0.100 <0.400 OD 04/02/2023 7:20 PM DESIGN DRAFTER DTL HIT Interpretation Negative Negative 2023 7:20 PM DESIGN DRAFTER DTL HIT Comment Patient serum has no [...] clinical probability is high. 04/02/2023 7:20 PM DESIGN DRAFTER DTL Comment: ----ADDITIONAL INFORMATION---- This test has been modified from the campaign assistant's instructions. Its performance characteristics were determined by [facility] in a manner consistent with CLIA requirements. This test has not been cleared or approved by the U.S. Food and Drug Administration. Blood (Blood, Venous) 04/02/2023 2:49 PM DESIGN DRAFTER 04/02/2023 4:00 PM DESIGN DRAFTER Diana Ramírez D.O. LAB BLOOD NON ADD -ON [facility] [address] [place] [address], [facility] DT 200 [facility] [address] [place] [address] documented in this encounter Visit Diagnoses Diagnosis Acute Embolism And Thrombosis Of Unspecified Deep Veins Of Lower Extremity Bilateral (HCC)- Primary Other Specified Disorders Of Adrenal Gland (HCC) Dilated Common Bile Duct documented in this encounter
--- OUTSIDE RECORDS SUMMARY | 2023-04-06 09:13 | XMS_ITS | Encounter Summary ---
Author Name Unknown Organization [facility] Address [address] [place] [address] Care Team Providers Care Road Monkey Name Role Phone Unavailable Primary Care Provider Unavailabl e Encounter Details Date Type Department Care Team (Late st Contact Info) Description 02/13/2023 Orders Only Department of Vascular Medicine in [place], [place] [address] [place] [phone] Shirlene Restrepo, FACILITIES CUSTODIAN, C.N.P., D.N.P. [address] [place] [phone] Personal History Of Other Venous Thrombosis And [...] Sex Assigned at Male 03/02/2023 10:00 AM PIPE THREADING MACHINE OPERATOR Gender Identity Male 03/02/2023 10:00 AM PIPE THREADING MACHINE OPERATOR Sexual Orientation Lesbian or Boo 03/02/2023 10 :00 AM PIPE THREADING MACHINE OPERATOR documented as of this encounter Plan of Treatment Upcoming Encounters Date Type Department Care Team (Late st Contact Info) Description 06/12/2023 2:00 PM CDT Office Visit Department of Vascular Medicine in [place], [place] [address] [place] [phone] Diana Ramírez D.O. [address] [place] [phone] documented as of this encounter Results * Interpretation of Outside US Vascular (02/13/2023 1:29 PM PIPE THREADING MACHINE OPERATOR) Anatomical Region Laterality Modality Ultrasound RST LOS, Ultrasou nd ARZ LOS, Ultrasound FLA LOS, Procedural, Other, Vascular N/A Ultrasound 02/13/2023 1:31 PM PIPE THREADING MACHINE OPERATOR Impressions 02/13/2023 2:06 PM PIPE THREADING MACHINE OPERATOR 1. Positive for interval development of acute/subacute-appearing DVT in the left popliteal vein. 2. 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 Narrative 02/13/2023 2:06 PM PIPE THREADING MACHINE OPERATOR EXAM: ??INTERPRETATION OF OUTSIDE US VASCULAR with [...]
--- OUTSIDE RECORDS SUMMARY | 2023-04-06 09:14 | XMS_ITS | Clinical Summary ---
Author Name Unknown Organization [facility] Address [place], [place] [address] Care Team Providers Care Legal Secretary Receptionist Name Role Phone Spencer Coates MD Primary Care Provider [phone] Allergies Active Allergy Reactions Criticality Noted Date [...] Comments Blood Pressure 136/82 02/01/2020 1:28 PM VETERINARY MEDICINE SCIENTIST Pulse 85 02/01/2020 1:28 PM VETERINARY MEDICINE SCIENTIST Temperature 36.4 ??C (97.5 ??F) 05/26/2016 1:40 PM CD T Respiratory Rate 16 02/01/2020 1:28 PM VETERINARY MEDICINE SCIENTIST Oxygen Saturation 95% 05/26/2016 1:40 PM CDT [...] age to complete this topic Care Teams Legal Secretary Receptionist Relationship Specialty Start Date End Date Spencer Coates MD [address] [place] [address] PCP - General Internal Medicine 10/03/19
[2023-04-07 19:16] LABS: Adrenocorticotropic Hormone 1.9 pg/mL (7.2-63.3)
[2023-04-07 20:15] LABS: Cortisol, Serum 1.1 ug/dL
== END 2023-04-06 09:09 | disposition home or self-care (01) ==
LOC: NPINS 09:08
PROVIDERS: PCP Internal Medicine
DX: R93.5 Abnormal findings on diagnostic imaging of other abdominal regions, including retroperitoneum (principal)
CPT/HCPCS: 80299; 82024; 82533

== ENCOUNTER 2023-09-17 13:39 | Outpatient (CLI) | payer MEDICAID, SELFPAY ==
--- OUTSIDE RECORDS SUMMARY | 2023-09-17 13:44 | XMS_ITS ---
Author Organization [facility] Address [address] [place] [address] Care Team Providers Care Credit Risk Modeler Name Role Phone Unavailable Unavailable Unavailable Surgery Details Not on file Complications Check Surgery Details section. Procedure Estimated Blood Loss Check Surgery Details section. Procedure Findings Check Surgery Details section. Procedure Specimens Taken Check Surgery Details section.
--- OUTSIDE RECORDS SUMMARY | 2023-09-17 13:44 | XMS_ITS | Clinical Summary ---
Author Organization [facility] Address [address] [place] [address] Care Team Providers Care Photonics Engineering Technologist Name Role Phone Unavailable Primary Care Provider Unavailabl e Source Comments Patient records contain information from all sites at [facility]. For routine questions regarding patient records, call [phone] during business hours, M-F 8:00 AM - 5:00 PM Central Time. Record requests for emergency care only can be directed to [phone] at any time.[facility] Allergies Active Allergy Reactions Criticality Noted Date Comments Penicillin Other (see comments) 03/11/2023 Reaction happened as child Ropinirole GI intolerance High 02/09/2023 Medications Medication Sig Dispensed Refills Start Date End Date Status losartan-hydroCHLOROth iazide (HYZAAR) 100-12.5 mg per tablet Take 1 tablet by mouth daily. Active traMADoL (ULTRAM) 50 mg tablet Take 50 mg by mouth every 8 (eight) hours as needed for pain. Active verapamiL (CALAN-SR) 180 mg ER tablet Take 180 mg by mouth daily. Active LORazepam (ATIVAN) 1 mg tablet Take 1 mg by mouth 2 (two) times a day as needed. for anxiety Active enoxaparin (LOVENOX) 100 mg/mL injection Inject 1.5 mL (150 mg total) under the skin daily. Stop taking when INR >2.0 30 mL 1 04/02/2023 Active Active Problems Problem Noted Date Diagnosed [...] Encounters Date Type Department Care Team Description 06/29/2023 1:30 PM CDT Telemedicine Division of Hematology in [place], [place] [address] [place] [address] Bhavana Larsen M.D., M.B.A. Gammopathy Monoclonal Nonspecific from Last 3 Months Family History Medical History Relation Name Comments Colon cancer Father Francis Restrepo Sr Part of Col on removed Lung cancer Father Francis Restrepo Sr Coronary artery disease Mother Desiree Restrepo COPD Relation Name Status Comments Father Francis Restrepo Sr Mother Desiree Restrepo Social History Tobacco Use Types Packs/Day Years Used Date Smoking Tobacco: Former Cigarettes 2 19 1 - 11/12/1996 Smokeless Tobacco: Never Tobacco Cessation:Counseling Given: Not Answered Alcohol Use Standard Drinks/Week Comments Never 0 (1 standard drink = 0.6 oz pur e alcohol) [facility] Utilities Answer Date Recorded In the past 12 months has th e [employer], gas, oil, or water [employer] threatened to shut off services in your [...] Answer Date Recorded Employment status Unemployed/not in [employer] paid workforce but seeking employment 03/02/2023 Housing Stability Answer Date Recorded What is your living situation today? I have a [facility] place to live 03/02/2023 Sex and Gender Information Value Date Recorded Sex Assigned at Male 03/02/2023 10:00 AM HABILITATION ASSISTANT Gender Identity Male 03/02/2023 10:00 AM HABILITATION ASSISTANT Sexual Orientation Lesbian or Boo 03/02/2023 10 :00 AM HABILITATION ASSISTANT Last Filed Vital Signs Vital Sign Reading Time Taken Comments Blood Pressure 130/75 06/12/2023 1:58 PM CDT Pulse 72 06/12/2023 1:58 PM CDT Temperature - - Respiratory Rate - - Oxygen Saturation - - Inhaled Oxygen Concentration - - Weight 111 kg (244 lb 0.8 oz) 06/12/2023 1:57 PM CDT Height 174.6 cm (5' 8.74) 06/12/2023 1:57 PM CD T Body Mass Index 36.31 06/12/2023 1:57 PM CDT Plan of Treatment Upcoming Encounters Date Type Department Care Team (Late st Contact Info) Description 10/08/2023 8:50 AM CDT Appointment Department of Laboratory Medicine and Pathology, [facility], in [place], [place] [address] [place] [address] Renate Luo M.D. [address] [place] [address] 10/08/2023 11:00 AM CDT Office Visit Division of Endocrinology in [place], [place] [address] [place] [address] Renate Luo M.D. [address] [place] [address] Health Maintenance Due Date Last Done Comments CT Colonography 1961 Cologuard 1960 Colonoscopy 1960 Colorectal Cancer Surveillance 1960 Hepatitis C Screening 1960 Lipid (Cholesterol) Screening 1960 Hepatitis A Vaccines (2 of 3 - Hep A risk 3-dose series) 01/13/2002 12/16/2001, 12/16/2001, 06/14/2001, Additional history exists Zoster Vaccines (2 of 2) 02/11/2023 12/17/2022 Depression Screening (Annual PHQ-2) 03/02/2023 Influenza Vaccine (#1) 2023 , 12/05/2021, 01/23/2021, Additional history exists Fasting Glucose for Diabetes Screening 03/09/2024 03/09/2023 Potassium Level 03/09/2024 03/09/2023 Sodium Level 03/09/2024 03/09/2023 Creatinine Level (Kidney Function Test) 06/11/2024 06/12/2023, 03/09/2023 Office Visit for Blood Pressure Check / Re-check 06/11/2024 06/12/2023 DTaP,Tdap,and Td Vaccines (3 - Td or Tdap) 07/02/2031 07/01/2021, 03/04/2011, 07/10/2006, Additional history exists Hepatitis B Vaccines Completed 12/16/2001, 12/16/2001, 06/14/2001, Additional history exists COVID-19 Vaccine Completed 12/05/2022, 07/2021, 07/23/2021, Additional history exists Pneumococcal vaccine (0-64 years) Aged Out No longer eligible based on patient's age to complete this topic Procedures Procedure Name Priority Date/Time Associated Diagnosis Comments CREATININE WITH EGFR, S/P Routine 06/12/2023 12:27 PM CDT Gammopathy Monoclonal Nonspecific COMPREHENSIVE METABOLIC PANEL, S/P Routine 03/09/2023 10:59 AM HABILITATION ASSISTANT Acute Embolism And Thrombosis Of Unspecified Deep Veins Of Lower Extremity Bilateral (HCC) from Last 3 Months or Most Recently Relevant to Health Maintenance Results * Creatinine with Estimated GFR (06/12/2023 12:27 PM CDT) Creatinine 1.29 0.74 - 1.35 mg/dL 06/12/2023 1:23 PM CDT DTL Estimated GFR (eGFR) 63 >=60 mL/min/BSA 06/12/2023 1:23 PM CDT DTL Comment: Estimated GFR calculated using the 2020 CKD_EPI creatinine equation. Blood (Blood, Venous) 06/12/2023 12:27 PM CDT 06/12/2023 1:07 PM CDT Diana Ramírez D.O. LAB BLOOD ADD-ON [address] [address], [facility] [address] [place] [address] * (ABNORMAL) Comprehensive Metabolic Panel (03/09/2023 10:59 AM HABILITATION ASSISTANT) Potassium, S 4.6 3.6 - 5.2 mmol/L 03/09/2023 12:22 PM HABILITATION ASSISTANT DTL Sodium, S 142 135 - 145 mmol/L 03/09/2023 12:22 PM HABILITATION ASSISTANT DTL Chloride, S 101 98 - 107 mmol/L 03/09/2023 12:22 PM HABILITATION ASSISTANT DTL Bicarbonate, S 29 22 - 29 mmol/L 03/09/2023 12:22 PM HABILITATION ASSISTANT DTL Anion Gap 12 7 - 15 03/09/2023 12:22 PM HABILITATION ASSISTANT DTL BUN (Blood Urea Nitrogen), S 19 8 - 24 mg/dL 03/09/2023 12:22 PM HABILITATION ASSISTANT DTL Creatinine 1.21 0.74 - 1.35 mg/dL 03/09/2023 12:22 PM HABILITATION ASSISTANT DTL Estimated GFR (eGFR) 68 >=60 mL/min/BS A 03/09/2023 12:22 PM HABILITATION ASSISTANT DTL Comment: Estimated GFR calculated using the 2020 CKD_EPI creatinine equation. Calcium, Total, S 9.5 8.8 - 10.2 mg/dL 03/09/2023 12:22 PM HABILITATION ASSISTANT DTL Glucose, S 156(H) 70 - 140 mg/dL 03/09/2023 12:22 PM HABILITATION ASSISTANT DTL Protein, Total, S 6.9 6.3 - 7.9 g/dL 03/09/2023 12:22 PM HABILITATION ASSISTANT DTL Albumin, S 4.5 3.5 - 5.0 g/dL 03/09/2023 12:22 PM HABILITATION ASSISTANT DTL Aspartate Aminotransferase (AST), S 24 8 - 48 U/L 03/09/2023 12:22 PM HABILITATION ASSISTANT DTL Alkaline Phosphatase, S 40 40 - 129 U/L 03/09/2023 12:22 PM HABILITATION ASSISTANT DTL Alanine Aminotransferase (ALT), S 42 7 - 55 U/L 03/09/2023 12:22 PM HABILITATION ASSISTANT DTL Bilirubin, Total, S 0.3 0.0 - 1.2 mg/dL 03/09/2023 12:22 PM HABILITATION ASSISTANT DTL Blood (Blood, Venous) 03/09/2023 10:59 AM HABILITATION ASSISTANT 03/09/2023 11:41 AM HABILITATION ASSISTANT Diana Ramírez D.O. LAB BLOOD ADD-ON [facility] [address] [place] [address], [facility] DTP[facility] LaboratoriesA[facility] [address] [place] [address] from Last 3 Months or Most Recently Relevant to Health Maintenance
--- OUTSIDE RECORDS SUMMARY | 2023-09-17 13:44 | XMS_ITS | Referral Summary ---
Author Organization [facility] Address [address] [place] [address] Care Team Providers Care Precipitator Operator Name Role Phone Unavailable Primary Care Provider Unavailabl e Source Comments Patient records contain information from all sites at [facility]. For routine questions regarding patient records, call [phone] during business hours, M-F 8:00 AM - 5:00 PM Central Time. Record requests for emergency care only can be directed to [phone] at any time.[facility] Encounters Date Type Department Care Team Description 06/29/2023 1:30 PM CDT Telemedicine Division of Hematology in [place], [place] [address] [place] [address] Bhavana Larsen M.D., M.B.A. Gammopathy Monoclonal Nonspecific from Last 3 Months Allergies Active Allergy [...] drink = 0.6 oz pur e alcohol) [facility] Utilities Answer Date Recorded In the past 12 months has e [employer], gas, oil, or water [employer] threatened to shut off services in your [...] Answer Date Recorded Employment status Unemployed/not in [employer] paid workforce but seeking employment 03/02/2023 Housing Stability Answer Date Recorded What is your living situation today? I have a [facility] place to live 03/02/2023 Sex and Gender Information Value Date Recorded Sex Assigned at Male 03/02/2023 10:00 AM EDUCATION FINANCE PROCESSOR Gender Identity Male 03/02/2023 10:00 AM EDUCATION FINANCE PROCESSOR Sexual Orientation Lesbian or Boo 03/02/2023 10 :00 AM EDUCATION FINANCE PROCESSOR Last Filed Vital Signs Vital Sign Reading [...] Appointment Department of Laboratory Medicine and Pathology, [facility], in [place], [place] [address] [place] [address] Renate Luo M.D. [address] [place] [address] 10/08/2023 11:00 AM CDT Office Visit Division of Endocrinology in [place], [place] [address] [place] [address] [place] [address] Procedures Procedure Name Priority Date/Time Associated Diagnosis Comments CREATININE WITH EGFR, S/P Routine 06/12/2023 12:27 PM CDT Gammopathy Monoclonal Nonspecific COMPREHENSIVE METABOLIC PANEL, S/P Routine 03/09/2023 10:59 AM EDUCATION FINANCE PROCESSOR Acute Embolism And Thrombosis Of Unspecified Deep [...] CDT Diana Ramírez D.O. LAB BLOOD ADD-ON [address] [address], [facility] [address] [place] [address] * (ABNORMAL) Comprehensive Metabolic Panel (03/09/2023 10:59 AM EDUCATION FINANCE PROCESSOR) Potassium, S 4.6 3.6 - 5.2 mmol/L 03/09/2023 12:22 PM EDUCATION FINANCE PROCESSOR DTL Sodium, S 142 135 - 145 mmol/L 03/09/2023 12:22 PM EDUCATION FINANCE PROCESSOR DTL Chloride, S 101 98 - 107 mmol/L 03/09/2023 12:22 PM EDUCATION FINANCE PROCESSOR DTL Bicarbonate, S 29 22 - 29 mmol/L 03/09/2023 12:22 PM EDUCATION FINANCE PROCESSOR DTL Anion Gap 12 7 - 15 03/09/2023 12:22 PM EDUCATION FINANCE PROCESSOR DTL BUN (Blood Urea Nitrogen), S 19 8 - 24 mg/dL 03/09/2023 12:22 PM EDUCATION FINANCE PROCESSOR DTL Creatinine 1.21 0.74 - 1.35 mg/dL 03/09/2023 12:22 PM EDUCATION FINANCE PROCESSOR DTL Estimated GFR (eGFR) 68 >=60 mL/min/BS A 03/09/2023 12:22 PM EDUCATION FINANCE PROCESSOR DTL Comment: Estimated GFR calculated using the 2020 CKD_EPI creatinine equation. Calcium, Total, S 9.5 8.8 - 10.2 mg/dL 03/09/2023 12:22 PM EDUCATION FINANCE PROCESSOR DTL Glucose, S 156(H) 70 - 140 mg/dL 03/09/2023 12:22 PM EDUCATION FINANCE PROCESSOR DTL Protein, Total, S 6.9 6.3 - 7.9 g/dL 03/09/2023 12:22 PM EDUCATION FINANCE PROCESSOR DTL Albumin, S 4.5 3.5 - 5.0 g/dL 03/09/2023 12:22 PM EDUCATION FINANCE PROCESSOR DTL Aspartate Aminotransferase (AST), S 24 8 - 48 U/L 03/09/2023 12:22 PM EDUCATION FINANCE PROCESSOR DTL Alkaline Phosphatase, S 40 40 - 129 U/L 03/09/2023 12:22 PM EDUCATION FINANCE PROCESSOR DTL Alanine Aminotransferase (ALT), S 42 7 - 55 U/L 03/09/2023 12:22 PM EDUCATION FINANCE PROCESSOR DTL Bilirubin, Total, S 0.3 0.0 - 1.2 mg/dL 03/09/2023 12:22 PM EDUCATION FINANCE PROCESSOR DTL Blood (Blood, Venous) 03/09/2023 10:59 AM EDUCATION FINANCE PROCESSOR 03/09/2023 11:41 AM EDUCATION FINANCE PROCESSOR Diana Ramírez D.O. LAB BLOOD ADD-ON [facility] [address] [place] [address], [facility] LaboratoriesT[facility] [address] [place] [address] from Last 3 Months or Most Recently Relevant to Health Maintenance
--- NOTE | 2023-09-17 13:45 | CRLHL7_ITS ---
For Patients: As a result of the Century Cures Act, medical imaging exams and procedure reports are released immediately into your electronic medical record. You may view this report before your referring provider. If you have questions, please contact your health care provider. INDICATION: Leg pain, follow-up of popliteal thrombosis TECHNIQUE: Ultrasound venous duplex lower left extremity. Compression venous exam was performed using curtis-scale, color Doppler, and spectral Doppler analysis. COMPARISON: None. FINDINGS: Sonographic imaging demonstrates the left common femoral, deep femoral, superficial femoral, popliteal, posterior tibial and greater saphenous and the contralateral right common femoral veins to be fully compressible with normal color Doppler blood flow. IMPRESSION: Normal left lower extremity venous ultrasound, no sign of deep venous thrombosis. Dictated by Marcelino Torrez MD @ 09/17/2023 3:12:48 PM (Electronically Signed)
--- OUTSIDE RECORDS SUMMARY | 2023-09-17 13:45 | XMS_ITS | Continuity of Care Document ---
Author Organization [facility] Address [address] [place] [address] Phone Care Team Providers Care Conservation Specialist Name Role Phone Jason Hutchinson Unavailable Unavailable [...] Available - Active Procedures Procedure Date Office/Outpatient Visit,[facility], [facility] [place] Advance Directives Directive Yes / No Effective Date File Name No Information Encounters Encounter Description Practice Location Reason(s) For Visit Diagnoses Date Provider Providers Copied on Encounter Office/Outpat ient Visit,[place], [facility], [address], [place], [place], [id number], [place] tel:[phone] [facility] Other spondylosis , lumbar region Seferino Gomez. [facility], [address], [place], [place], [id number], [place]. tel:[phone] Referring Provider: Spencer Coates [facility] [address] [place], [address]. tel:[phone] Family History Family Member Type Diagnosis Age At Onset No Information Payers Payer name Insurance type Covered democrat ID Authoriza tion(s) No Information Social History [...]
--- OUTSIDE RECORDS SUMMARY | 2023-09-17 13:45 | XMS_ITS | Encounter Summary ---
Author Organization [facility] Address [address] [place] [address] Care Team Providers Care Clean Up Worker Name Role Phone Unavailable Primary Care Provider Unavailabl e Reason for Referral * Outpatient (Routine) - Closed Specialty Diagnoses / Procedures Referred By Contac t Referred To Contact Hematology Diagnoses Gammopathy Monoclonal Nonspecific Diana Ramírez D.O. [address] [place] [phone] [facility] Referral ID Status Reason Start Date Expiration Date Visits Re quested Visits Authorized [id number] Closed 06/12/2023 12/11/2024 1 1 * Specialty Diagnoses / Procedures Referred By Contac t Referred To Contact Diana Ramírez D.O. [address] [place] [address] [facility] Referral ID Status Reason Start Date Expiration Date Visits Re quested Visits Authorized Reason for Visit * Outpatient (Routine) - Closed Specialty Diagnoses / Procedures Referred By Contac t Referred To Contact Vascular Medicine Diana Ramírez D.O. [address] [place] [phone] [facility] Referral ID Status Reason Start Date Expiration Date Visits Re quested Visits Authorized [id number] Closed 03/17/2023 03/16/2026 1 1 Encounter Details Date Type Department Care Team (Late st Contact Info) Description 06/12/2023 2:00 PM CDT Office Visit Department of Vascular Medicine in [place], [place] [address] [place] [address] Diana Ramírez D.O. [address] [place] [address] Embolus Pulmonary Personal History (Primary Dx); Gammopathy Monoclonal Nonspecific Social History Tobacco Use Types Packs/Day Years Used Date Smoking Tobacco: Former Cigarettes 2 19 1 - 11/12/1996 Smokeless Tobacco: Never Alcohol Use Standard Drinks/Week Comments Never 0 (1 standard drink = 0.6 oz pur e alcohol) [facility] Utilities Answer Date Recorded In the past [...] living situation today? [facility] 03/02/2023 Sex and Gender Information Value Date Recorded Sex Assigned at Male 03/02/2023 10:00 AM BAND MASTER Gender Identity Male 03/02/2023 10:00 AM BAND MASTER Sexual Orientation Lesbian or Boo 03/02/2023 10 :00 AM BAND MASTER documented as of this encounter Last Filed [...] Mass Index 36.31 06/12/2023 1:57 PM CDT documented in this encounter Progress Notes * Diana Ramírez DPreeti. - 06/12/2023 2:00 PM CDT VASCULAR MEDICINE PROGRESS NOTE SUBJECTIVE HISTORY OF PRESENT ILLNESS Mr. Restrepo is a 62 y.o. male presenting for follow up today after presumed anticoagulation failure of apixaban in January 2023. 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 He has been maintained on enoxaparin since the recurrence. For complete details, please see my initial consultation from 03/09/23. Potential contributing factors included 1-2 missed apixaban doses in the week preceding recurrence and prolonged travel. Work-up for recurrence did reveal heterozygosity for prothrombin gene mutation, MGUS, and mild adrenal thickening. Adrenal evaluation by Endocrinology was initially negative. He is currently undergoing evaluation for MGUS. Negative evaluation included negative APS testing, prior normal protein C/S levels, factor V Leiden mutation and normal antithrombin III levels. He believes he is up to date with age appropriate cancer screening. Denies weight loss, jaw claudication, periorbital edema, periorbital purpura, orthostasis, PND, orthopnea, syncope, paresthesias, change in bowel habit, bleeding, and lower extremity edema. He deniesbone pain. Laboratory evaluation today demonstrates a normal CBC, CMP, normal calcium levels. His further testing for FLC, quantitative M protein study, and urine protein studies remain pending. He will need tocomplete a 24 hour urine collection at home. He is overall doing well. Reports compliance with his enoxaparin 150 mg daily; no concern for recurrent symptoms on this medication. He has not yet established local care for an Anticoagulation Clinic to initiate warfarin but is planning to do so. He is spending approximately 4-5 days/week in [place] for work. REVIEW OF SYSTEMS Pertinent items are noted in HPI; all other review of systems as below or negative. OBJECTIVE BP 130/75 (BP Location: Right arm, Patient Position: Sitting, Cuff Size: Regular) Pulse 72 Ht 174.6 cm Wt 111 kg BMI 36.31 kg/m?? PHYSICAL EXAM GENERAL: Calm, cooperative, no [...] Count Lab Results Component Value Date WBC 6.8 06/12/2023 RBC 5.23 06/12/2023 HGB 15.6 06/12/2023 HCT 46.8 06/12/2023 MCV 89.5 06/12/2023 PLT 288 06/12/2023 Lab Results Component Value Date/Time NA 142 03/09/2023 10:59 AM CL 101 03/09/2023 10:59 AM BUN 19 03/09/2023 10:59 AM CREATININE 1.29 06/12/2023 12:27 PM CALCIUM 9.9 06/12/2023 12:27 PM ALKPHOS 51 06/12/2023 12:27 PM AST 24 03/09/2023 10:59 AM ALT 42 03/09/2023 10:59 AM BILITOT 0.3 03/09/2023 10:59 AM ASSESSMENT / PLAN Concern for apixaban failure Acute/subacute left popliteal vein DVT, resolved 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 Restrepo is a pleasant 62 y.o. 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 He continues on enoxaparin 150 mg daily currently without recurrent VTE. During VTE recurrence evaluation, incidental findings included marked bilateral adrenal thickening of unclear etiology for which he is undergoing evaluation by Endocrinology (appears negative, but may require further work-up). He was also found to have MGUS for which we will formally refer to Hematology for further discussion. He believes he is up to date on his age appropriate cancer screening but is planning to check in with his PCP to ensure this is the case. We did complete a CT Abd/Pelvis Venogram which did not show evidence of any other findings concerning for malignancy, serologic evaluation without concerning findings, and APS work-up was negative. We additionally screened for PF-4 antibodies which was negative. Other risk factors for VTE include ARI and obesity. There are no consitutional symptoms to suggestAL amyloid or multiple myeloma. We discussed that enoxaparin is not a long-term solution for VTE recurrence. I am hesitant to suggest another DOAC given recurrence without clear trigger, though this could have been partially related to an adherence issue, international travel, and his underlying prothrombin gene mutation (though these are both overall weak risk factors for VTE). The next option would likely be to continue anticoagulation by use of warfarin with an INR goal 2.0-3.0. I have recommended him to continue on enoxaparin until he can enroll in a local anticoagulation clinic either in [facility] or [place] (where he has been for work). He would like to be enrolled in the warfarin education class and was given written information on warfarin therapy. Lastly, I stressed the importance of medication adherence. He obviously has a low threshold for VTEdevelopment, though the mechanism of this is not clearly understood. RECOMMENDATIONS 1. Recommend transition to warfarin with local anticoagulation clinic: INR goal 2.0-3.0 2. Formal consultation with Hematology for MGUS incidentally noted; he will need long-term follow-up for this. Additional work-up remains pending. 3. Follow up with PCP to discuss age appropriate cancer screening. If any further questions arise, we will be happy to assist. documented in this encounter Plan of Treatment Upcoming Encounters Date Type Department Care Team (Late st Contact Info) Description 10/08/2023 8:50 AM CDT Appointment Department of Laboratory Medicine and Pathology, [facility] in [place], [place] [address] [place] [address] Renate Luo M.D. [address] [place] [phone] 10/08/2023 11:00 AM CDT Office Visit Division of Endocrinology in [place], [place] [address] [place] [address] Renate Luo M.D. [address] [place] [address] Scheduled Orders Name Type Priority Associated Diagnoses Orde r Schedule Protein, Total, 24 hour, Urine Lab Routine Gammopathy Monoclonal Nonspecific Expected: 06/12/2023, Expires: 06/11/2024 Scheduled Referrals Name Type Priority Associated Diagnoses Orde r Schedule Patient Education - Warfarin Management education visit (clinic) Outpatient Referral Routine Gammopathy Monoclonal Nonspecific Embolus Pulmonary Personal History Expected: 06/12/2023 (Approximate), Expires: 09/10/2024 Hematology - Monoclonal gammopathy of undetermined significance (MGUS) consult (clinic) Outpatient Referral Routine Gammopathy Monoclonal Nonspecific Expected: 06/12/2023, Expires: 09/10/2024 documented as of this encounter Results * Cystatin C with Estimated GFR (06/12/2023 12:21 PM CDT) eGFR by Cystatin C 72 >60 mL/min/BSA 06/12/2023 3:32 PM CDT DTL Comment: Estimated GFR calculated using the CKD-EPI Cystatin C (2012) equation. ----ADDITIONAL INFORMATION---- Cystatin C-based eGFR may differ substantially from creatinine- based eGFR in patients with abnormal muscle mass or acutely changing renal function. ??Please interpret together with relevant clinical features. On 07/26/2020 the cystatin C assay method changed. Cystatin C eGFR results > 50 ml/min/1.73m2 are approximately 10% lower with the new assay. Cystatin C 1.06 0.67 - 1.21 mg/L 06/12/2023 3:32 PM CDT DTL Blood (Blood, Venous) 06/12/2023 12:21 PM CDT 06/12/2023 2:56 PM CDT Diana Ramírez D.O. LAB BLOOD ADD-ON [facility] [address] [place] [address], [facility] LaboratoriesB[facility] [address] [place] [address] documented in this encounter Visit Diagnoses Diagnosis Embolus Pulmonary Personal History- Primary Gammopathy Monoclonal Nonspecific documented in this encounter
--- OUTSIDE RECORDS SUMMARY | 2023-09-17 13:45 | XMS_ITS | Encounter Summary ---
Author Organization [facility] Address [address] [place] [address] Care Team Providers Care Sld Educational Aide Name Role Phone Unavailable Primary Care Provider Unavailabl e Encounter Details Date Type Department Care Team (Latest Contact Info) Description 06/12/2023 12:00 PM CDT - 06/12/2023 2:18 PM CDT Hospital Encounter Department of Laboratory Medicine and Pathology, [facility] in [place], [place] [address] [place] [address] Diana Ramírez D.O. [address] [place] [address] Gammopathy Monoclonal Nonspecific Discharge Disposition: Home or Self Care Social History Tobacco Use Types Packs/Day Years Used Date Smoking Tobacco: Former Cigarettes 2 19 1 - 11/12/1996 Smokeless Tobacco: Never Alcohol Use Standard Drinks/Week Comments Never 0 (1 standard drink = 0.6 oz pur e alcohol) [facility] Utilities Answer Date Recorded In the past 12 months has [employer], gas, oil, or water [employer] threatened to shut off services in your [...] your living situation today? I have a [facility] place to live 03/02/2023 Sex and Gender Information Value Date Recorded Sex Assigned at Male 03/02/2023 10:00 AM SILHOUETTE ARTIST Gender Identity Male 03/02/2023 10:00 AM SILHOUETTE ARTIST Sexual Orientation Lesbian or Boo 03/02/2023 10 :00 AM SILHOUETTE ARTIST documented as of this encounter Medications at Time of Discharge Medication Sig Dispensed Refills Start Date End Date enoxaparin (LOVENOX) 100 mg/mL injection Inject 1.5 mL (150 mg total) under the skin daily. Stop taking when INR >2.0 30 mL 1 04/02/2023 LORazepam (ATIVAN) 1 mg tablet Take 1 mg by mouth 2 (two) times a day as needed. for anxiety losartan-hydroCHLOROthiaz tommy (HYZAAR) 100-12.5 mg per tablet Take 1 tablet by mouth daily. traMADoL (ULTRAM) 50 mg tablet Take 50 mg by mouth every 8 (eight) hours as needed for pain. verapamiL (CALAN-SR) 180 mg ER tablet Take 180 mg by mouth daily. documented as of this encounter Plan of Treatment Upcoming Encounters Date Type Department Care Team (Late st Contact Info) Description 10/08/2023 8:50 AM CDT Appointment Department of Laboratory Medicine and Pathology, [facility], in [place], [place] [address] [place] [address] Renate Luo M.D. [address] [place] [phone] 10/08/2023 11:00 AM CDT Office Visit Division of Endocrinology in [place], [place] [address] [place] [address] Renate Luo M.D. [address] [place] [address] documented as of this encounter Visit Diagnoses Diagnosis Gammopathy Monoclonal Nonspecific documented in this encounter
--- OUTSIDE RECORDS SUMMARY | 2023-09-17 13:45 | XMS_ITS | Encounter Summary ---
Author Organization [facility] Address [address] [place] [address] Care Team Providers Care Steel Checker Name Role Phone Unavailable Primary Care Provider Unavailabl e Encounter Details Date Type Department Care Team (Late st Contact Info) Description 06/15/2023 Orders Only Department of Vascular Medicine in [place], [place] [address] [place] [address] Diana Ramírez D.O. [address] [place] [address] Social History Tobacco Use Types Packs/Day Years Used Date Smoking Tobacco: Former Cigarettes 2 19 1 - 11/12/1996 Smokeless Tobacco: Never Alcohol Use Standard Drinks/Week Comments Never 0 (1 standard drink = 0.6 oz pur e alcohol) [facility] Utilities Answer Date Recorded In the past 12 months has [employer], gas, oil, or water [employer] threatened to shut off services in your [...] your living situation today? I have a [facility] place to live 03/02/2023 Sex and Gender Information Value Date Recorded Sex Assigned at Male 03/02/2023 10:00 AM EYE PHYSICIAN Gender Identity Male 03/02/2023 10:00 AM EYE PHYSICIAN Sexual Orientation Lesbian or Boo 03/02/2023 10 :00 AM EYE PHYSICIAN documented as of this encounter Plan of Treatment Upcoming Encounters Date Type Department Care Team (Late st Contact Info) Description 10/08/2023 8:50 AM CDT Appointment Department of Laboratory Medicine and Pathology, [facility], in [place], [place] [address] [place] [address] Renate Luo M.D. [address] [place] [address] 10/08/2023 11:00 AM CDT Office Visit Division of Endocrinology in [place], [place] [address] [place] [address] Renate Luo M.D. [address] [place] [address] documented as of this encounter Visit Diagnoses Not on filedocumented in this encounter
--- OUTSIDE RECORDS SUMMARY | 2023-09-17 13:45 | XMS_ITS | Encounter Summary ---
Author Organization [facility] Address [address] [place] [address] Care Team Providers Care Security Developer Name Role Phone Unavailable Primary Care Provider Unavailabl e Reason for Visit * Outpatient (Routine) - Closed Specialty Diagnoses / Procedures Referred By Contswati t Referred To Contact Hematology Diagnoses Gammopathy Monoclonal Nonspecific Diana Ramírez D.O. [address] [place] [phone] [facility] Referral ID Status Reason Start Date Expiration Date Visits Re quested Visits Authorized [id number] Closed 06/12/2023 12/11/2024 1 1 Encounter Details Date Type Department Care Team (Late st Contact Info) Description 06/29/2023 1:30 PM CDT Telemedicine Division of Hematology in [place], [place] [address] [place] [phone] Bhavana Larsen M.D., M.B.A. [address] [place] [phone] Gammopathy Monoclonal Nonspecific Social History Tobacco Use Types Packs/Day Years Used Date Smoking Tobacco: Former Cigarettes 2 19 1 - 11/12/1996 Smokeless Tobacco: Never Alcohol Use Standard Drinks/Week Comments Never 0 (1 standard drink = 0.6 oz pur e alcohol) [facility] Utilities Answer Date Recorded In [...] your living situation today? I have a [facility] place to live 03/02/2023 Sex and Gender Information Value Date Recorded Sex Assigned at Male 03/02/2023 10:00 AM CONSULTANT LUXURY AND AUTO. VICE PRESIDENT [employer] (EX ) Gender Identity Male 03/02/2023 10:00 AM CONSULTANT LUXURY AND AUTO. VICE PRESIDENT [employer] (EX ) Sexual Orientation Lesbian or Boo 03/02/2023 10 :00 AM CONSULTANT LUXURY AND AUTO. VICE PRESIDENT [employer] (EX ) documented as of this encounter Consult Notes * Bhavana Larsen M.D., M.B.A. - 06/29/2023 1:30 PM CDT SUBJECTIVE Referring Provider Diana Ramírez D.O. CHIEF COMPLAINT/REASON FOR VISIT MGUS HISTORY OF PRESENT ILLNESS Mr. Restrepo is a pleasant 62-year-old gentleman who I am seeing via video visit for MGUS. In short, he has a history of recurrent DVT 1st in March of 2022, followed by January 2023 (with the 2nd 1 while on apixaban). As part of his evaluation, a serum protein electrophoresis was done and it was positive for monoclonal protein. More specifically, SPEP performed on April 02, 2023 was positive for a non-quantifiable IgG kappa. Free light chains were normal. Repeat testing on June 12, 2023 again showed normal free light chains, and the SPEP revealed a monoclonal IgG kappa protein of 0.033. Random urine protein electrophoresis was negative for monoclonalprotein. Creatinine is 1.29, CBC is normal. Oncology History No history exists. The following portions of the patient's history were reviewed and updated as appropriate: allergies, current medications, family history, medical history, social history, surgical history, and problem list. REVIEW OF SYSTEMS All other systems reviewed and are negative. OBJECTIVE There were no vitals filed for this visit. There is no height or weight on file to calculate BSA. PHYSICAL EXAM Physical Exam DIAGNOSTICS I have reviewed the recent relevant labs and diagnostics. No results found. No results found for this or any previous visit (from the past 72 hour(s)). ASSESSMENT / PLAN #1 Gammopathy Monoclonal Nonspecific Mr. Restrepo has a very small monoclonal protein in the blood. Ironically, if this test was performed3 months ago, the SPEP would have been negative. Our new assay is very sensitive and picks up very small quantities of monoclonal proteins. Given that the rest of his evaluation is unremarkable, his free light chains are normal, the isotype is an IgG, and the quantity is so low, he has a very low risk of conversion to multiple myeloma over 20 years. However, I would recommend rechecking the SPEP in 1 year to follow along for any progression or development of clinical symptoms from a significant dysproteinemia. Follow-up: Return to clinic in as needed Education We discussed the diagnosis and treatment plan in detail. The patient expressed understanding of thecontent. No apparent learning barriers were identified; learning preferences include listening. I spent 60 minutes face to face and non-face to face caring for the patient today. Signed by: Bhavana Larsen M.D., M.B.A. 06/29/2023 1:47 PM CDT documented in this encounter Plan of Treatment Upcoming Encounters Date Type Department Care Team (Late st Contact Info) Description 10/08/2023 8:50 AM CDT Appointment Department of Laboratory Medicine and Pathology, [facility], in [place], [place] [address] [place] [phone] Renate Luo M.D. [address] [place] [phone] 10/08/2023 11:00 AM CDT Office Visit Division of Endocrinology in [place], [place] [address] [place] [address] Renate Luo M.D. [address] [place] [phone] documented as of this encounter Visit Diagnoses Diagnosis Gammopathy Monoclonal Nonspecific documented in this encounter
--- OUTSIDE RECORDS SUMMARY | 2023-09-17 13:45 | XMS_ITS | Encounter Summary ---
Author Organization [facility] Address [address] [place] [address] Care Team Providers Care Automatic Profile Shaper Operator Name Role Phone Unavailable Primary Care Provider Unavailabl e Reason for Referral * Outpatient (Routine) - Authorized Specialty Diagnoses / Procedures Referred By Contswati t Referred To Contact Endocrinology Diagnoses Adrenal Gland Disorder (HCC) Renate Luo M.D. [address] [place] [phone] [facility] Referral ID Status Reason Start Date Expiration Date V isits Requested Visits Authorized [id number] Authorized 06/14/2023 12/13/2024 1 1 Encounter Details Date Type Department Care Team (Late st Contact Info) Description 06/14/2023 Orders Only Division of Endocrinology in [place], [place] [address] [place] [phone] Renate Luo M.D. [address] [place] [phone] Adrenal Gland Disorder (HCC) (Primary Dx) Social History Tobacco Use Types Packs/Day Years Used Date Smoking Tobacco: Former Cigarettes 2 19 1 - 11/12/1996 Smokeless Tobacco: Never Alcohol Use Standard Drinks/Week Comments Never 0 (1 standard drink = 0.6 oz pur e alcohol) [facility] Utilities Answer Date Recorded In the past 12 months has [employer], gas, oil, or water company threatened to [...] your living situation today? I have a [facility] place to live 03/02/2023 Sex and Gender Information Value Date Recorded Sex Assigned at Male 03/02/2023 10:00 AM COAT TAILOR Gender Identity Male 03/02/2023 10:00 AM COAT TAILOR Sexual Orientation Lesbian or Boo 03/02/2023 10 :00 AM COAT TAILOR documented as of this encounter Plan of Treatment Upcoming Encounters Date Type Department Care Team (Late st Contact Info) Description 10/08/2023 8:50 AM CDT Appointment Department of Laboratory Medicine and Pathology, [facility], in [place], [place] [address] [place] [address] Renate Luo M.D. [address] [place] [address] 10/08/2023 11:00 AM CDT Office Visit Division of Endocrinology in [place], [place] [address] [place] [address] Renate Luo M.D. [address] [place] [address] Scheduled Orders Name Type Priority Associated Diagnoses Orde r Schedule ACTH (Adrenocorticotropic Hormone) Lab Routine Adrenal Gland Disorder (HCC) Expected: 09/13/2023 (Approximate), Expires: 06/13/2024 Cortisol Lab Routine Adrenal Gland Disorder (HCC) Expected: 09/13/2023 (Approximate), Expires: 06/13/2024 Dehydroepiandrosterone Sulfa te (DHEA-S) Lab Routine Adrenal Gland Disorder (HCC) Expected: 09/13/2023 (Approximate), Expires: 09/12/2024 Scheduled Referrals Name Type Priority Associated Diagnoses Order Schedule Endocrinology office visit (clinic) Outpatient Referral Routine Adrenal Gland Disorder (HCC) Expected: 09/13/2023 (Approximate), Expires: 09/12/2024 documented as of this encounter Visit Diagnoses Diagnosis Adrenal Gland Disorder (HCC)- Primary documented in this encounter
--- OUTSIDE RECORDS SUMMARY | 2023-09-17 13:45 | XMS_ITS | Encounter Summary ---
Author Organization [facility] Address [address] [place] [address] Care Team Providers Care Balance Sheet Analyst Name Role Phone Unavailable Primary Care Provider Unavailabl e Encounter Details Date Type Department Care Team (Latest Contact Info) Description 06/12/2023 12:00 PM CDT - 06/12/2023 2:18 PM CDT Hospital Encounter Department of Laboratory Medicine and Pathology, [facility] in [place], [place] [address] [place] [address] Diana Ramírez D.O. [address] [place] [address] Gammopathy Monoclonal Nonspecific Discharge Disposition: Home or Self Care Social History Tobacco Use Types Packs/Day Years Used Date Smoking Tobacco: Former Cigarettes 2 19 1 - 11/12/1996 Smokeless Tobacco: Never Alcohol Use Standard Drinks/Week Comments Never 0 (1 standard drink = 0.6 oz pur e alcohol) [facility] Utilities Answer Date Recorded In the past 12 months has [email or web address], gas, oil, or water [employer] threatened to shut off services in your [...] your living situation today? I have a [facility] place to live 03/02/2023 Sex and Gender Information Value Date Recorded Sex Assigned at Male 03/02/2023 10:00 AM KILN CHARGER Gender Identity Male 03/02/2023 10:00 AM KILN CHARGER Sexual Orientation Lesbian or Boo 03/02/2023 10 :00 AM KILN CHARGER documented as of this encounter Medications at [...] Department of Laboratory Medicine and Pathology, [facility], in [place], [place] [address] [place] [address] Renate Luo M.D. [address] [place] [address] 10/08/2023 11:00 AM CDT Office Visit Division of Endocrinology in [place], [place] [address] [place] [address] Renate Luo M.D. [address] [place] [address] documented as of this encounter Procedures Procedure Name Priority Date/Time Associated Diagnosis Comments CBC WITH DIFFERENTIAL, B Routine 06/12/2023 12:28 PM CDT Gammopathy Monoclonal Nonspecific QUANTITATIVE M-PROTEIN STUDY, S Routine 06/12/2023 12:27 PM CDT Gammopathy Monoclonal Nonspecific IMMUNOGLOBULIN FREE LIGHT CHAINS, S Routine 06/12/2023 12:27 PM CDT Gammopathy Monoclonal Nonspecific ALKALINE PHOSPHATASE, S/P Routine 06/12/2023 12:27 PM CDT Gammopathy Monoclonal Nonspecific CREATININE WITH EGFR, S/P Routine 06/12/2023 12:27 PM CDT Gammopathy Monoclonal Nonspecific CALCIUM, TOT, S/P Routine 06/12/2023 12: 27 PM CDT Gammopathy Monoclonal Nonspecific documented in this encounter Results * CBC with Differential, Blood (06/12/2023 12:28 PM CDT) Hemoglobin 15.6 13.2 - 16.6 g/dL 06/12/2023 1:04 PM CDT DTL Hematocrit 46.8 38.3 - 48.6 % 06/12/2023 1:04 PM CDT DTL Erythrocytes 5.23 4.35 - 5.65 x10(12)/L 06/12/2023 1:04 PM CDT DTL MCV 89.5 78.2 - 97.9 fL 06/12/2023 1:04 PM CDT DTL RBC Distrib Width 12.6 11.8 - 14.5 % 06/12/2023 1:04 PM CDT DTL Platelet Count 288 135 - 317 x10(9)/L 06/12/2023 1:04 PM CDT DTL Leukocytes 6.8 3.4 - 9.6 x10(9)/L 06/12/2023 1:04 PM CDT DTL Neutrophils 3.35 1.56 - 6.45 x10(9)/L 06/12/2023 1:04 PM CDT DHPM Lymphocytes 2.75 0.95 - 3.07 x10(9)/L 06/12/2023 1:04 PM CDT DTL Monocytes 0.61 0.26 - 0.81 x10(9)/L 06/12/2023 1:04 PM CDT DTL Eosinophils 0.06 0.03 - 0.48 x10(9)/L 06/12/2023 1:04 PM CDT DTL Basophils <0.03 0.01 - 0.08 x10(9)/L 06/12/2023 1:04 PM CDT DTL Blood (Blood, Venous) 06/12/2023 12:28 PM CDT 06/12/2023 12:53 PM CDT Diana Ramírez D.O. LAB BLOOD ADD-ON [facility] [address] [place] [address], [facility] DTL [facility] [address] [place] [address] DHPM [facility] [address] [place] [address] * Immunoglobulin Free Light Chains (06/12/2023 12:27 PM CDT) [place] Free Light Chain, S 1.67 0.3300 - 1.94 mg/dL 06/12/2023 5:02 PM CDT [facility] Lambda Free Light Chain, S 1.58 0.5700 - 2.63 mg/dL 06/12/2023 5:03 PM CDT [facility] [place]/Lambda FLC Ratio 1.06 0.2600 - 1.65 06/12/2023 5:03 PM CDT [facility] Blood (Blood, Venous) 06/12/2023 12:27 PM CDT 06/12/2023 3:52 PM CDT Diana Ramírez D.O. LAB BLOOD ADD-ON [facility] [address] [place] [address] [facility] [address] [place] [address] * (ABNORMAL) Quantitative M-protein Study (06/12/2023 12:27 PM CDT) Immunoglobulin A (IgA), S 285 61 - 356 mg/dL 06/12/2023 5:10 PM CDT [facility] Immunoglobulin M (IgM), S 103 37 - 286 mg/dL 06/12/2023 5:20 PM CDT [facility] Immunoglobulin G (IgG), S 774 767 - 1590 mg/dL 06/12/2023 5:10 PM CDT [facility] Therapeutic Antibody Administered? Unspecified 06/12/2023 3:52 PM CDT [facility] M-protein GK 0.033(H) g/dL 06/15/2023 12:18 PM CDT [facility] Flag, M-protein Isotype Positive(A) Negative 06/15/2023 12:18 PM CDT [facility] QMPTS Interpretation IgG kappa 0.033 g/dL 06/15/2023 12:18 PM CDT [facility] Comment: ----ADDITIONAL INFORMATION---- The submitted sample was assayed by five separate immunopurifications for IgG, IgA, IgM, kappa and lambda. ??The result reflects the findings of either no monoclonal protein detected or those monoclonal immunoglobulins that were detected. This test was developed and its performance characteristics determined by [facility] in a manner consistent with CLIA requirements. This test has not been cleared or approved by the U.S. Food and Drug Administration. Blood (Blood, Venous) 06/12/2023 12:27 PM CDT 06/12/2023 3:52 PM CDT Narrative [facility] - 06/15/2023 12:18 PM CDT Specimen Information: Specimen ID: [id number] Specimen Type: Blood Specimen Collection Start Date: 06/12/2023 12:27 PM Specimen Received Date: 06/12/2023 ??3:52 PM Specimen ID: [id number] Specimen Type: Blood Specimen Collection Start Date: 06/12/2023 12:28 PM Specimen Received Date: 06/12/2023 ??4:31 PM Diana Ramírez D.O. LAB BLOOD ADD-ON [facility] [address] [place], [place] [phone] [place] [address] [place], [place] [phone] [place] [address] [address] [place] [facility] [place] [address] * Alkaline Phosphatase (06/12/2023 12:27 PM CDT) Pathologist [facility] [place] Alkaline Phosphatase, S 51 40 - 129 U/L 06/12/2023 1:23 PM CDT DTL Blood (Blood, Venous) 06/12/2023 12:27 PM CDT 06/12/2023 1:07 PM CDT Diana Ramírez D.O. LAB BLOOD ADD-ON [facility] [address] [place] [address], [facility] DTL [facility] [address] [place] [address] * Creatinine with Estimated GFR (06/12/2023 12:27 PM CDT) Pathologist [facility] [place] Creatinine 1.29 0.74 - 1.35 mg/dL 06/12/2023 1:23 PM CDT DTL Estimated GFR (eGFR) 63 >=60 mL/min/BSA 06/12/2023 1:23 PM CDT DTL Comment: Estimated GFR calculated using the 2020 CKD_EPI creatinine equation. Blood (Blood, Venous) 06/12/2023 12:27 PM CDT 06/12/2023 1:07 PM CDT Diana Ramírez D.O. LAB BLOOD ADD-ON [facility] [address] [place] [address], [facility] [address] [place] [address] * Calcium, Total (06/12/2023 12:27 PM CDT) Calcium, Total, S 9.9 8.8 - 10.2 mg/dL 06/12/2023 1:23 PM CDT DTL Blood (Blood, Venous) 06/12/2023 12:27 PM CDT 06/12/2023 1:07 PM CDT Diana Ramírez D.O. LAB BLOOD ADD-ON [facility] [address] [place] [address], [facility] [address] [place] [address] documented in this encounter Visit Diagnoses Diagnosis Gammopathy Monoclonal Nonspecific documented in this encounter
--- OUTSIDE RECORDS SUMMARY | 2023-09-17 13:45 | XMS_ITS | Encounter Summary ---
Author Organization [facility] Address [address] [place] [address] Care Team Providers Care Agricultural Technical Officer Name Role Phone Unavailable Primary Care Provider Unavailabl e Encounter Details Date Type Department Care Team (Latest Contact Info) Description 06/12/2023 2:19 PM CDT - 06/12/2023 11:59 PM CDT Hospital Encounter Department of Laboratory Medicine and Pathology, [facility], in [place], [place] [address] [place] [address] Diana Ramírez D.O. [address] [place] [phone] Gammopathy Monoclonal Nonspecific Discharge Disposition: Home or Self Care Social History Tobacco Use Types Packs/Day Years Used Date Smoking Tobacco: Former Cigarettes 2 19 1 - 11/12/1996 Smokeless Tobacco: Never Alcohol Use Standard Drinks/Week Comments Never 0 (1 standard drink = 0.6 oz pur e alcohol) [facility] Utilities Answer Date Recorded In the past 12 months has [employer], gas, oil, or water [employer] threatened to shut off services in your [...] your living situation today? I have a [facility] place to live 03/02/2023 Sex and Gender Information Value Date Recorded Sex Assigned at Male 03/02/2023 10:00 AM SEED SPECIALIST Gender Identity Male 03/02/2023 10:00 AM SEED SPECIALIST Sexual Orientation Lesbian or Boo 03/02/2023 10 :00 AM SEED SPECIALIST documented as of this encounter Medications at [...] Appointment Department of Laboratory Medicine and Pathology, [facility], in [place], [place] [address] [place] [address] Renate Luo M.D. [address] [place] [phone] 10/08/2023 11:00 AM CDT Office Visit Division of Endocrinology in [place], [place] [address] [place] [address] Renate Luo M.D. [address] [place] [address] Scheduled Orders Name Type Priority Associated Diagnoses Orde r Schedule Protein, Total, 24 hour, Urine Lab Routine Gammopathy Monoclonal Nonspecific Once for 1 Occurrences starting 06/12/2023 until 06/12/2023 documented as of this encounter Visit Diagnoses Diagnosis Gammopathy Monoclonal Nonspecific documented in this encounter
--- OUTSIDE RECORDS SUMMARY | 2023-09-17 13:45 | XMS_ITS | Clinical Summary ---
Author Organization [facility] [facility] Address [place], [place] [address] Care Team Providers Care Balance Staff Staker Name Role Phone Spencer Coates MD Primary Care Provider [phone] Allergies Active Allergy Reactions Criticality Noted Date Comments Penicillins *Unknown - Childhood Rxn 05/25/2006 Medications Medication Sig Dispensed Refills Start Date End Date Status lisinopril (PRINIVIL; ZESTRIL) 5 mg tabletIndications:HT N (hypertension) TAKE 1 TABLET BY MOUTH EVERY DAY 90 tablet 05/28/2016 Active LORazepam (ATIVAN) 0.5 mg tabIndications:Socia l phobia TAKE 1 TABLET BY MOUTH EVERY DAY NEEDED 15 tablet 09/08/2016 Active sertraline (ZOLOFT) 100 mg tabletIndications:So cial phobia TAKE 1/2 TABLET BY MOUTH DAILY 15 tablet 11/28/2016 Active verapamil (VERELAN) 180 mg Controlled-Release capsuleIndications:H TN (hypertension) TAKE 1 CAPSULE BY MOUTH EVERY MORNING 30 capsule 05/04/2017 Active traMADoL (ULTRAM) 50 mg tablet tramadol 50 mg tablet Active BiPapIndications:CSA (central sleep apnea) BIPAP ASV [...] Comments Blood Pressure 136/82 02/01/2020 1:28 PM RECONCILIATION CLERK Pulse 85 02/01/2020 1:28 PM RECONCILIATION CLERK Temperature 36.4 ??C (97.5 ??F) 05/26/2016 1:40 PM CD T Respiratory Rate 16 02/01/2020 1:28 PM RECONCILIATION CLERK Oxygen Saturation 95% 05/26/2016 1:40 PM CDT [...] Additional history exists Influenza for age 50-64 11/01/2023 11/20/19 16, 11/22/2014, 12/28/2013, Additional history exists Tdap Completed 03/04/2011 Pneumococcal series for age 6-64 Aged Out No longer eligible based on patient's age to complete this topic Procedures Procedure Name Priority Date/Time Associated Diagnosis Comments LIPID PANEL W REFLEX MEASURED LDL Routine 05/11/2015 8:26 AM RECONCILIATION CLERK HTN (hypertension) from Last 3 Months or Most Recently Relevant to Health Maintenance Results * (ABNORMAL) LIPID PANEL W REFLEX MEASURED LDL (05/11/2015 8:26 AM RECONCILIATION CLERK) CHOLESTEROL,TOTAL 174 100 - 199 mg/dL 05/11/2015 8:59 AM RECONCILIATION CLERK [facility] TRIGLYCERIDES 151(H) <150 mg/dL 05/11/2015 8:59 AM RECONCILIATION CLERK [facility] HDL CHOLESTEROL 45 >40 mg/dL 05/11/2015 8:59 AM RECONCILIATION CLERK [facility] NON-HDL CHOLESTEROL 129 <145 mg/dl 05/11/2015 8:59 AM RECONCILIATION CLERK [facility] CHOL/HDL RATIO 3.87 <4.50 05/11/2015 8:59 AM RECONCILIATION CLERK [facility] LDL CHOLESTEROL 99 <=130 mg/dL 05/11/2015 8:59 AM RECONCILIATION CLERK [facility] PATIENT STATUS NON-FASTI NG 05/11/2015 8:59 AM RECONCILIATION CLERK [facility] Blood specimen (specimen) BLOOD SPECIMEN / Unknown Venipuncture / Unknown 05/11/2015 8:26 AM RECONCILIATION CLERK 05/11/2015 8:26 AM RECONCILIATION CLERK Ever Rivera MD CHEMISTRY [facility] [address] [facility] [place] [id number], from Last 3 Months or Most Recently Relevant to Health Maintenance Care Teams Balance Staff Staker Relationship Specialty Start Date End Date Spencer Coates MD [address] [place] [address] PCP - General Internal Medicine 10/03/19
== END 2023-09-17 13:40 | disposition home or self-care (01) ==
LOC: US 13:40
PROVIDERS: PCP Internal Medicine; Visit Provider Internal Medicine
DX: I82.409 Acute embolism and thrombosis of unspecified deep veins of unspecified lower extremity (principal); M79.605 Pain in left leg
CPT/HCPCS: 93971

== ENCOUNTER 2024-03-31 08:00 | Outpatient (CLI) | payer OTHER, MEDICAID, SELFPAY | END 2024-03-31 08:01 | disposition home or self-care (01) | LOC: NFLDREF 04-04 03:40 | PROVIDERS: PCP Internal Medicine; Referring Provider Internal Medicine; Visit Provider Internal Medicine | DX: I10 Essential (primary) hypertension (principal); E78.5 Hyperlipidemia, unspecified; Z12.5 Encounter for screening for malignant neoplasm of prostate; F41.1 Generalized anxiety disorder | CPT/HCPCS: 80053; 80061; G0103 ==

== ENCOUNTER 2024-04-07 06:38 | Outpatient (CLI) | payer OTHER, MEDICAID, SELFPAY ==
--- NOTE | 2024-04-07 07:55 | W.ANESCHARGE ---
Anesthesia Charges Start Date/Time Anesthesia Start Date: 04/07/24 Anesthesia Start Time: 07:30 Stop Date/Time Anesthesia Stop Date: 04/07/24 Anesthesia Stop Time: 07:55 Coding CPT Codes CPT Codes: SHANNON LWAngel INTST NDSC NOS - [id number] ([id number]) P2 - PATIENT W/MILD SYST DISEASE, QX - INSPECTOR MACHINE CUT GLASS SVC W/ MD MED DIRECTION, QK - CLIP BOLTER AND WRAPPER 2-4 CNCRNT ANES PROC
--- NOTE | 2024-04-07 07:58 | W.ANESCHARGE ---
Anesthesia Charges Start Date/Time Anesthesia Start Date: 04/07/24 Anesthesia Start Time: 07:30 Stop Date/Time Anesthesia Stop Date: 04/07/24 Anesthesia Stop Time: 07:55 Coding CPT Codes CPT Codes: SHANNON LWR INTST NDSC NOS - [id number] ([id number]) QK - CUSTOMER ENGINEERING SPECIALIST 2-4 CNCRNT SHANNON PROC, QX - DIRECTIONAL SURVEY DRAFTER SVC W/ MD MED DIRECTION, P2 - PATIENT W/MILD SYST DISEASE
== END 2024-04-07 06:39 | disposition home or self-care (01) ==
LOC: OP CLINIC 06:38
PROVIDERS: PCP Internal Medicine; Visit Provider Internal Medicine
DX: Z12.11 Encounter for screening for malignant neoplasm of colon (principal); D12.4 Benign neoplasm of descending colon; K57.30 Diverticulosis of large intestine without perforation or abscess without bleeding; Z86.0100 Personal history of colon polyps, unspecified
CPT/HCPCS: 00811; 00812; 45380; 88305; J2704

== ENCOUNTER 2024-06-09 14:19 | Outpatient (CLI) | payer OTHER, MEDICAID, SELFPAY | END 2024-06-09 14:20 | disposition home or self-care (01) | LOC: NFLDREF 06-13 22:42 | PROVIDERS: PCP Internal Medicine; Referring Provider Internal Medicine; Visit Provider Internal Medicine | DX: D68.51 Activated protein C resistance (principal); Z86.718 Personal history of other venous thrombosis and embolism; Z79.01 Long term (current) use of anticoagulants | CPT/HCPCS: 85610 ==

== ENCOUNTER 2024-08-24 13:43 | Outpatient (CLI) | payer OTHER, MEDICAID, SELFPAY | END 2024-08-24 13:44 | disposition home or self-care (01) | LOC: NFLDREF 08-26 15:52 | PROVIDERS: PCP Internal Medicine; Referring Provider Internal Medicine; Visit Provider Internal Medicine | DX: Z79.01 Long term (current) use of anticoagulants (principal); D68.51 Activated protein C resistance | CPT/HCPCS: 85610 ==

== ENCOUNTER 2024-10-13 11:35 | Outpatient (CLI) | payer OTHER, SELFPAY | END 2024-10-13 11:36 | disposition home or self-care (01) | LOC: NFLDREF 10-18 15:52 | PROVIDERS: PCP Internal Medicine; Referring Provider Internal Medicine; Visit Provider Internal Medicine | DX: Z79.01 Long term (current) use of anticoagulants (principal); I26.99 Other pulmonary embolism without acute cor pulmonale | CPT/HCPCS: 85610 ==

== ENCOUNTER 2024-11-28 13:29 | Outpatient (CLI) | payer OTHER, SELFPAY | END 2024-11-28 13:30 | disposition home or self-care (01) | LOC: NFLDREF 11-29 18:51 | PROVIDERS: PCP Internal Medicine; Referring Provider Internal Medicine; Visit Provider Internal Medicine | DX: I82.409 Acute embolism and thrombosis of unspecified deep veins of unspecified lower extremity (principal); Z79.01 Long term (current) use of anticoagulants | CPT/HCPCS: 85610 ==

== ENCOUNTER 2024-12-08 14:40 | Outpatient (CLI) | payer OTHER, SELFPAY | END 2024-12-08 14:41 | disposition home or self-care (01) | LOC: NFLDREF 22:58 | PROVIDERS: PCP Internal Medicine; Referring Provider Internal Medicine; Visit Provider Family Medicine | DX: Z79.01 Long term (current) use of anticoagulants (principal); I82.409 Acute embolism and thrombosis of unspecified deep veins of unspecified lower extremity | CPT/HCPCS: 85610 ==

== ENCOUNTER 2024-12-22 14:30 | Outpatient (CLI) | payer OTHER, SELFPAY | END 2024-12-22 14:31 | disposition home or self-care (01) | LOC: NFLDREF 12-24 19:19 | PROVIDERS: PCP Internal Medicine; Referring Provider Internal Medicine; Visit Provider Internal Medicine | DX: I82.409 Acute embolism and thrombosis of unspecified deep veins of unspecified lower extremity (principal); Z79.01 Long term (current) use of anticoagulants | CPT/HCPCS: 85610 ==